=== PATIENT | female | born 1940 | race Caucasian/White ===

== ENCOUNTER 2017-11-18 11:39 | Inpatient (IN) | payer MEDICAID ==
--- NOTE | 2017-11-18 11:57 | ED Physician Chart ---
ED Chief Complaint/HPI - Patient Information Date Seen:: 11/18/17 Time Seen:: 11:40 Chief Complaint:: Fever History of Present Illness:: onset x 3 days of fever, cough, congestion; no report of H/As, S/T, neck pain, C /P, SOB, Abd. Pain, A/N/V/D/C, chills, or urinary s/s Allergies:: Allergies Allergy/AdvReac Type Severity Reaction Status Date / Time No Known Allergies Allergy Verified 11/18/17 11:49 Historian:: Patient, EMS Review:: Nurse's Note Reviewed, EMS run form Reviewed ED Past Medical History - Past Medical History Obtainable: Yes Past Medical History: HTN, DM, CVA/TIA, Dyslipidemia, Arthritis, Other ( Osteoporosis) Family History: Diabetes Melitus, HTN Social History: Non Smoker, No Alcohol, No Drug Use, Surgical History: Cholecystectomy, HIP Psychiatricy History: None Medication: Reviewed Family Medical History - Family Member Mother Ethnicity: Living Status: Hx Family Hypertension: Yes ED Physical Exam - Physical Examination General/Constitutional: Awake, Well-developed, well-nourished, Alert, No distress, GCS 15, Non-toxic appearing, Ambulatory Head: Atraumatic Eyes: Lids, conjuctiva normal, PERRL, EOMI Skin: Nl inspection, No rash, No skin lesions, No ecchymosis, Well hydrated, No lymphadenopathy ENMT: External ears, nose nl, TM canals nl, Nasal exam nl, Lips, teeth, gums nl , Oropharynx nl, Tonsils nl Neck: Nontender, Full ROM w/o pain, No JVD, No nuchal rigidity, No bruit, No mass, No stridor Respiratory: Nl effort/Exclusion Other Respiratory comments:: Lungs: + Rales and Rhonch Cardio Vascular: RRR, No murmur, gallop, rubs, NL S1 S2, Carotid/Femoral/Distal pulses equal bilaterally GI: No tenderness/rebounding/guarding, No organomegaly, No hernia, Normal BS's, Nondistended, No mass/bruits, No McBurney tenderness : No CVA tenderness Extremities: No tenderness or effusion, Full ROM, normal strength in all extremities, No edema, Normal digits & nails Neuro/Psych: Alert/oriented, DTR's symmetric, Normal sensory exam, Normal motor strength, Judgement/insight normal, Mood normal, Normal gait, No focal deficits Other Neuro/Psych comments:: + LUE and LLE decreased motor and sensory functions due to Old CVA Misc: Normal back, No paraspinal tenderness ED Labs/Radiology/EKG Results - Lab Results Comments:: BNP: 1510; Troponin: 0.11; Na+: 134; K+: 3.0 - Radiology Results Comments:: CXR: + RML Infiltrate; CHF; CM - EKG Interpretations EKG Time:: 14:07 Rate & Rhythm: 79; NSR Comments:: LVH; non-specific ST-T changes; mild ST-T Depression ED Septic Shock - . Is Septic Shock (SBP<90, OR Lactate>4 mmol\L) present?: No ED Reassessment (Disposition) - Reassessment Reassessment Condition:: Improved - Diagnosis Diagnosis:: Dx: Myocardial Ischemia; CHF; PNA; Sepsis; Hyponatremia; Leukocytosis; Hypokalemia; Hyperglycemia; Dehydration - Aftercare/Follow up Instructions Aftercare/Follow-Up Instructions:: Counseled pt regarding lab results/diagnosis & need follow up, Counseled pt & family regarding lab results/diagnosis & need follow up - Patient Disposition Discharge/Transfer:: Acute Care w/in this hosp Accepting Physician:: Dr. Cosby Time Called:: 1500 Time Responded:: 15:00 Admitted to:: Telemetry Spoke to:: Dr. Cosby Admitting Medical Physician:: Dr. Cosby Condition at Disposition:: Stable, Improved
[2017-11-18] MEDS ORDERED: Levofloxacin 500mg/100mL 500 MG/100 ML BAG IV ONE ×2 (12:10→12:33)
[2017-11-18 12:17] LABS: BASOPHILE ABSOLUTE 0.1 Th/cumm (0-0.2); HEMATOCRIT 35.4 % (41.0-60); HEMOGLOBIN 12.1 gm/dL (12-16); LYMPHOCYTE ABSOLUTE 0.7 Th/cmm (1.5-3.0); MEAN CELL VOLUME 85.4 fl (81-100); MEAN CORPUSCULAR HEMOGLOBIN 29.2 pg (27.0-31.0); MEAN CORPUSCULAR HGB CONC 34.2 pg (28.0-36.0); MEAN PLATELET VOLUME 9.1 fl; MONOCYTE ABSOLUTE 0.2 Th/cmm (0.3-1.0); NEUTROPHILE ABSOLUTE 10.9 Th/cmm (1.8-8.0); PLATELET COUNT 168 Th/cmm (150-400); RED BLOOD COUNT 4.15 Mil/cmm (3.80-5.20); RED CELL DISTRIBUTION WIDTH 13.3 % (11.5-20.0); WHITE BLOOD COUNT 11.9 Th/cmm (4.8-10.8)
[2017-11-18 12:32] LABS: INR 1.15 (0.5-1.4); PROTHROMBIN TIME (TEST) 12.1 SECONDS (9.5-11.5)
[2017-11-18 12:36] LABS: ALB/GLOB RATIO 1.2 (1.0-1.8); ALBUMIN 3.9 gm/dL (3.7-5.3); ALKALINE PHOSPHATASE 76 U/L (34-104); BILIRUBIN,TOTAL 0.6 mg/dL (0.3-1.0); BUN - UREA NITROGEN 32 mg/dL (7-25); CHLORIDE 99 mEq/L (98-107); CHOLESTEROL 236 mg/dL (<200); CREATININE - SERUM 1.9 mg/dL (0.6-1.2); CREATININE KINASE 30 U/L (30-223); GLUCOSE 199 mg/dL (70-105); HDL -HIGH DENSITY LIPOPROTEIN 50 mg/dL (23-92); SGOT 22 U/L (13-39); SGPT/ALT 12 U/L (7-52); SODIUM SERUM 134 mEq/L (136-145); TOTAL PROTEIN,SERUM 7.1 gm/dL (6.0-8.3); TRIGLYCERIDES 128 mg/dL (<150)
[2017-11-18 13:54] LABS: URINE MICROSCOPIC INDICATED? YES; URINE SOURCE MIDSTREAM
[2017-11-18 13:56] LABS: URINE BILIRUBIN NEGATIVE (NEGATIVE); URINE BLOOD TRACE (NEGATIVE); URINE GLUCOSE (UA) NEGATIVE (NEGATIVE); URINE KETONE 15 mg/dL (NEGATIVE); URINE LEUKOCYTE ESTERASE NEGATIVE (NEGATIVE); URINE NITRATE NEGATIVE (NEGATIVE); URINE PROTEIN >=300 mg/dL (NEGATIVE); URINE UROBILINOGEN 0.2 E.U./dL (0.2 - 1.0)
[2017-11-18 13:58] LABS: URINE CLARITY CLEAR (CLEAR); URINE COLOR YELLOW
[2017-11-18 14:00] LABS: URINE BACTERIA FEW /hpf (NONE SEEN); URINE EPITHELIAL CELLS FEW /lpf (FEW); URINE WBC 0-2 /hpf (0-5)
[2017-11-18] MEDS ORDERED: Potassium Chloride 20 mEq ER Tab PO ONE (14:45)
[2017-11-18] MEDS ORDERED: Potassium Chloride Elixir 20 mEq /15 mL UDC ONE (15:17)
[2017-11-18] MEDS ORDERED: Potassium Chloride Elixir 20 mEq /15 mL UDC PO ONE (15:18)
[2017-11-18 15:45] LABS: A1C % 7.4 % (4.0-6.0)
[2017-11-18] MEDS: cefTRIAXone 1 GM in Sodium Chloride 0.9% 50 ML IV SCH (17:26)
[2017-11-18] MEDS: Azithromycin 500 MG in Sodium Chloride 0.9% 250 ML IV SCH (18:31)
[2017-11-18] MEDS: D5-0.45NS w/20 mEq KCL 1,000 ML IV SCH (18:31)
[2017-11-18] MEDS ORDERED: Pneumococcal Vaccine 0.5 mL Vial IM ONE (19:26)
[2017-11-18] MEDS: Albuterol/Ipratropium Neb 3 ML AERS HHN SCH (19:40)
[2017-11-18 20:37] LABS: INF B SCREEN NEG FOR INF B
[2017-11-18 20:39] LABS: INF A SCREEN POS FOR INF A
--- NOTE | 2017-11-18 22:53 | History & Physical ---
ADMIT DATE: 11/18/2017 CHIEF COMPLAINT: Cough, shortness of breath for a few days' duration. HISTORY OF PRESENT ILLNESS: The patient is a 77-year-old female with long history of diabetes mellitus, hypertension, and chronic kidney disease; presented to the Emergency Room with cough, congestion for a few days' duration. She had workup significant for pneumonia, influenza A and B was ordered, came back positive. The patient started on Tamiflu. No nausea, no vomiting. PAST MEDICAL HISTORY: Significant for diabetes mellitus, hypertension, and chronic kidney disease. PAST SURGICAL HISTORY: No recent surgery. ALLERGIES: None. MEDICATIONS: Follow admission reconciliation. SOCIAL HISTORY: No smoking, no alcohol, no drug. FAMILY HISTORY: Noncontributory. REVIEW OF SYSTEMS: IMMUNOSYSTEM: No history of chronic renal disorder. CARDIOVASCULAR SYSTEM: No coronary artery disease. ENDOCRINE SYSTEM: She has diabetes mellitus. GASTROINTESTINAL SYSTEM: No upper or lower GI bleed. NEUROLOGICAL SYSTEM: No seizure disorder. SKELETOMUSCULAR SYSTEM: No muscular dystrophy. HEMATOLOGIC SYSTEM: No tendencies. RESPIRATORY SYSTEM: She has cough, congestion. PHYSICAL EXAMINATION: GENERAL: She is awake, alert, oriented, not in distress. VITAL SIGNS: Temperature 96.9, heart rate 67, and blood pressure 157/50. HEENT: Normocephalic. Pupils reactive and equal to light and accommodation. Sclerae clear. NECK: Supple. Negative for lymphadenopathy, JVD, or bruit. CHEST: Entry of air bilateral diminished. No wheeze, rales, or rhonchi. HEART: S1, S2 normal. ABDOMEN: Soft, bowel sounds positive. EXTREMITIES: No edema. NEUROLOGIC: She is awake, alert, oriented. LABORATORY DATA: White blood 7.9, hemoglobin 12.1, hematocrit 35.4, and platelet 168. PT 12.1, INR 1.50. Sodium 134, potassium 3.0, BUN 32, creatinine 0.9, and glucose 199. Troponin 0.11. BNP 1510. Influenza A is positive. ASSESSMENT: 1. Pneumonia. 2. Influenza A respiratory infection. 3. Diabetes mellitus. 4. Chronic kidney disease. PLAN: The patient was admitted to the hospital under Dr. Cosby's service, started on IV fluid, IV antibiotic. Tamiflu 75 mg twice a day, breathing treatment with DuoNeb every [address] Aren Day, infectious consult on the case. CBC and CMP for tomorrow. Tylenol 650 q. 4 hours for temperature more than 100. The patient is a full code. JOB# [id number]
[2017-11-19] MEDS: Albuterol/Ipratropium Neb 3 ML AERS HHN SCH ×4 (01:42→19:58)
[2017-11-19 05:01] LABS: % BASOPHILS 0.1 % (0.0-2.0); % LYMPHOCYTES 14.7 % (20.0-50.0); % MONOCYTES 4.1 % (2.0-10.0); % NEUTROPHILS 81.1 % (40.0-80.0); HEMATOCRIT 32.1 % (41.0-60); LYMPHOCYTE ABSOLUTE 1.5 Th/cmm (1.5-3.0); MEAN CELL VOLUME 86.1 fl (81-100); MEAN CORPUSCULAR HEMOGLOBIN 29.5 pg (27.0-31.0); MEAN CORPUSCULAR HGB CONC 34.3 pg (28.0-36.0); MEAN PLATELET VOLUME 9.3 fl; MONOCYTE ABSOLUTE 0.4 Th/cmm (0.3-1.0); NEUTROPHILE ABSOLUTE 8.6 Th/cmm (1.8-8.0); RED BLOOD COUNT 3.73 Mil/cmm (3.80-5.20); RED CELL DISTRIBUTION WIDTH 13.4 % (11.5-20.0); WHITE BLOOD COUNT 10.5 Th/cmm (4.8-10.8)
[2017-11-19 05:06] LABS: PLATELET COUNT 130 Th/cmm (150-400)
[2017-11-19 05:14] LABS: ALB/GLOB RATIO 1.2 (1.0-1.8); ALBUMIN 3.2 gm/dL (3.7-5.3); ALKALINE PHOSPHATASE 59 U/L (34-104); BILIRUBIN,TOTAL 0.3 mg/dL (0.3-1.0); BUN - UREA NITROGEN 39 mg/dL (7-25); CHLORIDE 104 mEq/L (98-107); CREATININE - SERUM 2.4 mg/dL (0.6-1.2); GLUCOSE 249 mg/dL (70-105); SGOT 19 U/L (13-39); SGPT/ALT 11 U/L (7-52); SODIUM SERUM 134 mEq/L (136-145); TOTAL PROTEIN,SERUM 5.9 gm/dL (6.0-8.3)
[2017-11-19] MEDS: INSULIN ASPART SLIDING SCALE 100 UNITS/ML UNIT SUBQ SCH ×4 (07:34→20:22)
[2017-11-19] MEDS: Aspirin 81mg Chewable Tab PO SCH (09:18)
--- NOTE | 2017-11-19 09:43 | Diagnostic Imaging Report ---
Portable chest x-ray HISTORY: Pain The heart appears to be somewhat enlarged. No focal pulmonary processes. Surgical clips project over the right upper chest. IMPRESSION: 1. No focal pulmonary processes 2. Somewhat generous overall heart size.
[2017-11-19] MEDS ORDERED: Probiotic Screen MC PRN (10:30)
[2017-11-19] MEDS: cefTRIAXone 1 GM in Sodium Chloride 0.9% 50 ML IV SCH (17:10)
[2017-11-19] MEDS: Azithromycin 500 MG in Sodium Chloride 0.9% 250 ML IV SCH (17:10)
--- NOTE | 2017-11-19 17:20 | Internal Medicine Prog Note ---
Internal Medicine Subjective - Subjective Service Date: 11/19/17 Patient seen and examined:: with staff (SHE FEELS BETTER) Patient is:: awake, in bed, congested Patient Complaints of:: congestion Per staff patient has:: no adverse event Internal Medicine Objective - Results Result Diagrams: 11/19/17 04:50 11/19/17 04:50 Recent Labs: Laboratory Last Values WBC 10.5 Th/cmm (4.8-10.8) 11/19/17 04:50 RBC 3.73 Mil/cmm (3.80-5.20) L 11/19/17 04:50 Hgb 11.0 gm/dL (12-16) L 11/19/17 04:50 Hct 32.1 % (41.0-60) L 11/19/17 04:50 MCV 86.1 fl (81-100) 11/19/17 04:50 MCH 29.5 pg (27.0-31.0) 11/19/17 04:50 MCHC Differential 34.3 pg (28.0-36.0) 11/19/17 04:50 RDW 13.4 % (11.5-20.0) 11/19/17 04:50 Plt Count 130 Th/cmm (150-400) L D 11/19/17 04:50 MPV 9.3 fl 11/19/17 04:50 Neutrophils % 81.1 % (40.0-80.0) H 11/19/17 04:50 Lymphocytes % 14.7 % (20.0-50.0) L 11/19/17 04:50 Monocytes % 4.1 % (2.0-10.0) 11/19/17 04:50 Eosinophils % 0.0 % (0.0-5.0) 11/19/17 04:50 Basophils % 0.1 % (0.0-2.0) 11/19/17 04:50 PT 12.1 SECONDS (9.5-11.5) H 11/18/17 12:04 INR 1.15 (0.5-1.4) 11/18/17 12:04 PTT (Actin FS) 26.7 SECONDS (26.0-38.0) 11/18/17 12:04 Sodium 134 mEq/L (136-145) L 11/19/17 04:50 Potassium 4.0 mEq/L (3.5-5.1) 11/19/17 04:50 Chloride 104 mEq/L (98-107) 11/19/17 04:50 Carbon Dioxide 22.0 mEq/L (21.0-31.0) 11/19/17 04:50 Anion Gap 12.0 (7.0-16.0) 11/19/17 04:50 BUN 39 mg/dL (7-25) H 11/19/17 04:50 Creatinine 2.4 mg/dL (0.6-1.2) H 11/19/17 04:50 Est GFR ( Amer) TNP 11/19/17 04:50 Est GFR (Non-Af Amer) TNP 11/19/17 04:50 BUN/Creatinine Ratio 16.3 11/19/17 04:50 Glucose 249 mg/dL (70-105) H 11/19/17 04:50 POC Glucose 228 MG/DL (70 - 105) H 11/19/17 11:50 Hemoglobin A1c % 7.4 % (4.0-6.0) H 11/18/17 12:04 Whole Bld Lactic Acid 1.04 mmol/L (0.60-1.99) 11/18/17 12:04 Calcium 8.0 mg/dL (8.6-10.3) L 11/19/17 04:50 Total Bilirubin 0.3 mg/dL (0.3-1.0) 11/19/17 04:50 AST 19 U/L (13-39) 11/19/17 04:50 ALT 11 U/L (7-52) 11/19/17 04:50 Alkaline Phosphatase 59 U/L (34-104) 11/19/17 04:50 Creatine Kinase 30 U/L (30-223) 11/18/17 12:04 Troponin I 0.15 ng/mL (0.01-0.05) H* D 11/18/17 23:10 B-Natriuretic Peptide 1510.0 pg/mL (5.0-100.0) H 11/18/17 12:04 Total Protein 5.9 gm/dL (6.0-8.3) L 11/19/17 04:50 Albumin 3.2 gm/dL (3.7-5.3) L 11/19/17 04:50 Globulin 2.7 gm/dL 11/19/17 04:50 Albumin/Globulin Ratio 1.2 (1.0-1.8) 11/19/17 04:50 Triglycerides 128 mg/dL (<150) 11/18/17 12:04 Cholesterol 236 mg/dL (<200) H 11/18/17 12:04 LDL Cholesterol Direct 160 mg/dL (75-193) 11/18/17 12:04 HDL Cholesterol 50 mg/dL (23-92) 11/18/17 12:04 Urine Source MIDSTREAM 11/18/17 13:40 Urine Color YELLOW 11/18/17 13:40 Urine Clarity CLEAR (CLEAR) 11/18/17 13:40 Urine pH 7.0 (4.6 - 8.0) 11/18/17 13:40 Ur Specific [place] 1.020 (1.005-1.030) 11/18/17 13:40 Urine Protein >=300 mg/dL (NEGATIVE) 11/18/17 13:40 Urine Glucose (UA) NEGATIVE mg/dL (NEGATIVE) 11/18/17 13:40 Urine Ketones 15 mg/dL (NEGATIVE) H 11/18/17 13:40 Urine Blood TRACE (NEGATIVE) 11/18/17 13:40 Urine Nitrate NEGATIVE (NEGATIVE) 11/18/17 13:40 Urine Bilirubin NEGATIVE (NEGATIVE) 11/18/17 13:40 Urine Urobilinogen 0.2 E.U./dL (0.2 - 1.0) 11/18/17 13:40 Ur Leukocyte Esterase NEGATIVE (NEGATIVE) 11/18/17 13:40 Urine RBC 2-5 /hpf (0-5) 11/18/17 13:40 Urine WBC 0-2 /hpf (0-5) 11/18/17 13:40 Ur Epithelial Cells FEW /lpf (FEW) 11/18/17 13:40 Urine Bacteria FEW /hpf (NONE SEEN) 11/18/17 13:40 Urine Mucus FEW /lpf (FEW) 11/18/17 13:40 Influenza A (Rapid) POS FOR INF A H 11/18/17 19:00 Influenza B (Rapid) NEG FOR INF B 11/18/17 19:00 - Physical Exam Vitals and I&O: Vital Signs Temp 98.4 F 11/19/17 08:00 Pulse 72 11/19/17 12:09 Resp 16 11/19/17 12:09 BP 157/46 11/19/17 09:16 Pulse Ox 96 11/19/17 12:09 Intake & Output 11/18/17 11/19/17 11/19/17 18:59 06:59 18:59 Intake Total 120 200 120 Output Total 0 0 Balance 120 200 120 Weight (lbs) 44.452 kg 44.452 kg 44.452 kg Intake: Oral 120 200 120 Tube Feeding 0 TPN/PPN 0 Blood Product 0 Lipid 0 Albumin 0 Other 0 Output: Gastric Drainage 0 Urine 0 0 Stool 0 Urine/Stool Mix 0 Emesis 0 Hemodialysis 0 Other 0 Other: # Voids 1 1 # Bowel Movements 0 Active Medications: Current Medications Acetaminophen (Tylenol) 650 mg PO Q4H PRN PRN Reason: Fever > 100 Stop: 01/17/18 16:03 Albuterol/Ipratropium (Duoneb Neb) 3 ml HHN Q6HRT [facility] Stop: 01/17/18 16:03 Last Admin: 11/19/17 12:07 Dose: 3 ml Amlodipine Besylate (Norvasc) 5 mg PO DAILY [facility] Stop: 01/18/18 08:59 Last Admin: 11/19/17 09:16 Dose: 5 mg Aspirin (Aspirin Chewable) 81 mg PO DAILY [facility] Stop: 01/18/18 08:59 Last Admin: 11/19/17 09:18 Dose: 81 mg Azithromycin 500 mg/ Sodium (Chloride) 250 mls @ 250 mls/hr IV Q24HR [facility] Stop: 01/17/18 16:03 Last Admin: 11/18/17 18:31 Dose: 250 mls/hr Ceftriaxone Sodium 1 gm/ (Sodium Chloride) 50 mls @ 100 mls/hr IV Q24HR [facility] Stop: 01/17/18 16:03 Last Admin: 11/18/17 17:26 Dose: 100 mls/hr Potassium Chloride/Dextrose/Sod Cl (D5-0.45ns W/20 Meq Kcl) 1,000 mls @ 75 mls/ hr IV .[id number] [facility] Stop: 01/17/18 16:03 Last Admin: 11/18/17 18:31 Dose: 75 mls/hr Insulin Aspart (Novolog Insulin Sliding Scale) 0 units SUBQ ACHS [facility] PRN Reason: Protocol Stop: 01/18/18 07:29 Last Admin: 11/19/17 16:51 Dose: Not Given Lactobacillus Rhamnosus (Culturelle 15b) 1 each PO DAILY [facility] Stop: 01/19/18 08:59 Metformin HCl (Glucophage) 500 mg PO DAILY [facility] Stop: 01/18/18 08:59 Last Admin: 11/19/17 09:18 Dose: 500 mg Miscellaneous (Probiotic Screen) 1 ea [facility] PRN PRN PRN Reason: PROTOCOL Stop: 01/18/18 10:29 Oseltamivir Phosphate (Tamiflu) 75 mg PO BID [facility] Stop: 01/17/18 22:14 Last Admin: 11/19/17 09:37 Dose: Not Given General: congested HEENT: NC/AT, PERRLA, EOMI, anicteric sclerae, throat clear Neck: Supple, No JVD, No thyromegaly Lungs: congested Cardiovascular: RRR, Normal S1, Normal S2, without murmur Abdomen: soft, non-tender, non-distended Extremities: clear Neurological: no change Internal Medicine Assmt/Plan - Assessment Assessment: 1.PNEUMONIA. 2.INFLUANZA A RESPIRATORY INFECTION. 3.DM. 4.CKD. - Plan Plan: CONTINUE ON CURRENT MEDICATION AND DIET.
[2017-11-19] MEDS: D5-0.45NS w/20 mEq KCL 1,000 ML IV SCH (21:08)
[2017-11-20] MEDS: Albuterol/Ipratropium Neb 3 ML AERS HHN SCH ×4 (01:24→18:55)
[2017-11-20] MEDS ORDERED: Albuterol/Ipratropium Neb 3 ML AERS HHN ONE (06:31)
[2017-11-20] MEDS: INSULIN ASPART SLIDING SCALE 100 UNITS/ML UNIT SUBQ SCH ×4 (06:32→22:04)
[2017-11-20] MEDS: Lactobacillus Rhamnosus GG 15 Billion CFU CAP.SPRINK PO SCH (09:21)
[2017-11-20] MEDS: Aspirin 81mg Chewable Tab PO SCH (09:21)
[2017-11-20] MEDS: D5-0.45NS w/20 mEq KCL 1,000 ML IV SCH ×2 (09:35→22:04)
--- NOTE | 2017-11-20 13:45 | Consultation ---
DATE OF CONSULTATION: 11/18/2017 HISTORY OF PRESENT ILLNESS: This is a 77-year-old female who was brought to the Emergency Room with complaint of cough, congestion, fever, sore throat, muscle aches. The patient's influenza swab was positive for influenza A, was put on isolation. Infectious consultation was called for further treatment. PAST MEDICAL HISTORY: Osteoporosis, CVA, type 2 diabetes, and essential hypertension. ALLERGIES: No allergies. SOCIAL HISTORY: Nonsmoker. REVIEW OF SYSTEMS: A 14-point review of system negative except above. PHYSICAL EXAMINATION: GENERAL: The patient is an elderly female. VITAL SIGNS: Temperature is 96.5, pulse 75, respirations 18, and blood pressure 157/50. HEENT: Mild pallor. No icterus or plaque. NECK: Supple. LUNGS: Breath sounds bilateral. CARDIOVASCULAR: S1. ABDOMEN: Soft. Bowel sounds present. LYMPHATICS: No thyromegaly, no cervical lymph nodes. DIAGNOSTIC DATA: Chest x-ray is reviewed and shows clear lung sanchez. Influenza A serology positive. DIAGNOSES: Bronchitis, the patient started on Rocephin, azithromycin, Tamiflu combination, isolation. Diabetes, metformin. Hypertension, stable. Coronary protection, aspirin. Rest of the care as ordered in CPOE. Thank you, Dr. Cosby, for this consultation. JOB# [id number]
[2017-11-20] MEDS: cefTRIAXone 1 GM in Sodium Chloride 0.9% 50 ML IV SCH (15:10)
[2017-11-20] MEDS: Azithromycin 500 MG in Sodium Chloride 0.9% 250 ML IV SCH (15:44)
--- NOTE | 2017-11-20 19:44 | Infectious Disease Prog Note ---
Infectious Disease Subjective - Review of Systems Service Date: 12/20/17 Subjective: cc infl a hpi- pt on droplet ros no fevr o/e vss chets vesicular abd soft ext pulse Infectious Disease Objective - Results Result Diagrams: 11/19/17 04:50 11/19/17 04:50 Recent Labs: Laboratory Last Values WBC 10.5 Th/cmm (4.8-10.8) 11/19/17 04:50 RBC 3.73 Mil/cmm (3.80-5.20) L 11/19/17 04:50 Hgb 11.0 gm/dL (12-16) L 11/19/17 04:50 Hct 32.1 % (41.0-60) L 11/19/17 04:50 MCV 86.1 fl (81-100) 11/19/17 04:50 MCH 29.5 pg (27.0-31.0) 11/19/17 04:50 MCHC Differential 34.3 pg (28.0-36.0) 11/19/17 04:50 RDW 13.4 % (11.5-20.0) 11/19/17 04:50 Plt Count 130 Th/cmm (150-400) L D 11/19/17 04:50 MPV 9.3 fl 11/19/17 04:50 Neutrophils % 81.1 % (40.0-80.0) H 11/19/17 04:50 Lymphocytes % 14.7 % (20.0-50.0) L 11/19/17 04:50 Monocytes % 4.1 % (2.0-10.0) 11/19/17 04:50 Eosinophils % 0.0 % (0.0-5.0) 11/19/17 04:50 Basophils % 0.1 % (0.0-2.0) 11/19/17 04:50 PT 12.1 SECONDS (9.5-11.5) H 11/18/17 12:04 INR 1.15 (0.5-1.4) 11/18/17 12:04 PTT (Actin FS) 26.7 SECONDS (26.0-38.0) 11/18/17 12:04 Sodium 134 mEq/L (136-145) L 11/19/17 04:50 Potassium 4.0 mEq/L (3.5-5.1) 11/19/17 04:50 Chloride 104 mEq/L (98-107) 11/19/17 04:50 Carbon Dioxide 22.0 mEq/L (21.0-31.0) 11/19/17 04:50 Anion Gap 12.0 (7.0-16.0) 11/19/17 04:50 BUN 39 mg/dL (7-25) H 11/19/17 04:50 Creatinine 2.4 mg/dL (0.6-1.2) H 11/19/17 04:50 Est GFR ( Amer) TNP 11/19/17 04:50 Est GFR (Non-Af Amer) TNP 11/19/17 04:50 BUN/Creatinine Ratio 16.3 11/19/17 04:50 Glucose 249 mg/dL (70-105) H 11/19/17 04:50 POC Glucose 162 MG/DL (70 - 105) H 11/20/17 16:49 Hemoglobin A1c % 7.4 % (4.0-6.0) H 11/18/17 12:04 Whole Bld Lactic Acid 1.04 mmol/L (0.60-1.99) 11/18/17 12:04 Calcium 8.0 mg/dL (8.6-10.3) L 11/19/17 04:50 Total Bilirubin 0.3 mg/dL (0.3-1.0) 11/19/17 04:50 AST 19 U/L (13-39) 11/19/17 04:50 ALT 11 U/L (7-52) 11/19/17 04:50 Alkaline Phosphatase 59 U/L (34-104) 11/19/17 04:50 Creatine Kinase 30 U/L (30-223) 11/18/17 12:04 Troponin I 0.15 ng/mL (0.01-0.05) H* D 11/18/17 23:10 B-Natriuretic Peptide 1510.0 pg/mL (5.0-100.0) H 11/18/17 12:04 Total Protein 5.9 gm/dL (6.0-8.3) L 11/19/17 04:50 Albumin 3.2 gm/dL (3.7-5.3) L 11/19/17 04:50 Globulin 2.7 gm/dL 11/19/17 04:50 Albumin/Globulin Ratio 1.2 (1.0-1.8) 11/19/17 04:50 Triglycerides 128 mg/dL (<150) 11/18/17 12:04 Cholesterol 236 mg/dL (<200) H 11/18/17 12:04 LDL Cholesterol Direct 160 mg/dL (75-193) 11/18/17 12:04 HDL Cholesterol 50 mg/dL (23-92) 11/18/17 12:04 Urine Source MIDSTREAM 11/18/17 13:40 Urine Color YELLOW 11/18/17 13:40 Urine Clarity CLEAR (CLEAR) 11/18/17 13:40 Urine pH 7.0 (4.6 - 8.0) 11/18/17 13:40 Ur Specific [place] 1.020 (1.005-1.030) 11/18/17 13:40 Urine Protein >=300 mg/dL (NEGATIVE) 11/18/17 13:40 Urine Glucose (UA) NEGATIVE mg/dL (NEGATIVE) 11/18/17 13:40 Urine Ketones 15 mg/dL (NEGATIVE) H 11/18/17 13:40 Urine Blood TRACE (NEGATIVE) 11/18/17 13:40 Urine Nitrate NEGATIVE (NEGATIVE) 11/18/17 13:40 Urine Bilirubin NEGATIVE (NEGATIVE) 11/18/17 13:40 Urine Urobilinogen 0.2 E.U./dL (0.2 - 1.0) 11/18/17 13:40 Ur Leukocyte Esterase NEGATIVE (NEGATIVE) 11/18/17 13:40 Urine RBC 2-5 /hpf (0-5) 11/18/17 13:40 Urine WBC 0-2 /hpf (0-5) 11/18/17 13:40 Ur Epithelial Cells FEW /lpf (FEW) 11/18/17 13:40 Urine Bacteria FEW /hpf (NONE SEEN) 11/18/17 13:40 Urine Mucus FEW /lpf (FEW) 11/18/17 13:40 Influenza A (Rapid) POS FOR INF A H 11/18/17 19:00 Influenza B (Rapid) NEG FOR INF B 11/18/17 19:00 - Physical Exam Vitals and I&O: Vital Signs Temp 97.5 F 11/20/17 16:00 Pulse 76 11/20/17 16:00 Resp 18 11/20/17 16:00 BP 113/54 11/20/17 16:00 Pulse Ox 95 11/20/17 16:00 Intake & Output 11/20/17 11/20/17 11/21/17 06:59 18:59 06:59 Intake Total 1233.75 Balance 1233.75 Weight (lbs) 52.798 kg Intake: Intake, IV Amount 1233.75 Azithromycin 500 mg In 250 Sodium Chloride 0.9% 250 ml @ 250 mls/hr IV Q24HR [facility] Rx#:[id number] D5-0.45NS w/20 mEq KCL 1, 933.75 000 ml @ 75 mls/hr IV . [id number] [facility] Rx#:[id number] cefTRIAXone 1 gm In 50 Sodium Chloride 0.9% 50 ml @ 100 mls/hr IV Q24HR [facility] Rx#:[id number] Other: # Voids 2 Active Medications: Current Medications Acetaminophen (Tylenol) 650 mg PO Q4H PRN PRN Reason: Fever > 100 Stop: 01/17/18 16:03 Albuterol Sulfate (Albuterol 2.5mg/3ml Neb Ud) 2.5 mg HHN Q6HRT [facility] Stop: 11/22/17 06:59 Albuterol/Ipratropium (Duoneb Neb) 3 ml HHN Q6HRT [facility] Stop: 01/17/18 16:03 Last Admin: 11/20/17 18:55 Dose: 3 ml Amlodipine Besylate (Norvasc) 5 mg PO DAILY [facility] Stop: 01/18/18 08:59 Last Admin: 11/20/17 09:21 Dose: 5 mg Aspirin (Aspirin Chewable) 81 mg PO DAILY [facility] Stop: 01/18/18 08:59 Last Admin: 11/20/17 09:21 Dose: 81 mg Azithromycin 500 mg/ Sodium (Chloride) 250 mls @ 250 mls/hr IV Q24HR [facility] Stop: 01/17/18 16:03 Last Infusion: 11/20/17 16:45 Dose: Infused Ceftriaxone Sodium 1 gm/ (Sodium Chloride) 50 mls @ 100 mls/hr IV Q24HR [facility] Stop: 01/17/18 16:03 Last Infusion: 11/20/17 15:42 Dose: Infused Potassium Chloride/Dextrose/Sod Cl (D5-0.45ns W/20 Meq Kcl) 1,000 mls @ 75 mls/ hr IV .[id number] [facility] Stop: 01/17/18 16:03 Last Admin: 11/20/17 09:35 Dose: 75 mls/hr Insulin Aspart (Novolog Insulin Sliding Scale) 0 units SUBQ ACHS [facility] PRN Reason: Protocol Stop: 01/18/18 07:29 Last Admin: 11/20/17 18:01 Dose: 3 units Ipratropium [place] (Atrovent Neb 0.5mg/2.5ml) 0.5 mg HHN Q6HRT [facility] Stop: 11/22/17 06:59 Lactobacillus Rhamnosus (Culturelle 15b) 1 each PO DAILY [facility] Stop: 01/19/18 08:59 Last Admin: 11/20/17 09:21 Dose: 1 each Metformin HCl (Glucophage) 500 mg PO DAILY [facility] Stop: 01/18/18 08:59 Last Admin: 11/20/17 09:21 Dose: 500 mg Miscellaneous (Probiotic Screen) 1 ea [facility] PRN PRN PRN Reason: PROTOCOL Stop: 01/18/18 10:29 Oseltamivir Phosphate (Tamiflu) 75 mg PO BID [facility] Stop: 01/17/18 22:14 Last Admin: 11/20/17 17:28 Dose: Not Given Infectious Disease Assmt/Plan - Problem List Patient Problems: All Active Problems COUGH WITH FEVER AND WEAKNESS (Acute) Nutritional Asmnt/Malnutr-PDOC - Dietary Evaluation Malnutrition Findings (Please click <Entered> for more info): Nutritional Asmnt/Malnutrition Start: 11/20/17 12: 22 Text: Status: Complete Freq: Document 11/20/17 12:22 LCHENG (Rec: 11/20/17 12:40 LCHENG [id number]) Nutritional Asmnt/Malnutrition Patient General Information Nutritional Screening High Risk Consult Diagnosis PNA Pertinent Medical Hx/Surgical Hx DM, HTN, CKD Subjective Information Consult received for high BG. Pt seen lying in bed at the time of visit, family at bedside. Armenian speaking. Spoke with RN, pt eats ok, no complain of chewing/swallowing difficulty. Per notes, PO itnake 25-75%, avg 40%, meeting about 50% of calorie needs and 60% of protein needs . Current Diet Order/ Nutrition Support CCHO 60gm Pertinent Medications novolog, culturelle, glucophage, D5-0.45ns w 20 meq kcl Pertinent Labs 11/19 Na 134, K 4.0, Cl 104, BUN 39, Cr 2.4, Glucose 249, Ca 8.0, Alb 3.2 11/19-11/20 POC 166-254 Nutritional Hx/Data Height 1.47 m Height (Calculated Centimeters) 147.3 Current Weight (lbs) 52.798 kg Weight (Calculated Kilograms) 52.8 Weight (Calculated Grams) 74014.2 Roy Body Weight 96 % Roy Body Weight 121 Body Mass Index (BMI) 24.3 Weight Status Approriate GI Symptoms GI Symptoms None Last BM none Difficult in: None Skin Integrity/Comment: intact Estimated Nutritional Goals BEE in Kcals: Using Current wt Calories/Kcals/Kg 25-30 Kcals Calculated 2903-5588 Protein: Using Current wt Protein g/k Protein Calculated 53g moniror renal labs Fluid: ml [id number] Nutritional Problem 2. Problem Problem inadequate food intake Etiology possible poor appetite and weakness Signs/Symptoms: PO intake 40% 1. Problem Problem altered nutrition related lab values Etiology hx of DM and CKD Signs/Symptoms: BUN 39, Cr 2.4, Glucose 249, POC 166-254 Malnutrition Alert Protein-Calorie Malnutrition N/A Is there a minimum of two criteria No selected? Query Text:Check all the applicable criteria. A minimum of two criteria are recommended for diagnosis of either severe or non-severe malnutrition. Intervention/Recommendation Comments 1. Continue current diet as ordered. Monitor renal labs d/ t CKD 2. Monitor PO intake, wt, labs and skin integrity. If PO intake continue low, will consider nutrition supplements 3. F/U as high risk in 2-3 days, 3-11/23 Expected Outcomes/Goals Expected Outcomes/Goals 1. PO intake to improve, to meet at least 75% of nutritional needs. 2. Wt stability, skin to remain intact, labs to improve .
--- NOTE | 2017-11-20 23:31 | Internal Medicine Prog Note ---
Internal Medicine Subjective - Subjective Service Date: 11/20/17 Patient seen and examined:: with staff (SHE FEELS BETTER,LESS SOB.) Patient is:: awake, in bed, congested Patient Complaints of:: congestion Per staff patient has:: no adverse event Internal Medicine Objective - Results Result Diagrams: 11/19/17 04:50 11/19/17 04:50 Recent Labs: Laboratory Last Values WBC 10.5 Th/cmm (4.8-10.8) 11/19/17 04:50 RBC 3.73 Mil/cmm (3.80-5.20) L 11/19/17 04:50 Hgb 11.0 gm/dL (12-16) L 11/19/17 04:50 Hct 32.1 % (41.0-60) L 11/19/17 04:50 MCV 86.1 fl (81-100) 11/19/17 04:50 MCH 29.5 pg (27.0-31.0) 11/19/17 04:50 MCHC Differential 34.3 pg (28.0-36.0) 11/19/17 04:50 RDW 13.4 % (11.5-20.0) 11/19/17 04:50 Plt Count 130 Th/cmm (150-400) L D 11/19/17 04:50 MPV 9.3 fl 11/19/17 04:50 Neutrophils % 81.1 % (40.0-80.0) H 11/19/17 04:50 Lymphocytes % 14.7 % (20.0-50.0) L 11/19/17 04:50 Monocytes % 4.1 % (2.0-10.0) 11/19/17 04:50 Eosinophils % 0.0 % (0.0-5.0) 11/19/17 04:50 Basophils % 0.1 % (0.0-2.0) 11/19/17 04:50 PT 12.1 SECONDS (9.5-11.5) H 11/18/17 12:04 INR 1.15 (0.5-1.4) 11/18/17 12:04 PTT (Actin FS) 26.7 SECONDS (26.0-38.0) 11/18/17 12:04 Sodium 134 mEq/L (136-145) L 11/19/17 04:50 Potassium 4.0 mEq/L (3.5-5.1) 11/19/17 04:50 Chloride 104 mEq/L (98-107) 11/19/17 04:50 Carbon Dioxide 22.0 mEq/L (21.0-31.0) 11/19/17 04:50 Anion Gap 12.0 (7.0-16.0) 11/19/17 04:50 BUN 39 mg/dL (7-25) H 11/19/17 04:50 Creatinine 2.4 mg/dL (0.6-1.2) H 11/19/17 04:50 Est GFR ( Amer) TNP 11/19/17 04:50 Est GFR (Non-Af Amer) TNP 11/19/17 04:50 BUN/Creatinine Ratio 16.3 11/19/17 04:50 Glucose 249 mg/dL (70-105) H 11/19/17 04:50 POC Glucose 153 MG/DL (70 - 105) H 11/20/17 20:36 Hemoglobin A1c % 7.4 % (4.0-6.0) H 11/18/17 12:04 Whole Bld Lactic Acid 1.04 mmol/L (0.60-1.99) 11/18/17 12:04 Calcium 8.0 mg/dL (8.6-10.3) L 11/19/17 04:50 Total Bilirubin 0.3 mg/dL (0.3-1.0) 11/19/17 04:50 AST 19 U/L (13-39) 11/19/17 04:50 ALT 11 U/L (7-52) 11/19/17 04:50 Alkaline Phosphatase 59 U/L (34-104) 11/19/17 04:50 Creatine Kinase 30 U/L (30-223) 11/18/17 12:04 Troponin I 0.15 ng/mL (0.01-0.05) H* D 11/18/17 23:10 B-Natriuretic Peptide 1510.0 pg/mL (5.0-100.0) H 11/18/17 12:04 Total Protein 5.9 gm/dL (6.0-8.3) L 11/19/17 04:50 Albumin 3.2 gm/dL (3.7-5.3) L 11/19/17 04:50 Globulin 2.7 gm/dL 11/19/17 04:50 Albumin/Globulin Ratio 1.2 (1.0-1.8) 11/19/17 04:50 Triglycerides 128 mg/dL (<150) 11/18/17 12:04 Cholesterol 236 mg/dL (<200) H 11/18/17 12:04 LDL Cholesterol Direct 160 mg/dL (75-193) 11/18/17 12:04 HDL Cholesterol 50 mg/dL (23-92) 11/18/17 12:04 Urine Source MIDSTREAM 11/18/17 13:40 Urine Color YELLOW 11/18/17 13:40 Urine Clarity CLEAR (CLEAR) 11/18/17 13:40 Urine pH 7.0 (4.6 - 8.0) 11/18/17 13:40 Ur Specific [place] 1.020 (1.005-1.030) 11/18/17 13:40 Urine Protein >=300 mg/dL (NEGATIVE) 11/18/17 13:40 Urine Glucose (UA) NEGATIVE mg/dL (NEGATIVE) 11/18/17 13:40 Urine Ketones 15 mg/dL (NEGATIVE) H 11/18/17 13:40 Urine Blood TRACE (NEGATIVE) 11/18/17 13:40 Urine Nitrate NEGATIVE (NEGATIVE) 11/18/17 13:40 Urine Bilirubin NEGATIVE (NEGATIVE) 11/18/17 13:40 Urine Urobilinogen 0.2 E.U./dL (0.2 - 1.0) 11/18/17 13:40 Ur Leukocyte Esterase NEGATIVE (NEGATIVE) 11/18/17 13:40 Urine RBC 2-5 /hpf (0-5) 11/18/17 13:40 Urine WBC 0-2 /hpf (0-5) 11/18/17 13:40 Ur Epithelial Cells FEW /lpf (FEW) 11/18/17 13:40 Urine Bacteria FEW /hpf (NONE SEEN) 11/18/17 13:40 Urine Mucus FEW /lpf (FEW) 11/18/17 13:40 Influenza A (Rapid) POS FOR INF A H 11/18/17 19:00 Influenza B (Rapid) NEG FOR INF B 11/18/17 19:00 - Physical Exam Vitals and I&O: Vital Signs Temp 97.5 F 11/20/17 16:00 Pulse 67 11/20/17 18:55 Resp 20 11/20/17 18:55 BP 113/54 11/20/17 16:00 Pulse Ox 98 11/20/17 18:55 Intake & Output 11/20/17 11/20/17 11/21/17 06:59 18:59 06:59 Intake Total 1233.75 936.25 Balance 1233.75 936.25 Weight (lbs) 52.798 kg Intake: Intake, IV Amount 1233.75 936.25 Azithromycin 500 mg In 250 Sodium Chloride 0.9% 250 ml @ 250 mls/hr IV Q24HR [facility] Rx#:[id number] D5-0.45NS w/20 mEq KCL 1, 933.75 936.25 000 ml @ 75 mls/hr IV . [id number] [facility] Rx#:[id number] cefTRIAXone 1 gm In 50 Sodium Chloride 0.9% 50 ml @ 100 mls/hr IV Q24HR [facility] Rx#:[id number] Other: # Voids 2 Active Medications: Current Medications Acetaminophen (Tylenol) 650 mg PO Q4H PRN PRN Reason: Fever > 100 Stop: 01/17/18 16:03 Albuterol Sulfate (Albuterol 2.5mg/3ml Neb Ud) 2.5 mg HHN Q6HRT [facility] Stop: 11/22/17 06:59 Albuterol/Ipratropium (Duoneb Neb) 3 ml HHN Q6HRT [facility] Stop: 01/17/18 16:03 Last Admin: 11/20/17 18:55 Dose: 3 ml Amlodipine Besylate (Norvasc) 5 mg PO DAILY [facility] Stop: 01/18/18 08:59 Last Admin: 11/20/17 09:21 Dose: 5 mg Aspirin (Aspirin Chewable) 81 mg PO DAILY [facility] Stop: 01/18/18 08:59 Last Admin: 11/20/17 09:21 Dose: 81 mg Azithromycin 500 mg/ Sodium (Chloride) 250 mls @ 250 mls/hr IV Q24HR [facility] Stop: 01/17/18 16:03 Last Infusion: 11/20/17 16:45 Dose: Infused Ceftriaxone Sodium 1 gm/ (Sodium Chloride) 50 mls @ 100 mls/hr IV Q24HR [facility] Stop: 01/17/18 16:03 Last Infusion: 11/20/17 15:42 Dose: Infused Potassium Chloride/Dextrose/Sod Cl (D5-0.45ns W/20 Meq Kcl) 1,000 mls @ 75 mls/ hr IV .[id number] [facility] Stop: 01/17/18 16:03 Last Admin: 11/20/17 22:04 Dose: 75 mls/hr Insulin Aspart (Novolog Insulin Sliding Scale) 0 units SUBQ ACHS [facility] PRN Reason: Protocol Stop: 01/18/18 07:29 Last Admin: 11/20/17 22:04 Dose: 3 units Ipratropium [place] (Atrovent Neb 0.5mg/2.5ml) 0.5 mg HHN Q6HRT [facility] Stop: 11/22/17 06:59 Lactobacillus Rhamnosus (Culturelle 15b) 1 each PO DAILY [facility] Stop: 01/19/18 08:59 Last Admin: 11/20/17 09:21 Dose: 1 each Metformin HCl (Glucophage) 500 mg PO DAILY [facility] Stop: 01/18/18 08:59 Last Admin: 11/20/17 09:21 Dose: 500 mg Miscellaneous (Probiotic Screen) 1 ea MC PRN PRN PRN Reason: PROTOCOL Stop: 01/18/18 10:29 Oseltamivir Phosphate (Tamiflu) 75 mg PO BID [facility] Stop: 01/17/18 22:14 Last Admin: 11/20/17 17:28 Dose: Not Given General: congested HEENT: NC/AT, PERRLA, EOMI, anicteric sclerae, throat clear Neck: Supple, No JVD, No thyromegaly Lungs: congested Cardiovascular: RRR, Normal S1, Normal S2, without murmur Abdomen: soft, non-tender, non-distended Extremities: clear Neurological: no change Internal Medicine Assmt/Plan - Assessment Assessment: 1.PNEUMONIA. 2.INFLUANZA A RESPIRATORY INFECTION. 3.DM. 4.CKD. - Plan Plan: CONTINUE ON CURRENT MEDICATION AND DIET. Nutritional Asmnt/Malnutr-PDOC - Dietary Evaluation Malnutrition Findings (Please click <Entered> for more info): Nutritional Asmnt/Malnutrition Start: 11/20/17 12: 22 Text: Status: Complete Freq: Document 11/20/17 12:22 GINETTE (Rec: 11/20/17 12:40 [facility] [id number]) Nutritional Asmnt/Malnutrition Patient General Information Nutritional Screening High Risk Consult Diagnosis PNA Pertinent Medical Hx/Surgical Hx DM, HTN, CKD Subjective Information Consult received for high BG. Pt seen lying in bed at the time of visit, family at bedside. [place] speaking. Spoke with RN, pt eats ok, no complain of chewing/swallowing difficulty. Per notes, PO itnake 25-75%, avg 40%, meeting about 50% of calorie needs and 60% of protein needs . Current Diet Order/ Nutrition Support CCHO 60gm Pertinent Medications novolog, culturelle, glucophage, D5-0.45ns w 20 meq kcl Pertinent Labs 11/19 Na 134, K 4.0, Cl 104, BUN 39, Cr 2.4, Glucose 249, Ca 8.0, Alb 3.2 11/19-11/20 POC 166-254 Nutritional Hx/Data Height 1.47 m Height (Calculated Centimeters) 147.3 Current Weight (lbs) 52.798 kg Weight (Calculated Kilograms) 52.8 Weight (Calculated Grams) 32436.2 [place] Body Weight 96 % [place] Body Weight 121 Body Mass Index (BMI) 24.3 Weight Status Approriate GI Symptoms GI Symptoms None Last BM none Difficult in: None Skin Integrity/Comment: intact Estimated Nutritional Goals BEE in Kcals: Using Current wt Calories/Kcals/Kg 25-30 Kcals Calculated 3498-0227 Protein: Using Current wt Protein g/k Protein Calculated 53g moniror renal labs Fluid: ml 9734-7542 Nutritional Problem 2. Problem Problem inadequate food intake Etiology possible poor appetite and weakness Signs/Symptoms: PO intake 40% 1. Problem Problem altered nutrition related lab values Etiology hx of DM and CKD Signs/Symptoms: BUN 39, Cr 2.4, Glucose 249, POC 166-254 Malnutrition Alert Protein-Calorie Malnutrition N/A Is there a minimum of two criteria No selected? Query Text:Check all the applicable criteria. A minimum of two criteria are recommended for diagnosis of either severe or non-severe malnutrition. Intervention/Recommendation Comments 1. Continue current diet as ordered. Monitor renal labs d/ t CKD 2. Monitor PO intake, wt, labs and skin integrity. If PO intake continue low, will consider nutrition supplements 3. F/U as high risk in 2-3 days, 1/3-/ Expected Outcomes/Goals Expected Outcomes/Goals 1. PO intake to improve, to meet at least 75% of nutritional needs. 2. Wt stability, skin to remain intact, labs to improve .
[2017-11-21] MEDS: Albuterol/Ipratropium Neb 3 ML AERS HHN SCH ×2 (01:03→18:38)
[2017-11-21] MEDS: INSULIN ASPART SLIDING SCALE 100 UNITS/ML UNIT SUBQ SCH ×4 (06:44→20:59)
[2017-11-21] MEDS: Albuterol Nebulizer 2.5mg/3mL HHN SCH ×2 (07:13→14:50)
[2017-11-21] MEDS: Ipratropium Neb 0.5 mg/2.5 mL UD HHN SCH ×2 (07:13→14:50)
[2017-11-21] MEDS: Lactobacillus Rhamnosus GG 15 Billion CFU CAP.SPRINK PO SCH (08:39)
[2017-11-21] MEDS: Aspirin 81mg Chewable Tab PO SCH (08:39)
[2017-11-21] MEDS: D5-0.45NS w/20 mEq KCL 1,000 ML IV SCH (11:46)
[2017-11-21] MEDS: cefTRIAXone 1 GM in Sodium Chloride 0.9% 50 ML IV SCH (15:14)
[2017-11-21] MEDS: Azithromycin 500 MG in Sodium Chloride 0.9% 250 ML IV SCH (16:17)
--- NOTE | 2017-11-21 19:30 | Internal Medicine Prog Note ---
Internal Medicine Subjective - Subjective Service Date: 11/21/17 Patient seen and examined:: with staff (SHE STILL COUGHING AND CONGESTED.) Patient is:: awake, in bed, congested Patient Complaints of:: congestion Per staff patient has:: no adverse event Internal Medicine Objective - Results Result Diagrams: 11/19/17 04:50 11/19/17 04:50 Recent Labs: Laboratory Last Values WBC 10.5 Th/cmm (4.8-10.8) 11/19/17 04:50 RBC 3.73 Mil/cmm (3.80-5.20) L 11/19/17 04:50 Hgb 11.0 gm/dL (12-16) L 11/19/17 04:50 Hct 32.1 % (41.0-60) L 11/19/17 04:50 MCV 86.1 fl (81-100) 11/19/17 04:50 MCH 29.5 pg (27.0-31.0) 11/19/17 04:50 MCHC Differential 34.3 pg (28.0-36.0) 11/19/17 04:50 RDW 13.4 % (11.5-20.0) 11/19/17 04:50 Plt Count 130 Th/cmm (150-400) L D 11/19/17 04:50 MPV 9.3 fl 11/19/17 04:50 Neutrophils % 81.1 % (40.0-80.0) H 11/19/17 04:50 Lymphocytes % 14.7 % (20.0-50.0) L 11/19/17 04:50 Monocytes % 4.1 % (2.0-10.0) 11/19/17 04:50 Eosinophils % 0.0 % (0.0-5.0) 11/19/17 04:50 Basophils % 0.1 % (0.0-2.0) 11/19/17 04:50 PT 12.1 SECONDS (9.5-11.5) H 11/18/17 12:04 INR 1.15 (0.5-1.4) 11/18/17 12:04 PTT (Actin FS) 26.7 SECONDS (26.0-38.0) 11/18/17 12:04 Sodium 134 mEq/L (136-145) L 11/19/17 04:50 Potassium 4.0 mEq/L (3.5-5.1) 11/19/17 04:50 Chloride 104 mEq/L (98-107) 11/19/17 04:50 Carbon Dioxide 22.0 mEq/L (21.0-31.0) 11/19/17 04:50 Anion Gap 12.0 (7.0-16.0) 11/19/17 04:50 BUN 39 mg/dL (7-25) H 11/19/17 04:50 Creatinine 2.4 mg/dL (0.6-1.2) H 11/19/17 04:50 Est GFR ( Amer) TNP 11/19/17 04:50 Est GFR (Non-Af Amer) TNP 11/19/17 04:50 BUN/Creatinine Ratio 16.3 11/19/17 04:50 Glucose 249 mg/dL (70-105) H 11/19/17 04:50 POC Glucose 140 MG/DL (70 - 105) H 11/21/17 16:15 Hemoglobin A1c % 7.4 % (4.0-6.0) H 11/18/17 12:04 Whole Bld Lactic Acid 1.04 mmol/L (0.60-1.99) 11/18/17 12:04 Calcium 8.0 mg/dL (8.6-10.3) L 11/19/17 04:50 Total Bilirubin 0.3 mg/dL (0.3-1.0) 11/19/17 04:50 AST 19 U/L (13-39) 11/19/17 04:50 ALT 11 U/L (7-52) 11/19/17 04:50 Alkaline Phosphatase 59 U/L (34-104) 11/19/17 04:50 Creatine Kinase 30 U/L (30-223) 11/18/17 12:04 Troponin I 0.15 ng/mL (0.01-0.05) H* D 11/18/17 23:10 B-Natriuretic Peptide 1510.0 pg/mL (5.0-100.0) H 11/18/17 12:04 Total Protein 5.9 gm/dL (6.0-8.3) L 11/19/17 04:50 Albumin 3.2 gm/dL (3.7-5.3) L 11/19/17 04:50 Globulin 2.7 gm/dL 11/19/17 04:50 Albumin/Globulin Ratio 1.2 (1.0-1.8) 11/19/17 04:50 Triglycerides 128 mg/dL (<150) 11/18/17 12:04 Cholesterol 236 mg/dL (<200) H 11/18/17 12:04 LDL Cholesterol Direct 160 mg/dL (75-193) 11/18/17 12:04 HDL Cholesterol 50 mg/dL (23-92) 11/18/17 12:04 Urine Source MIDSTREAM 11/18/17 13:40 Urine Color YELLOW 11/18/17 13:40 Urine Clarity CLEAR (CLEAR) 11/18/17 13:40 Urine pH 7.0 (4.6 - 8.0) 11/18/17 13:40 Ur Specific [place] 1.020 (1.005-1.030) 11/18/17 13:40 Urine Protein >=300 mg/dL (NEGATIVE) 11/18/17 13:40 Urine Glucose (UA) NEGATIVE mg/dL (NEGATIVE) 11/18/17 13:40 Urine Ketones 15 mg/dL (NEGATIVE) H 11/18/17 13:40 Urine Blood TRACE (NEGATIVE) 11/18/17 13:40 Urine Nitrate NEGATIVE (NEGATIVE) 11/18/17 13:40 Urine Bilirubin NEGATIVE (NEGATIVE) 11/18/17 13:40 Urine Urobilinogen 0.2 E.U./dL (0.2 - 1.0) 11/18/17 13:40 Ur Leukocyte Esterase NEGATIVE (NEGATIVE) 11/18/17 13:40 Urine RBC 2-5 /hpf (0-5) 11/18/17 13:40 Urine WBC 0-2 /hpf (0-5) 11/18/17 13:40 Ur Epithelial Cells FEW /lpf (FEW) 11/18/17 13:40 Urine Bacteria FEW /hpf (NONE SEEN) 11/18/17 13:40 Urine Mucus FEW /lpf (FEW) 11/18/17 13:40 Influenza A (Rapid) POS FOR INF A H 11/18/17 19:00 Influenza B (Rapid) NEG FOR INF B 11/18/17 19:00 - Physical Exam Vitals and I&O: Vital Signs Temp 98.9 F 11/21/17 16:00 Pulse 80 11/21/17 16:00 Resp 20 11/21/17 16:00 BP 127/50 11/21/17 16:00 Pulse Ox 99 11/21/17 16:00 Intake & Output 11/21/17 11/21/17 11/22/17 06:59 18:59 06:59 Intake Total 936.25 1350 Balance 936.25 1350 Weight (lbs) 52.617 kg Intake: Intake, IV Amount 936.25 1300 Azithromycin 500 mg In 250 Sodium Chloride 0.9% 250 ml @ 250 mls/hr IV Q24HR [facility] Rx#:[id number] D5-0.45NS w/20 mEq KCL 1, 936.25 1000 000 ml @ 75 mls/hr IV . [id number] [facility] Rx#:[id number] cefTRIAXone 1 gm In 50 Sodium Chloride 0.9% 50 ml @ 100 mls/hr IV Q24HR [facility] Rx#:[id number] Oral 50 Other: # Voids 3 # Bowel Movements 0 Active Medications: Current Medications Acetaminophen (Tylenol) 650 mg PO Q4H PRN PRN Reason: Fever > 100 Stop: 01/17/18 16:03 Albuterol Sulfate (Albuterol 2.5mg/3ml Neb Ud) 2.5 mg HHN Q6HRT [facility] Stop: 11/22/17 06:59 Last Admin: 11/21/17 14:50 Dose: 2.5 mg Albuterol/Ipratropium (Duoneb Neb) 3 ml HHN Q6HRT [facility] Stop: 01/17/18 16:03 Last Admin: 11/21/17 18:38 Dose: 3 ml Amlodipine Besylate (Norvasc) 5 mg PO DAILY [facility] Stop: 01/18/18 08:59 Last Admin: 11/21/17 08:39 Dose: 5 mg Aspirin (Aspirin Chewable) 81 mg PO DAILY [facility] Stop: 01/18/18 08:59 Last Admin: 11/21/17 08:39 Dose: 81 mg Azithromycin 500 mg/ Sodium (Chloride) 250 mls @ 250 mls/hr IV Q24HR [facility] Stop: 01/17/18 16:03 Last Infusion: 11/21/17 17:23 Dose: Infused Ceftriaxone Sodium 1 gm/ (Sodium Chloride) 50 mls @ 100 mls/hr IV Q24HR [facility] Stop: 01/17/18 16:03 Last Infusion: 11/21/17 15:45 Dose: Infused Potassium Chloride/Dextrose/Sod Cl (D5-0.45ns W/20 Meq Kcl) 1,000 mls @ 75 mls/ hr IV .[id number] [facility] Stop: 01/17/18 16:03 Last Admin: 11/21/17 11:46 Dose: 75 mls/hr Insulin Aspart (Novolog Insulin Sliding Scale) 0 units SUBQ ACHS [facility] PRN Reason: Protocol Stop: 01/18/18 07:29 Last Admin: 11/21/17 16:35 Dose: Not Given Ipratropium [place] (Atrovent Neb 0.5mg/2.5ml) 0.5 mg HHN Q6HRT [facility] Stop: 11/22/17 06:59 Last Admin: 11/21/17 14:50 Dose: 0.5 mg Lactobacillus Rhamnosus (Culturelle 15b) 1 each PO DAILY [facility] Stop: 01/19/18 08:59 Last Admin: 11/21/17 08:39 Dose: 1 each Metformin HCl (Glucophage) 500 mg PO DAILY [facility] Stop: 01/18/18 08:59 Last Admin: 11/21/17 08:39 Dose: 500 mg Miscellaneous (Probiotic Screen) 1 ea PRN PRN PRN Reason: PROTOCOL Stop: 01/18/18 10:29 Oseltamivir Phosphate (Tamiflu) 75 mg PO BID [facility] Stop: 01/17/18 22:14 Last Admin: 11/21/17 17:08 Dose: Not Given General: congested HEENT: NC/AT, PERRLA, EOMI, anicteric sclerae, throat clear Neck: Supple, No JVD, No thyromegaly Lungs: congested Cardiovascular: RRR, Normal S1, Normal S2, without murmur Abdomen: soft, non-tender, non-distended Extremities: clear Neurological: no change Internal Medicine Assmt/Plan - Assessment Assessment: 1.PNEUMONIA. 2.INFLUANZA A RESPIRATORY INFECTION. 3.DM. 4.CKD. - Plan Plan: CONTINUE ON CURRENT MEDICATION AND DIET. Nutritional Asmnt/Malnutr-PDOC - Dietary Evaluation Malnutrition Findings (Please click <Entered> for more info): Nutritional Asmnt/Malnutrition Start: 11/20/17 12: 22 Text: Status: Complete Freq: Document 11/20/17 12:22 GINETTE (Rec: 11/20/17 12:40 GINETTE [id number]) Nutritional Asmnt/Malnutrition Patient General Information Nutritional Screening High Risk Consult Diagnosis PNA Pertinent Medical Hx/Surgical Hx DM, HTN, CKD Subjective Information Consult received for high BG. Pt seen lying in bed at the time of visit, family at bedside. [place] speaking. Spoke with RN, pt eats ok, no complain of chewing/swallowing difficulty. Per notes, PO itnake 25-75%, avg 40%, meeting about 50% of calorie needs and 60% of protein needs . Current Diet Order/ Nutrition Support CCHO 60gm Pertinent Medications novolog, culturelle, glucophage, D5-0.45ns w 20 meq kcl Pertinent Labs 11/19 Na 134, K 4.0, Cl 104, BUN 39, Cr 2.4, Glucose 249, Ca 8.0, Alb 3.2 11/19-11/20 POC 166-254 Nutritional Hx/Data Height 1.47 m Height (Calculated Centimeters) 147.3 Current Weight (lbs) 52.798 kg Weight (Calculated Kilograms) 52.8 Weight (Calculated Grams) 54085.2 [place] Body Weight 96 % [place] Body Weight 121 Body Mass Index (BMI) 24.3 Weight Status Approriate GI Symptoms GI Symptoms None Last BM none Difficult in: None Skin Integrity/Comment: intact Estimated Nutritional Goals BEE in Kcals: Using Current wt Calories/Kcals/Kg 25-30 Kcals Calculated 5724-6678 Protein: Using Current wt Protein g/k Protein Calculated 53g moniror renal labs Fluid: ml 8268-6512 Nutritional Problem 2. Problem Problem inadequate food intake Etiology possible poor appetite and weakness Signs/Symptoms: PO intake 40% 1. Problem Problem altered nutrition related lab values Etiology hx of DM and CKD Signs/Symptoms: BUN 39, Cr 2.4, Glucose 249, POC 166-254 Malnutrition Alert Protein-Calorie Malnutrition N/A Is there a minimum of two criteria No selected? Query Text:Check all the applicable criteria. A minimum of two criteria are recommended for diagnosis of either severe or non-severe malnutrition. Intervention/Recommendation Comments 1. Continue current diet as ordered. Monitor renal labs d/ t CKD 2. Monitor PO intake, wt, labs and skin integrity. If PO intake continue low, will consider nutrition supplements 3. F/U as high risk in 2-3 days, 11/22-11/23 Expected Outcomes/Goals Expected Outcomes/Goals 1. PO intake to improve, to meet at least 75% of nutritional needs. 2. Wt stability, skin to remain intact, labs to improve .
[2017-11-22] MEDS: Albuterol/Ipratropium Neb 3 ML AERS HHN SCH ×2 (01:00→07:40)
[2017-11-22] MEDS: D5-0.45NS w/20 mEq KCL 1,000 ML IV SCH (03:57)
[2017-11-22] MEDS: INSULIN ASPART SLIDING SCALE 100 UNITS/ML UNIT SUBQ SCH (06:51)
[2017-11-22 07:05] LABS: ALB/GLOB RATIO 1.2 (1.0-1.8); ALBUMIN 2.8 gm/dL (3.7-5.3); ALKALINE PHOSPHATASE 52 U/L (34-104); ANION GAP 8.8 (7.0-16.0); BILIRUBIN,TOTAL 0.3 mg/dL (0.3-1.0); BUN - UREA NITROGEN 19 mg/dL (7-25); CARBON DIOXIDE 21.5 mEq/L (21.0-31.0); CHLORIDE 111 mEq/L (98-107); CREATININE - SERUM 1.5 mg/dL (0.6-1.2); GLUCOSE 126 mg/dL (70-105); POTASSIUM SERUM 4.3 mEq/L (3.5-5.1); SGOT 19 U/L (13-39); SGPT/ALT 14 U/L (7-52); SODIUM SERUM 137 mEq/L (136-145); TOTAL PROTEIN,SERUM 5.2 gm/dL (6.0-8.3)
[2017-11-22 07:06] LABS: % BASOPHILS 0.3 % (0.0-2.0); % EOSINOPHILS 2.5 % (0.0-5.0); % LYMPHOCYTES 32.2 % (20.0-50.0); % MONOCYTES 9.3 % (2.0-10.0); % NEUTROPHILS 55.7 % (40.0-80.0); EOSINOPHILE ABSOLUTE 0.1 Th/cmm (0.1-0.4); HEMOGLOBIN 9.3 gm/dL (12-16); LYMPHOCYTE ABSOLUTE 1.3 Th/cmm (1.5-3.0); MEAN CELL VOLUME 85.8 fl (81-100); MEAN CORPUSCULAR HEMOGLOBIN 28.8 pg (27.0-31.0); MEAN CORPUSCULAR HGB CONC 33.6 pg (28.0-36.0); MEAN PLATELET VOLUME 9.2 fl; MONOCYTE ABSOLUTE 0.4 Th/cmm (0.3-1.0); NEUTROPHILE ABSOLUTE 2.1 Th/cmm (1.8-8.0); PLATELET COUNT 144 Th/cmm (150-400); RED BLOOD COUNT 3.24 Mil/cmm (3.80-5.20); RED CELL DISTRIBUTION WIDTH 13.5 % (11.5-20.0)
[2017-11-22 07:10] LABS: HEMATOCRIT 27.8 % (41.0-60); WHITE BLOOD COUNT 3.9 Th/cmm (4.8-10.8)
[2017-11-22] MEDS ORDERED: Albuterol/Ipratropium Neb 3 ML AERS HHN ONE ×2 (07:21→11:34)
[2017-11-22] MEDS: Lactobacillus Rhamnosus GG 15 Billion CFU CAP.SPRINK PO SCH (09:48)
[2017-11-22] MEDS: Aspirin 81mg Chewable Tab PO SCH (09:48)
--- NOTE | 2017-11-22 10:57 | Infectious Disease Prog Note ---
Infectious Disease Subjective - Review of Systems Service Date: 11/22/17 Subjective: cc infl a hpi- pt on droplet d/w dr gamble tamtony prescribed ros no fevr o/e vss chets vesicular abd soft ext pulse Infectious Disease Objective - Results Result Diagrams: 11/22/17 05:45 11/22/17 05:45 Recent Labs: Laboratory Last Values WBC 3.9 Th/cmm (4.8-10.8) L D 11/22/17 05:45 RBC 3.24 Mil/cmm (3.80-5.20) L 11/22/17 05:45 Hgb 9.3 gm/dL (12-16) L 11/22/17 05:45 Hct 27.8 % (41.0-60) L D 11/22/17 05:45 MCV 85.8 fl (81-100) 11/22/17 05:45 MCH 28.8 pg (27.0-31.0) 11/22/17 05:45 MCHC Differential 33.6 pg (28.0-36.0) 11/22/17 05:45 RDW 13.5 % (11.5-20.0) 11/22/17 05:45 Plt Count 144 Th/cmm (150-400) L 11/22/17 05:45 MPV 9.2 fl 11/22/17 05:45 Neutrophils % 55.7 % (40.0-80.0) 11/22/17 05:45 Lymphocytes % 32.2 % (20.0-50.0) 11/22/17 05:45 Monocytes % 9.3 % (2.0-10.0) 11/22/17 05:45 Eosinophils % 2.5 % (0.0-5.0) 11/22/17 05:45 Basophils % 0.3 % (0.0-2.0) 11/22/17 05:45 PT 12.1 SECONDS (9.5-11.5) H 11/18/17 12:04 INR 1.15 (0.5-1.4) 11/18/17 12:04 PTT (Actin FS) 26.7 SECONDS (26.0-38.0) 11/18/17 12:04 Sodium 137 mEq/L (136-145) 11/22/17 05:45 Potassium 4.3 mEq/L (3.5-5.1) 11/22/17 05:45 Chloride 111 mEq/L (98-107) H 11/22/17 05:45 Carbon Dioxide 21.5 mEq/L (21.0-31.0) 11/22/17 05:45 Anion Gap 8.8 (7.0-16.0) 11/22/17 05:45 BUN 19 mg/dL (7-25) 11/22/17 05:45 Creatinine 1.5 mg/dL (0.6-1.2) H 11/22/17 05:45 Est GFR ( Amer) TNP 11/22/17 05:45 Est GFR (Non-Af Amer) TNP 11/22/17 05:45 BUN/Creatinine Ratio 12.7 11/22/17 05:45 Glucose 126 mg/dL (70-105) H 11/22/17 05:45 POC Glucose 115 MG/DL (70 - 105) H 11/22/17 06:49 Hemoglobin A1c % 7.4 % (4.0-6.0) H 11/18/17 12:04 Whole Bld Lactic Acid 1.04 mmol/L (0.60-1.99) 11/18/17 12:04 Calcium 8.0 mg/dL (8.6-10.3) L 11/22/17 05:45 Total Bilirubin 0.3 mg/dL (0.3-1.0) 11/22/17 05:45 AST 19 U/L (13-39) 11/22/17 05:45 ALT 14 U/L (7-52) 11/22/17 05:45 Alkaline Phosphatase 52 U/L (34-104) 11/22/17 05:45 Creatine Kinase 30 U/L (30-223) 11/18/17 12:04 Troponin I 0.15 ng/mL (0.01-0.05) H* D 11/18/17 23:10 B-Natriuretic Peptide 1510.0 pg/mL (5.0-100.0) H 11/18/17 12:04 Total Protein 5.2 gm/dL (6.0-8.3) L 11/22/17 05:45 Albumin 2.8 gm/dL (3.7-5.3) L 11/22/17 05:45 Globulin 2.4 gm/dL 11/22/17 05:45 Albumin/Globulin Ratio 1.2 (1.0-1.8) 11/22/17 05:45 Triglycerides 128 mg/dL (<150) 11/18/17 12:04 Cholesterol 236 mg/dL (<200) H 11/18/17 12:04 LDL Cholesterol Direct 160 mg/dL (75-193) 11/18/17 12:04 HDL Cholesterol 50 mg/dL (23-92) 11/18/17 12:04 Urine Source MIDSTREAM 11/18/17 13:40 Urine Color YELLOW 11/18/17 13:40 Urine Clarity CLEAR (CLEAR) 11/18/17 13:40 Urine pH 7.0 (4.6 - 8.0) 11/18/17 13:40 Ur Specific [place] 1.020 (1.005-1.030) 11/18/17 13:40 Urine Protein >=300 mg/dL (NEGATIVE) 11/18/17 13:40 Urine Glucose (UA) NEGATIVE mg/dL (NEGATIVE) 11/18/17 13:40 Urine Ketones 15 mg/dL (NEGATIVE) H 11/18/17 13:40 Urine Blood TRACE (NEGATIVE) 11/18/17 13:40 Urine Nitrate NEGATIVE (NEGATIVE) 11/18/17 13:40 Urine Bilirubin NEGATIVE (NEGATIVE) 11/18/17 13:40 Urine Urobilinogen 0.2 E.U./dL (0.2 - 1.0) 11/18/17 13:40 Ur Leukocyte Esterase NEGATIVE (NEGATIVE) 11/18/17 13:40 Urine RBC 2-5 /hpf (0-5) 11/18/17 13:40 Urine WBC 0-2 /hpf (0-5) 11/18/17 13:40 Ur Epithelial Cells FEW /lpf (FEW) 11/18/17 13:40 Urine Bacteria FEW /hpf (NONE SEEN) 11/18/17 13:40 Urine Mucus FEW /lpf (FEW) 11/18/17 13:40 Influenza A (Rapid) POS FOR INF A H 11/18/17 19:00 Influenza B (Rapid) NEG FOR INF B 11/18/17 19:00 - Physical Exam Vitals and I&O: Vital Signs Temp 97.8 F 11/22/17 08:00 Pulse 78 11/22/17 09:47 Resp 18 11/22/17 08:00 BP 153/59 11/22/17 09:47 Pulse Ox 97 11/22/17 08:00 Intake & Output 11/21/17 11/22/17 11/22/17 18:59 06:59 18:59 Intake Total 1350 1000 440 Balance 1350 1000 440 Weight (lbs) 52.617 kg 52.617 kg Intake: Intake, IV Amount 1300 1000 Azithromycin 500 mg In 250 Sodium Chloride 0.9% 250 ml @ 250 mls/hr IV Q24HR [facility] Rx#:[id number] D5-0.45NS w/20 mEq KCL 1, 1000 1000 000 ml @ 75 mls/hr IV . [id number] [facility] Rx#:[id number] cefTRIAXone 1 gm In 50 Sodium Chloride 0.9% 50 ml @ 100 mls/hr IV Q24HR [facility] Rx#:[id number] Oral 50 440 Other: # Voids 3 1 # Bowel Movements 0 0 Active Medications: Current Medications Acetaminophen (Tylenol) 650 mg PO Q4H PRN PRN Reason: Fever > 100 Stop: 01/17/18 16:03 Albuterol/Ipratropium (Duoneb Neb) 3 ml HHN Q6HRT [facility] Stop: 01/17/18 16:03 Last Admin: 11/22/17 01:00 Dose: 3 ml Amlodipine Besylate (Norvasc) 5 mg PO DAILY [facility] Stop: 01/18/18 08:59 Last Admin: 11/22/17 09:47 Dose: 5 mg Aspirin (Aspirin Chewable) 81 mg PO DAILY [facility] Stop: 01/18/18 08:59 Last Admin: 11/22/17 09:48 Dose: 81 mg Azithromycin 500 mg/ Sodium (Chloride) 250 mls @ 250 mls/hr IV Q24HR [facility] Stop: 01/17/18 16:03 Last Infusion: 11/21/17 17:23 Dose: Infused Ceftriaxone Sodium 1 gm/ (Sodium Chloride) 50 mls @ 100 mls/hr IV Q24HR [facility] Stop: 01/17/18 16:03 Last Infusion: 11/21/17 15:45 Dose: Infused Potassium Chloride/Dextrose/Sod Cl (D5-0.45ns W/20 Meq Kcl) 1,000 mls @ 75 mls/ hr IV .[id number] [facility] Stop: 01/17/18 16:03 Last Admin: 11/22/17 03:57 Dose: 75 mls/hr Insulin Aspart (Novolog Insulin Sliding Scale) 0 units SUBQ ACHS [facility] PRN Reason: Protocol Stop: 01/18/18 07:29 Last Admin: 11/22/17 06:51 Dose: Not Given Lactobacillus Rhamnosus (Culturelle 15b) 1 each PO DAILY [facility] Stop: 01/19/18 08:59 Last Admin: 11/22/17 09:48 Dose: 1 each Metformin HCl (Glucophage) 500 mg PO DAILY [facility] Stop: 01/18/18 08:59 Last Admin: 11/22/17 09:47 Dose: 500 mg Miscellaneous (Probiotic Screen) 1 ea MC PRN PRN PRN Reason: PROTOCOL Stop: 01/18/18 10:29 Oseltamivir Phosphate (Tamiflu) 75 mg PO BID [facility] Stop: 01/17/18 22:14 Last Admin: 11/22/17 09:48 Dose: Not Given Infectious Disease Assmt/Plan - Problem List Patient Problems: All Active Problems COUGH WITH FEVER AND WEAKNESS (Acute) Nutritional Asmnt/Malnutr-PDOC - Dietary Evaluation Malnutrition Findings (Please click <Entered> for more info): Nutritional Asmnt/Malnutrition Start: 11/20/17 12: 22 Text: Status: Complete Freq: Document 11/20/17 12:22 HEN (Rec: 11/20/17 12:40 [facility] Nutritional Asmnt/Malnutrition Patient General Information Nutritional Screening High Risk Consult Diagnosis PNA Pertinent Medical Hx/Surgical Hx DM, HTN, CKD Subjective Information Consult received for high BG. Pt seen lying in bed at the time of visit, family at bedside. Kiswahili speaking. Spoke with RN, pt eats ok, no complain of chewing/swallowing difficulty. Per notes, PO itnake 25-75%, avg 40%, meeting about 50% of calorie needs and 60% of protein needs . Current Diet Order/ Nutrition Support CCHO 60gm Pertinent Medications novolog, culturelle, glucophage, D5-0.45ns w 20 meq kcl Pertinent Labs 11/19 Na 134, K 4.0, Cl 104, BUN 39, Cr 2.4, Glucose 249, Ca 8.0, Alb 3.2 11/19-11/20 POC 166-254 Nutritional Hx/Data Height 1.47 m Height (Calculated Centimeters) 147.3 Current Weight (lbs) 52.798 kg Weight (Calculated Kilograms) 52.8 Weight (Calculated Grams) 99132.2 Moore Body Weight 96 % Moore Body Weight 121 Body Mass Index (BMI) 24.3 Weight Status Approriate GI Symptoms GI Symptoms None Last BM none Difficult in: None Skin Integrity/Comment: intact Estimated Nutritional Goals BEE in Kcals: Using Current wt Calories/Kcals/Kg 25-30 Kcals Calculated 0833-8393 Protein: Using Current wt Protein g/k Protein Calculated 53g moniror renal labs Fluid: ml 8160-4110 Nutritional Problem 2. Problem Problem inadequate food intake Etiology possible poor appetite and weakness Signs/Symptoms: PO intake 40% 1. Problem Problem altered nutrition related lab values Etiology hx of DM and CKD Signs/Symptoms: BUN 39, Cr 2.4, Glucose 249, POC 166-254 Malnutrition Alert Protein-Calorie Malnutrition N/A Is there a minimum of two criteria No selected? Query Text:Check all the applicable criteria. A minimum of two criteria are recommended for diagnosis of either severe or non-severe malnutrition. Intervention/Recommendation Comments 1. Continue current diet as ordered. Monitor renal labs d/ t CKD 2. Monitor PO intake, wt, labs and skin integrity. If PO intake continue low, will consider nutrition supplements 3. F/U as high risk in 2-3 days, /3-11/23 Expected Outcomes/Goals Expected Outcomes/Goals 1. PO intake to improve, to meet at least 75% of nutritional needs. 2. Wt stability, skin to remain intact, labs to improve .
--- NOTE | 2017-11-22 11:20 | Discharge Summary ---
DATE OF DISCHARGE: 11/22/2017 FINAL DIAGNOSES: 1. Pneumonia. 2. Influenza A respiratory infection. 3. Diabetes mellitus. 4. Chronic kidney disease. REVIEW OF HISTORY: The patient is a 77-year-old female with long history of diabetes mellitus, hypertension and chronic kidney disease, presented to the Emergency Room with cough, congestion. Initial workup was significant for pneumonia and influenza A respiratory infection, admitted to the hospital and started on IV antibiotic, fluids, and breathing treatment. Dr. Aren Day consulted on the case. COURSE OF HOSPITALIZATION: During this hospitalization, the patient ran out of the Tamiflu, which was prescribed on the admission and otherwise the patient improved clinically. On 11/20/2017, the patient was feeling better, less shortness of breath, still has some cough, no fever, no chills, no nausea, and no vomiting. LABORATORY DATA: White blood cell 10.5, hemoglobin 11.0. Sodium 134, potassium 4.0, BUN 39, and creatinine 2.4. PHYSICAL EXAMINATION: VITAL SIGNS: Temperature 97.5, heart rate 67, and blood pressure 113/54. CHEST: Clear to auscultation. HEART: S1 and S2 normal. No murmur or gallop rhythm. DISPOSITION: On 11/22/2017, the patient was cleared by Dr. Aren aDy to go home and follow up with primary physician next week. A dose of 5 days of Tamiflu was ordered by Dr. Aren Day as outpatient. CONDITION ON DISCHARGE: Stable. MEDICATIONS: Follow discharge reconciliation. JOB# [id number]
[2017-11-22] MEDS ORDERED: Pneumococcal Vaccine 0.5 mL Vial IM ONE (12:24)
== END 2017-11-22 13:30 | disposition home or self-care (01) | DRG 720 ==
LOC: ER 11:39 → TELE 15:20 → MSI 20:09
PROVIDERS: ADMIT Family Medicine; ATTEND Family Medicine
DX: A41.9 Sepsis, unspecified organism (principal); J10.00 Influenza due to other identified influenza virus with unspecified type of pneumonia; E11.22 Type 2 diabetes mellitus with diabetic chronic kidney disease; E11.65 Type 2 diabetes mellitus with hyperglycemia; I13.0 Hypertensive heart and chronic kidney disease with heart failure and stage 1 through stage 4 chronic kidney disease, or unspecified chronic kidney disease; I50.9 Heart failure, unspecified; E87.1 Hypo-osmolality and hyponatremia; N18.9 Chronic kidney disease, unspecified; I25.9 Chronic ischemic heart disease, unspecified; E86.0 Dehydration; E87.6 Hypokalemia; J40 Bronchitis, not specified as acute or chronic; M81.0 Age-related osteoporosis without current pathological fracture; E78.5 Hyperlipidemia, unspecified; M19.90 Unspecified osteoarthritis, unspecified site; Z83.3 Family history of diabetes mellitus; Z82.49 Family history of ischemic heart disease and other diseases of the circulatory system; Z90.49 Acquired absence of other specified parts of digestive tract; Z86.73 Personal history of transient ischemic attack (TIA), and cerebral infarction without residual deficits
CPT/HCPCS: 36415-UA; 71010-TC; 80053-TC; 80061-TC; 81001-TC; 82550-TC; 82948-90; 83036-90; 83605; 83880-TC; 84484-TC; 85007-TC; 85025-TC; 85027-TC; 85610-TC; 85730-TC; 86738-90; 87070; 87804-TC; 90732; 90779; 90784; 93005; 94640; 94760; J0456; J0696; J1815; J1956; J7613; Z7610

== ENCOUNTER 2018-08-30 16:28 | Inpatient (IN) | payer MEDICAID ==
--- NOTE | 2018-08-30 17:13 | ED Physician Chart ---
ED Chief Complaint/HPI - Patient Information Date Seen:: 08/30/18 Time Seen:: 17:00 Chief Complaint:: hematemesis History of Present Illness:: Patient vomited about 1 cup of red blood at about 11:30 this morning. No complaint of abdominal pain. Patient's been anorexic for 2 days. No diarrhea. Allergies:: Allergies Allergy/AdvReac Type Severity Reaction Status Date / Time No Known Allergies Allergy Verified 08/30/18 16:57 Historian:: Patient Review:: Nurse's Note Reviewed ED Review of Systems - Review of Systems General/Constitutional: No fever Skin: No skin lesions Head: No headache Eyes: No loss of vision ENT: No earache Neck: No neck pain Cardio Vascular: No chest pain, No palpitations Pulmonary: No SOB GI: Vomiting, Hematemesis G/U: No dysuria Musculoskeletal: No bone or joint pain Endocrine: No polyuria Psychiatric: No prior psych history Hematopoietic: No bruising Allergic/Immuno: No urticaria Neurological: No syncope, Focal symptoms ED Past Medical History - Past Medical History Past Medical History: CVA/TIA, Other (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 Her left arm is kept in a sling) Family History: Diabetes Melitus, HTN Social History: Non Smoker, No Alcohol Surgical History: Hernia, other (left hip prosthesis) Psychiatricy History: None Medication: Reviewed Family Medical History - Family Member Mother History Unknown: Yes Ethnicity: Living Status: Hx Family Hypertension: Yes ED Physical Exam - Physical Examination General/Constitutional: Awake, Well-developed, well-nourished, Alert Head: Atraumatic Eyes: Lids, conjuctiva normal, PERRL Skin: Nl inspection, No rash, No skin lesions, No ecchymosis ENMT: External ears, nose nl, TM canals nl, Nasal exam nl Other ENMT comments:: Full upper and lower dentures Neck: No nuchal rigidity Respiratory: Nl effort/Exclusion, Clear to Auscultation, No Wheeze/Rhonchi/Rales Cardio Vascular: RRR, No murmur, gallop, rubs, NL S1 S2 GI: No tenderness/rebounding/guarding, No organomegaly, No hernia, Normal BS's : No CVA tenderness Extremities: No edema Other Neuro/Psych comments:: Left-sided weakness ED Labs/Radiology/EKG Results - Lab Results Results: Laboratory Results - last 24 hr 08/30/18 08/30/18 17:10 17:10 WBC 10.9 H RBC 4.05 Hgb 11.9 L Hct 35.3 L MCV 87.3 MCH 29.3 MCHC Differential 33.6 RDW 12.1 Plt Count 220 MPV 9.5 Neutrophils % 78.2 Lymphocytes % 16.4 L Monocytes % 4.0 Eosinophils % 0.7 Basophils % 0.7 PT 9.9 INR 0.95 PTT (Actin FS) 23.0 L - Radiology Results Results: Chest x-ray showed no acute disease; CT abdomen and pelvis also showed no acute disease - EKG Interpretations Rate & Rhythm: sinus rhythm with a rate of 50 [place]: normal Comments:: First-degree AV block; ST-T wave changes in the anterior leads ED Assessment - Assessment General Assessment: About 1999 patient vomited about 100 mL of brown fluid. I spoke to both the case monitor and Dr. Walls ED Septic Shock - . Is Septic Shock (SBP<90, OR Lactate>4 mmol\L) present?: No ED Reassessment (Disposition) - Reassessment Reassessment Condition:: Unchanged - Diagnosis Diagnosis:: Renal failure; status post cerebrovascular accident with left-sided paralysis; hematemesis; upper GI bleed - Patient Disposition Admitted to:: ICU Spoke to:: Manjeet Walls Admitting Medical Physician:: Manjeet Walls Condition at Disposition:: Stable, Unchanged
[2018-08-30 17:21] LABS: % BASOPHILS 0.7 % (0.0-2.0); % EOSINOPHILS 0.7 % (0.0-5.0); % LYMPHOCYTES 16.4 % (20.0-50.0); % NEUTROPHILS 78.2 % (40.0-80.0); BASOPHILE ABSOLUTE 0.1 Th/cumm (0-0.2); EOSINOPHILE ABSOLUTE 0.1 Th/cmm (0.1-0.4); HEMATOCRIT 35.3 % (41.0-60); HEMOGLOBIN 11.9 gm/dL (12-16); LYMPHOCYTE ABSOLUTE 1.8 Th/cmm (1.5-3.0); MEAN CELL VOLUME 87.3 fl (81-100); MEAN CORPUSCULAR HEMOGLOBIN 29.3 pg (27.0-31.0); MEAN CORPUSCULAR HGB CONC 33.6 pg (28.0-36.0); MEAN PLATELET VOLUME 9.5 fl; MONOCYTE ABSOLUTE 0.4 Th/cmm (0.3-1.0); NEUTROPHILE ABSOLUTE 8.5 Th/cmm (1.8-8.0); PLATELET COUNT 220 Th/cmm (150-400); RED BLOOD COUNT 4.05 Mil/cmm (3.80-5.20); RED CELL DISTRIBUTION WIDTH 12.1 % (11.5-20.0); WHITE BLOOD COUNT 10.9 Th/cmm (4.8-10.8)
[2018-08-30 17:36] LABS: INR 0.95 (0.5-1.4); PROTHROMBIN TIME (TEST) 9.9 SECONDS (9.5-11.5)
[2018-08-30 17:37] LABS: ANION GAP 25.6 (7.0-16.0); CALCIUM SERUM 10.3 mg/dL (8.6-10.3); CARBON DIOXIDE 19.4 mEq/L (21.0-31.0); CHLORIDE 94 mEq/L (98-107); GLUCOSE 163 mg/dL (70-105); LIPASE 36 U/L (11-82); SODIUM SERUM 134 mEq/L (136-145)
[2018-08-30 18:10] LABS: BUN - UREA NITROGEN 91 mg/dL (7-25); CREATININE - SERUM 6.6 mg/dL (0.6-1.2)
[2018-08-30 18:54] LABS: URINE SOURCE CATH
[2018-08-30 18:56] LABS: URINE BILIRUBIN NEGATIVE (NEGATIVE); URINE BLOOD TRACE (NEGATIVE); URINE GLUCOSE (UA) 250 mg/dL (NEGATIVE); URINE KETONE NEGATIVE (NEGATIVE); URINE LEUKOCYTE ESTERASE NEGATIVE (NEGATIVE); URINE MICROSCOPIC INDICATED? YES; URINE NITRATE NEGATIVE (NEGATIVE); URINE PROTEIN >=300 mg/dL (NEGATIVE); URINE UROBILINOGEN 0.2 E.U./dL (0.2 - 1.0)
[2018-08-30 19:11] LABS: URINE RBC NONE SEEN /hpf (0-5)
[2018-08-30 19:12] LABS: URINE BACTERIA MODERATE /hpf (NONE SEEN); URINE EPITHELIAL CELLS FEW /lpf (FEW)
[2018-08-30 19:14] LABS: URINE CLARITY CLEAR (CLEAR); URINE COLOR YELLOW
[2018-08-30] MEDS: D5-0.9%NS 1,000 ML IV SCH (23:55)
[2018-08-31] MEDS: INSULIN ASPART SLIDING SCALE 100 UNITS/ML UNIT SUBQ SCH ×4 (00:21→18:01)
[2018-08-31] MEDS: Nitroglycerin 50mg/D5W Premix 50 MG/250 ML INFUS..BTL IV PRN (03:12)
[2018-08-31 05:41] LABS: % EOSINOPHILS 0.1 % (0.0-5.0); BASOPHILE ABSOLUTE 0.1 Th/cumm (0-0.2); HEMOGLOBIN 12.4 gm/dL (12-16); MEAN CORPUSCULAR HEMOGLOBIN 29.9 pg (27.0-31.0); MONOCYTE ABSOLUTE 0.5 Th/cmm (0.3-1.0); RED CELL DISTRIBUTION WIDTH 12.3 % (11.5-20.0)
[2018-08-31 05:44] LABS: % BASOPHILS 0.3 % (0.0-2.0); % LYMPHOCYTES 20.6 % (20.0-50.0); % MONOCYTES 2.8 % (2.0-10.0); % NEUTROPHILS 76.2 % (40.0-80.0); HEMATOCRIT 36.3 % (41.0-60); LYMPHOCYTE ABSOLUTE 3.7 Th/cmm (1.5-3.0); MEAN CELL VOLUME 87.8 fl (81-100); MEAN CORPUSCULAR HGB CONC 34.1 pg (28.0-36.0); MEAN PLATELET VOLUME 9.7 fl; NEUTROPHILE ABSOLUTE 13.9 Th/cmm (1.8-8.0); PLATELET COUNT 233 Th/cmm (150-400); RED BLOOD COUNT 4.14 Mil/cmm (3.80-5.20)
[2018-08-31 05:48] LABS: WHITE BLOOD COUNT 18.2 Th/cmm (4.8-10.8)
[2018-08-31 06:02] LABS: ANION GAP 37.7 (7.0-16.0); CALCIUM SERUM 10.3 mg/dL (8.6-10.3); CARBON DIOXIDE 10.6 mEq/L (21.0-31.0); CHLORIDE 92 mEq/L (98-107); GLUCOSE 192 mg/dL (70-105); POTASSIUM SERUM 5.3 mEq/L (3.5-5.1); SODIUM SERUM 135 mEq/L (136-145)
[2018-08-31 06:11] VITALS: BP 189/56
[2018-08-31 06:17] LABS: BUN - UREA NITROGEN 96 mg/dL (7-25)
[2018-08-31 06:18] LABS: CREATININE - SERUM 6.9 mg/dL (0.6-1.2)
--- NOTE | 2018-08-31 07:35 | Diagnostic Imaging Report ---
CT scan abdomen and pelvis without intravenous contrast HISTORY: Hematemesis Total DLP equals 358 CTDI equals 8.1 Axial sections were obtained from the xiphoid process down to the pubic symphysis. Limited sections through the lower chest demonstrate a small hiatal hernia. The liver exhibits a homogeneous parenchyma. No focal lesions. The spleen appears normal. No focal abdomen is seen within the pancreas. Slight decrease in size the left kidney. Vascular calcification is noted in the renal hilar areas. No focal lesions. No hydronephrosis The exam of the pelvis is limited due to artifact associated with the left hip arthroplasty. There is a markedly distended urinary bladder. Vascular graft extends through the subcutaneous tissues of the right abdomen and pelvis and across the lower anterior pelvis. IMPRESSION: 1. No definite acute abnormalities 2. Atherosclerotic vascular changes 3. Vascular graft 4. Left hip arthroplasty
--- NOTE | 2018-08-31 07:43 | Diagnostic Imaging Report ---
Portable chest x-ray HISTORY: Hematemesis, shortness of breath There is a poor inspiration. Allowing for this factor and portable technique, heart size is normal. No acute focal pulmonary processes. Surgical clips project over the right upper chest. IMPRESSION: 1. Allowing for a poor inspiration, no acute focal pulmonary processes
--- NOTE | 2018-08-31 07:47 | Diagnostic Imaging Report ---
Renal ultrasound HISTORY: Abnormal renal function tests Exam is limited due to difficulty in patient cooperation and mobility. There is a decrease in size of the right kidney (8.3 x 3.6 x 4.5 cm). No focal lesions. No hydronephrosis. The left kidney is also decreased in size (8.3 x 3.5 x 3.2 cm. No focal lesions. No hydronephrosis. Urinary bladder cannot be evaluated due to lack of distention. IMPRESSION: 1. Somewhat limited exam due to difficulty in patient cooperation and mobility 2. Decreased renal size is bilaterally 3. No definite focal renal lesions or hydronephrosis
[2018-08-31] MEDS ORDERED: VTE Chemical Prophylaxis Screen/Admission MC PRN (08:00)
--- NOTE | 2018-08-31 10:59 | Diagnostic Imaging Report ---
CT scan of the chest without intravenous contrast HISTORY: Aneurysm, pain Total DLP equals 222 CTDI equals 6.0 Axial sections were obtained from a level above the clavicles down to level below the diaphragm. The heart appears somewhat enlarged. Normal-sized lymph nodes are seen within the mediastinum. Atherosclerotic and coronary artery calcification is noted. There is a normal caliber of the thoracic aorta. No aneurysm identified. Evaluation of the vascular and hilar structures limited due to the absence of intravenous contrast. No obvious abnormal hilar masses are seen. There is suggestion of a small hiatal hernia. No acute focal pulmonary parenchymal processes. Mild pleural thickening noted within the right and left lower hemithoracic areas. Limited sections below the diaphragm demonstrate an approximate 5 mm calculus within the medullary region of the right kidney. No hydronephrosis. Vascular calcification is seen. There appears to be a slight decrease in size of the left kidney. IMPRESSION: 1. Cardiomegaly with evidence of atherosclerotic and coronary artery disease 2. Normal caliber of the thoracic aorta. No aneurysm identified 3. No other acute abnormalities
[2018-08-31] MEDS: D5-0.9%NS 1,000 ML IV SCH (12:49)
--- NOTE | 2018-08-31 13:40 | Consultation ---
Consult Note - Consult Note Service Date: 08/31/18 Referring Physician: Manjeet Walls Consult Note: PHYSICIAN Consultation Note: Date of Admission: 08/30/18 Purpose of Consultation: ARF Chief Complaint: GI BLEED ARF History of Present Illness: Patient CHELITA CONTRERAS was admitted to location Intensive Care Unit with RANAL FAILURE , GI BLEED. Past Medical History: HTN CVA Allergies Allergy/AdvReac Type Severity Reaction Status Date / Time No Known Allergies Allergy Verified 08/30/18 16:57 Vital Signs Temp 97 F 08/31/18 04:00 Pulse 47 08/31/18 11:43 Resp 18 08/31/18 07:00 BP 150/46 08/31/18 11:43 Pulse Ox 98 08/31/18 07:00 Intake & Output 08/30/18 08/31/18 08/31/18 18:59 06:59 18:59 Intake Total 217.514 2436.65 Output Total 800 Balance -658.003 5302.65 Weight (lbs) 48.534 kg 44.588 kg Intake: Intake, IV Amount 14.375 1012.65 D5-0.9%Ns 1,000 ml @ 75 967.5 mls/hr IV .[id number] GLORIA Rx #:[id number] Nitroglycerin 50mg/D5W 14.375 45.15 Premix 50 mg In 250 ml @ 5 MCG/MIN 1.5 mls/hr IV TITR PRN Rx#:[id number] Lipid 100 Output: Urine 800 Other: # Bowel Movements 1 Stool Characteristics Soft Formed Green Weight Source Estimated Bedscale Laboratory Results - last 24 hr 08/30/18 08/30/18 08/30/18 17:10 17:10 17:10 WBC 10.9 H RBC 4.05 Hgb 11.9 L Hct 35.3 L MCV 87.3 MCH 29.3 MCHC Differential 33.6 RDW 12.1 Plt Count 220 MPV 9.5 Neutrophils % 78.2 Lymphocytes % 16.4 L Monocytes % 4.0 Eosinophils % 0.7 Basophils % 0.7 PT 9.9 INR 0.95 PTT (Actin FS) 23.0 L Sodium 134 L Potassium 5.0 Chloride 94 L Carbon Dioxide 19.4 L Anion Gap 25.6 H BUN 91 H* Creatinine 6.6 H* Est GFR ( Amer) TNP Est GFR (Non-Af Amer) TNP BUN/Creatinine Ratio 13.8 Glucose 163 H POC Glucose Calcium 10.3 Magnesium Troponin I Lipase 36 Urine Source Urine Color Urine Clarity Urine pH Ur Specific [place] Urine Protein Urine Glucose (UA) Urine Ketones Urine Blood Urine Nitrate Urine Bilirubin Urine Urobilinogen Ur Leukocyte Esterase Urine RBC Urine WBC Ur Epithelial Cells Urine Bacteria Blood Type Antibody Screen 08/30/18 08/30/18 08/30/18 17:10 17:10 18:30 WBC RBC Hgb Hct MCV MCH MCHC Differential RDW Plt Count MPV Neutrophils % Lymphocytes % Monocytes % Eosinophils % Basophils % PT INR PTT (Actin FS) Sodium Potassium Chloride Carbon Dioxide Anion Gap BUN Creatinine Est GFR ( Amer) Est GFR (Non-Af Amer) BUN/Creatinine Ratio Glucose POC Glucose Calcium Magnesium 2.5 Troponin I Lipase Urine Source CATH Urine Color YELLOW Urine Clarity CLEAR Urine pH 7.0 Ur Specific [place] 1.020 Urine Protein >=300 Urine Glucose (UA) 250 H Urine Ketones NEGATIVE Urine Blood TRACE Urine Nitrate NEGATIVE Urine Bilirubin NEGATIVE Urine Urobilinogen 0.2 Ur Leukocyte Esterase NEGATIVE Urine RBC NONE SEEN Urine WBC 2-5 Ur Epithelial Cells FEW Urine Bacteria MODERATE H Blood Type O POSITIVE Antibody Screen NEGATIVE 08/30/18 08/31/18 08/31/18 23:53 05:20 05:20 WBC 18.2 H D RBC 4.14 Hgb 12.4 Hct 36.3 L MCV 87.8 MCH 29.9 MCHC Differential 34.1 RDW 12.3 Plt Count 233 MPV 9.7 Neutrophils % 76.2 Lymphocytes % 20.6 Monocytes % 2.8 Eosinophils % 0.1 Basophils % 0.3 PT INR PTT (Actin FS) Sodium 135 L Potassium 5.3 H Chloride 92 L Carbon Dioxide 10.6 L Anion Gap 37.7 H BUN 96 H* Creatinine 6.9 H* Est GFR ( Amer) TNP Est GFR (Non-Af Amer) TNP BUN/Creatinine Ratio 13.9 Glucose 192 H POC Glucose 143 H Calcium 10.3 Magnesium Troponin I Lipase Urine Source Urine Color Urine Clarity Urine pH Ur Specific [place] Urine Protein Urine Glucose (UA) Urine Ketones Urine Blood Urine Nitrate Urine Bilirubin Urine Urobilinogen Ur Leukocyte Esterase Urine RBC Urine WBC Ur Epithelial Cells Urine Bacteria Blood Type Antibody Screen 08/31/18 08/31/18 08/31/18 05:20 06:15 12:16 WBC RBC Hgb Hct MCV MCH MCHC Differential RDW Plt Count MPV Neutrophils % Lymphocytes % Monocytes % Eosinophils % Basophils % PT INR PTT (Actin FS) Sodium Potassium Chloride Carbon Dioxide Anion Gap BUN Creatinine Est GFR ( Amer) Est GFR (Non-Af Amer) BUN/Creatinine Ratio Glucose POC Glucose 199 H 201 H Calcium Magnesium Troponin I 0.05 Lipase Urine Source Urine Color Urine Clarity Urine pH Ur Specific [place] Urine Protein Urine Glucose (UA) Urine Ketones Urine Blood Urine Nitrate Urine Bilirubin Urine Urobilinogen Ur Leukocyte Esterase Urine RBC Urine WBC Ur Epithelial Cells Urine Bacteria Blood Type Antibody Screen Home Medication Medication Instructions Recorded Type Aspirin [Aspirin Chewable] 81 mg PO DAILY 11/18/17 History Clonidine HCl [Kapvay] 0.2 mg PO Q12H 11/18/17 History metFORMIN [Glucophage] 1,000 mg PO BID 11/18/17 History Amlodipine Besylate 10 mg PO DAILY 08/30/18 History Atenolol 50 mg PO HS 08/30/18 History Atorvastatin Calcium [Lipitor] 20 mg PO HS 08/30/18 History Diphenhydramine HCL [Benadryl] 25 mg PO HS PRN 08/30/18 History Docusate Sodium [Colace] 100 mg PO BID PRN 08/30/18 History Ferrous Sulfate 325 mg PO DAILY 08/30/18 History Hydrochlorothiazide [Hctz*] 25 mg PO DAILY 08/30/18 History Lisinopril 40 mg PO DAILY 08/30/18 History Omeprazole 20 mg PO DAILY PRN 08/30/18 History Current Medications Generic Name Dose Route Start Last Admin Trade Name [facility] PRN Reason Stop Dose Admin Acetaminophen 650 mg 08/30/18 21:44 Tylenol PO 10/29/18 21:43 Q4H PRN Mild Pain/Headache/T above 101 Amlodipine Besylate 10 mg 08/31/18 09:00 Norvasc PO 10/30/18 08:59 DAILY GLORIA Diphenhydramine HCl 25 mg 08/30/18 21:53 Benadryl PO 10/29/18 21:52 HS PRN Insomnia Docusate Sodium 100 mg 08/30/18 21:53 08/31/18 01:18 Colace PO 10/29/18 21:52 100 mg BID PRN Administration Constipation Enalaprilat 1.25 mg 08/30/18 23:27 08/30/18 23:40 Vasotec IVP 10/29/18 23:29 1.25 mg Q8HR PRN Administration hypertension Hydralazine HCl 25 mg 08/31/18 09:30 08/31/18 10:26 Apresoline PO 10/30/18 09:29 Not Given QID GLORIA Dextrose/Sodium Chloride 1,000 mls @ 75 mls/hr 08/30/18 23:00 08/31/18 12:49 D5-0.9%Ns IV 10/29/18 22:59 75 mls/hr .[id number] GLORIA Administration Nitroglycerin/Dextrose 50 mg in 250 mls @ 1.5 mls/hr 08/31/18 03:02 08/31/18 11:28 Nitroglycerin 50mg/Dextrose 5% Premix IV 10/30/18 03:01 10 mcg/min TITR PRN 3 mls/hr BP MAINTENANCE Titration Protocol 5 MCG/MIN Insulin Aspart 0 units 08/31/18 00:00 08/31/18 12:50 Novolog Insulin Sliding Scale SUBQ 10/30/18 00:00 4 units Q6HR GLORIA Administration Protocol Lisinopril 40 mg 08/31/18 09:00 Zestril PO 10/30/18 08:59 DAILY GL[facility]IA Miscellaneous 1 ea 08/31/18 08:00 Vte Chemical Prophylaxis Screen/ Admission 10/30/18 07:59 PRN PRN PROTOCOL Ondansetron HCl 4 mg 08/30/18 21:44 08/31/18 00:14 Zofran IVP 10/29/18 21:43 4 mg Q6H PRN Administration Nausea / Vomiting Pantoprazole Sodium 40 mg 08/31/18 09:00 08/31/18 09:00 Protonix IVP 10/30/18 08:59 40 mg DAILY GLORIA Administration Review of Systems: A 12 point ROS was reviewed with the pertinent positive and negatives noted in the HPI. Social History Smoking Status Never smoker Drug Use No Alcohol Use No Family Medical History Family Medical History Start: 08/30/18 22: 44 Freq: ONCE Status: Active Protocol: Document 08/30/18 22:44 [facility] (Rec: 08/31/18 04:09 [facility] [id number]) Family Medical History Mother History Unknown Yes Physical Exam: General: sleeping HEENT: GELY Neck: SUPPLE NO JVD Cardio: S1S2 RRR Respiratory: CTA B/L Abdominal: SOFT NT ND Extremities: NO EDEMA Neurological: AAOX3 Assessment: GI BLEED CVA HTN ARF Plan: IVF CONTROL BP Signed, Emanuel Turner M.D. [id number]
[2018-08-31] MEDS ORDERED: cloNIDine 0.3 mg/24 hr Tdm TD SCH (13:45)
[2018-08-31 14:23] LABS: HEMATOCRIT 36.6 % (41.0-60); HEMOGLOBIN 12.4 gm/dL (12-16); MEAN CELL VOLUME 87.6 fl (81-100); MEAN CORPUSCULAR HEMOGLOBIN 29.8 pg (27.0-31.0); MEAN PLATELET VOLUME 9.9 fl; PLATELET COUNT 262 Th/cmm (150-400); RED BLOOD COUNT 4.17 Mil/cmm (3.80-5.20)
[2018-08-31 14:31] LABS: WHITE BLOOD COUNT 19.1 Th/cmm (4.8-10.8)
[2018-08-31 14:49] LABS: BAND NEUTROPHILE 4 % (0-10); LYMPHOCYTE 8 % (20-50); MONOCYTE 4 % (2-10); NEUTROPHILS 84 % (40-80)
--- NOTE | 2018-08-31 17:45 | Consultation ---
DATE OF CONSULTATION: 08/30/2018 HISTORY OF PRESENT ILLNESS: This is a 77-year-old female patient. The patient came to the Emergency Room with some vomiting blood. Following this, the patient was found to have accelerated hypertension 200/100 and hence the patient is admitted. Cardiac consult requested. This patient is on nitroglycerin drip to control the blood pressure. PAST MEDICAL HISTORY: CKD, stage V; iron deficiency anemia; hyperlipidemia; hypertension; CVA with late effect; coronary artery disease; atherosclerotic aorta; left hip fracture with arthroplasty. FAMILY HISTORY: Unremarkable. SOCIAL HISTORY: No history of smoking, alcohol abuse. ALLERGIES: No known allergies. PHYSICAL EXAMINATION: VITAL SIGNS: Blood pressure 200/100, at the present time 130/70 on nitroglycerin drip; pulse 80; and respirations 38. HEAD: Normocephalic. No lumps or bumps. EYES: Pupils equal, reactive to light. Fundi show AV nicking, sclerae white, conjunctivae pink. NECK: Carotid 2+. Normal upstroke. JVD flat. Thyroid not palpable. Lymph nodes not palpable. CHEST: Shows increased AP diameter. No kyphosis, scoliosis. LUNGS: Bilateral bronchovesicular breath sounds. HEART: PMI fifth intercostal space with lateral to midclavicular line. S1, S2. No S3, S4, soft systolic murmur. ABDOMEN: Soft. Liver, spleen not palpable. No organomegaly. Bowel sounds active. NEUROLOGIC: Unremarkable. EXTREMITIES: Peripheral pulses 2+. No pedal edema. CLINICAL IMPRESSION: 1. Hypertensive emergency. The patient on nitroglycerin drip. 2. Upper gastrointestinal bleed, had a GI consult. 3. Chronic kidney disease, stage V, had renal consult. 4. Iron deficiency anemia. 5. Hyperlipidemia. 6. Hypertension. 7. Cerebrovascular accident with late effect. 8. Coronary artery disease, stable angina. 9. Atherosclerotic aorta. 10. Left hip fracture with ORIF and arthroplasty. PLAN: The patient to continue present care and have repeat CBC. Continue nitroglycerin drip and have swallow eval. JOB# [id number]
--- NOTE | 2018-08-31 21:30 | Consultation ---
DATE OF CONSULTATION: 08/31/2018 REASON FOR CONSULTATION: Possible GI bleed. HISTORY OF PRESENT ILLNESS: This consult was obtained through the courtesy of Dr. Walls for this 77-year-old admitted to the hospital for acute renal failure. Then, she had nausea and vomiting and it will have some coffee-ground material of blood-tinged sputum, so GI consult was called in for further evaluation. PAST MEDICAL HISTORY: Diabetes, hypertension, and CVA. PAST SURGICAL HISTORY: She had bone surgeries including hips and she had cholecystectomy. SOCIAL HISTORY: Nonsmoker, nonalcoholic, no IV drug abuser. FAMILY HISTORY: Noncontributory. ALLERGIES: No known drug allergies. MEDICATIONS: The patient was started on Tylenol, amlodipine, clonidine, Benadryl, Colace, Vasotec, apresoline, insulin, nitroglycerin, Zofran, Protonix. REVIEW OF SYSTEMS: She has lost a couple of pounds. No prior episodes of nausea and vomiting. This happened today. No prior episodes of GI bleed. PHYSICAL EXAMINATION: GENERAL: The patient is awake, oriented to self, place, and time, mild distress. VITAL SIGNS: Blood pressure is 150/46, heart rate 47, respiratory rate is 18, and temperature is 98.3. HEAD AND NECK: Pupils reactive to light. Extraocular muscles were intact. Sclerae are anicteric. Conjunctivae not pale. Oral cavity, no lesion. NECK: Supple, no jugular venous distention, no carotid lymph node. CHEST: Good respiratory movements. LUNGS: Showed few rhonchi. CARDIOVASCULAR: Regular rate and rhythm. No murmur or gallop. ABDOMEN: Soft, positive bowel sounds. EXTREMITIES: Lower extremities, no edema. CENTRAL NERVOUS SYSTEM: Grossly nonfocal. LABORATORY DATA: White count is 18.2, H and H are 12.4 and 36.3 with platelets of 233. BUN and creatinine are 96 and 6.9, glucose is 192. The patient had a CT of the abdomen and pelvis yesterday, which showed no definitive abnormalities, atherosclerotic changes, vascular graft and hip arthroplasty. IMPRESSION: A 77-year-old was acute renal failure and now with possible gastrointestinal bleed. Gastrointestinal bleed does not seem to be active and does not seem to be massive. H and H is stable. Vital signs are stable and even though this might be the initiating factors why did she come into the hospital, but the renal failure is more important right now, so it could have been from the uremia that she started to vomit and this caused a small Deepti-Sun tear or some gastritis, erosive esophagitis, so at this time, continue with PPI, continue to monitor H and H, transfuse as needed and will observe the patient over the weekend if there are active bleeding or significant drop of H and H and will do endoscopy, which could be done on Monday or emergently sooner if this needed too. On the other hand, if she is stable and continue current management. Diet as tolerated. Other medical problems such as diabetes, hypertension, renal failure as per Dr. Walls and other fashion consultant selling. Thank you Dr. Walls for allowing me to participate in the care of the patient. If you have any further questions, please let me know. JOB# [id number]
[2018-08-31 21:42] LABS: % BASOPHILS 0.2 % (0.0-2.0); % EOSINOPHILS 0.3 % (0.0-5.0); % LYMPHOCYTES 12.9 % (20.0-50.0); % MONOCYTES 6.4 % (2.0-10.0); % NEUTROPHILS 80.2 % (40.0-80.0); EOSINOPHILE ABSOLUTE 0.1 Th/cmm (0.1-0.4); HEMATOCRIT 33.8 % (41.0-60); HEMOGLOBIN 10.9 gm/dL (12-16); LYMPHOCYTE ABSOLUTE 2.2 Th/cmm (1.5-3.0); MEAN CORPUSCULAR HEMOGLOBIN 28.3 pg (27.0-31.0); MEAN CORPUSCULAR HGB CONC 32.2 pg (28.0-36.0); MEAN PLATELET VOLUME 9.4 fl; MONOCYTE ABSOLUTE 1.1 Th/cmm (0.3-1.0); NEUTROPHILE ABSOLUTE 13.5 Th/cmm (1.8-8.0); PLATELET COUNT 263 Th/cmm (150-400); RED BLOOD COUNT 3.85 Mil/cmm (3.80-5.20); RED CELL DISTRIBUTION WIDTH 12.2 % (11.5-20.0)
[2018-08-31 21:43] LABS: WHITE BLOOD COUNT 16.9 Th/cmm (4.8-10.8)
[2018-09-01] MEDS: INSULIN ASPART SLIDING SCALE 100 UNITS/ML UNIT SUBQ SCH ×4 (00:40→17:40)
[2018-09-01] MEDS: D5-0.9%NS 1,000 ML IV SCH ×2 (02:41→17:52)
[2018-09-01 04:33] LABS: HEMATOCRIT 30.1 % (41.0-60)
[2018-09-01 04:45] LABS: HEMOGLOBIN 10.1 gm/dL (12-16); MEAN CELL VOLUME 88.6 fl (81-100); MEAN CORPUSCULAR HEMOGLOBIN 29.7 pg (27.0-31.0); MEAN CORPUSCULAR HGB CONC 33.5 pg (28.0-36.0); MEAN PLATELET VOLUME 8.7 fl; PLATELET COUNT 215 Th/cmm (150-400); RED CELL DISTRIBUTION WIDTH 12.1 % (11.5-20.0)
[2018-09-01 05:09] LABS: WHITE BLOOD COUNT 16.8 Th/cmm (4.8-10.8)
[2018-09-01 05:10] LABS: % BASOPHILS 0.5 % (0.0-2.0); % EOSINOPHILS 0.1 % (0.0-5.0); % LYMPHOCYTES 9.6 % (20.0-50.0); % MONOCYTES 4.5 % (2.0-10.0); % NEUTROPHILS 85.3 % (40.0-80.0); BASOPHILE ABSOLUTE 0.1 Th/cumm (0-0.2); LYMPHOCYTE ABSOLUTE 1.6 Th/cmm (1.5-3.0); MONOCYTE ABSOLUTE 0.8 Th/cmm (0.3-1.0); NEUTROPHILE ABSOLUTE 14.4 Th/cmm (1.8-8.0)
[2018-09-01 05:40] LABS: ANION GAP 27.2 (7.0-16.0); CALCIUM SERUM 8.7 mg/dL (8.6-10.3); CARBON DIOXIDE 14.2 mEq/L (21.0-31.0); CHLORIDE 99 mEq/L (98-107); GLUCOSE 193 mg/dL (70-105); POTASSIUM SERUM 4.4 mEq/L (3.5-5.1); SODIUM SERUM 136 mEq/L (136-145)
[2018-09-01 05:45] LABS: BUN - UREA NITROGEN 101 mg/dL (7-25); CREATININE - SERUM 7.1 mg/dL (0.6-1.2)
--- NOTE | 2018-09-01 08:24 | General Progress Note ---
Subjective - Review of Systems Service Date: 09/01/18 Events since last encounter: pt kidney function is worse Subjective: pt in bed no distress family sleeping next to her Objective - Results Result Diagrams: 09/01/18 04:15 09/01/18 04:15 Recent Labs: Laboratory Last Values WBC 16.8 Th/cmm (4.8-10.8) H 09/01/18 04:15 RBC 3.40 Mil/cmm (3.80-5.20) L 09/01/18 04:15 Hgb 10.1 gm/dL (12-16) L 09/01/18 04:15 Hct 30.1 % (41.0-60) L 09/01/18 04:15 MCV 88.6 fl (81-100) 09/01/18 04:15 MCH 29.7 pg (27.0-31.0) 09/01/18 04:15 MCHC Differential 33.5 pg (28.0-36.0) 09/01/18 04:15 RDW 12.1 % (11.5-20.0) 09/01/18 04:15 Plt Count 215 Th/cmm (150-400) 09/01/18 04:15 MPV 8.7 fl 09/01/18 04:15 Add Manual Diff YES 08/31/18 13:00 Neutrophils % 85.3 % (40.0-80.0) H 09/01/18 04:15 Band Neutrophils % 4 % (0-10) 08/31/18 13:00 Lymphocytes % 9.6 % (20.0-50.0) L 09/01/18 04:15 Monocytes % 4.5 % (2.0-10.0) 09/01/18 04:15 Eosinophils % 0.1 % (0.0-5.0) 09/01/18 04:15 Basophils % 0.5 % (0.0-2.0) 09/01/18 04:15 Neutrophils (Manual) 84 % (40-80) H 08/31/18 13:00 Lymphocytes 8 % (20-50) L 08/31/18 13:00 Monocytes 4 % (2-10) 08/31/18 13:00 PT 9.9 SECONDS (9.5-11.5) 08/30/18 17:10 INR 0.95 (0.5-1.4) 08/30/18 17:10 PTT (Actin FS) 23.0 SECONDS (26.0-38.0) L 08/30/18 17:10 Sodium 136 mEq/L (136-145) 09/01/18 04:15 Potassium 4.4 mEq/L (3.5-5.1) 09/01/18 04:15 Chloride 99 mEq/L (98-107) 09/01/18 04:15 Carbon Dioxide 14.2 mEq/L (21.0-31.0) L 09/01/18 04:15 Anion Gap 27.2 (7.0-16.0) H 09/01/18 04:15 BUN 101 mg/dL (7-25) H* 09/01/18 04:15 Creatinine 7.1 mg/dL (0.6-1.2) H* 09/01/18 04:15 Est GFR ( Amer) TNP 09/01/18 04:15 Est GFR (Non-Af Amer) TNP 09/01/18 04:15 BUN/Creatinine Ratio 14.2 09/01/18 04:15 Glucose 193 mg/dL (70-105) H 09/01/18 04:15 POC Glucose 205 MG/DL (70 - 105) H 09/01/18 05:52 Calcium 8.7 mg/dL (8.6-10.3) 09/01/18 04:15 Magnesium 2.5 mg/dL (1.9-2.7) 08/30/18 17:10 Troponin I 0.05 ng/mL (0.01-0.05) 08/31/18 05:20 Lipase 36 U/L (11-82) 08/30/18 17:10 Urine Source CATH 08/30/18 18:30 Urine Color YELLOW 08/30/18 18:30 Urine Clarity CLEAR (CLEAR) 08/30/18 18:30 Urine pH 7.0 (4.6 - 8.0) 08/30/18 18:30 Ur Specific [place] 1.020 (1.005-1.030) 08/30/18 18:30 Urine Protein >=300 mg/dL (NEGATIVE) 08/30/18 18:30 Urine Glucose (UA) 250 mg/dL (NEGATIVE) H 08/30/18 18:30 Urine Ketones NEGATIVE mg/dL (NEGATIVE) 08/30/18 18:30 Urine Blood TRACE (NEGATIVE) 08/30/18 18:30 Urine Nitrate NEGATIVE (NEGATIVE) 08/30/18 18:30 Urine Bilirubin NEGATIVE (NEGATIVE) 08/30/18 18:30 Urine Urobilinogen 0.2 E.U./dL (0.2 - 1.0) 08/30/18 18:30 Ur Leukocyte Esterase NEGATIVE (NEGATIVE) 08/30/18 18:30 Urine RBC NONE SEEN /hpf (0-5) 08/30/18 18:30 Urine WBC 2-5 /hpf (0-5) 08/30/18 18:30 Ur Epithelial Cells FEW /lpf (FEW) 08/30/18 18:30 Urine Bacteria MODERATE /hpf (NONE SEEN) H 08/30/18 18:30 Blood Type O POSITIVE 08/30/18 17:10 Antibody Screen NEGATIVE 08/30/18 17:10 - Physical Exam Vitals and I&O: Vital Signs Temp 97.8 F 09/01/18 04:00 Pulse 55 09/01/18 07:00 Resp 20 09/01/18 06:00 BP 131/44 09/01/18 07:00 Pulse Ox 96 09/01/18 06:00 Intake & Output 08/31/18 09/01/18 09/01/18 18:59 06:59 18:59 Intake Total 1012.65 1120 122.35 Output Total 450 600 Balance 1012.65 670 -477.65 Weight (lbs) 44.452 kg 47.446 kg Intake: Intake, IV Amount 1012.65 1000 62.35 D5-0.9%Ns 1,000 ml @ 75 967.5 1000 mls/hr IV .[id number] GLORIA Rx #:[id number] Nitroglycerin 50mg/D5W 45.15 62.35 Premix 50 mg In 250 ml @ 5 MCG/MIN 1.5 mls/hr IV TITR PRN Rx#:[id number] Oral 120 60 Output: Urine 450 600 Other: # Bowel Movements 1 0 Stool Characteristics Hard Weight Source Bedscale Bedscale Active Medications: Current Medications Acetaminophen (Tylenol) 650 mg PO Q4H PRN PRN Reason: Mild Pain/Headache/T above 101 Stop: 10/29/18 21:43 Last Admin: 09/01/18 00:22 Dose: 650 mg Amlodipine Besylate (Norvasc) 10 mg PO DAILY COUNT INCLUDES THE [facility] Stop: 10/30/18 08:59 Last Admin: 08/31/18 09:00 Dose: Not Given Clonidine HCl (Hkjxctjn-Bdb-8) 1 patch TD Fr GLORIA Stop: 10/30/18 13:44 Last Admin: 08/31/18 14:42 Dose: 1 patch Diphenhydramine HCl (Benadryl) 25 mg PO HS PRN PRN Reason: Insomnia Stop: 10/29/18 21:52 Docusate Sodium (Colace) 100 mg PO BID PRN PRN Reason: Constipation Stop: 10/29/18 21:52 Last Admin: 08/31/18 01:18 Dose: 100 mg Enalaprilat (Vasotec) 1.25 mg IVP Q8HR PRN PRN Reason: hypertension Stop: 10/29/18 23:29 Last Admin: 08/30/18 23:40 Dose: 1.25 mg Hydralazine HCl (Apresoline) 25 mg PO QID COUNT INCLUDES THE [facility] Stop: 10/30/18 09:29 Last Admin: 08/31/18 20:06 Dose: 25 mg Dextrose/Sodium Chloride (D5-0.9%Ns) 1,000 mls @ 75 mls/hr IV .[id number] COUNT INCLUDES THE [facility] Stop: 10/29/18 22:59 Last Admin: 09/01/18 02:41 Dose: 75 mls/hr Nitroglycerin/Dextrose (Nitroglycerin 50mg/Dextrose 5% Premix) 50 mg in 250 mls @ 1.5 mls/hr IV TITR PRN; Protocol PRN Reason: BP MAINTENANCE Stop: 10/30/18 03:01 Last Titration: 09/01/18 08:15 Dose: 20 mcg/min, 6 mls/hr Insulin Aspart (Novolog Insulin Sliding Scale) 0 units SUBQ Q6HR GLORIA; Protocol Stop: 10/30/18 00:00 Last Admin: 09/01/18 06:18 Dose: 4 units Miscellaneous (Vte Chemical Prophylaxis Screen/ Admission) 1 ea MC PRN PRN PRN Reason: PROTOCOL Stop: 10/30/18 07:59 Ondansetron HCl (Zofran) 4 mg IVP Q6H PRN PRN Reason: Nausea / Vomiting Stop: 10/29/18 21:43 Last Admin: 08/31/18 14:47 Dose: 4 mg Pantoprazole Sodium (Protonix) 40 mg IVP DAILY GLORIA Stop: 10/30/18 08:59 Last Admin: 08/31/18 09:00 Dose: 40 mg General: No acute distress HEENT: Atraumatic Neck: Supple Cardiovascular: Regular rate, Normal S1, Normal S2 Lungs: Clear to auscultation Abdomen: Bowel sounds, Soft Extremities: no Edema Assessment/Plan - Assessment Assessment: ARF ON CKD ESRD? ANEMIA GI BLEED DM HTN CVA - Plan Plan: WILL ORDER HD FOR TODAY Nutritional Asmnt/Malnutr-PDOC - Dietary Evaluation Malnutrition Findings (Please click <Entered> for more info): Nutritional Asmnt/Malnutrition Start: 08/31/18 15: 24 Text: Status: Complete Freq: Protocol: Document 08/31/18 15:24 [facility] (Rec: 08/31/18 15:47 [facility] [id number]) Nutritional Asmnt/Malnutrition Patient General Information Nutritional Screening High Risk Diagnosis renal failure, GI bleed Pertinent Medical Hx/Surgical Hx CVA/TIA, left side paralysis d /t CVA, HTN, hernia, prothesis Subjective Information Pt in unit w/ daughter at bedside. Language barrier d/t emirati speaking, but daughter indicated that pt had poor intake prior to admission. Per RN, pt finished 0% breakfast and swallow eval ordered d/t pt pocketing food and hx of CVA. Swallow eval done in the afternoon, ST recommended full liquid with nectar thick Current Diet Order/ Nutrition Support soft/bland Pertinent Medications D5-0.9%Ns, colace, novolog, zofran, protonix Pertinent Labs 08/31: Na 135, K 5.3, Cl 92, BUN 96, Cr 6.9, glucose 192, POC 199-201 08/30: Na 134, CL 94, Bun 91, Cr 6.6, glucose 163, POC 143 Nutritional Hx/Data Height 1.52 m Height (Calculated Centimeters) 152.4 Current Weight (lbs) 44.588 kg Weight (Calculated Kilograms) 44.6 Weight (Calculated Grams) 39011.1 [place] Body Weight 100 lb Body Mass Index (BMI) 19.2 Weight Status Approriate GI Symptoms GI Symptoms Nausea Vomitting Last BM 08/31 Food Allergies No Skin Integrity/Comment: intact, aneudy 15 Estimated Nutritional Goals BEE in Kcals: Using Current wt Calories/Kcals/Kg 25-30 Kcals Calculated 3623-4807 Protein: Using Current wt Protein g/k-1.2 Protein Calculated 45-54 g Fluid: ml 3831-3887 (1 ml/kcal) Nutritional Problem 1. Problem Problem Altered nutrition related lab values Etiology renal failure, hyperglycimia Signs/Symptoms: BUN 96, Cr 6.9, K 5.3, glucose 192 Malnutrition Alert Is there a minimum of two criteria No selected? Query Text:Check all the applicable criteria. A minimum of two criteria are recommended for diagnosis of either severe or non-severe malnutrition. Malnutrition Related to Morbid Obesity Malnutrition related to morbid obesity No Intervention/Recommendation Comments 1. Start full liquid diet at dinner per ST recommendation. Add Nepro TID for extra kcal and protein. 2. Recommend to start renal diet when diet advanced d/t renal failure and altered BUN and Cr 3. Monitor intake, wt, labs and skin integrity 4. F/U as high risk in 2-3 days, 09/02-09/03 Expected Outcomes/Goals Expected Outcomes/Goals 1. Intake to meet at least 75% of nutritional needs 2. Wt stability, skin to remain intact, and nutrition related labs to approach normal limits Reviewed by Mariana Muller RD
--- NOTE | 2018-09-01 08:41 | GI Progress Note ---
Subjective - Review of Systems Subjective: NO GI BLEEDING PER STAFF Objective - Results Result Diagrams: 09/01/18 04:15 09/01/18 04:15 Recent Labs: Laboratory Last Values WBC 16.8 Th/cmm (4.8-10.8) H 09/01/18 04:15 RBC 3.40 Mil/cmm (3.80-5.20) L 09/01/18 04:15 Hgb 10.1 gm/dL (12-16) L 09/01/18 04:15 Hct 30.1 % (41.0-60) L 09/01/18 04:15 MCV 88.6 fl (81-100) 09/01/18 04:15 MCH 29.7 pg (27.0-31.0) 09/01/18 04:15 MCHC Differential 33.5 pg (28.0-36.0) 09/01/18 04:15 RDW 12.1 % (11.5-20.0) 09/01/18 04:15 Plt Count 215 Th/cmm (150-400) 09/01/18 04:15 MPV 8.7 fl 09/01/18 04:15 Add Manual Diff YES 08/31/18 13:00 Neutrophils % 85.3 % (40.0-80.0) H 09/01/18 04:15 Band Neutrophils % 4 % (0-10) 08/31/18 13:00 Lymphocytes % 9.6 % (20.0-50.0) L 09/01/18 04:15 Monocytes % 4.5 % (2.0-10.0) 09/01/18 04:15 Eosinophils % 0.1 % (0.0-5.0) 09/01/18 04:15 Basophils % 0.5 % (0.0-2.0) 09/01/18 04:15 Neutrophils (Manual) 84 % (40-80) H 08/31/18 13:00 Lymphocytes 8 % (20-50) L 08/31/18 13:00 Monocytes 4 % (2-10) 08/31/18 13:00 PT 9.9 SECONDS (9.5-11.5) 08/30/18 17:10 INR 0.95 (0.5-1.4) 08/30/18 17:10 PTT (Actin FS) 23.0 SECONDS (26.0-38.0) L 08/30/18 17:10 Sodium 136 mEq/L (136-145) 09/01/18 04:15 Potassium 4.4 mEq/L (3.5-5.1) 09/01/18 04:15 Chloride 99 mEq/L (98-107) 09/01/18 04:15 Carbon Dioxide 14.2 mEq/L (21.0-31.0) L 09/01/18 04:15 Anion Gap 27.2 (7.0-16.0) H 09/01/18 04:15 BUN 101 mg/dL (7-25) H* 09/01/18 04:15 Creatinine 7.1 mg/dL (0.6-1.2) H* 09/01/18 04:15 Est GFR ( Amer) TNP 09/01/18 04:15 Est GFR (Non-Af Amer) TNP 09/01/18 04:15 BUN/Creatinine Ratio 14.2 09/01/18 04:15 Glucose 193 mg/dL (70-105) H 09/01/18 04:15 POC Glucose 205 MG/DL (70 - 105) H 09/01/18 05:52 Calcium 8.7 mg/dL (8.6-10.3) 09/01/18 04:15 Magnesium 2.5 mg/dL (1.9-2.7) 08/30/18 17:10 Troponin I 0.05 ng/mL (0.01-0.05) 08/31/18 05:20 Lipase 36 U/L (11-82) 08/30/18 17:10 Urine Source CATH 08/30/18 18:30 Urine Color YELLOW 08/30/18 18:30 Urine Clarity CLEAR (CLEAR) 08/30/18 18:30 Urine pH 7.0 (4.6 - 8.0) 08/30/18 18:30 Ur Specific [place] 1.020 (1.005-1.030) 08/30/18 18:30 Urine Protein >=300 mg/dL (NEGATIVE) 08/30/18 18:30 Urine Glucose (UA) 250 mg/dL (NEGATIVE) H 08/30/18 18:30 Urine Ketones NEGATIVE mg/dL (NEGATIVE) 08/30/18 18:30 Urine Blood TRACE (NEGATIVE) 08/30/18 18:30 Urine Nitrate NEGATIVE (NEGATIVE) 08/30/18 18:30 Urine Bilirubin NEGATIVE (NEGATIVE) 08/30/18 18:30 Urine Urobilinogen 0.2 E.U./dL (0.2 - 1.0) 08/30/18 18:30 Ur Leukocyte Esterase NEGATIVE (NEGATIVE) 08/30/18 18:30 Urine RBC NONE SEEN /hpf (0-5) 08/30/18 18:30 Urine WBC 2-5 /hpf (0-5) 08/30/18 18:30 Ur Epithelial Cells FEW /lpf (FEW) 08/30/18 18:30 Urine Bacteria MODERATE /hpf (NONE SEEN) H 08/30/18 18:30 Blood Type O POSITIVE 08/30/18 17:10 Antibody Screen NEGATIVE 08/30/18 17:10 - Physical Exam Vitals and I&O: Vital Signs Temp 97.8 F 09/01/18 04:00 Pulse 55 09/01/18 07:00 Resp 20 09/01/18 06:00 BP 131/44 09/01/18 07:00 Pulse Ox 96 09/01/18 06:00 Intake & Output 08/31/18 09/01/18 09/01/18 18:59 06:59 18:59 Intake Total 1012.65 1120 122.35 Output Total 450 600 Balance 1012.65 670 -477.65 Weight (lbs) 44.452 kg 47.446 kg Intake: Intake, IV Amount 1012.65 1000 62.35 D5-0.9%Ns 1,000 ml @ 75 967.5 1000 mls/hr IV .[id number] [facility] Rx #:[id number] Nitroglycerin 50mg/D5W 45.15 62.35 Premix 50 mg In 250 ml @ 5 MCG/MIN 1.5 mls/hr IV TITR PRN Rx#:[id number] Oral 120 60 Output: Urine 450 600 Other: # Bowel Movements 1 0 Stool Characteristics Hard Weight Source Bedscale Bedscale Active Medications: Current Medications Acetaminophen (Tylenol) 650 mg PO Q4H PRN PRN Reason: Mild Pain/Headache/T above 101 Stop: 10/29/18 21:43 Last Admin: 09/01/18 00:22 Dose: 650 mg Amlodipine Besylate (Norvasc) 10 mg PO DAILY [facility] Stop: 10/30/18 08:59 Last Admin: 08/31/18 09:00 Dose: Not Given Clonidine HCl ([id number]-6) 1 patch TD Fr [facility] Stop: 10/30/18 13:44 Last Admin: 08/31/18 14:42 Dose: 1 patch Diphenhydramine HCl (Benadryl) 25 mg PO HS PRN PRN Reason: Insomnia Stop: 10/29/18 21:52 Docusate Sodium (Colace) 100 mg PO BID PRN PRN Reason: Constipation Stop: 10/29/18 21:52 Last Admin: 08/31/18 01:18 Dose: 100 mg Enalaprilat (Vasotec) 1.25 mg IVP Q8HR PRN PRN Reason: hypertension Stop: 10/29/18 23:29 Last Admin: 08/30/18 23:40 Dose: 1.25 mg Hydralazine HCl (Apresoline) 25 mg PO QID [facility] Stop: 10/30/18 09:29 Last Admin: 08/31/18 20:06 Dose: 25 mg Dextrose/Sodium Chloride (D5-0.9%Ns) 1,000 mls @ 75 mls/hr IV .[id number] [facility] Stop: 10/29/18 22:59 Last Admin: 09/01/18 02:41 Dose: 75 mls/hr Nitroglycerin/Dextrose (Nitroglycerin 50mg/Dextrose 5% Premix) 50 mg in 250 mls @ 1.5 mls/hr IV TITR PRN; Protocol PRN Reason: BP MAINTENANCE Stop: 10/30/18 03:01 Last Titration: 09/01/18 08:15 Dose: 20 mcg/min, 6 mls/hr Insulin Aspart (Novolog Insulin Sliding Scale) 0 units SUBQ Q6HR [facility]; Protocol Stop: 10/30/18 00:00 Last Admin: 09/01/18 06:18 Dose: 4 units Miscellaneous (Vte Chemical Prophylaxis Screen/ Admission) 1 ea [facility] PRN PRN PRN Reason: PROTOCOL Stop: 10/30/18 07:59 Ondansetron HCl (Zofran) 4 mg IVP Q6H PRN PRN Reason: Nausea / Vomiting Stop: 10/29/18 21:43 Last Admin: 08/31/18 14:47 Dose: 4 mg Pantoprazole Sodium (Protonix) 40 mg IVP DAILY [facility] Stop: 10/30/18 08:59 Last Admin: 08/31/18 09:00 Dose: 40 mg General: No acute distress HEENT: Atraumatic Neck: Supple Cardiovascular: Regular rate, Normal S1, Normal S2 Lungs: Clear to auscultation Abdomen: Bowel sounds, Soft Extremities: no Edema Assessment/Plan - Assessment Assessment: 77 YO FEMALE WITH UGI BLEED SEEMS RESOLVED HGB STABLE 1.CONT SUPP CARE 2.CONT PROTONIX 3.FOLLOW H/H
[2018-09-01] MEDS ORDERED: Heparin Sodium 1,000 Units/mL Vial IVP ONE (09:32)
--- NOTE | 2018-09-01 11:24 | General Progress Note ---
Subjective - Review of Systems Service Date: 09/01/18 Events since last encounter: consult dictated LSV Alejandro inserted Objective - Results Result Diagrams: 09/01/18 04:15 09/01/18 04:15 Recent Labs: Laboratory Last Values WBC 16.8 Th/cmm (4.8-10.8) H 09/01/18 04:15 RBC 3.40 Mil/cmm (3.80-5.20) L 09/01/18 04:15 Hgb 10.1 gm/dL (12-16) L 09/01/18 04:15 Hct 30.1 % (41.0-60) L 09/01/18 04:15 MCV 88.6 fl (81-100) 09/01/18 04:15 MCH 29.7 pg (27.0-31.0) 09/01/18 04:15 MCHC Differential 33.5 pg (28.0-36.0) 09/01/18 04:15 RDW 12.1 % (11.5-20.0) 09/01/18 04:15 Plt Count 215 Th/cmm (150-400) 09/01/18 04:15 MPV 8.7 fl 09/01/18 04:15 Add Manual Diff YES 08/31/18 13:00 Neutrophils % 85.3 % (40.0-80.0) H 09/01/18 04:15 Band Neutrophils % 4 % (0-10) 08/31/18 13:00 Lymphocytes % 9.6 % (20.0-50.0) L 09/01/18 04:15 Monocytes % 4.5 % (2.0-10.0) 09/01/18 04:15 Eosinophils % 0.1 % (0.0-5.0) 09/01/18 04:15 Basophils % 0.5 % (0.0-2.0) 09/01/18 04:15 Neutrophils (Manual) 84 % (40-80) H 08/31/18 13:00 Lymphocytes 8 % (20-50) L 08/31/18 13:00 Monocytes 4 % (2-10) 08/31/18 13:00 PT 9.9 SECONDS (9.5-11.5) 08/30/18 17:10 INR 0.95 (0.5-1.4) 08/30/18 17:10 PTT (Actin FS) 23.0 SECONDS (26.0-38.0) L 08/30/18 17:10 Sodium 136 mEq/L (136-145) 09/01/18 04:15 Potassium 4.4 mEq/L (3.5-5.1) 09/01/18 04:15 Chloride 99 mEq/L (98-107) 09/01/18 04:15 Carbon Dioxide 14.2 mEq/L (21.0-31.0) L 09/01/18 04:15 Anion Gap 27.2 (7.0-16.0) H 09/01/18 04:15 BUN 101 mg/dL (7-25) H* 09/01/18 04:15 Creatinine 7.1 mg/dL (0.6-1.2) H* 09/01/18 04:15 Est GFR ( Amer) TNP 09/01/18 04:15 Est GFR (Non-Af Amer) TNP 09/01/18 04:15 BUN/Creatinine Ratio 14.2 09/01/18 04:15 Glucose 193 mg/dL (70-105) H 09/01/18 04:15 POC Glucose 205 MG/DL (70 - 105) H 09/01/18 05:52 Calcium 8.7 mg/dL (8.6-10.3) 09/01/18 04:15 Magnesium 2.5 mg/dL (1.9-2.7) 08/30/18 17:10 Troponin I 0.05 ng/mL (0.01-0.05) 08/31/18 05:20 Lipase 36 U/L (11-82) 08/30/18 17:10 Urine Source CATH 08/30/18 18:30 Urine Color YELLOW 08/30/18 18:30 Urine Clarity CLEAR (CLEAR) 08/30/18 18:30 Urine pH 7.0 (4.6 - 8.0) 08/30/18 18:30 Ur Specific [place] 1.020 (1.005-1.030) 08/30/18 18:30 Urine Protein >=300 mg/dL (NEGATIVE) 08/30/18 18:30 Urine Glucose (UA) 250 mg/dL (NEGATIVE) H 08/30/18 18:30 Urine Ketones NEGATIVE mg/dL (NEGATIVE) 08/30/18 18:30 Urine Blood TRACE (NEGATIVE) 08/30/18 18:30 Urine Nitrate NEGATIVE (NEGATIVE) 08/30/18 18:30 Urine Bilirubin NEGATIVE (NEGATIVE) 08/30/18 18:30 Urine Urobilinogen 0.2 E.U./dL (0.2 - 1.0) 08/30/18 18:30 Ur Leukocyte Esterase NEGATIVE (NEGATIVE) 08/30/18 18:30 Urine RBC NONE SEEN /hpf (0-5) 08/30/18 18:30 Urine WBC 2-5 /hpf (0-5) 08/30/18 18:30 Ur Epithelial Cells FEW /lpf (FEW) 08/30/18 18:30 Urine Bacteria MODERATE /hpf (NONE SEEN) H 08/30/18 18:30 Blood Type O POSITIVE 08/30/18 17:10 Antibody Screen NEGATIVE 08/30/18 17:10 - Physical Exam Vitals and I&O: Vital Signs Temp 98.2 F 09/01/18 08:00 Pulse 57 09/01/18 10:00 Resp 13 09/01/18 10:00 BP 113/36 09/01/18 10:00 Pulse Ox 98 09/01/18 10:00 Intake & Output 08/31/18 09/01/18 09/01/18 18:59 06:59 18:59 Intake Total 1012.65 1120 130.75 Output Total 450 600 Balance 1012.65 670 -469.25 Weight (lbs) 44.452 kg 47.446 kg Intake: Intake, IV Amount 1012.65 1000 70.75 D5-0.9%Ns 1,000 ml @ 75 967.5 1000 mls/hr IV .[id number] [facility] Rx #:[id number] Nitroglycerin 50mg/D5W 45.15 70.75 Premix 50 mg In 250 ml @ 5 MCG/MIN 1.5 mls/hr IV TITR PRN Rx#:[id number] Oral 120 60 Output: Urine 450 600 Other: # Bowel Movements 1 0 Stool Characteristics Hard Weight Source Bedscale Bedscale Active Medications: Current Medications Acetaminophen (Tylenol) 650 mg PO Q4H PRN PRN Reason: Mild Pain/Headache/T above 101 Stop: 10/29/18 21:43 Last Admin: 09/01/18 00:22 Dose: 650 mg Amlodipine Besylate (Norvasc) 10 mg PO DAILY [facility] Stop: 10/30/18 08:59 Last Admin: 09/01/18 08:45 Dose: 10 mg Clonidine HCl (Udmxuxdg-Dsx-8) 1 patch TD Fr [facility] Stop: 10/30/18 13:44 Last Admin: 08/31/18 14:42 Dose: 1 patch Diphenhydramine HCl (Benadryl) 25 mg PO HS PRN PRN Reason: Insomnia Stop: 10/29/18 21:52 Docusate Sodium (Colace) 100 mg PO BID PRN PRN Reason: Constipation Stop: 10/29/18 21:52 Last Admin: 08/31/18 01:18 Dose: 100 mg Enalaprilat (Vasotec) 1.25 mg IVP Q8HR PRN PRN Reason: hypertension Stop: 10/29/18 23:29 Last Admin: 08/30/18 23:40 Dose: 1.25 mg Hydralazine HCl (Apresoline) 25 mg PO QID [facility] Stop: 10/30/18 09:29 Last Admin: 09/01/18 08:45 Dose: 25 mg Dextrose/Sodium Chloride (D5-0.9%Ns) 1,000 mls @ 75 mls/hr IV .[id number] [facility] Stop: 10/29/18 22:59 Last Admin: 09/01/18 02:41 Dose: 75 mls/hr Nitroglycerin/Dextrose (Nitroglycerin 50mg/Dextrose 5% Premix) 50 mg in 250 mls @ 1.5 mls/hr IV TITR PRN; Protocol PRN Reason: BP MAINTENANCE Stop: 10/30/18 03:01 Last Titration: 09/01/18 10:00 Dose: 10 mcg/min, 3 mls/hr Insulin Aspart (Novolog Insulin Sliding Scale) 0 units SUBQ Q6HR [facility]; Protocol Stop: 10/30/18 00:00 Last Admin: 09/01/18 06:18 Dose: 4 units Miscellaneous (Vte Chemical Prophylaxis Screen/ Admission) 1 ea [facility] PRN PRN PRN Reason: PROTOCOL Stop: 10/30/18 07:59 Ondansetron HCl (Zofran) 4 mg IVP Q6H PRN PRN Reason: Nausea / Vomiting Stop: 10/29/18 21:43 Last Admin: 08/31/18 14:47 Dose: 4 mg Pantoprazole Sodium (Protonix) 40 mg IVP DAILY [facility] Stop: 10/30/18 08:59 Last Admin: 09/01/18 08:45 Dose: 40 mg General: No acute distress HEENT: Atraumatic Neck: Supple Cardiovascular: Regular rate, Normal S1, Normal S2 Lungs: Clear to auscultation Abdomen: Bowel sounds, Soft Extremities: no Edema Nutritional Asmnt/Malnutr-PDOC - Dietary Evaluation Malnutrition Findings (Please click <Entered> for more info): Nutritional Asmnt/Malnutrition Start: 08/31/18 15: 24 Text: Status: Complete Freq: Protocol: Document 08/31/18 15:24 LAURA (Rec: 08/31/18 15:47 LAURA [id number]) Nutritional Asmnt/Malnutrition Patient General Information Nutritional Screening High Risk Diagnosis renal failure, GI bleed Pertinent Medical Hx/Surgical Hx CVA/TIA, left side paralysis d /t CVA, HTN, hernia, prothesis Subjective Information Pt in unit w/ daughter at bedside. Language barrier d/t [place] speaking, but daughter indicated that pt had poor intake prior to admission. Per RN, pt finished 0% breakfast and swallow eval ordered d/t pt pocketing food and hx of CVA. Swallow eval done in the afternoon, ST recommended full liquid with nectar thick Current Diet Order/ Nutrition Support soft/bland Pertinent Medications D5-0.9%Ns, colace, novolog, zofran, protonix Pertinent Labs 08/31: Na 135, K 5.3, Cl 92, BUN 96, Cr 6.9, glucose 192, POC 199-201 08/30: Na 134, CL 94, Bun 91, Cr 6.6, glucose 163, POC 143 Nutritional Hx/Data Height 1.52 m Height (Calculated Centimeters) 152.4 Current Weight (lbs) 44.588 kg Weight (Calculated Kilograms) 44.6 Weight (Calculated Grams) 04922.1 [place] Body Weight 100 lb Body Mass Index (BMI) 19.2 Weight Status Approriate GI Symptoms GI Symptoms Nausea Vomitting Last BM 08/31 Food Allergies No Skin Integrity/Comment: aneudy eubanks 15 Estimated Nutritional Goals BEE in Kcals: Using Current wt Calories/Kcals/Kg 25-30 Kcals Calculated 6992-2615 Protein: Using Current wt Protein g/k-1.2 Protein Calculated 45-54 g Fluid: ml 9274-5466 (1 ml/kcal) Nutritional Problem 1. Problem Problem Altered nutrition related lab values Etiology renal failure, hyperglycimia Signs/Symptoms: BUN 96, Cr 6.9, K 5.3, glucose 192 Malnutrition Alert Is there a minimum of two criteria No selected? Query Text:Check all the applicable criteria. A minimum of two criteria are recommended for diagnosis of either severe or non-severe malnutrition. Malnutrition Related to Morbid Obesity Malnutrition related to morbid obesity No Intervention/Recommendation Comments 1. Start full liquid diet at dinner per ST recommendation. Add Nepro TID for extra kcal and protein. 2. Recommend to start renal diet when diet advanced d/t renal failure and altered BUN and Cr 3. Monitor intake, wt, labs and skin integrity 4. F/U as high risk in 2-3 days, 09/02-09/03 Expected Outcomes/Goals Expected Outcomes/Goals 1. Intake to meet at least 75% of nutritional needs 2. Wt stability, skin to remain intact, and nutrition related labs to approach normal limits Reviewed by Mariana Muller RD
--- NOTE | 2018-09-01 11:38 | Operative Report ---
DATE OF SURGERY: 09/01/2018 PREOPERATIVE DIAGNOSES: 1. Acute renal failure. 2. Hypertension. 3. Diabetes mellitus. 4. Status post cerebrovascular accident. POSTOPERATIVE DIAGNOSES: 1. Acute renal failure. 2. Hypertension. 3. Diabetes mellitus. 4. Status post cerebrovascular accident. OPERATION DONE: Insertion of Alejandro catheter, left subclavian vein under ultrasound guidance. DESCRIPTION OF PROCEDURE: The left chest was prepped with ChloraPrep and draped in appropriate manner. 1% lidocaine was used to infiltrate the area identified on ultrasound. An incision was made and size #18 needle was used for the vein. Guide was inserted, the dilator and then the triple lumen catheter. This anchored to chest wall with 3-0 silk. Portable chest x-ray will be ordered. JOB# [id number]
--- NOTE | 2018-09-01 12:51 | Consultation ---
DATE OF CONSULTATION: 09/01/2018 REFERRING PHYSICIAN: Dr. Walsl/Dr. Turner. REASON FOR CONSULTATION: Acute renal failure. Thank you for referring this patient to me. HISTORY OF PRESENT ILLNESS: This is a 77-year-old female admitted for GI bleeding, was found to have markedly elevated BUN and creatinine for which Dr. Turner was consulted. The patient has previous history of hypertension and CVA. Recommendation for dialysis was recommended. LABORATORY STUDIES: Now show the WBC 16,800, hemoglobin of 10.1, neutrophils of 85.3%. Potassium is 4.4, BUN is 101, creatinine of 7.1. Blood sugar is 205. PHYSICAL EXAMINATION: The patient unable to move the left upper and lower extremities. She is poorly responsive. She keeps moving about. Daughter has been apprised of the risks and complications of the procedure that might include bleeding and left pneumothorax and Dr. Turner has explained to family also the need for this procedure. PLAN: We will place a Alejandro catheter in the subclavian location under ultrasound guidance. JOB# [id number]
--- NOTE | 2018-09-01 18:11 | Cardiology ---
08/31/[address] Walls. M-MODE ECHOCARDIOGRAM: Mitral valve, anterior leaflet of mitral valve shows normal excursion, EF velocity. Posterior leaflet of the mitral valve shows normal excursion. Left ventricular posterior wall shows increased thickness, normal excursion. Interventricular septum shows increased thickness, normal excursion, hypertrophy of the left ventricle, ejection fraction 70%. Left atrium normal. Aortic root shows normal dimension, normal excursion of aortic leaflets. CONCLUSION: Hypertrophy of the left ventricle, ejection fraction 70%. 2D ECHO ON THE SAME PATIENT: Long axis view showed normal sized left ventricle with hypertrophy of the left ventricle. Left atrium normal. Aortic root shows normal dimension, normal excursion of aortic leaflets. Short axis view of mitral valve normal. Short axis view of aortic valve normal. Apical four chamber view showed normal sized left ventricle with hypertrophy of the left ventricle. Left atrium normal. Right ventricular cavity, right atrium normal. No pericardial effusion. CONCLUSION: Hypertrophy of the left ventricle, ejection fraction 70%. Doppler study shows mild mitral regurgitation, severe tricuspid regurgitation, and right ventricular systolic pressure 61 mmHg with severe pulmonary hypertension. [facility]# [id number]
--- NOTE | 2018-09-01 19:42 | History & Physical ---
ADMIT DATE: 08/31/2018 TIME: 9:00 a.m. HISTORY SOURCE: Talking to the Emergency Room MD as well as talking to the patient's daughter at bedside. peoplesoft functional analyst used. CHIEF COMPLAINT: "I am okay." HISTORY OF PRESENT ILLNESS: A 77-year-old [place] female with history of diabetes mellitus, hypertension, chronic kidney disease, DJD, hyperlipidemia, presented to Emergency Room after the patient was having 2 days of chest pain, back pain, body ache, and the patient with poor appetite. However, before her presentation to the Emergency Room, she had persistent nausea and she vomited approximately 2 spoonful of red blood. The patient was worked up in the Emergency Room and noted to have a creatinine of 6.6. The patient was also noted to have hemoglobin of 11.9. The patient was advised to be admitted after we got approval from her insurance. The patient does not provide any meaningful history. PAST MEDICAL HISTORY: Remarkable for: 1. Diabetes. 2. Hypertension. 3. Hyperlipidemia. 4. DJD. 5. Gastritis. 6. Osteoporosis. MEDICATIONS AT HOME: Aspirin, atenolol, atorvastatin, ferrous sulfate, hydrochlorothiazide, metformin, omeprazole, amlodipine, clonidine, diphenhydramine, Colace, lisinopril. ALLERGIES: The patient is not allergic to medications. SOCIAL HISTORY: The patient resides with the family. The patient has no history of smoking cigarette, alcohol, or drug use. FAMILY MEDICAL HISTORY: Remarkable for diabetes and hypertension. REVIEW OF SYSTEMS: The patient does not provide a meaningful history. Upon further questioning, I did notice patient was having some chest discomfort on and off with some shortness of breath. The patient did also have pain on her chest, which radiated to her back. The patient also noted to have poor p.o. intake for last few days. No noted fever or chills or no cough. The patient did not have any seizure or syncopal episode, though the patient admitted to have a generalized weakness as well. PHYSICAL EXAMINATION: GENERAL: The patient is alert, awake, lying in the bed, follows command. VITAL SIGNS: Temperature 98, pulse 64, respiratory rate 18, blood pressure 208/105. HEENT: Normocephalic, atraumatic. Extraocular muscles are intact. Tongue was pink and coated. NECK: Supple, no JVD. No hepatojugular reflex. No lymphadenopathy, thyromegaly with or carotid bruit. HEART: Both heart sounds are regular. CHEST AND LUNGS: Equal in expansion, no expiratory wheezing. ABDOMEN: Soft. No guarding, no rigidity. Bowel sounds are present. No palpable mass. EXTREMITIES: No edema, no cyanosis. Peripheral pulses are +1. No calf tenderness noted. NEUROLOGIC: Alert, awake, and follows commands. AVAILABLE DIAGNOSTIC DATA: White count of 10.9, hemoglobin of 11.9, platelet count of 220. Sodium reported 134, potassium is reported 5.0, bicarb is reported 19.4. Anion gap was reported 25.6, BUN reported 91, creatinine reported 6.6. Troponin was negative. EKG has no ST-T changes representing acute ischemia. The patient did have chest x-ray, which did reveal cardiomegaly with atherosclerotic changes. CT scan of the abdomen and pelvis was also done by Emergency Room MD, which did reveal atherosclerotic vascular changes, vascular graft, left hip arthroplasty. CLINICAL IMPRESSION: 1. Acute on chronic kidney injury. Etiology needs to determine suspect probably secondary to ATN, cannot rule out chronic kidney disease. The patient was taking metformin. 2. Metabolic acidosis secondary to uremia and possible lactic acidosis. 3. Hyperkalemia, mild. 4. Uncontrolled hypertension. 5. Chest pain with radiation to the back with uncontrolled blood pressure, needs further evaluation. 6. Coffee-ground emesis x 1. Etiology needs to determine, possibly uremic gastritis, peptic ulcer disease with differential diagnosis 7. Diabetes mellitus. 8. Degenerative joint disease. 9. Hyperlipidemia. 10. Osteoporosis. PLAN: 1. The patient is admitted to ICU. The patient will be provided oxygen. 2. Nitro drip. 3. Cardiac enzymes. 4. Nephrology, GI, and Cardiology consultation. 5. CT scan of the chest. 6. Acute kidney injury workup. 7. Renal ultrasound. 8. Proton pump inhibitor. 9. Diabetes management. 10. Appropriate home medicine reconciliation. 11. Follow lab. 12. Ruled out for acute myocardial infarction. 13. Follow foreign legal consultant recommendation. 14. Care plan is reviewed and discussed with staff and the patient's daughter at bedside. JOB# [id number]
--- NOTE | 2018-09-01 22:29 | Progress Notes ---
DATE: 09/01/2018 SUBJECTIVE: The patient was seen and examined. The patient is seen by all consultants. The patient is scheduled to have a dialysis, Alejandro catheter has been inserted. The patient did have a CT scan of the chest, which did reveal patient has cardiomegaly with evidence of atherosclerotic coronary artery disease, normal caliber of thoracic aorta, no aneurysm. Renal ultrasound was also ordered, which did reveal patient has no clinical evidence of hydronephrosis, decreased renal size bilaterally noted. PHYSICAL EXAMINATION: GENERAL: The patient is alert, awake, follows simple command. VITAL SIGNS: Temperature 98, pulse is 57, respiratory rate 18, blood pressure 130/60. HEENT: Normocephalic, atraumatic. Extraocular muscles intact. Tongue was pink and coated. NECK: Supple, no JVD, no lymphadenopathy or thyromegaly. HEART: Both heart sounds are regular. CHEST AND LUNGS: Equal in expansion, no expiratory wheezing. ABDOMEN: Soft, no guarding or rigidity. Bowel sounds are present. No palpable mass. EXTREMITIES: No edema. AVAILABLE DIAGNOSTIC DATA: White count of 16.8, hemoglobin 10.1, platelet count 215, BUN and creatinine is 101 and 17, anion gap of 27.2. Glucoscan is reviewed. CLINICAL IMPRESSION: 1. Anuria with worsening renal function and metabolic acidosis with mild hyperkalemia. 2. Hypertension. 3. Encephalopathy. 4. Diabetes. 5. Degenerative joint disease. 6. Guarded prognosis. 7. Possible gastritis. No further episodes after patient has been admitted. PLAN: 1. Hemodialysis as planned by nutrition tech. 2. ICU stay. 3. Cardiac monitoring. 4. IV proton pump inhibitor. 5. Follow up lab. 6. General nursing care. 7. Diabetes management. 8. Follow consult recommendation. 9. Care plan reviewed and discussed with the patient and patient's family. JOB# [id number]
[2018-09-02] MEDS: INSULIN ASPART SLIDING SCALE 100 UNITS/ML UNIT SUBQ SCH ×5 (00:29→23:29)
[2018-09-02] MEDS: D5-0.9%NS 1,000 ML IV SCH ×2 (04:27→17:58)
[2018-09-02 05:10] LABS: % BASOPHILS 0.5 % (0.0-2.0); % EOSINOPHILS 0.1 % (0.0-5.0); % LYMPHOCYTES 9.4 % (20.0-50.0); % MONOCYTES 5.1 % (2.0-10.0); % NEUTROPHILS 84.9 % (40.0-80.0); BASOPHILE ABSOLUTE 0.1 Th/cumm (0-0.2); HEMATOCRIT 29.1 % (41.0-60); HEMOGLOBIN 9.8 gm/dL (12-16); MEAN CELL VOLUME 87.6 fl (81-100); MEAN CORPUSCULAR HEMOGLOBIN 29.5 pg (27.0-31.0); MEAN CORPUSCULAR HGB CONC 33.7 pg (28.0-36.0); MEAN PLATELET VOLUME 8.7 fl; MONOCYTE ABSOLUTE 0.5 Th/cmm (0.3-1.0); NEUTROPHILE ABSOLUTE 9.1 Th/cmm (1.8-8.0); PLATELET COUNT 147 Th/cmm (150-400); RED BLOOD COUNT 3.32 Mil/cmm (3.80-5.20); RED CELL DISTRIBUTION WIDTH 12.6 % (11.5-20.0); WHITE BLOOD COUNT 10.7 Th/cmm (4.8-10.8)
[2018-09-02 05:28] LABS: ALBUMIN 2.8 gm/dL (3.7-5.3); ALKALINE PHOSPHATASE 73 U/L (34-104); ANION GAP 13.5 (7.0-16.0); BILIRUBIN,TOTAL 0.3 mg/dL (0.3-1.0); BUN - UREA NITROGEN 42 mg/dL (7-25); CALCIUM SERUM 7.7 mg/dL (8.6-10.3); CARBON DIOXIDE 20.6 mEq/L (21.0-31.0); CHLORIDE 109 mEq/L (98-107); GLUCOSE 194 mg/dL (70-105); MAGNESIUM 1.7 mg/dL (1.9-2.7); POTASSIUM SERUM 3.1 mEq/L (3.5-5.1); SGOT 20 U/L (13-39); SGPT/ALT 11 U/L (7-52); SODIUM SERUM 140 mEq/L (136-145); TOTAL PROTEIN,SERUM 5.7 gm/dL (6.0-8.3)
--- NOTE | 2018-09-02 07:48 | General Progress Note ---
Subjective - Review of Systems Service Date: 09/02/18 Events since last encounter: s/p HD Subjective: pt in bed no distress family sleeping next to her Objective - Results Result Diagrams: 09/02/18 04:45 09/02/18 04:45 Recent Labs: Laboratory Last Values WBC 10.7 Th/cmm (4.8-10.8) 09/02/18 04:45 RBC 3.32 Mil/cmm (3.80-5.20) L 09/02/18 04:45 Hgb 9.8 gm/dL (12-16) L 09/02/18 04:45 Hct 29.1 % (41.0-60) L 09/02/18 04:45 MCV 87.6 fl (81-100) 09/02/18 04:45 MCH 29.5 pg (27.0-31.0) 09/02/18 04:45 MCHC Differential 33.7 pg (28.0-36.0) 09/02/18 04:45 RDW 12.6 % (11.5-20.0) 09/02/18 04:45 Plt Count 147 Th/cmm (150-400) L 09/02/18 04:45 MPV 8.7 fl 09/02/18 04:45 Add Manual Diff YES 08/31/18 13:00 Neutrophils % 84.9 % (40.0-80.0) H 09/02/18 04:45 Band Neutrophils % 4 % (0-10) 08/31/18 13:00 Lymphocytes % 9.4 % (20.0-50.0) L 09/02/18 04:45 Monocytes % 5.1 % (2.0-10.0) 09/02/18 04:45 Eosinophils % 0.1 % (0.0-5.0) 09/02/18 04:45 Basophils % 0.5 % (0.0-2.0) 09/02/18 04:45 Neutrophils (Manual) 84 % (40-80) H 08/31/18 13:00 Lymphocytes 8 % (20-50) L 08/31/18 13:00 Monocytes 4 % (2-10) 08/31/18 13:00 PT 9.9 SECONDS (9.5-11.5) 08/30/18 17:10 INR 0.95 (0.5-1.4) 08/30/18 17:10 PTT (Actin FS) 23.0 SECONDS (26.0-38.0) L 08/30/18 17:10 Sodium 140 mEq/L (136-145) 09/02/18 04:45 Potassium 3.1 mEq/L (3.5-5.1) L 09/02/18 04:45 Chloride 109 mEq/L (98-107) H 09/02/18 04:45 Carbon Dioxide 20.6 mEq/L (21.0-31.0) L 09/02/18 04:45 Anion Gap 13.5 (7.0-16.0) 09/02/18 04:45 BUN 42 mg/dL (7-25) H 09/02/18 04:45 Creatinine 4.0 mg/dL (0.6-1.2) H 09/02/18 04:45 Est GFR ( Amer) TNP 09/02/18 04:45 Est GFR (Non-Af Amer) TNP 09/02/18 04:45 BUN/Creatinine Ratio 10.5 09/02/18 04:45 Glucose 194 mg/dL (70-105) H 09/02/18 04:45 POC Glucose 175 MG/DL (70 - 105) H 09/02/18 06:02 Calcium 7.7 mg/dL (8.6-10.3) L 09/02/18 04:45 Magnesium 1.7 mg/dL (1.9-2.7) L 09/02/18 04:45 Total Bilirubin 0.3 mg/dL (0.3-1.0) 09/02/18 04:45 AST 20 U/L (13-39) 09/02/18 04:45 ALT 11 U/L (7-52) 09/02/18 04:45 Alkaline Phosphatase 73 U/L (34-104) 09/02/18 04:45 Troponin I 0.05 ng/mL (0.01-0.05) 08/31/18 05:20 Total Protein 5.7 gm/dL (6.0-8.3) L 09/02/18 04:45 Albumin 2.8 gm/dL (3.7-5.3) L 09/02/18 04:45 Globulin 2.9 gm/dL 09/02/18 04:45 Albumin/Globulin Ratio 1.0 (1.0-1.8) 09/02/18 04:45 Lipase 36 U/L (11-82) 08/30/18 17:10 Urine Source CATH 08/30/18 18:30 Urine Color YELLOW 08/30/18 18:30 Urine Clarity CLEAR (CLEAR) 08/30/18 18:30 Urine pH 7.0 (4.6 - 8.0) 08/30/18 18:30 Ur Specific [place] 1.020 (1.005-1.030) 08/30/18 18:30 Urine Protein >=300 mg/dL (NEGATIVE) 08/30/18 18:30 Urine Glucose (UA) 250 mg/dL (NEGATIVE) H 08/30/18 18:30 Urine Ketones NEGATIVE mg/dL (NEGATIVE) 08/30/18 18:30 Urine Blood TRACE (NEGATIVE) 08/30/18 18:30 Urine Nitrate NEGATIVE (NEGATIVE) 08/30/18 18:30 Urine Bilirubin NEGATIVE (NEGATIVE) 08/30/18 18:30 Urine Urobilinogen 0.2 E.U./dL (0.2 - 1.0) 08/30/18 18:30 Ur Leukocyte Esterase NEGATIVE (NEGATIVE) 08/30/18 18:30 Urine RBC NONE SEEN /hpf (0-5) 08/30/18 18:30 Urine WBC 2-5 /hpf (0-5) 08/30/18 18:30 Ur Epithelial Cells FEW /lpf (FEW) 08/30/18 18:30 Urine Bacteria MODERATE /hpf (NONE SEEN) H 08/30/18 18:30 Blood Type O POSITIVE 08/30/18 17:10 Antibody Screen NEGATIVE 08/30/18 17:10 - Physical Exam Vitals and I&O: Vital Signs Temp 98.2 F 09/02/18 04:00 Pulse 64 09/02/18 07:00 Resp 18 09/02/18 06:00 BP 153/42 09/02/18 07:00 Pulse Ox 99 09/02/18 06:00 Intake & Output 09/01/18 09/02/18 09/02/18 18:59 06:59 18:59 Intake Total 1108.70 839.458 Output Total 2350 Balance -1241.30 839.458 Weight (lbs) 47.174 kg Intake: Intake, IV Amount 998.70 839.458 D5-0.9%Ns 1,000 ml @ 75 923.75 793.75 mls/hr IV .[id number] [facility] Rx #:[id number] Nitroglycerin 50mg/D5W 74.95 45.708 Premix 50 mg In 250 ml @ 5 MCG/MIN 1.5 mls/hr IV TITR PRN Rx#:[id number] Oral 110 Output: Urine 850 Hemodialysis 1500 Other: # Bowel Movements 0 Weight Source Bedscale Active Medications: Current Medications Acetaminophen (Tylenol) 650 mg PO Q4H PRN PRN Reason: Mild Pain/Headache/T above 101 Stop: 10/29/18 21:43 Last Admin: 09/01/18 00:22 Dose: 650 mg Amlodipine Besylate (Norvasc) 10 mg PO DAILY COUNT INCLUDES THE [facility] Stop: 10/30/18 08:59 Last Admin: 09/01/18 08:45 Dose: 10 mg Clonidine HCl (Mvxxebly-Rqc-5) 1 patch TD Fr COUNT INCLUDES THE [facility] Stop: 10/30/18 13:44 Last Admin: 08/31/18 14:42 Dose: 1 patch Diphenhydramine HCl (Benadryl) 25 mg PO HS PRN PRN Reason: Insomnia Stop: 10/29/18 21:52 Docusate Sodium (Colace) 100 mg PO BID PRN PRN Reason: Constipation Stop: 10/29/18 21:52 Last Admin: 08/31/18 01:18 Dose: 100 mg Enalaprilat (Vasotec) 1.25 mg IVP Q8HR PRN PRN Reason: hypertension Stop: 10/29/18 23:29 Last Admin: 09/01/18 17:26 Dose: 1.25 mg Hydralazine HCl (Apresoline) 25 mg PO QID COUNT INCLUDES THE [facility] Stop: 10/30/18 09:29 Last Admin: 09/01/18 20:53 Dose: 25 mg Dextrose/Sodium Chloride (D5-0.9%Ns) 1,000 mls @ 75 mls/hr IV .[id number] COUNT INCLUDES THE [facility] Stop: 10/29/18 22:59 Last Admin: 09/02/18 04:27 Dose: 75 mls/hr Nitroglycerin/Dextrose (Nitroglycerin 50mg/Dextrose 5% Premix) 50 mg in 250 mls @ 1.5 mls/hr IV TITR PRN; Protocol PRN Reason: BP MAINTENANCE Stop: 10/30/18 03:01 Last Titration: 09/02/18 06:10 Dose: 30 mcg/min, 9 mls/hr Potassium Chloride (Potassium Chloride) 20 meq in 100 mls @ 50 mls/hr IV Q2H [facility] Stop: 09/02/18 11:43 Insulin Aspart (Novolog Insulin Sliding Scale) 0 units SUBQ Q6HR [facility]; Protocol Stop: 10/30/18 00:00 Last Admin: 09/02/18 06:06 Dose: 2 units Miscellaneous (Vte Chemical Prophylaxis Screen/ Admission) 1 ea MC PRN PRN PRN Reason: PROTOCOL Stop: 10/30/18 07:59 Ondansetron HCl (Zofran) 4 mg IVP Q6H PRN PRN Reason: Nausea / Vomiting Stop: 10/29/18 21:43 Last Admin: 08/31/18 14:47 Dose: 4 mg Pantoprazole Sodium (Protonix) 40 mg IVP DAILY COUNT INCLUDES THE [facility] Stop: 10/30/18 08:59 Last Admin: 09/01/18 08:45 Dose: 40 mg General: No acute distress HEENT: Atraumatic Neck: Supple Cardiovascular: Regular rate, Normal S1, Normal S2 Lungs: Clear to auscultation Abdomen: Bowel sounds, Soft Extremities: no Edema Assessment/Plan - Assessment Assessment: ARF ON CKD ESRD? ANEMIA GI BLEED DM HTN CVA - Plan Plan: HD PRN Nutritional Asmnt/Malnutr-PDOC - Dietary Evaluation Malnutrition Findings (Please click <Entered> for more info): Nutritional Asmnt/Malnutrition Start: 08/31/18 15: 24 Text: Status: Complete Freq: Protocol: Document 08/31/18 15:24 LAURA (Rec: 08/31/18 15:47 LAURA [id number]) Nutritional Asmnt/Malnutrition Patient General Information Nutritional Screening High Risk Diagnosis renal failure, GI bleed Pertinent Medical Hx/Surgical Hx CVA/TIA, left side paralysis d /t CVA, HTN, hernia, prothesis Subjective Information Pt in unit w/ daughter at bedside. Language barrier d/t grenadian speaking, but daughter indicated that pt had poor intake prior to admission. Per RN, pt finished 0% breakfast and swallow eval ordered d/t pt pocketing food and hx of CVA. Swallow eval done in the afternoon, ST recommended full liquid with nectar thick Current Diet Order/ Nutrition Support soft/bland Pertinent Medications D5-0.9%Ns, colace, novolog, zofran, protonix Pertinent Labs 08/31: Na 135, K 5.3, Cl 92, BUN 96, Cr 6.9, glucose 192, POC 199-201 08/30: Na 134, CL 94, Bun 91, Cr 6.6, glucose 163, POC 143 Nutritional Hx/Data Height 1.52 m Height (Calculated Centimeters) 152.4 Current Weight (lbs) 44.588 kg Weight (Calculated Kilograms) 44.6 Weight (Calculated Grams) 81035.1 [place] Body Weight 100 lb Body Mass Index (BMI) 19.2 Weight Status Approriate GI Symptoms GI Symptoms Nausea Vomitting Last BM 08/31 Food Allergies No Skin Integrity/Comment: intact, aneudy 15 Estimated Nutritional Goals BEE in Kcals: Using Current wt Calories/Kcals/Kg 25-30 Kcals Calculated 9539-5340 Protein: Using Current wt Protein g/k-1.2 Protein Calculated 45-54 g Fluid: ml 4839-5262 (1 ml/kcal) Nutritional Problem 1. Problem Problem Altered nutrition related lab values Etiology renal failure, hyperglycimia Signs/Symptoms: BUN 96, Cr 6.9, K 5.3, glucose 192 Malnutrition Alert Is there a minimum of two criteria No selected? Query Text:Check all the applicable criteria. A minimum of two criteria are recommended for diagnosis of either severe or non-severe malnutrition. Malnutrition Related to Morbid Obesity Malnutrition related to morbid obesity No Intervention/Recommendation Comments 1. Start full liquid diet at dinner per ST recommendation. Add Nepro TID for extra kcal and protein. 2. Recommend to start renal diet when diet advanced d/t renal failure and altered BUN and Cr 3. Monitor intake, wt, labs and skin integrity 4. F/U as high risk in 2-3 days, 09/02-09/03 Expected Outcomes/Goals Expected Outcomes/Goals 1. Intake to meet at least 75% of nutritional needs 2. Wt stability, skin to remain intact, and nutrition related labs to approach normal limits Reviewed by Mariana Muller RD
[2018-09-02] MEDS: Nitroglycerin 50mg/D5W Premix 50 MG/250 ML INFUS..BTL IV PRN (08:07)
--- NOTE | 2018-09-02 08:18 | GI Progress Note ---
Subjective - Review of Systems Subjective: NO GI BLEEDING PER STAFF Objective - Results Result Diagrams: 09/02/18 04:45 09/02/18 04:45 Recent Labs: Laboratory Last Values WBC 10.7 Th/cmm (4.8-10.8) 09/02/18 04:45 RBC 3.32 Mil/cmm (3.80-5.20) L 09/02/18 04:45 Hgb 9.8 gm/dL (12-16) L 09/02/18 04:45 Hct 29.1 % (41.0-60) L 09/02/18 04:45 MCV 87.6 fl (81-100) 09/02/18 04:45 MCH 29.5 pg (27.0-31.0) 09/02/18 04:45 MCHC Differential 33.7 pg (28.0-36.0) 09/02/18 04:45 RDW 12.6 % (11.5-20.0) 09/02/18 04:45 Plt Count 147 Th/cmm (150-400) L 09/02/18 04:45 MPV 8.7 fl 09/02/18 04:45 Add Manual Diff YES 08/31/18 13:00 Neutrophils % 84.9 % (40.0-80.0) H 09/02/18 04:45 Band Neutrophils % 4 % (0-10) 08/31/18 13:00 Lymphocytes % 9.4 % (20.0-50.0) L 09/02/18 04:45 Monocytes % 5.1 % (2.0-10.0) 09/02/18 04:45 Eosinophils % 0.1 % (0.0-5.0) 09/02/18 04:45 Basophils % 0.5 % (0.0-2.0) 09/02/18 04:45 Neutrophils (Manual) 84 % (40-80) H 08/31/18 13:00 Lymphocytes 8 % (20-50) L 08/31/18 13:00 Monocytes 4 % (2-10) 08/31/18 13:00 PT 9.9 SECONDS (9.5-11.5) 08/30/18 17:10 INR 0.95 (0.5-1.4) 08/30/18 17:10 PTT (Actin FS) 23.0 SECONDS (26.0-38.0) L 08/30/18 17:10 Sodium 140 mEq/L (136-145) 09/02/18 04:45 Potassium 3.1 mEq/L (3.5-5.1) L 09/02/18 04:45 Chloride 109 mEq/L (98-107) H 09/02/18 04:45 Carbon Dioxide 20.6 mEq/L (21.0-31.0) L 09/02/18 04:45 Anion Gap 13.5 (7.0-16.0) 09/02/18 04:45 BUN 42 mg/dL (7-25) H 09/02/18 04:45 Creatinine 4.0 mg/dL (0.6-1.2) H 09/02/18 04:45 Est GFR ( Amer) TNP 09/02/18 04:45 Est GFR (Non-Af Amer) TNP 09/02/18 04:45 BUN/Creatinine Ratio 10.5 09/02/18 04:45 Glucose 194 mg/dL (70-105) H 09/02/18 04:45 POC Glucose 175 MG/DL (70 - 105) H 09/02/18 06:02 Calcium 7.7 mg/dL (8.6-10.3) L 09/02/18 04:45 Magnesium 1.7 mg/dL (1.9-2.7) L 09/02/18 04:45 Total Bilirubin 0.3 mg/dL (0.3-1.0) 09/02/18 04:45 AST 20 U/L (13-39) 09/02/18 04:45 ALT 11 U/L (7-52) 09/02/18 04:45 Alkaline Phosphatase 73 U/L (34-104) 09/02/18 04:45 Troponin I 0.05 ng/mL (0.01-0.05) 08/31/18 05:20 Total Protein 5.7 gm/dL (6.0-8.3) L 09/02/18 04:45 Albumin 2.8 gm/dL (3.7-5.3) L 09/02/18 04:45 Globulin 2.9 gm/dL 09/02/18 04:45 Albumin/Globulin Ratio 1.0 (1.0-1.8) 09/02/18 04:45 Lipase 36 U/L (11-82) 08/30/18 17:10 Urine Source CATH 08/30/18 18:30 Urine Color YELLOW 08/30/18 18:30 Urine Clarity CLEAR (CLEAR) 08/30/18 18:30 Urine pH 7.0 (4.6 - 8.0) 08/30/18 18:30 Ur Specific [place] 1.020 (1.005-1.030) 08/30/18 18:30 Urine Protein >=300 mg/dL (NEGATIVE) 08/30/18 18:30 Urine Glucose (UA) 250 mg/dL (NEGATIVE) H 08/30/18 18:30 Urine Ketones NEGATIVE mg/dL (NEGATIVE) 08/30/18 18:30 Urine Blood TRACE (NEGATIVE) 08/30/18 18:30 Urine Nitrate NEGATIVE (NEGATIVE) 08/30/18 18:30 Urine Bilirubin NEGATIVE (NEGATIVE) 08/30/18 18:30 Urine Urobilinogen 0.2 E.U./dL (0.2 - 1.0) 08/30/18 18:30 Ur Leukocyte Esterase NEGATIVE (NEGATIVE) 08/30/18 18:30 Urine RBC NONE SEEN /hpf (0-5) 08/30/18 18:30 Urine WBC 2-5 /hpf (0-5) 08/30/18 18:30 Ur Epithelial Cells FEW /lpf (FEW) 08/30/18 18:30 Urine Bacteria MODERATE /hpf (NONE SEEN) H 08/30/18 18:30 Blood Type O POSITIVE 08/30/18 17:10 Antibody Screen NEGATIVE 08/30/18 17:10 - Physical Exam Vitals and I&O: Vital Signs Temp 98.2 F 09/02/18 04:00 Pulse 64 09/02/18 08:06 Resp 18 09/02/18 06:00 BP 185/51 09/02/18 08:06 Pulse Ox 99 09/02/18 06:00 Intake & Output 09/01/18 09/02/18 09/02/18 18:59 06:59 18:59 Intake Total 1108.70 839.458 17.55 Output Total 2350 Balance -1241.30 839.458 17.55 Weight (lbs) 47.174 kg Intake: Intake, IV Amount 998.70 839.458 17.55 D5-0.9%Ns 1,000 ml @ 75 923.75 793.75 mls/hr IV .[id number] [facility] Rx #:[id number] Nitroglycerin 50mg/D5W 74.95 45.708 17.55 Premix 50 mg In 250 ml @ 5 MCG/MIN 1.5 mls/hr IV TITR PRN Rx#:[id number] Oral 110 Output: Urine 850 Hemodialysis 1500 Other: # Bowel Movements 0 Weight Source Bedscale Active Medications: Current Medications Acetaminophen (Tylenol) 650 mg PO Q4H PRN PRN Reason: Mild Pain/Headache/T above 101 Stop: 10/29/18 21:43 Last Admin: 09/01/18 00:22 Dose: 650 mg Amlodipine Besylate (Norvasc) 10 mg PO DAILY [facility] Stop: 10/30/18 08:59 Last Admin: 09/01/18 08:45 Dose: 10 mg Clonidine HCl (Fgrylkuj-Xqq-7) 1 patch TD Fr [facility] Stop: 10/30/18 13:44 Last Admin: 08/31/18 14:42 Dose: 1 patch Diphenhydramine HCl (Benadryl) 25 mg PO HS PRN PRN Reason: Insomnia Stop: 10/29/18 21:52 Docusate Sodium (Colace) 100 mg PO BID PRN PRN Reason: Constipation Stop: 10/29/18 21:52 Last Admin: 08/31/18 01:18 Dose: 100 mg Enalaprilat (Vasotec) 1.25 mg IVP Q8HR PRN PRN Reason: hypertension Stop: 10/29/18 23:29 Last Admin: 09/02/18 08:06 Dose: 1.25 mg Hydralazine HCl (Apresoline) 25 mg PO QID [facility] Stop: 10/30/18 09:29 Last Admin: 09/01/18 20:53 Dose: 25 mg Dextrose/Sodium Chloride (D5-0.9%Ns) 1,000 mls @ 75 mls/hr IV .[id number] [facility] Stop: 10/29/18 22:59 Last Admin: 09/02/18 04:27 Dose: 75 mls/hr Nitroglycerin/Dextrose (Nitroglycerin 50mg/Dextrose 5% Premix) 50 mg in 250 mls @ 1.5 mls/hr IV TITR PRN; Protocol PRN Reason: BP MAINTENANCE Stop: 10/30/18 03:01 Last Admin: 09/02/18 08:07 Dose: 30 mcg/min, 9 mls/hr Potassium Chloride (Potassium Chloride) 20 meq in 100 mls @ 50 mls/hr IV Q2H [facility] Stop: 09/02/18 11:43 Insulin Aspart (Novolog Insulin Sliding Scale) 0 units SUBQ Q6HR [facility]; Protocol Stop: 10/30/18 00:00 Last Admin: 09/02/18 06:06 Dose: 2 units Miscellaneous (Vte Chemical Prophylaxis Screen/ Admission) 1 ea PRN PRN PRN Reason: PROTOCOL Stop: 10/30/18 07:59 Ondansetron HCl (Zofran) 4 mg IVP Q6H PRN PRN Reason: Nausea / Vomiting Stop: 10/29/18 21:43 Last Admin: 08/31/18 14:47 Dose: 4 mg Pantoprazole Sodium (Protonix) 40 mg IVP DAILY [facility] Stop: 10/30/18 08:59 Last Admin: 09/01/18 08:45 Dose: 40 mg General: No acute distress HEENT: Atraumatic Neck: Supple Cardiovascular: Regular rate, Normal S1, Normal S2 Lungs: Clear to auscultation Abdomen: Bowel sounds, Soft Extremities: no Edema Assessment/Plan - Assessment Assessment: 77 YO FEMALE WITH UGI BLEED SEEMS RESOLVED HGB STABLE 1.CONT SUPP CARE 2.CONT PROTONIX 3.FOLLOW H/H
[2018-09-02] MEDS ORDERED: Mag Sulfate 2gm/50mL Premix 2 GM/50 ML BAG IV ONE ×2 (08:32)
[2018-09-02] MEDS: KCL 20mEq/100mL Premix 20 MEQ/100 ML PIGGYBACK IV SCH ×2 (08:43→09:53)
[2018-09-02] MEDS: NIFEdipine 30 mg ER Tab PO SCH ×2 (08:50→17:17)
--- NOTE | 2018-09-02 09:14 | Diagnostic Imaging Report ---
Portable chest x-ray HISTORY: Vascular catheter placement, shortness of breath Compared with the prior exam of August 30, 2018, a left-sided vascular catheter has been inserted. The tip is in the region of the superior vena cava. No acute pulmonary processes. No pneumothorax. IMPRESSION: 1. New vascular catheter placement as noted above 2. No acute focal pulmonary processes
[2018-09-02] MEDS: Hydrocodone/APAP 5mg/325mg Tab PO PRN (20:03)
[2018-09-03 04:26] LABS: % BASOPHILS 0.4 % (0.0-2.0); % EOSINOPHILS 0.3 % (0.0-5.0); % LYMPHOCYTES 12.4 % (20.0-50.0); % MONOCYTES 4.1 % (2.0-10.0); % NEUTROPHILS 82.8 % (40.0-80.0); HEMATOCRIT 25.8 % (41.0-60); HEMOGLOBIN 8.8 gm/dL (12-16); LYMPHOCYTE ABSOLUTE 1.2 Th/cmm (1.5-3.0); MEAN CELL VOLUME 86.7 fl (81-100); MEAN CORPUSCULAR HEMOGLOBIN 29.5 pg (27.0-31.0); MEAN PLATELET VOLUME 8.5 fl; MONOCYTE ABSOLUTE 0.4 Th/cmm (0.3-1.0); NEUTROPHILE ABSOLUTE 7.7 Th/cmm (1.8-8.0); PLATELET COUNT 134 Th/cmm (150-400); RED BLOOD COUNT 2.98 Mil/cmm (3.80-5.20); RED CELL DISTRIBUTION WIDTH 13.3 % (11.5-20.0); WHITE BLOOD COUNT 9.3 Th/cmm (4.8-10.8)
[2018-09-03] MEDS: INSULIN ASPART SLIDING SCALE 100 UNITS/ML UNIT SUBQ SCH ×3 (05:08→18:11)
[2018-09-03 05:12] LABS: ANION GAP 12.9 (7.0-16.0); BUN - UREA NITROGEN 51 mg/dL (7-25); CALCIUM SERUM 7.6 mg/dL (8.6-10.3); CARBON DIOXIDE 18.5 mEq/L (21.0-31.0); CHLORIDE 113 mEq/L (98-107); GLUCOSE 189 mg/dL (70-105); MAGNESIUM 2.4 mg/dL (1.9-2.7); POTASSIUM SERUM 3.4 mEq/L (3.5-5.1); SODIUM SERUM 141 mEq/L (136-145)
[2018-09-03 05:14] LABS: CREATININE - SERUM 4.5 mg/dL (0.6-1.2)
[2018-09-03] MEDS: D5-0.9%NS 1,000 ML IV SCH (07:18)
[2018-09-03 08:09] LABS: HEP A AB IGM Negative (Negative); HEP B CORE IGM Negative (Negative); HEP B SURFACE AG QL Negative (Negative); HEP C ANTIBODY <0.1 s/co ratio (0.0-0.9)
[2018-09-03] MEDS: NIFEdipine 30 mg ER Tab PO SCH ×2 (08:50→09:32)
[2018-09-03] MEDS: Hydrocodone/APAP 5mg/325mg Tab PO PRN ×3 (08:50→22:29)
[2018-09-03] MEDS ORDERED: Sodium Chloride 0.9% 500 ML IV ONE (09:20)
[2018-09-03] MEDS ORDERED: Potassium Chloride 20 mEq ER Tab PO ONE (09:23)
--- NOTE | 2018-09-03 09:23 | Diagnostic Imaging Report ---
KUB single view HISTORY: NG tube placement COMPARISON: None FINDINGS: NG tube is within the stomach. Gas-filled loops of bowel are noted. Degenerative changes of the spine are noted. Partially visualized central line is noted. IMPRESSION: NG tube in the stomach Generalized gas-filled loops of bowel. A mild ileus may be considered.
--- NOTE | 2018-09-03 12:13 | General Progress Note ---
Subjective - Review of Systems Service Date: 09/03/18 Events since last encounter: tried HD today but catheter was not working dr. álvarez called he requested tPA Subjective: pt in bed no distress family sleeping next to her Objective - Results Result Diagrams: 09/03/18 04:20 09/03/18 04:20 Recent Labs: Laboratory Last Values WBC 9.3 Th/cmm (4.8-10.8) 09/03/18 04:20 RBC 2.98 Mil/cmm (3.80-5.20) L 09/03/18 04:20 Hgb 8.8 gm/dL (12-16) L 09/03/18 04:20 Hct 25.8 % (41.0-60) L 09/03/18 04:20 MCV 86.7 fl (81-100) 09/03/18 04:20 MCH 29.5 pg (27.0-31.0) 09/03/18 04:20 MCHC Differential 34.0 pg (28.0-36.0) 09/03/18 04:20 RDW 13.3 % (11.5-20.0) 09/03/18 04:20 Plt Count 134 Th/cmm (150-400) L 09/03/18 04:20 MPV 8.5 fl 09/03/18 04:20 Add Manual Diff YES 08/31/18 13:00 Neutrophils % 82.8 % (40.0-80.0) H 09/03/18 04:20 Band Neutrophils % 4 % (0-10) 08/31/18 13:00 Lymphocytes % 12.4 % (20.0-50.0) L 09/03/18 04:20 Monocytes % 4.1 % (2.0-10.0) 09/03/18 04:20 Eosinophils % 0.3 % (0.0-5.0) 09/03/18 04:20 Basophils % 0.4 % (0.0-2.0) 09/03/18 04:20 Neutrophils (Manual) 84 % (40-80) H 08/31/18 13:00 Lymphocytes 8 % (20-50) L 08/31/18 13:00 Monocytes 4 % (2-10) 08/31/18 13:00 PT 9.9 SECONDS (9.5-11.5) 08/30/18 17:10 INR 0.95 (0.5-1.4) 08/30/18 17:10 PTT (Actin FS) 23.0 SECONDS (26.0-38.0) L 08/30/18 17:10 Sodium 141 mEq/L (136-145) 09/03/18 04:20 Potassium 3.4 mEq/L (3.5-5.1) L 09/03/18 04:20 Chloride 113 mEq/L (98-107) H 09/03/18 04:20 Carbon Dioxide 18.5 mEq/L (21.0-31.0) L 09/03/18 04:20 Anion Gap 12.9 (7.0-16.0) 09/03/18 04:20 BUN 51 mg/dL (7-25) H 09/03/18 04:20 Creatinine 4.5 mg/dL (0.6-1.2) H* 09/03/18 04:20 Est GFR ( Amer) TNP 09/03/18 04:20 Est GFR (Non-Af Amer) TNP 09/03/18 04:20 BUN/Creatinine Ratio 11.3 09/03/18 04:20 Glucose 189 mg/dL (70-105) H 09/03/18 04:20 POC Glucose 243 MG/DL (70 - 105) H 09/03/18 11:55 Calcium 7.6 mg/dL (8.6-10.3) L 09/03/18 04:20 Magnesium 2.4 mg/dL (1.9-2.7) 09/03/18 04:20 Total Bilirubin 0.3 mg/dL (0.3-1.0) 09/02/18 04:45 AST 20 U/L (13-39) 09/02/18 04:45 ALT 11 U/L (7-52) 09/02/18 04:45 Alkaline Phosphatase 73 U/L (34-104) 09/02/18 04:45 Ammonia 38 umol/L (16-53) 09/03/18 04:20 Troponin I 0.05 ng/mL (0.01-0.05) 08/31/18 05:20 Total Protein 5.7 gm/dL (6.0-8.3) L 09/02/18 04:45 Albumin 2.8 gm/dL (3.7-5.3) L 09/02/18 04:45 Globulin 2.9 gm/dL 09/02/18 04:45 Albumin/Globulin Ratio 1.0 (1.0-1.8) 09/02/18 04:45 Lipase 36 U/L (11-82) 08/30/18 17:10 Urine Source CATH 08/30/18 18:30 Urine Color YELLOW 08/30/18 18:30 Urine Clarity CLEAR (CLEAR) 08/30/18 18:30 Urine pH 7.0 (4.6 - 8.0) 08/30/18 18:30 Ur Specific [place] 1.020 (1.005-1.030) 08/30/18 18:30 Urine Protein >=300 mg/dL (NEGATIVE) 08/30/18 18:30 Urine Glucose (UA) 250 mg/dL (NEGATIVE) H 08/30/18 18:30 Urine Ketones NEGATIVE mg/dL (NEGATIVE) 08/30/18 18:30 Urine Blood TRACE (NEGATIVE) 08/30/18 18:30 Urine Nitrate NEGATIVE (NEGATIVE) 08/30/18 18:30 Urine Bilirubin NEGATIVE (NEGATIVE) 08/30/18 18:30 Urine Urobilinogen 0.2 E.U./dL (0.2 - 1.0) 08/30/18 18:30 Ur Leukocyte Esterase NEGATIVE (NEGATIVE) 08/30/18 18:30 Urine RBC NONE SEEN /hpf (0-5) 08/30/18 18:30 Urine WBC 2-5 /hpf (0-5) 08/30/18 18:30 Ur Epithelial Cells FEW /lpf (FEW) 08/30/18 18:30 Urine Bacteria MODERATE /hpf (NONE SEEN) H 08/30/18 18:30 Hepatitis A IgM Ab Negative (Negative) 09/01/18 09:25 Hep Bs Antigen Negative (Negative) 09/01/18 09:25 Hep B Core IgM Ab Negative (Negative) 09/01/18 09:25 Hepatitis C Antibody <0.1 s/co ratio (0.0-0.9) 09/01/18 09:25 Blood Type O POSITIVE 08/30/18 17:10 Antibody Screen NEGATIVE 08/30/18 17:10 - Physical Exam Vitals and I&O: Vital Signs Temp 97.4 F 09/03/18 12:00 Pulse 69 09/03/18 12:00 Resp 14 09/03/18 12:00 BP 127/46 09/03/18 12:00 Pulse Ox 93 09/03/18 12:00 Intake & Output 09/02/18 09/03/18 09/03/18 18:59 06:59 18:59 Intake Total 1117.454 34 6050.812 Output Total 150 280 Balance 967.983 -250 1019.812 Weight (lbs) 47.174 kg 47.174 kg Intake: Intake, IV Amount 7604.892 9612.812 D5-0.9%Ns 1,000 ml @ 75 1000 1000 mls/hr IV .[id number] [facility] Rx #:[id number] KCL 20mEq/100mL Premix 20 58.333 meq In 100 ml @ 50 mls/ hr IV Q2H [facility] Rx#: [id number] Nitroglycerin 50mg/D5W 29.65 Premix 50 mg In 250 ml @ 5 MCG/MIN 1.5 mls/hr IV TITR PRN Rx#:[id number] Norepinephrine 4 mg In 19.812 Dextrose 5% 250 ml @ 4 MCG/MIN 15.24 mls/hr IV TITR PRN Rx#:[id number] Oral 30 30 Output: Urine 150 280 Other: Weight Source Bedscale Bedscale Active Medications: Current Medications Acetaminophen (Tylenol) 650 mg PO Q4H PRN PRN Reason: Mild Pain/Headache/T above 101 Stop: 10/29/18 21:43 Last Admin: 09/02/18 16:01 Dose: 650 mg Acetaminophen/Hydrocodone Bitart ([place] 5mg/325mg) 1 tab PO Q4H PRN PRN Reason: Pain (Mild) Stop: 11/01/18 18:58 Last Admin: 09/03/18 08:50 Dose: 1 tab Diphenhydramine HCl (Benadryl) 25 mg PO HS PRN PRN Reason: Insomnia Stop: 10/29/18 21:52 Docusate Sodium (Colace) 100 mg PO BID PRN PRN Reason: Constipation Stop: 10/29/18 21:52 Last Admin: 08/31/18 01:18 Dose: 100 mg Enalaprilat (Vasotec) 1.25 mg IVP Q8HR PRN PRN Reason: hypertension Stop: 10/29/18 23:29 Last Admin: 09/02/18 08:06 Dose: 1.25 mg Hydralazine HCl (Apresoline 20 Mg/Ml) 20 mg IV Q6HR PRN PRN Reason: SBP ABOVE 160 Stop: 11/01/18 08:24 Dextrose/Sodium Chloride (D5-0.9%Ns) 1,000 mls @ 75 mls/hr IV .[id number] [facility] Stop: 10/29/18 22:59 Last Admin: 09/03/18 07:18 Dose: 75 mls/hr Nitroglycerin/Dextrose (Nitroglycerin 50mg/Dextrose 5% Premix) 50 mg in 250 mls @ 1.5 mls/hr IV TITR PRN; Protocol PRN Reason: BP MAINTENANCE Stop: 10/30/18 03:01 Last Titration: 09/02/18 10:12 Dose: 0 mcg/min, 0 mls/hr Norepinephrine Bitartrate 4 mg (/ Dextrose) 254 mls @ 15.24 mls/hr IV TITR PRN ; Protocol PRN Reason: BP MAINTENANCE (PER PROTOCOL) Stop: 11/02/18 09:25 Last Titration: 09/03/18 11:50 Dose: 0 mcg/min, 0 mls/hr Insulin Aspart (Novolog Insulin Sliding Scale) 0 units SUBQ Q6HR GLORIA; Protocol Stop: 10/30/18 00:00 Last Admin: 09/03/18 11:57 Dose: 4 units Miscellaneous (Vte Chemical Prophylaxis Screen/ Admission) 1 ea [facility] PRN PRN PRN Reason: PROTOCOL Stop: 10/30/18 07:59 Ondansetron HCl (Zofran) 4 mg IVP Q6H PRN PRN Reason: Nausea / Vomiting Stop: 10/29/18 21:43 Last Admin: 08/31/18 14:47 Dose: 4 mg Pantoprazole Sodium (Protonix) 40 mg IVP DAILY [facility] Stop: 10/30/18 08:59 Last Admin: 09/03/18 08:50 Dose: 40 mg General: No acute distress HEENT: Atraumatic Neck: Supple Cardiovascular: Regular rate, Normal S1, Normal S2 Lungs: Clear to auscultation Abdomen: Bowel sounds, Soft Extremities: no Edema Assessment/Plan - Assessment Assessment: ARF ON CKD ESRD? ANEMIA GI BLEED DM HTN CVA - Plan Plan: HD Repeat in am Nutritional Asmnt/Malnutr-PDOC - Dietary Evaluation Malnutrition Findings (Please click <Entered> for more info): Nutritional Asmnt/Malnutrition Start: 08/31/18 15: 24 Text: Status: Complete Freq: Protocol: Document 08/31/18 15:24 LAURA (Rec: 08/31/18 15:47 CAMILLEARELI [id number]) Nutritional Asmnt/Malnutrition Patient General Information Nutritional Screening High Risk Diagnosis renal failure, GI bleed Pertinent Medical Hx/Surgical Hx CVA/TIA, left side paralysis d /t CVA, HTN, hernia, prothesis Subjective Information Pt in unit w/ daughter at bedside. Language barrier d/t trinidadian speaking, but daughter indicated that pt had poor intake prior to admission. Per RN, pt finished 0% breakfast and swallow eval ordered d/t pt pocketing food and hx of CVA. Swallow eval done in the afternoon, ST recommended full liquid with nectar thick Current Diet Order/ Nutrition Support soft/bland Pertinent Medications D5-0.9%Ns, colace, novolog, zofran, protonix Pertinent Labs 08/31: Na 135, K 5.3, Cl 92, BUN 96, Cr 6.9, glucose 192, POC 199-201 08/30: Na 134, CL 94, Bun 91, Cr 6.6, glucose 163, POC 143 Nutritional Hx/Data Height 1.52 m Height (Calculated Centimeters) 152.4 Current Weight (lbs) 44.588 kg Weight (Calculated Kilograms) 44.6 Weight (Calculated Grams) 57954.1 [place] Body Weight 100 lb Body Mass Index (BMI) 19.2 Weight Status Approriate GI Symptoms GI Symptoms Nausea Vomitting Last BM 08/31 Food Allergies No Skin Integrity/Comment: aneudy eubanks 15 Estimated Nutritional Goals BEE in Kcals: Using Current wt Calories/Kcals/Kg 25-30 Kcals Calculated [id number] Protein: Using Current wt Protein g/k-1.2 Protein Calculated 45-54 g Fluid: ml [id number] (1 ml/kcal) Nutritional Problem 1. Problem Problem Altered nutrition related lab values Etiology renal failure, hyperglycimia Signs/Symptoms: BUN 96, Cr 6.9, K 5.3, glucose 192 Malnutrition Alert Is there a minimum of two criteria No selected? Query Text:Check all the applicable criteria. A minimum of two criteria are recommended for diagnosis of either severe or non-severe malnutrition. Malnutrition Related to Morbid Obesity Malnutrition related to morbid obesity No Intervention/Recommendation Comments 1. Start full liquid diet at dinner per ST recommendation. Add Nepro TID for extra kcal and protein. 2. Recommend to start renal diet when diet advanced d/t renal failure and altered BUN and Cr 3. Monitor intake, wt, labs and skin integrity 4. F/U as high risk in 2-3 days, 09/02-09/03 Expected Outcomes/Goals Expected Outcomes/Goals 1. Intake to meet at least 75% of nutritional needs 2. Wt stability, skin to remain intact, and nutrition related labs to approach normal limits Reviewed by Mariana Muller RD
--- NOTE | 2018-09-03 15:59 | GI Progress Note ---
Subjective - Review of Systems Service Date: 09/03/18 Events since last encounter: no events Subjective: No N/V or abd pain C/O headache Objective - Results Result Diagrams: 09/03/18 04:20 09/03/18 04:20 Recent Labs: Laboratory Last Values WBC 9.3 Th/cmm (4.8-10.8) 09/03/18 04:20 RBC 2.98 Mil/cmm (3.80-5.20) L 09/03/18 04:20 Hgb 8.8 gm/dL (12-16) L 09/03/18 04:20 Hct 25.8 % (41.0-60) L 09/03/18 04:20 MCV 86.7 fl (81-100) 09/03/18 04:20 MCH 29.5 pg (27.0-31.0) 09/03/18 04:20 MCHC Differential 34.0 pg (28.0-36.0) 09/03/18 04:20 RDW 13.3 % (11.5-20.0) 09/03/18 04:20 Plt Count 134 Th/cmm (150-400) L 09/03/18 04:20 MPV 8.5 fl 09/03/18 04:20 Add Manual Diff YES 08/31/18 13:00 Neutrophils % 82.8 % (40.0-80.0) H 09/03/18 04:20 Band Neutrophils % 4 % (0-10) 08/31/18 13:00 Lymphocytes % 12.4 % (20.0-50.0) L 09/03/18 04:20 Monocytes % 4.1 % (2.0-10.0) 09/03/18 04:20 Eosinophils % 0.3 % (0.0-5.0) 09/03/18 04:20 Basophils % 0.4 % (0.0-2.0) 09/03/18 04:20 Neutrophils (Manual) 84 % (40-80) H 08/31/18 13:00 Lymphocytes 8 % (20-50) L 08/31/18 13:00 Monocytes 4 % (2-10) 08/31/18 13:00 PT 9.9 SECONDS (9.5-11.5) 08/30/18 17:10 INR 0.95 (0.5-1.4) 08/30/18 17:10 PTT (Actin FS) 23.0 SECONDS (26.0-38.0) L 08/30/18 17:10 Sodium 141 mEq/L (136-145) 09/03/18 04:20 Potassium 3.4 mEq/L (3.5-5.1) L 09/03/18 04:20 Chloride 113 mEq/L (98-107) H 09/03/18 04:20 Carbon Dioxide 18.5 mEq/L (21.0-31.0) L 09/03/18 04:20 Anion Gap 12.9 (7.0-16.0) 09/03/18 04:20 BUN 51 mg/dL (7-25) H 09/03/18 04:20 Creatinine 4.5 mg/dL (0.6-1.2) H* 09/03/18 04:20 Est GFR ( Amer) TNP 09/03/18 04:20 Est GFR (Non-Af Amer) TNP 09/03/18 04:20 BUN/Creatinine Ratio 11.3 09/03/18 04:20 Glucose 189 mg/dL (70-105) H 09/03/18 04:20 POC Glucose 243 MG/DL (70 - 105) H 09/03/18 11:55 Calcium 7.6 mg/dL (8.6-10.3) L 09/03/18 04:20 Magnesium 2.4 mg/dL (1.9-2.7) 09/03/18 04:20 Total Bilirubin 0.3 mg/dL (0.3-1.0) 09/02/18 04:45 AST 20 U/L (13-39) 09/02/18 04:45 ALT 11 U/L (7-52) 09/02/18 04:45 Alkaline Phosphatase 73 U/L (34-104) 09/02/18 04:45 Ammonia 38 umol/L (16-53) 09/03/18 04:20 Troponin I 0.05 ng/mL (0.01-0.05) 08/31/18 05:20 Total Protein 5.7 gm/dL (6.0-8.3) L 09/02/18 04:45 Albumin 2.8 gm/dL (3.7-5.3) L 09/02/18 04:45 Globulin 2.9 gm/dL 09/02/18 04:45 Albumin/Globulin Ratio 1.0 (1.0-1.8) 09/02/18 04:45 Lipase 36 U/L (11-82) 08/30/18 17:10 Urine Source CATH 08/30/18 18:30 Urine Color YELLOW 08/30/18 18:30 Urine Clarity CLEAR (CLEAR) 08/30/18 18:30 Urine pH 7.0 (4.6 - 8.0) 08/30/18 18:30 Ur Specific [place] 1.020 (1.005-1.030) 08/30/18 18:30 Urine Protein >=300 mg/dL (NEGATIVE) 08/30/18 18:30 Urine Glucose (UA) 250 mg/dL (NEGATIVE) H 08/30/18 18:30 Urine Ketones NEGATIVE mg/dL (NEGATIVE) 08/30/18 18:30 Urine Blood TRACE (NEGATIVE) 08/30/18 18:30 Urine Nitrate NEGATIVE (NEGATIVE) 08/30/18 18:30 Urine Bilirubin NEGATIVE (NEGATIVE) 08/30/18 18:30 Urine Urobilinogen 0.2 E.U./dL (0.2 - 1.0) 08/30/18 18:30 Ur Leukocyte Esterase NEGATIVE (NEGATIVE) 08/30/18 18:30 Urine RBC NONE SEEN /hpf (0-5) 08/30/18 18:30 Urine WBC 2-5 /hpf (0-5) 08/30/18 18:30 Ur Epithelial Cells FEW /lpf (FEW) 08/30/18 18:30 Urine Bacteria MODERATE /hpf (NONE SEEN) H 08/30/18 18:30 Hepatitis A IgM Ab Negative (Negative) 09/01/18 09:25 Hep Bs Antigen Negative (Negative) 09/01/18 09:25 Hep B Core IgM Ab Negative (Negative) 09/01/18 09:25 Hepatitis C Antibody <0.1 s/co ratio (0.0-0.9) 09/01/18 09:25 Blood Type O POSITIVE 08/30/18 17:10 Antibody Screen NEGATIVE 08/30/18 17:10 - Physical Exam Vitals and I&O: Vital Signs Temp 97.3 F 09/03/18 14:00 Pulse 59 09/03/18 14:00 Resp 15 09/03/18 14:00 BP 115/35 09/03/18 14:00 Pulse Ox 94 09/03/18 14:00 Intake & Output 09/02/18 09/03/18 09/03/18 18:59 06:59 18:59 Intake Total 1117.380 79 5759.812 Output Total 150 280 Balance 967.983 -250 1019.812 Weight (lbs) 47.174 kg 47.174 kg Intake: Intake, IV Amount 4928.647 4438.812 D5-0.9%Ns 1,000 ml @ 75 1000 1000 mls/hr IV .[id number] [facility] Rx #:[id number] KCL 20mEq/100mL Premix 20 58.333 meq In 100 ml @ 50 mls/ hr IV Q2H [facility] Rx#: [id number] Nitroglycerin 50mg/D5W 29.65 Premix 50 mg In 250 ml @ 5 MCG/MIN 1.5 mls/hr IV TITR PRN Rx#:[id number] Norepinephrine 4 mg In 19.812 Dextrose 5% 250 ml @ 4 MCG/MIN 15.24 mls/hr IV TITR PRN Rx#:[id number] Oral 30 30 Output: Urine 150 280 Other: Weight Source Bedscale Bedscale Active Medications: Current Medications Acetaminophen (Tylenol) 650 mg PO Q4H PRN PRN Reason: Mild Pain/Headache/T above 101 Stop: 10/29/18 21:43 Last Admin: 09/02/18 16:01 Dose: 650 mg Acetaminophen/Hydrocodone Bitart ([place] 5mg/325mg) 1 tab PO Q4H PRN PRN Reason: Pain (Mild) Stop: 11/01/18 18:58 Last Admin: 09/03/18 08:50 Dose: 1 tab Diphenhydramine HCl (Benadryl) 25 mg PO HS PRN PRN Reason: Insomnia Stop: 10/29/18 21:52 Docusate Sodium (Colace) 100 mg PO BID PRN PRN Reason: Constipation Stop: 10/29/18 21:52 Last Admin: 08/31/18 01:18 Dose: 100 mg Enalaprilat (Vasotec) 1.25 mg IVP Q8HR PRN PRN Reason: hypertension Stop: 10/29/18 23:29 Last Admin: 09/02/18 08:06 Dose: 1.25 mg Hydralazine HCl (Apresoline 20 Mg/Ml) 20 mg IV Q6HR PRN PRN Reason: SBP ABOVE 160 Stop: 11/01/18 08:24 Dextrose/Sodium Chloride (D5-0.9%Ns) 1,000 mls @ 75 mls/hr IV .[id number] [facility] Stop: 10/29/18 22:59 Last Admin: 09/03/18 07:18 Dose: 75 mls/hr Nitroglycerin/Dextrose (Nitroglycerin 50mg/Dextrose 5% Premix) 50 mg in 250 mls @ 1.5 mls/hr IV TITR PRN; Protocol PRN Reason: BP MAINTENANCE Stop: 10/30/18 03:01 Last Titration: 09/02/18 10:12 Dose: 0 mcg/min, 0 mls/hr Norepinephrine Bitartrate 4 mg (/ Dextrose) 254 mls @ 15.24 mls/hr IV TITR PRN ; Protocol PRN Reason: BP MAINTENANCE (PER PROTOCOL) Stop: 11/02/18 09:25 Last Titration: 09/03/18 11:50 Dose: 0 mcg/min, 0 mls/hr Insulin Aspart (Novolog Insulin Sliding Scale) 0 units SUBQ Q6HR [facility]ORIA; Protocol Stop: 10/30/18 00:00 Last Admin: 09/03/18 11:57 Dose: 4 units Miscellaneous (Vte Chemical Prophylaxis Screen/ Admission) 1 ea [facility] PRN PRN PRN Reason: PROTOCOL Stop: 10/30/18 07:59 Ondansetron HCl (Zofran) 4 mg IVP Q6H PRN PRN Reason: Nausea / Vomiting Stop: 10/29/18 21:43 Last Admin: 08/31/18 14:47 Dose: 4 mg Pantoprazole Sodium (Protonix) 40 mg IVP DAILY [facility] Stop: 10/30/18 08:59 Last Admin: 09/03/18 08:50 Dose: 40 mg General: No acute distress HEENT: Atraumatic Neck: Supple Cardiovascular: Regular rate, Normal S1, Normal S2 Lungs: Clear to auscultation Abdomen: Bowel sounds, Soft Extremities: no Edema Assessment/Plan - Assessment Assessment: GI Bleeding - Plan Plan: 1.GI Bleeding Resolved Cont to monitor GI w/U if active bleeding 2. Dysphagia NG feeding today Check swallowing evaluation in AM
--- NOTE | 2018-09-03 19:15 | Progress Notes ---
DATE: 09/03/2018 IDENTIFICATION: A 77-year-old female. SUBJECTIVE: The patient seen and examined. The patient's daughter at bedside. The patient has NG tube now. Blood pressure is running low. The patient currently opens her eyes trying to follow commands. No evidence of any active GI bleed. PHYSICAL EXAMINATION: VITAL SIGNS: Temperature 98, pulse is 68, respiratory rate 18, blood pressure 118/46. HEENT: No facial asymmetry. Nasogastric tube noted. NECK: Supple, no JVD. HEART: Both heart sounds are regular. CHEST AND LUNGS: Equal in expansion. No expiratory wheezing. ABDOMEN: Soft. No guarding, no rigidity. Bowel sounds are present. No palpable mass. EXTREMITIES: No edema. Peripheral +1. AVAILABLE DIAGNOSTIC DATA: White count of 9.3, hemoglobin 8.8, platelet count of 134, BUN and creatinine is 51 and 4.5, potassium 3.4, chloride 113, CO2 of 18.5, anion gap is 12.9, sodium 141. Glucose plan is reviewed. Blood cultures, urine cultures no growth. MRSA screening is normal as reported. A 2D echocardiogram report, hypertrophy of left ventricle with ejection fraction 70%, severe pulmonary hypertension noted with severe tricuspid regurgitation with right ventricular systolic pressure of 61 mmHg. CLINICAL IMPRESSION: 1. Hypotension secondary to antihypertensive medications most likely, cannot rule out secondary to volume depletion in the presence of patient is on dialysis with poor p.o. intake. 2. Normocytic normochromic anemia secondary anemia of inflammation and chronic kidney disease. 3. Hypokalemia. 4. Diabetes mellitus. 5. Hypotension by history. 6. Degenerative joint disease. 7. Dysphagia, currently patient has a nasogastric tube. PLAN: Correct potassium for now, IV fluid bolus. Hold all her antihypertensive medications for now. Continue to provide hemodialysis as planned by travel manager. Cardiac monitoring and diabetes management. Follow up lab will be done as well and we will follow document management consultant's recommendations. Care plan has been reviewed and discussed with RN. JOB# [id number]
[2018-09-04] MEDS: INSULIN ASPART SLIDING SCALE 100 UNITS/ML UNIT SUBQ SCH ×5 (00:37→23:10)
[2018-09-04 04:41] LABS: MEAN CELL VOLUME 86.5 fl (81-100)
[2018-09-04 04:59] LABS: HEMATOCRIT 22.6 % (41.0-60); MEAN CORPUSCULAR HEMOGLOBIN 29.5 pg (27.0-31.0); MEAN PLATELET VOLUME 9.6 fl; PLATELET COUNT 136 Th/cmm (150-400); RED BLOOD COUNT 2.61 Mil/cmm (3.80-5.20); WHITE BLOOD COUNT 11.2 Th/cmm (4.8-10.8)
[2018-09-04 05:04] LABS: HEMOGLOBIN 7.7 gm/dL (12-16)
[2018-09-04 05:28] LABS: ALB/GLOB RATIO 0.9 (1.0-1.8); ALBUMIN 2.4 gm/dL (3.7-5.3); ALKALINE PHOSPHATASE 93 U/L (34-104); ANION GAP 13.6 (7.0-16.0); BILIRUBIN,TOTAL 0.3 mg/dL (0.3-1.0); BUN - UREA NITROGEN 49 mg/dL (7-25); CALCIUM SERUM 6.7 mg/dL (8.6-10.3); CARBON DIOXIDE 14.8 mEq/L (21.0-31.0); CHLORIDE 116 mEq/L (98-107); GLUCOSE 257 mg/dL (70-105); POTASSIUM SERUM 3.4 mEq/L (3.5-5.1); SGOT 24 U/L (13-39); SGPT/ALT 17 U/L (7-52); SODIUM SERUM 141 mEq/L (136-145)
[2018-09-04 05:36] LABS: CREATININE - SERUM 4.3 mg/dL (0.6-1.2)
[2018-09-04 06:39] LABS: BAND NEUTROPHILE 1 % (0-10); LYMPHOCYTE 5 % (20-50); MONOCYTE 1 % (2-10); NEUTROPHILS 93 % (40-80); PLATELET ESTIMATE ADEQUATE (NORMAL)
[2018-09-04] MEDS: D5-0.9%NS 1,000 ML IV SCH ×2 (06:48→12:13)
[2018-09-04] MEDS: Hydrocodone/APAP 5mg/325mg Tab PO PRN ×2 (07:29→15:27)
--- NOTE | 2018-09-04 08:52 | General Progress Note ---
Subjective - Review of Systems Service Date: 09/04/18 Subjective: pt in bed no distress Objective - Results Result Diagrams: 09/04/18 04:15 09/04/18 04:15 Recent Labs: Laboratory Last Values WBC 11.2 Th/cmm (4.8-10.8) H D 09/04/18 04:15 RBC 2.61 Mil/cmm (3.80-5.20) L 09/04/18 04:15 Hgb 7.7 gm/dL (12-16) L* 09/04/18 04:15 Hct 22.6 % (41.0-60) L 09/04/18 04:15 MCV 86.5 fl (81-100) 09/04/18 04:15 MCH 29.5 pg (27.0-31.0) 09/04/18 04:15 MCHC Differential 34.0 pg (28.0-36.0) 09/04/18 04:15 RDW 14.0 % (11.5-20.0) 09/04/18 04:15 Plt Count 136 Th/cmm (150-400) L 09/04/18 04:15 MPV 9.6 fl 09/04/18 04:15 Add Manual Diff YES 09/04/18 04:15 Neutrophils % 82.8 % (40.0-80.0) H 09/03/18 04:20 Band Neutrophils % 1 % (0-10) 09/04/18 04:15 Lymphocytes % 12.4 % (20.0-50.0) L 09/03/18 04:20 Monocytes % 4.1 % (2.0-10.0) 09/03/18 04:20 Eosinophils % 0.3 % (0.0-5.0) 09/03/18 04:20 Basophils % 0.4 % (0.0-2.0) 09/03/18 04:20 Neutrophils (Manual) 93 % (40-80) H 09/04/18 04:15 Lymphocytes 5 % (20-50) L 09/04/18 04:15 Monocytes 1 % (2-10) L 09/04/18 04:15 Platelet Estimate ADEQUATE (NORMAL) 09/04/18 04:15 PT 9.9 SECONDS (9.5-11.5) 08/30/18 17:10 INR 0.95 (0.5-1.4) 08/30/18 17:10 PTT (Actin FS) 23.0 SECONDS (26.0-38.0) L 08/30/18 17:10 Sodium 141 mEq/L (136-145) 09/04/18 04:15 Potassium 3.4 mEq/L (3.5-5.1) L 09/04/18 04:15 Chloride 116 mEq/L (98-107) H 09/04/18 04:15 Carbon Dioxide 14.8 mEq/L (21.0-31.0) L 09/04/18 04:15 Anion Gap 13.6 (7.0-16.0) 09/04/18 04:15 BUN 49 mg/dL (7-25) H 09/04/18 04:15 Creatinine 4.3 mg/dL (0.6-1.2) H* 09/04/18 04:15 Est GFR ( Amer) TNP 09/04/18 04:15 Est GFR (Non-Af Amer) TNP 09/04/18 04:15 BUN/Creatinine Ratio 11.4 09/04/18 04:15 Glucose 257 mg/dL (70-105) H 09/04/18 04:15 POC Glucose 218 MG/DL (70 - 105) H 09/03/18 18:03 Calcium 6.7 mg/dL (8.6-10.3) L 09/04/18 04:15 Magnesium 2.4 mg/dL (1.9-2.7) 09/03/18 04:20 Total Bilirubin 0.3 mg/dL (0.3-1.0) 09/04/18 04:15 AST 24 U/L (13-39) 09/04/18 04:15 ALT 17 U/L (7-52) 09/04/18 04:15 Alkaline Phosphatase 93 U/L (34-104) 09/04/18 04:15 Ammonia 38 umol/L (16-53) 09/03/18 04:20 Troponin I 0.05 ng/mL (0.01-0.05) 08/31/18 05:20 Total Protein 5.0 gm/dL (6.0-8.3) L 09/04/18 04:15 Albumin 2.4 gm/dL (3.7-5.3) L 09/04/18 04:15 Globulin 2.6 gm/dL 09/04/18 04:15 Albumin/Globulin Ratio 0.9 (1.0-1.8) L 09/04/18 04:15 Lipase 36 U/L (11-82) 08/30/18 17:10 Urine Source CATH 08/30/18 18:30 Urine Color YELLOW 08/30/18 18:30 Urine Clarity CLEAR (CLEAR) 08/30/18 18:30 Urine pH 7.0 (4.6 - 8.0) 08/30/18 18:30 Ur Specific [place] 1.020 (1.005-1.030) 08/30/18 18:30 Urine Protein >=300 mg/dL (NEGATIVE) 08/30/18 18:30 Urine Glucose (UA) 250 mg/dL (NEGATIVE) H 08/30/18 18:30 Urine Ketones NEGATIVE mg/dL (NEGATIVE) 08/30/18 18:30 Urine Blood TRACE (NEGATIVE) 08/30/18 18:30 Urine Nitrate NEGATIVE (NEGATIVE) 08/30/18 18:30 Urine Bilirubin NEGATIVE (NEGATIVE) 08/30/18 18:30 Urine Urobilinogen 0.2 E.U./dL (0.2 - 1.0) 08/30/18 18:30 Ur Leukocyte Esterase NEGATIVE (NEGATIVE) 08/30/18 18:30 Urine RBC NONE SEEN /hpf (0-5) 08/30/18 18:30 Urine WBC 2-5 /hpf (0-5) 08/30/18 18:30 Ur Epithelial Cells FEW /lpf (FEW) 08/30/18 18:30 Urine Bacteria MODERATE /hpf (NONE SEEN) H 08/30/18 18:30 Hepatitis A IgM Ab Negative (Negative) 09/01/18 09:25 Hep Bs Antigen Negative (Negative) 09/01/18 09:25 Hep B Core IgM Ab Negative (Negative) 09/01/18 09:25 Hepatitis C Antibody <0.1 s/co ratio (0.0-0.9) 09/01/18 09:25 Blood Type O POSITIVE 08/30/18 17:10 Antibody Screen NEGATIVE 08/30/18 17:10 - Physical Exam Vitals and I&O: Vital Signs Temp 97.4 F 09/04/18 07:00 Pulse 77 09/04/18 08:11 Resp 20 09/04/18 07:00 BP 157/55 09/04/18 08:11 Pulse Ox 95 09/04/18 07:00 Intake & Output 09/03/18 09/04/18 09/04/18 18:59 06:59 18:59 Intake Total 2532.312 527.5 Output Total 150 350 Balance 2382.312 177.5 Weight (lbs) 47.174 kg 47.174 kg Intake: Intake, IV Amount 2352.312 167.5 D5-0.9%Ns 1,000 ml @ 75 1832.5 167.5 mls/hr IV .[id number] GLORIA Rx #:[id number] Norepinephrine 4 mg In 19.812 Dextrose 5% 250 ml @ 4 MCG/MIN 15.24 mls/hr IV TITR PRN Rx#:[id number] Oral 0 Tube Feeding 360 Other 180 Output: Urine 150 350 Other: # Bowel Movements 0 0 Weight Source Bedscale Bedscale Active Medications: Current Medications Acetaminophen (Tylenol) 650 mg PO Q4H PRN PRN Reason: Mild Pain/Headache/T above 101 Stop: 10/29/18 21:43 Last Admin: 09/03/18 15:56 Dose: 650 mg Acetaminophen/Hydrocodone Bitart ([place] 5mg/325mg) 1 tab PO Q4H PRN PRN Reason: Pain (Mild) Stop: 11/01/18 18:58 Last Admin: 09/04/18 07:29 Dose: 1 tab Diphenhydramine HCl (Benadryl) 25 mg PO HS PRN PRN Reason: Insomnia Stop: 10/29/18 21:52 Docusate Sodium (Colace) 100 mg PO BID PRN PRN Reason: Constipation Stop: 10/29/18 21:52 Last Admin: 09/04/18 00:52 Dose: 100 mg Enalaprilat (Vasotec) 1.25 mg IVP Q8HR PRN PRN Reason: hypertension Stop: 10/29/18 23:29 Last Admin: 09/04/18 08:11 Dose: 1.25 mg Hydralazine HCl (Apresoline 20 Mg/Ml) 20 mg IV Q6HR PRN PRN Reason: SBP ABOVE 160 Stop: 11/01/18 08:24 Last Admin: 09/04/18 04:52 Dose: 20 mg Dextrose/Sodium Chloride (D5-0.9%Ns) 1,000 mls @ 75 mls/hr IV .[id number] GLORIA Stop: 10/29/18 22:59 Last Admin: 09/04/18 06:48 Dose: 75 mls/hr Nitroglycerin/Dextrose (Nitroglycerin 50mg/Dextrose 5% Premix) 50 mg in 250 mls @ 1.5 mls/hr IV TITR PRN; Protocol PRN Reason: BP MAINTENANCE Stop: 10/30/18 03:01 Last Titration: 09/02/18 10:12 Dose: 0 mcg/min, 0 mls/hr Norepinephrine Bitartrate 4 mg (/ Dextrose) 254 mls @ 15.24 mls/hr IV TITR PRN ; Protocol PRN Reason: BP MAINTENANCE (PER PROTOCOL) Stop: 11/02/18 09:25 Last Titration: 09/03/18 11:50 Dose: 0 mcg/min, 0 mls/hr Insulin Aspart (Novolog Insulin Sliding Scale) 0 units SUBQ Q6HR GLORIA; Protocol Stop: 10/30/18 00:00 Last Admin: 09/04/18 05:32 Dose: 4 units Miscellaneous (Vte Chemical Prophylaxis Screen/ Admission) 1 [facility] PRN PRN PRN Reason: PROTOCOL Stop: 10/30/18 07:59 Miscellaneous (Clinical Monitoring) 1 [facility] DAILY PRN PRN Reason: RENAL Stop: 11/03/18 08:50 Ondansetron HCl (Zofran) 4 mg IVP Q6H PRN PRN Reason: Nausea / Vomiting Stop: 10/29/18 21:43 Last Admin: 08/31/18 14:47 Dose: 4 mg Pantoprazole Sodium (Protonix) 40 mg IVP DAILY [facility] Stop: 10/30/18 08:59 Last Admin: 09/04/18 08:09 Dose: 40 mg General: No acute distress HEENT: Atraumatic Neck: Supple Cardiovascular: Regular rate, Normal S1, Normal S2 Lungs: Clear to auscultation Abdomen: Bowel sounds, Soft Extremities: no Edema Assessment/Plan - Assessment Assessment: ARF ON CKD ESRD? ANEMIA GI BLEED DM HTN CVA - Plan Plan: HD Repeat after tPA transfuse blood Nutritional Asmnt/Malnutr-PDOC - Dietary Evaluation Malnutrition Findings (Please click <Entered> for more info): Nutritional Asmnt/Malnutrition Start: 08/31/18 15: 24 Text: Status: Complete Freq: Protocol: Document 08/31/18 15:24 LAURA (Rec: 08/31/18 15:47 LAURA [email or web address]) Nutritional Asmnt/Malnutrition Patient General Information Nutritional Screening High Risk Diagnosis renal failure, GI bleed Pertinent Medical Hx/Surgical Hx CVA/TIA, left side paralysis d /t CVA, HTN, hernia, prothesis Subjective Information Pt in unit w/ daughter at bedside. Language barrier d/t sinhal[place] speaking, but daughter indicated that pt had poor intake prior to admission. Per RN, pt finished 0% breakfast and swallow eval ordered d/t pt pocketing food and hx of CVA. Swallow eval done in the afternoon, ST recommended full liquid with nectar thick Current Diet Order/ Nutrition Support soft/bland Pertinent Medications D5-0.9%Ns, colace, novolog, zofran, protonix Pertinent Labs 08/31: Na 135, K 5.3, Cl 92, BUN 96, Cr 6.9, glucose 192, POC 199-201 08/30: Na 134, CL 94, Bun 91, Cr 6.6, glucose 163, POC 143 Nutritional Hx/Data Height 1.52 m Height (Calculated Centimeters) 152.4 Current Weight (lbs) 44.588 kg Weight (Calculated Kilograms) 44.6 Weight (Calculated Grams) 46286.1 [place] Body Weight 100 lb Body Mass Index (BMI) 19.2 Weight Status Approriate GI Symptoms GI Symptoms Nausea Vomitting Last BM 08/31 Food Allergies No Skin Integrity/Comment: aneudy eubanks 15 Estimated Nutritional Goals BEE in Kcals: Using Current wt Calories/Kcals/Kg 25-30 Kcals Calculated 2772-0690 Protein: Using Current wt Protein g/k-1.2 Protein Calculated 45-54 g Fluid: ml 1159-1463 (1 ml/kcal) Nutritional Problem 1. Problem Problem Altered nutrition related lab values Etiology renal failure, hyperglycimia Signs/Symptoms: BUN 96, Cr 6.9, K 5.3, glucose 192 Malnutrition Alert Is there a minimum of two criteria No selected? Query Text:Check all the applicable criteria. A minimum of two criteria are recommended for diagnosis of either severe or non-severe malnutrition. Malnutrition Related to Morbid Obesity Malnutrition related to morbid obesity No Intervention/Recommendation Comments 1. Start full liquid diet at dinner per ST recommendation. Add Nepro TID for extra kcal and protein. 2. Recommend to start renal diet when diet advanced d/t renal failure and altered BUN and Cr 3. Monitor intake, wt, labs and skin integrity 4. F/U as high risk in 2-3 days, 09/02-09/03 Expected Outcomes/Goals Expected Outcomes/Goals 1. Intake to meet at least 75% of nutritional needs 2. Wt stability, skin to remain intact, and nutrition related labs to approach normal limits Reviewed by Mariana Muller RD
--- NOTE | 2018-09-04 10:11 | GI Progress Note ---
Subjective - Review of Systems Service Date: 09/04/18 Subjective: EVENTS NOTED. MELISSA NGT FEEDS. ALSO MELISSA SOME ORAL INTAKE. Objective - Results Result Diagrams: 09/04/18 04:15 09/04/18 04:15 Recent Labs: Laboratory Last Values WBC 11.2 Th/cmm (4.8-10.8) H D 09/04/18 04:15 RBC 2.61 Mil/cmm (3.80-5.20) L 09/04/18 04:15 Hgb 7.7 gm/dL (12-16) L* 09/04/18 04:15 Hct 22.6 % (41.0-60) L 09/04/18 04:15 MCV 86.5 fl (81-100) 09/04/18 04:15 MCH 29.5 pg (27.0-31.0) 09/04/18 04:15 MCHC Differential 34.0 pg (28.0-36.0) 09/04/18 04:15 RDW 14.0 % (11.5-20.0) 09/04/18 04:15 Plt Count 136 Th/cmm (150-400) L 09/04/18 04:15 MPV 9.6 fl 09/04/18 04:15 Add Manual Diff YES 09/04/18 04:15 Neutrophils % 82.8 % (40.0-80.0) H 09/03/18 04:20 Band Neutrophils % 1 % (0-10) 09/04/18 04:15 Lymphocytes % 12.4 % (20.0-50.0) L 09/03/18 04:20 Monocytes % 4.1 % (2.0-10.0) 09/03/18 04:20 Eosinophils % 0.3 % (0.0-5.0) 09/03/18 04:20 Basophils % 0.4 % (0.0-2.0) 09/03/18 04:20 Neutrophils (Manual) 93 % (40-80) H 09/04/18 04:15 Lymphocytes 5 % (20-50) L 09/04/18 04:15 Monocytes 1 % (2-10) L 09/04/18 04:15 Platelet Estimate ADEQUATE (NORMAL) 09/04/18 04:15 PT 9.9 SECONDS (9.5-11.5) 08/30/18 17:10 INR 0.95 (0.5-1.4) 08/30/18 17:10 PTT (Actin FS) 23.0 SECONDS (26.0-38.0) L 08/30/18 17:10 Sodium 141 mEq/L (136-145) 09/04/18 04:15 Potassium 3.4 mEq/L (3.5-5.1) L 09/04/18 04:15 Chloride 116 mEq/L (98-107) H 09/04/18 04:15 Carbon Dioxide 14.8 mEq/L (21.0-31.0) L 09/04/18 04:15 Anion Gap 13.6 (7.0-16.0) 09/04/18 04:15 BUN 49 mg/dL (7-25) H 09/04/18 04:15 Creatinine 4.3 mg/dL (0.6-1.2) H* 09/04/18 04:15 Est GFR ( Amer) TNP 09/04/18 04:15 Est GFR (Non-Af Amer) TNP 09/04/18 04:15 BUN/Creatinine Ratio 11.4 09/04/18 04:15 Glucose 257 mg/dL (70-105) H 09/04/18 04:15 POC Glucose 218 MG/DL (70 - 105) H 09/03/18 18:03 Calcium 6.7 mg/dL (8.6-10.3) L 09/04/18 04:15 Magnesium 2.4 mg/dL (1.9-2.7) 09/03/18 04:20 Total Bilirubin 0.3 mg/dL (0.3-1.0) 09/04/18 04:15 AST 24 U/L (13-39) 09/04/18 04:15 ALT 17 U/L (7-52) 09/04/18 04:15 Alkaline Phosphatase 93 U/L (34-104) 09/04/18 04:15 Ammonia 38 umol/L (16-53) 09/03/18 04:20 Troponin I 0.05 ng/mL (0.01-0.05) 08/31/18 05:20 Total Protein 5.0 gm/dL (6.0-8.3) L 09/04/18 04:15 Albumin 2.4 gm/dL (3.7-5.3) L 09/04/18 04:15 Globulin 2.6 gm/dL 09/04/18 04:15 Albumin/Globulin Ratio 0.9 (1.0-1.8) L 09/04/18 04:15 Lipase 36 U/L (11-82) 08/30/18 17:10 Urine Source CATH 08/30/18 18:30 Urine Color YELLOW 08/30/18 18:30 Urine Clarity CLEAR (CLEAR) 08/30/18 18:30 Urine pH 7.0 (4.6 - 8.0) 08/30/18 18:30 Ur Specific [place] 1.020 (1.005-1.030) 08/30/18 18:30 Urine Protein >=300 mg/dL (NEGATIVE) 08/30/18 18:30 Urine Glucose (UA) 250 mg/dL (NEGATIVE) H 08/30/18 18:30 Urine Ketones NEGATIVE mg/dL (NEGATIVE) 08/30/18 18:30 Urine Blood TRACE (NEGATIVE) 08/30/18 18:30 Urine Nitrate NEGATIVE (NEGATIVE) 08/30/18 18:30 Urine Bilirubin NEGATIVE (NEGATIVE) 08/30/18 18:30 Urine Urobilinogen 0.2 E.U./dL (0.2 - 1.0) 08/30/18 18:30 Ur Leukocyte Esterase NEGATIVE (NEGATIVE) 08/30/18 18:30 Urine RBC NONE SEEN /hpf (0-5) 08/30/18 18:30 Urine WBC 2-5 /hpf (0-5) 08/30/18 18:30 Ur Epithelial Cells FEW /lpf (FEW) 08/30/18 18:30 Urine Bacteria MODERATE /hpf (NONE SEEN) H 08/30/18 18:30 Hepatitis A IgM Ab Negative (Negative) 09/01/18 09:25 Hep Bs Antigen Negative (Negative) 09/01/18 09:25 Hep B Core IgM Ab Negative (Negative) 09/01/18 09:25 Hepatitis C Antibody <0.1 s/co ratio (0.0-0.9) 09/01/18 09:25 Blood Type O POSITIVE 08/30/18 17:10 Antibody Screen NEGATIVE 08/30/18 17:10 - Physical Exam Vitals and I&O: Vital Signs Temp 97.2 F 09/04/18 08:00 Pulse 73 09/04/18 09:11 Resp 15 09/04/18 09:00 BP 156/51 09/04/18 09:11 Pulse Ox 94 09/04/18 09:00 Intake & Output 09/03/18 09/04/18 09/04/18 18:59 06:59 18:59 Intake Total 2532.312 527.5 Output Total 150 350 Balance 2382.312 177.5 Weight (lbs) 47.174 kg 47.174 kg Intake: Intake, IV Amount 2352.312 167.5 D5-0.9%Ns 1,000 ml @ 75 1832.5 167.5 mls/hr IV .[id number] GLOR[facility] Rx #:[id number] Norepinephrine 4 mg In 19.812 Dextrose 5% 250 ml @ 4 MCG/MIN 15.24 mls/hr IV TITR PRN Rx#:[id number] Oral 0 Tube Feeding 360 Other 180 Output: Urine 150 350 Other: # Bowel Movements 0 0 Weight Source Bedscale Bedscale Active Medications: Current Medications Acetaminophen (Tylenol) 650 mg PO Q4H PRN PRN Reason: Mild Pain/Headache/T above 101 Stop: 10/29/18 21:43 Last Admin: 09/03/18 15:56 Dose: 650 mg Acetaminophen/Hydrocodone Bitart ([place] 5mg/325mg) 1 tab PO Q4H PRN PRN Reason: Pain (Mild) Stop: 11/01/18 18:58 Last Admin: 09/04/18 07:29 Dose: 1 tab Diphenhydramine HCl (Benadryl) 25 mg PO HS PRN PRN Reason: Insomnia Stop: 10/29/18 21:52 Docusate Sodium (Colace) 100 mg PO BID PRN PRN Reason: Constipation Stop: 10/29/18 21:52 Last Admin: 09/04/18 00:52 Dose: 100 mg Enalaprilat (Vasotec) 1.25 mg IVP Q8HR PRN PRN Reason: hypertension Stop: 10/29/18 23:29 Last Admin: 09/04/18 08:11 Dose: 1.25 mg Hydralazine HCl (Apresoline 20 Mg/Ml) 20 mg IV Q6HR PRN PRN Reason: SBP ABOVE 160 Stop: 11/01/18 08:24 Last Admin: 09/04/18 04:52 Dose: 20 mg Dextrose/Sodium Chloride (D5-0.9%Ns) 1,000 mls @ 75 mls/hr IV .[id number] GLORIA Stop: 10/29/18 22:59 Last Admin: 09/04/18 06:48 Dose: 75 mls/hr Nitroglycerin/Dextrose (Nitroglycerin 50mg/Dextrose 5% Premix) 50 mg in 250 mls @ 1.5 mls/hr IV TITR PRN; Protocol PRN Reason: BP MAINTENANCE Stop: 10/30/18 03:01 Last Titration: 09/02/18 10:12 Dose: 0 mcg/min, 0 mls/hr Norepinephrine Bitartrate 4 mg (/ Dextrose) 254 mls @ 15.24 mls/hr IV TITR PRN ; Protocol PRN Reason: BP MAINTENANCE (PER PROTOCOL) Stop: 11/02/18 09:25 Last Titration: 09/03/18 11:50 Dose: 0 mcg/min, 0 mls/hr Insulin Aspart (Novolog Insulin Sliding Scale) 0 units SUBQ Q6HR GLORIA; Protocol Stop: 10/30/18 00:00 Last Admin: 09/04/18 05:32 Dose: 4 units Miscellaneous (Vte Chemical Prophylaxis Screen/ Admission) 1 [facility] PRN PRN PRN Reason: PROTOCOL Stop: 10/30/18 07:59 Miscellaneous (Clinical Monitoring) 1 [facility] DAILY PRN PRN Reason: RENAL Stop: 11/03/18 08:50 Ondansetron HCl (Zofran) 4 mg IVP Q6H PRN PRN Reason: Nausea / Vomiting Stop: 10/29/18 21:43 Last Admin: 08/31/18 14:47 Dose: 4 mg Pantoprazole Sodium (Protonix) 40 mg IVP DAILY [facility] Stop: 10/30/18 08:59 Last Admin: 09/04/18 08:09 Dose: 40 mg General: No acute distress HEENT: Atraumatic Neck: Supple Cardiovascular: Regular rate Lungs: Clear to auscultation Abdomen: Bowel sounds, Soft, no Tender Extremities: no Edema Assessment/Plan - Assessment Assessment: IMPRESSION: 1. ANEMIA, MULTIFACTORIAL. POSSIBLE GI BLEED. 2. RENAL FAILURE. 3. DYSPHAGIA. RECS: - ORAL DIET PER SPEECH. - SPEECH THERAPY. - HD PER RENAL. - MONITOR HGB. - MAY NEED PEG INSERTION IF ORAL INTAKE REMAINS POOR DESPITE HD.
[2018-09-04] MEDS ORDERED: Albuterol/Ipratropium Neb 3 ML AERS HHN PRN (13:45)
[2018-09-04] MEDS ORDERED: Heparin Sodium 1,000 Units/mL Vial IVP ONE (14:17)
--- NOTE | 2018-09-04 15:02 | Diagnostic Imaging Report ---
Portable chest x-ray HISTORY: Shortness of breath Compared with prior exam of 09/01/2018, the heart is enlarged. There has developed diffuse hazy bilateral infiltrates. Evidence for left pleural effusion. Question small right pleural effusion. The findings may be associated with congestive heart failure and pulmonary edema. Underlying pneumonia particularly in the left lower lobe cannot be excluded. Nasogastric tube extends in the region of the stomach. IMPRESSION: 1. Worsening cardiopulmonary status with cardiomegaly and interval development of hazy bilateral infiltrates and a left pleural effusion. Changes may be related to congestive heart failure and edema. Underlying pneumonia cannot be excluded. Clinical correlation needed.
[2018-09-04] MEDS: Albuterol/Ipratropium Neb 3 ML AERS HHN SCH (19:04)
--- NOTE | 2018-09-04 22:53 | Progress Notes ---
DATE: 09/04/2018 PATIENT IDENTIFICATION: A 77-year-old female. SUBJECTIVE: The patient seen and examined. The patient's daughter at bedside. The patient had an earlier episode of respiratory distress. The patient required oxygen, nebulizer treatment and dialysis. The patient's breathing has somewhat improved. Chest x-ray is ordered. The patient has a tube feeding and IV fluid, which is discontinued. The patient's daughter is at bedside, discussed with her in Mong[place]ian via a overlock sleeve setter in length about the patient's condition, diagnosis and her concern. Blood pressure has been now climbing up. PHYSICAL EXAMINATION: VITAL SIGNS: Temperature 98, pulse is 80, respiratory rate is 18, blood pressure 173/63. HEENT: No facial asymmetry. Nasogastric tube noted. NECK: Supple, no JVD. HEART: Regular. LUNGS: Has expiratory wheezing. ABDOMEN: Soft. EXTREMITIES: No edema. AVAILABLE DIAGNOSTIC DATA: White count of 11.2, hemoglobin 7.7, platelet count 136, potassium 3.4, BUN and creatinine is 49/4.3. Glucoscan is reviewed. CLINICAL IMPRESSION: 1. Pulmonary edema. 2. Most likely diastolic heart failure. 3. Elevated blood pressure. 4. Anemia, normocytic, normochromic. No active bleeding. Suspect secondary to anemia of inflammation and chronic kidney disease. 5. Diabetes mellitus. 6. Dysphagia. 7. Degenerative joint disease. 8. Guarded prognosis. PLAN: 1. Oxygen. 2. Nebulizer treatment. 3. Pulmonary toilet. 4. Hemodialysis. 5. Tube-feeding. 6. Discontinue IV fluid. 7. General nursing care. 8. Critical care nursing. 9. Restart her antihypertensive medication. 10. Follow up lab. 11. Follow consult recommendation. 12. Care plan reviewed and discussed with patient and her family. JOB# [id number]
[2018-09-05] MEDS: Albuterol/Ipratropium Neb 3 ML AERS HHN SCH ×4 (00:52→18:48)
[2018-09-05] MEDS: Hydrocodone/APAP 5mg/325mg Tab PO PRN ×2 (03:24→13:55)
[2018-09-05 05:12] LABS: HEMATOCRIT 36.4 % (41.0-60); HEMOGLOBIN 12.1 gm/dL (12-16); MEAN CELL VOLUME 89.4 fl (81-100); MEAN CORPUSCULAR HEMOGLOBIN 29.8 pg (27.0-31.0); MEAN CORPUSCULAR HGB CONC 33.3 pg (28.0-36.0); MEAN PLATELET VOLUME 9.7 fl; PLATELET COUNT 105 Th/cmm (150-400); RED BLOOD COUNT 4.07 Mil/cmm (3.80-5.20); WHITE BLOOD COUNT 11.7 Th/cmm (4.8-10.8)
[2018-09-05 05:36] LABS: ALB/GLOB RATIO 0.8 (1.0-1.8); ALBUMIN 2.6 gm/dL (3.7-5.3); ALKALINE PHOSPHATASE 160 U/L (34-104); ANION GAP 13.9 (7.0-16.0); BILIRUBIN,TOTAL 0.7 mg/dL (0.3-1.0); BUN - UREA NITROGEN 40 mg/dL (7-25); CALCIUM SERUM 7.8 mg/dL (8.6-10.3); CARBON DIOXIDE 21.2 mEq/L (21.0-31.0); CHLORIDE 108 mEq/L (98-107); CREATININE - SERUM 3.1 mg/dL (0.6-1.2); GLUCOSE 272 mg/dL (70-105); MAGNESIUM 1.7 mg/dL (1.9-2.7); POTASSIUM SERUM 3.1 mEq/L (3.5-5.1); SGOT 29 U/L (13-39); SGPT/ALT 22 U/L (7-52); SODIUM SERUM 140 mEq/L (136-145); TOTAL PROTEIN,SERUM 5.7 gm/dL (6.0-8.3)
[2018-09-05] MEDS: INSULIN ASPART SLIDING SCALE 100 UNITS/ML UNIT SUBQ SCH ×3 (06:00→17:41)
[2018-09-05 06:03] LABS: BAND NEUTROPHILE 3 % (0-10); EOSINOPHIL 2 % (0-5); LYMPHOCYTE 7 % (20-50); MONOCYTE 6 % (2-10); NEUTROPHILS 82 % (40-80); OVALOCYTES 1+; PLATELET ESTIMATE SLIGHT DECREASED (NORMAL)
[2018-09-05 06:04] LABS: BURR CELLS 1+
[2018-09-05] MEDS ORDERED: Potassium Chloride Elixir 20 mEq /15 mL UDC GT ONE (06:45)
--- NOTE | 2018-09-05 09:33 | General Progress Note ---
Subjective - Review of Systems Service Date: 09/05/18 Subjective: pt in bed no distress NG tub ein place daughter at bed side Objective - Results Result Diagrams: 09/05/18 04:40 09/05/18 04:40 Recent Labs: Laboratory Last Values WBC 11.7 Th/cmm (4.8-10.8) H 09/05/18 04:40 RBC 4.07 Mil/cmm (3.80-5.20) 09/05/18 04:40 Hgb 12.1 gm/dL (12-16) 09/05/18 04:40 Hct 36.4 % (41.0-60) L 09/05/18 04:40 MCV 89.4 fl (81-100) 09/05/18 04:40 MCH 29.8 pg (27.0-31.0) 09/05/18 04:40 MCHC Differential 33.3 pg (28.0-36.0) 09/05/18 04:40 RDW 14.0 % (11.5-20.0) 09/05/18 04:40 Plt Count 105 Th/cmm (150-400) L 09/05/18 04:40 MPV 9.7 fl 09/05/18 04:40 Add Manual Diff YES 09/05/18 04:40 Neutrophils % 82.8 % (40.0-80.0) H 09/03/18 04:20 Band Neutrophils % 3 % (0-10) 09/05/18 04:40 Lymphocytes % 12.4 % (20.0-50.0) L 09/03/18 04:20 Monocytes % 4.1 % (2.0-10.0) 09/03/18 04:20 Eosinophils % 0.3 % (0.0-5.0) 09/03/18 04:20 Basophils % 0.4 % (0.0-2.0) 09/03/18 04:20 Neutrophils (Manual) 82 % (40-80) H 09/05/18 04:40 Lymphocytes 7 % (20-50) L 09/05/18 04:40 Monocytes 6 % (2-10) 09/05/18 04:40 Eosinophils 2 % (0-5) 09/05/18 04:40 Nucleated RBCs 2.0 % (0-0) H 09/05/18 04:40 Platelet Estimate SLIGHT DECREASED (NORMAL) 09/05/18 04:40 Ovalocytes 1+ 09/05/18 04:40 [place] Cells 1+ 09/05/18 04:40 PT 9.9 SECONDS (9.5-11.5) 08/30/18 17:10 INR 0.95 (0.5-1.4) 08/30/18 17:10 PTT (Actin FS) 23.0 SECONDS (26.0-38.0) L 08/30/18 17:10 Sodium 140 mEq/L (136-145) 09/05/18 04:40 Potassium 3.1 mEq/L (3.5-5.1) L 09/05/18 04:40 Chloride 108 mEq/L (98-107) H 09/05/18 04:40 Carbon Dioxide 21.2 mEq/L (21.0-31.0) 09/05/18 04:40 Anion Gap 13.9 (7.0-16.0) 09/05/18 04:40 BUN 40 mg/dL (7-25) H 09/05/18 04:40 Creatinine 3.1 mg/dL (0.6-1.2) H 09/05/18 04:40 Est GFR ( Amer) TNP 09/05/18 04:40 Est GFR (Non-Af Amer) TNP 09/05/18 04:40 BUN/Creatinine Ratio 12.9 09/05/18 04:40 Glucose 272 mg/dL (70-105) H 09/05/18 04:40 POC Glucose 200 MG/DL (70 - 105) H 09/04/18 17:33 Calcium 7.8 mg/dL (8.6-10.3) L 09/05/18 04:40 Magnesium 1.7 mg/dL (1.9-2.7) L 09/05/18 04:40 Total Bilirubin 0.7 mg/dL (0.3-1.0) 09/05/18 04:40 AST 29 U/L (13-39) 09/05/18 04:40 ALT 22 U/L (7-52) 09/05/18 04:40 Alkaline Phosphatase 160 U/L (34-104) H 09/05/18 04:40 Ammonia 38 umol/L (16-53) 09/03/18 04:20 Troponin I 0.05 ng/mL (0.01-0.05) 08/31/18 05:20 Total Protein 5.7 gm/dL (6.0-8.3) L 09/05/18 04:40 Albumin 2.6 gm/dL (3.7-5.3) L 09/05/18 04:40 Globulin 3.1 gm/dL 09/05/18 04:40 Albumin/Globulin Ratio 0.8 (1.0-1.8) L 09/05/18 04:40 Lipase 36 U/L (11-82) 08/30/18 17:10 Urine Source CATH 08/30/18 18:30 Urine Color YELLOW 08/30/18 18:30 Urine Clarity CLEAR (CLEAR) 08/30/18 18:30 Urine pH 7.0 (4.6 - 8.0) 08/30/18 18:30 Ur Specific [place] 1.020 (1.005-1.030) 08/30/18 18:30 Urine Protein >=300 mg/dL (NEGATIVE) 08/30/18 18:30 Urine Glucose (UA) 250 mg/dL (NEGATIVE) H 08/30/18 18:30 Urine Ketones NEGATIVE mg/dL (NEGATIVE) 08/30/18 18:30 Urine Blood TRACE (NEGATIVE) 08/30/18 18:30 Urine Nitrate NEGATIVE (NEGATIVE) 08/30/18 18:30 Urine Bilirubin NEGATIVE (NEGATIVE) 08/30/18 18:30 Urine Urobilinogen 0.2 E.U./dL (0.2 - 1.0) 08/30/18 18:30 Ur Leukocyte Esterase NEGATIVE (NEGATIVE) 08/30/18 18:30 Urine RBC NONE SEEN /hpf (0-5) 08/30/18 18:30 Urine WBC 2-5 /hpf (0-5) 08/30/18 18:30 Ur Epithelial Cells FEW /lpf (FEW) 08/30/18 18:30 Urine Bacteria MODERATE /hpf (NONE SEEN) H 08/30/18 18:30 Hepatitis A IgM Ab Negative (Negative) 09/01/18 09:25 Hep Bs Antigen Negative (Negative) 09/01/18 09:25 Hep B Core IgM Ab Negative (Negative) 09/01/18 09:25 Hepatitis C Antibody <0.1 s/co ratio (0.0-0.9) 09/01/18 09:25 Blood Type O POSITIVE 09/04/18 09:40 Antibody Screen NEGATIVE 09/04/18 09:40 Crossmatch See Detail 09/04/18 09:40 - Physical Exam Vitals and I&O: Vital Signs Temp 98.2 F 09/05/18 05:00 Pulse 88 09/05/18 09:02 Resp 18 09/05/18 06:57 BP 167/62 09/05/18 09:02 Pulse Ox 96 09/05/18 06:57 Intake & Output 09/04/18 09/05/18 09/05/18 18:59 06:59 18:59 Intake Total 966.25 360 Output Total 3260 200 Balance -2293.75 160 Weight (lbs) 47.174 kg 42.638 kg Intake: Intake, IV Amount 406.25 D5-0.9%Ns 1,000 ml @ 75 406.25 mls/hr IV .[id number] [facility] Rx #:[id number] Tube Feeding 360 360 Other 200 Output: Urine 260 200 Hemodialysis 3000 Other: Weight Source Bedscale Bedscale Active Medications: Current Medications Acetaminophen (Tylenol) 650 mg PO Q4H PRN PRN Reason: Mild Pain/Headache/T above 101 Stop: 10/29/18 21:43 Last Admin: 09/03/18 15:56 Dose: 650 mg Acetaminophen/Hydrocodone Bitart ([place] 5mg/325mg) 1 tab PO Q4H PRN PRN Reason: Pain (Mild) Stop: 11/01/18 18:58 Last Admin: 09/05/18 03:24 Dose: 1 tab Albuterol/Ipratropium (Duoneb Neb) 3 ml HHN Q6HRT [facility] Stop: 11/03/18 18:59 Last Admin: 09/05/18 06:57 Dose: 3 ml Albuterol/Ipratropium (Duoneb Neb) 3 ml HHN Q2H PRN PRN Reason: Wheezing Stop: 11/03/18 13:44 Amlodipine Besylate (Norvasc) 10 mg PO DAILY [facility] Stop: 11/03/18 13:59 Last Admin: 09/05/18 09:02 Dose: 10 mg Carvedilol (Coreg) 6.25 mg PO BID [facility] Stop: 11/03/18 16:59 Last Admin: 09/05/18 09:00 Dose: 6.25 mg Diphenhydramine HCl (Benadryl) 25 mg PO HS PRN PRN Reason: Insomnia Stop: 10/29/18 21:52 Docusate Sodium (Colace) 100 mg PO BID PRN PRN Reason: Constipation Stop: 10/29/18 21:52 Last Admin: 09/04/18 00:52 Dose: 100 mg Enalaprilat (Vasotec) 1.25 mg IVP Q8HR PRN PRN Reason: hypertension Stop: 10/29/18 23:29 Last Admin: 09/04/18 23:06 Dose: 1.25 mg Hydralazine HCl (Apresoline 20 Mg/Ml) 20 mg IV Q6HR PRN PRN Reason: SBP ABOVE 160 Stop: 11/01/18 08:24 Last Admin: 09/05/18 08:40 Dose: 20 mg Hydralazine HCl (Apresoline) 25 mg PO QID [facility] Stop: 11/03/18 13:59 Last Admin: 09/05/18 09:00 Dose: 25 mg Nitroglycerin/Dextrose (Nitroglycerin 50mg/Dextrose 5% Premix) 50 mg in 250 mls @ 1.5 mls/hr IV TITR PRN; Protocol PRN Reason: BP MAINTENANCE Stop: 10/30/18 03:01 Last Titration: 09/02/18 10:12 Dose: 0 mcg/min, 0 mls/hr Norepinephrine Bitartrate 4 mg (/ Dextrose) 254 mls @ 15.24 mls/hr IV TITR PRN ; Protocol PRN Reason: BP MAINTENANCE (PER PROTOCOL) Stop: 11/02/18 09:25 Last Titration: 09/03/18 11:50 Dose: 0 mcg/min, 0 mls/hr Insulin Aspart (Novolog Insulin Sliding Scale) 0 units SUBQ Q6HR [facility]; Protocol Stop: 10/30/18 00:00 Last Admin: 09/05/18 06:00 Dose: 6 units Miscellaneous (Vte Chemical Prophylaxis Screen/ Admission) 1 [facility] PRN PRN PRN Reason: PROTOCOL Stop: 10/30/18 07:59 Miscellaneous (Clinical Monitoring) 1 [facility] DAILY PRN PRN Reason: RENAL Stop: 11/03/18 08:50 Ondansetron HCl (Zofran) 4 mg IVP Q6H PRN PRN Reason: Nausea / Vomiting Stop: 10/29/18 21:43 Last Admin: 08/31/18 14:47 Dose: 4 mg Pantoprazole Sodium (Protonix) 40 mg IVP DAILY [facility] Stop: 10/30/18 08:59 Last Admin: 09/05/18 08:54 Dose: 40 mg General: No acute distress HEENT: Atraumatic Neck: Supple Cardiovascular: Regular rate Lungs: Clear to auscultation Abdomen: Bowel sounds, Soft, no Tender Extremities: no Edema Assessment/Plan - Assessment Assessment: ARF ON CKD ESRD? ANEMIA GI BLEED DM HTN CVA - Plan Plan: HD will arrange for HD in am Nutritional Asmnt/Malnutr-PDOC - Dietary Evaluation Malnutrition Findings (Please click <Entered> for more info): Nutritional Asmnt/Malnutrition Start: 08/31/18 15: 24 Text: Status: Complete Freq: Protocol: Document 08/31/18 15:24 LAURA (Rec: 08/31/18 15:47 LAURA [id number]) Nutritional Asmnt/Malnutrition Patient General Information Nutritional Screening High Risk Diagnosis renal failure, GI bleed Pertinent Medical Hx/Surgical Hx CVA/TIA, left side paralysis d /t CVA, HTN, hernia, prothesis Subjective Information Pt in unit w/ daughter at bedside. Language barrier d/t [place] speaking, but daughter indicated that pt had poor intake prior to admission. Per RN, pt finished 0% breakfast and swallow eval ordered d/t pt pocketing food and hx of CVA. Swallow eval done in the afternoon, ST recommended full liquid with nectar thick Current Diet Order/ Nutrition Support soft/bland Pertinent Medications D5-0.9%Ns, colace, novolog, zofran, protonix Pertinent Labs 08/31: Na 135, K 5.3, Cl 92, BUN 96, Cr 6.9, glucose 192, POC 199-201 08/30: Na 134, CL 94, Bun 91, Cr 6.6, glucose 163, POC 143 Nutritional Hx/Data Height 1.52 m Height (Calculated Centimeters) 152.4 Current Weight (lbs) 44.588 kg Weight (Calculated Kilograms) 44.6 Weight (Calculated Grams) 77374.1 [place] Body Weight 100 lb Body Mass Index (BMI) 19.2 Weight Status Approriate GI Symptoms GI Symptoms Nausea Vomitting Last BM 08/31 Food Allergies No Skin Integrity/Comment: intact, aneudy 15 Estimated Nutritional Goals BEE in Kcals: Using Current wt Calories/Kcals/Kg 25-30 Kcals Calculated 3117-5164 Protein: Using Current wt Protein g/k-1.2 Protein Calculated 45-54 g Fluid: ml 2308-7522 (1 ml/kcal) Nutritional Problem 1. Problem Problem Altered nutrition related lab values Etiology renal failure, hyperglycimia Signs/Symptoms: BUN 96, Cr 6.9, K 5.3, glucose 192 Malnutrition Alert Is there a minimum of two criteria No selected? Query Text:Check all the applicable criteria. A minimum of two criteria are recommended for diagnosis of either severe or non-severe malnutrition. Malnutrition Related to Morbid Obesity Malnutrition related to morbid obesity No Intervention/Recommendation Comments 1. Start full liquid diet at dinner per ST recommendation. Add Nepro TID for extra kcal and protein. 2. Recommend to start renal diet when diet advanced d/t renal failure and altered BUN and Cr 3. Monitor intake, wt, labs and skin integrity 4. F/U as high risk in 2-3 days, 09/02-09/03 Expected Outcomes/Goals Expected Outcomes/Goals 1. Intake to meet at least 75% of nutritional needs 2. Wt stability, skin to remain intact, and nutrition related labs to approach normal limits Reviewed by Mariana Muller RD
[2018-09-05 13:25] LABS: pH 7.45 (7.35-7.45)
--- NOTE | 2018-09-05 13:45 | Diagnostic Imaging Report ---
CHEST X-RAY: AP view INDICATION: Aspiration COMPARISON: 09/04/2018 FINDINGS: Support devices are stable. Congestive changes are noted left lung infiltrates and small left effusion. Cardiomegaly is noted. IMPRESSION: Persistent congestive changes of left lung infiltrates and small left effusion. Cardiomegaly.
[2018-09-05] MEDS ORDERED: Piperacillin Sodium/Tazobact 2.25 gm Vial IV ONE (19:53)
--- NOTE | 2018-09-05 22:20 | GI Progress Note ---
Subjective - Review of Systems Service Date: 09/05/18 Subjective: EVENTS NOTED. MELISSA NGT FEEDS. ALSO MELISSA SOME ORAL INTAKE. Objective - Results Result Diagrams: 09/05/18 04:40 09/05/18 04:40 Recent Labs: Laboratory Last Values WBC 11.7 Th/cmm (4.8-10.8) H 09/05/18 04:40 RBC 4.07 Mil/cmm (3.80-5.20) 09/05/18 04:40 Hgb 12.1 gm/dL (12-16) 09/05/18 04:40 Hct 36.4 % (41.0-60) L 09/05/18 04:40 MCV 89.4 fl (81-100) 09/05/18 04:40 MCH 29.8 pg (27.0-31.0) 09/05/18 04:40 MCHC Differential 33.3 pg (28.0-36.0) 09/05/18 04:40 RDW 14.0 % (11.5-20.0) 09/05/18 04:40 Plt Count 105 Th/cmm (150-400) L 09/05/18 04:40 MPV 9.7 fl 09/05/18 04:40 Add Manual Diff YES 09/05/18 04:40 Neutrophils % 82.8 % (40.0-80.0) H 09/03/18 04:20 Band Neutrophils % 3 % (0-10) 09/05/18 04:40 Lymphocytes % 12.4 % (20.0-50.0) L 09/03/18 04:20 Monocytes % 4.1 % (2.0-10.0) 09/03/18 04:20 Eosinophils % 0.3 % (0.0-5.0) 09/03/18 04:20 Basophils % 0.4 % (0.0-2.0) 09/03/18 04:20 Neutrophils (Manual) 82 % (40-80) H 09/05/18 04:40 Lymphocytes 7 % (20-50) L 09/05/18 04:40 Monocytes 6 % (2-10) 09/05/18 04:40 Eosinophils 2 % (0-5) 09/05/18 04:40 Nucleated RBCs 2.0 % (0-0) H 09/05/18 04:40 Platelet Estimate SLIGHT DECREASED (NORMAL) 09/05/18 04:40 Ovalocytes 1+ 09/05/18 04:40 [place] Cells 1+ 09/05/18 04:40 PT 9.9 SECONDS (9.5-11.5) 08/30/18 17:10 INR 0.95 (0.5-1.4) 08/30/18 17:10 PTT (Actin FS) 23.0 SECONDS (26.0-38.0) L 08/30/18 17:10 Specimen Source Arterial 09/05/18 13:15 Sample Site RB 09/05/18 13:15 pH 7.45 (7.35-7.45) 09/05/18 13:15 pCO2 33.0 mmHg (35.0-45.0) L 09/05/18 13:15 pO2 41.0 mmHg (80.0-100.0) L* 09/05/18 13:15 HCO3 24.1 mEq/L (20.0-26.0) 09/05/18 13:15 Base Excess -0.5 mEq/L (-3.0-3.0) 09/05/18 13:15 O2 Saturation 79.0 % (92.0-100.0) L 09/05/18 13:15 Jean Claude Test NA 09/05/18 13:15 Vent Rate NA 09/05/18 13:15 Inspired O2 50 09/05/18 13:15 Tidal Volume NA 09/05/18 13:15 PEEP NA 09/05/18 13:15 Pressure (ins/psv/peep) NA 09/05/18 13:15 Critical Value E.POWELL 09/05/18 13:15 Sodium 140 mEq/L (136-145) 09/05/18 04:40 Potassium 3.1 mEq/L (3.5-5.1) L 09/05/18 04:40 Chloride 108 mEq/L (98-107) H 09/05/18 04:40 Carbon Dioxide 21.2 mEq/L (21.0-31.0) 09/05/18 04:40 Anion Gap 13.9 (7.0-16.0) 09/05/18 04:40 BUN 40 mg/dL (7-25) H 09/05/18 04:40 Creatinine 3.1 mg/dL (0.6-1.2) H 09/05/18 04:40 Est GFR ( Amer) TNP 09/05/18 04:40 Est GFR (Non-Af Amer) TNP 09/05/18 04:40 BUN/Creatinine Ratio 12.9 09/05/18 04:40 Glucose 272 mg/dL (70-105) H 09/05/18 04:40 POC Glucose 208 MG/DL (70 - 105) H 09/05/18 16:20 Calcium 7.8 mg/dL (8.6-10.3) L 09/05/18 04:40 Magnesium 1.7 mg/dL (1.9-2.7) L 09/05/18 04:40 Total Bilirubin 0.7 mg/dL (0.3-1.0) 09/05/18 04:40 AST 29 U/L (13-39) 09/05/18 04:40 ALT 22 U/L (7-52) 09/05/18 04:40 Alkaline Phosphatase 160 U/L (34-104) H 09/05/18 04:40 Ammonia 38 umol/L (16-53) 09/03/18 04:20 Troponin I 0.05 ng/mL (0.01-0.05) 08/31/18 05:20 Total Protein 5.7 gm/dL (6.0-8.3) L 09/05/18 04:40 Albumin 2.6 gm/dL (3.7-5.3) L 09/05/18 04:40 Globulin 3.1 gm/dL 09/05/18 04:40 Albumin/Globulin Ratio 0.8 (1.0-1.8) L 09/05/18 04:40 Lipase 36 U/L (11-82) 08/30/18 17:10 Urine Source CATH 08/30/18 18:30 Urine Color YELLOW 08/30/18 18:30 Urine Clarity CLEAR (CLEAR) 08/30/18 18:30 Urine pH 7.0 (4.6 - 8.0) 08/30/18 18:30 Ur Specific [place] 1.020 (1.005-1.030) 08/30/18 18:30 Urine Protein >=300 mg/dL (NEGATIVE) 08/30/18 18:30 Urine Glucose (UA) 250 mg/dL (NEGATIVE) H 08/30/18 18:30 Urine Ketones NEGATIVE mg/dL (NEGATIVE) 08/30/18 18:30 Urine Blood TRACE (NEGATIVE) 08/30/18 18:30 Urine Nitrate NEGATIVE (NEGATIVE) 08/30/18 18:30 Urine Bilirubin NEGATIVE (NEGATIVE) 08/30/18 18:30 Urine Urobilinogen 0.2 E.U./dL (0.2 - 1.0) 08/30/18 18:30 Ur Leukocyte Esterase NEGATIVE (NEGATIVE) 08/30/18 18:30 Urine RBC NONE SEEN /hpf (0-5) 08/30/18 18:30 Urine WBC 2-5 /hpf (0-5) 08/30/18 18:30 Ur Epithelial Cells FEW /lpf (FEW) 08/30/18 18:30 Urine Bacteria MODERATE /hpf (NONE SEEN) H 08/30/18 18:30 Hepatitis A IgM Ab Negative (Negative) 09/01/18 09:25 Hep Bs Antigen Negative (Negative) 09/01/18 09:25 Hep B Core IgM Ab Negative (Negative) 09/01/18 09:25 Hepatitis C Antibody <0.1 s/co ratio (0.0-0.9) 09/01/18 09:25 Blood Type O POSITIVE 09/04/18 09:40 Antibody Screen NEGATIVE 09/04/18 09:40 Crossmatch See Detail 09/04/18 09:40 - Physical Exam Vitals and I&O: Vital Signs Temp 97.1 F 09/05/18 17:00 Pulse 87 09/05/18 20:48 Resp 24 09/05/18 20:48 BP 153/55 09/05/18 20:48 Pulse Ox 95 09/05/18 20:48 Intake & Output 09/05/18 09/05/18 09/06/18 06:59 18:59 06:59 Intake Total 360 712 50 Output Total 200 200 Balance 160 512 50 Weight (lbs) 42.638 kg 42.808 kg Intake: Intake, IV Amount 52 50 Piperacillin Sodium/ 50 Tazobact 2.25 gm In Sodium Chloride 0.9% 50 ml @ 100 mls/hr IV Q8HR [facility] Rx#:[id number] Tube Feeding 360 360 Other 300 Output: Urine 200 200 Other: # Bowel Movements 0 Weight Source Bedscale Bedscale Active Medications: Current Medications Acetaminophen (Tylenol) 650 mg PO Q4H PRN PRN Reason: Mild Pain/Headache/T above 101 Stop: 10/29/18 21:43 Last Admin: 09/03/18 15:56 Dose: 650 mg Acetaminophen/Hydrocodone Bitart ([place] 5mg/325mg) 1 tab PO Q4H PRN PRN Reason: Pain (Mild) Stop: 11/01/18 18:58 Last Admin: 09/05/18 13:55 Dose: 1 tab Albuterol/Ipratropium (Duoneb Neb) 3 ml HHN Q6HRT [facility] Stop: 11/03/18 18:59 Last Admin: 09/05/18 18:48 Dose: 3 ml Albuterol/Ipratropium (Duoneb Neb) 3 ml HHN Q2H PRN PRN Reason: Wheezing Stop: 11/03/18 13:44 Amlodipine Besylate (Norvasc) 10 mg PO DAILY [facility] Stop: 11/03/18 13:59 Last Admin: 09/05/18 09:02 Dose: 10 mg Carvedilol (Coreg) 6.25 mg PO BID [facility] Stop: 11/03/18 16:59 Last Admin: 09/05/18 16:15 Dose: 6.25 mg Diphenhydramine HCl (Benadryl) 25 mg PO HS PRN PRN Reason: Insomnia Stop: 10/29/18 21:52 Docusate Sodium (Colace) 100 mg PO BID PRN PRN Reason: Constipation Stop: 10/29/18 21:52 Last Admin: 09/04/18 00:52 Dose: 100 mg Enalaprilat (Vasotec) 1.25 mg IVP Q8HR PRN PRN Reason: hypertension Stop: 10/29/18 23:29 Last Admin: 09/04/18 23:06 Dose: 1.25 mg Hydralazine HCl (Apresoline 20 Mg/Ml) 20 mg IV Q6HR PRN PRN Reason: SBP ABOVE 160 Stop: 11/01/18 08:24 Last Admin: 09/05/18 08:40 Dose: 20 mg Hydralazine HCl (Apresoline) 25 mg PO QID [facility] Stop: 11/03/18 13:59 Last Admin: 09/05/18 20:48 Dose: 25 mg Nitroglycerin/Dextrose (Nitroglycerin 50mg/Dextrose 5% Premix) 50 mg in 250 mls @ 1.5 mls/hr IV TITR PRN; Protocol PRN Reason: BP MAINTENANCE Stop: 10/30/18 03:01 Last Titration: 09/02/18 10:12 Dose: 0 mcg/min, 0 mls/hr Norepinephrine Bitartrate 4 mg (/ Dextrose) 254 mls @ 15.24 mls/hr IV TITR PRN ; Protocol PRN Reason: BP MAINTENANCE (PER PROTOCOL) Stop: 11/02/18 09:25 Last Titration: 09/03/18 11:50 Dose: 0 mcg/min, 0 mls/hr Piperacillin Sod/Tazobactam (Sod 2.25 gm/ Sodium Chloride) 50 mls @ 100 mls/hr IV Q8HR [facility] Stop: 11/04/18 20:59 Last Infusion: 09/05/18 21:19 Dose: Infused Insulin Aspart (Novolog Insulin Sliding Scale) 0 units SUBQ Q6HR [facility]; Protocol Stop: 10/30/18 00:00 Last Admin: 09/05/18 17:41 Dose: 4 units Miscellaneous (Vte Chemical Prophylaxis Screen/ Admission) 1 [facility] PRN PRN PRN Reason: PROTOCOL Stop: 10/30/18 07:59 Miscellaneous (Clinical Monitoring) 1 [facility] DAILY PRN PRN Reason: RENAL Stop: 11/03/18 08:50 Ondansetron HCl (Zofran) 4 mg IVP Q6H PRN PRN Reason: Nausea / Vomiting Stop: 10/29/18 21:43 Last Admin: 08/31/18 14:47 Dose: 4 mg Pantoprazole Sodium (Protonix) 40 mg IVP DAILY [facility] Stop: 10/30/18 08:59 Last Admin: 09/05/18 08:54 Dose: 40 mg General: No acute distress HEENT: Atraumatic Neck: Supple Cardiovascular: Regular rate Lungs: Clear to auscultation Abdomen: Bowel sounds, Soft, no Tender Extremities: no Edema - Procedures Procedures: Procedures Procedure Code Date INSERTION OF INFUSION DEV INTO L SUBCLAV VEIN, PERC APPROACH [id number] 08/30/18 ULTRASONOGRAPHY OF LEFT SUBCLAVIAN VEIN, GUIDANCE [id number] 08/30/18 Assessment/Plan - Assessment Assessment: IMPRESSION: 1. ANEMIA, MULTIFACTORIAL. POSSIBLE GI BLEED. 2. RENAL FAILURE. 3. DYSPHAGIA. RECS: - ORAL DIET PER SPEECH. - SPEECH THERAPY. - HD PER RENAL. - MONITOR HGB. - MAY NEED PEG INSERTION IF ORAL INTAKE REMAINS POOR DESPITE HD.
[2018-09-06] MEDS: INSULIN ASPART SLIDING SCALE 100 UNITS/ML UNIT SUBQ SCH ×4 (00:10→17:01)
[2018-09-06] MEDS: Albuterol/Ipratropium Neb 3 ML AERS HHN SCH ×4 (00:51→18:42)
[2018-09-06 04:56] LABS: % BASOPHILS 0.2 % (0.0-2.0); % EOSINOPHILS 0.5 % (0.0-5.0); % LYMPHOCYTES 8.7 % (20.0-50.0); % MONOCYTES 5.5 % (2.0-10.0); % NEUTROPHILS 85.1 % (40.0-80.0); EOSINOPHILE ABSOLUTE 0.1 Th/cmm (0.1-0.4); HEMATOCRIT 36.7 % (41.0-60); LYMPHOCYTE ABSOLUTE 1.1 Th/cmm (1.5-3.0); MEAN CELL VOLUME 89.4 fl (81-100); MEAN CORPUSCULAR HEMOGLOBIN 29.4 pg (27.0-31.0); MEAN CORPUSCULAR HGB CONC 32.8 pg (28.0-36.0); MONOCYTE ABSOLUTE 0.7 Th/cmm (0.3-1.0); NEUTROPHILE ABSOLUTE 10.2 Th/cmm (1.8-8.0); PLATELET COUNT 105 Th/cmm (150-400); RED CELL DISTRIBUTION WIDTH 14.2 % (11.5-20.0)
[2018-09-06] MEDS ORDERED: Piperacillin Sodium/Tazobact 2.25 gm Vial IV ONE (05:05)
[2018-09-06 05:18] LABS: ALB/GLOB RATIO 0.8 (1.0-1.8); ALBUMIN 2.5 gm/dL (3.7-5.3); ALKALINE PHOSPHATASE 174 U/L (34-104); ANION GAP 16.1 (7.0-16.0); BILIRUBIN,TOTAL 0.6 mg/dL (0.3-1.0); BUN - UREA NITROGEN 60 mg/dL (7-25); CALCIUM SERUM 7.8 mg/dL (8.6-10.3); CARBON DIOXIDE 20.4 mEq/L (21.0-31.0); CHLORIDE 108 mEq/L (98-107); CREATININE - SERUM 3.8 mg/dL (0.6-1.2); GLUCOSE 227 mg/dL (70-105); POTASSIUM SERUM 3.5 mEq/L (3.5-5.1); SGOT 27 U/L (13-39); SGPT/ALT 24 U/L (7-52); SODIUM SERUM 141 mEq/L (136-145); TOTAL PROTEIN,SERUM 5.6 gm/dL (6.0-8.3)
[2018-09-06 06:00] LABS: WHITE BLOOD COUNT 12.1 Th/cmm (4.8-10.8)
--- NOTE | 2018-09-06 08:40 | General Progress Note ---
Subjective - Review of Systems Service Date: 09/06/18 Events since last encounter: Alejandro working well BUN and creatinine remains high Objective - Results Result Diagrams: 09/06/18 04:45 09/06/18 04:45 Recent Labs: Laboratory Last Values WBC 12.1 Th/cmm (4.8-10.8) H 09/06/18 04:45 RBC 4.10 Mil/cmm (3.80-5.20) 09/06/18 04:45 Hgb 12.0 gm/dL (12-16) 09/06/18 04:45 Hct 36.7 % (41.0-60) L 09/06/18 04:45 MCV 89.4 fl (81-100) 09/06/18 04:45 MCH 29.4 pg (27.0-31.0) 09/06/18 04:45 MCHC Differential 32.8 pg (28.0-36.0) 09/06/18 04:45 RDW 14.2 % (11.5-20.0) 09/06/18 04:45 Plt Count 105 Th/cmm (150-400) L 09/06/18 04:45 MPV 9.0 fl 09/06/18 04:45 Add Manual Diff YES 09/05/18 04:40 Neutrophils % 85.1 % (40.0-80.0) H 09/06/18 04:45 Band Neutrophils % 3 % (0-10) 09/05/18 04:40 Lymphocytes % 8.7 % (20.0-50.0) L 09/06/18 04:45 Monocytes % 5.5 % (2.0-10.0) 09/06/18 04:45 Eosinophils % 0.5 % (0.0-5.0) 09/06/18 04:45 Basophils % 0.2 % (0.0-2.0) 09/06/18 04:45 Neutrophils (Manual) 82 % (40-80) H 09/05/18 04:40 Lymphocytes 7 % (20-50) L 09/05/18 04:40 Monocytes 6 % (2-10) 09/05/18 04:40 Eosinophils 2 % (0-5) 09/05/18 04:40 Nucleated RBCs 2.0 % (0-0) H 09/05/18 04:40 Platelet Estimate SLIGHT DECREASED (NORMAL) 09/05/18 04:40 Ovalocytes 1+ 09/05/18 04:40 Anjum Cells 1+ 09/05/18 04:40 PT 9.9 SECONDS (9.5-11.5) 08/30/18 17:10 INR 0.95 (0.5-1.4) 08/30/18 17:10 PTT (Actin FS) 23.0 SECONDS (26.0-38.0) L 08/30/18 17:10 Specimen Source Arterial 09/05/18 13:15 Sample Site RB 09/05/18 13:15 pH 7.45 (7.35-7.45) 09/05/18 13:15 pCO2 33.0 mmHg (35.0-45.0) L 09/05/18 13:15 pO2 41.0 mmHg (80.0-100.0) L* 09/05/18 13:15 HCO3 24.1 mEq/L (20.0-26.0) 09/05/18 13:15 Base Excess -0.5 mEq/L (-3.0-3.0) 09/05/18 13:15 O2 Saturation 79.0 % (92.0-100.0) L 09/05/18 13:15 Jean Claude Test NA 09/05/18 13:15 Vent Rate NA 09/05/18 13:15 Inspired O2 50 09/05/18 13:15 Tidal Volume NA 09/05/18 13:15 PEEP NA 09/05/18 13:15 Pressure (ins/psv/peep) NA 09/05/18 13:15 Critical Value E.POWELL 09/05/18 13:15 Sodium 141 mEq/L (136-145) 09/06/18 04:45 Potassium 3.5 mEq/L (3.5-5.1) 09/06/18 04:45 Chloride 108 mEq/L (98-107) H 09/06/18 04:45 Carbon Dioxide 20.4 mEq/L (21.0-31.0) L 09/06/18 04:45 Anion Gap 16.1 (7.0-16.0) H 09/06/18 04:45 BUN 60 mg/dL (7-25) H 09/06/18 04:45 Creatinine 3.8 mg/dL (0.6-1.2) H 09/06/18 04:45 Est GFR ( Amer) TNP 09/06/18 04:45 Est GFR (Non-Af Amer) TNP 09/06/18 04:45 BUN/Creatinine Ratio 15.8 09/06/18 04:45 Glucose 227 mg/dL (70-105) H 09/06/18 04:45 POC Glucose 186 MG/DL (70 - 105) H 09/06/18 04:47 Calcium 7.8 mg/dL (8.6-10.3) L 09/06/18 04:45 Magnesium 1.7 mg/dL (1.9-2.7) L 09/05/18 04:40 Total Bilirubin 0.6 mg/dL (0.3-1.0) 09/06/18 04:45 AST 27 U/L (13-39) 09/06/18 04:45 ALT 24 U/L (7-52) 09/06/18 04:45 Alkaline Phosphatase 174 U/L (34-104) H 09/06/18 04:45 Ammonia 38 umol/L (16-53) 09/03/18 04:20 Troponin I 0.05 ng/mL (0.01-0.05) 08/31/18 05:20 Total Protein 5.6 gm/dL (6.0-8.3) L 09/06/18 04:45 Albumin 2.5 gm/dL (3.7-5.3) L 09/06/18 04:45 Globulin 3.1 gm/dL 09/06/18 04:45 Albumin/Globulin Ratio 0.8 (1.0-1.8) L 09/06/18 04:45 Lipase 36 U/L (11-82) 08/30/18 17:10 Urine Source CATH 08/30/18 18:30 Urine Color YELLOW 08/30/18 18:30 Urine Clarity CLEAR (CLEAR) 08/30/18 18:30 Urine pH 7.0 (4.6 - 8.0) 08/30/18 18:30 Ur Specific [place] 1.020 (1.005-1.030) 08/30/18 18:30 Urine Protein >=300 mg/dL (NEGATIVE) 08/30/18 18:30 Urine Glucose (UA) 250 mg/dL (NEGATIVE) H 08/30/18 18:30 Urine Ketones NEGATIVE mg/dL (NEGATIVE) 08/30/18 18:30 Urine Blood TRACE (NEGATIVE) 08/30/18 18:30 Urine Nitrate NEGATIVE (NEGATIVE) 08/30/18 18:30 Urine Bilirubin NEGATIVE (NEGATIVE) 08/30/18 18:30 Urine Urobilinogen 0.2 E.U./dL (0.2 - 1.0) 08/30/18 18:30 Ur Leukocyte Esterase NEGATIVE (NEGATIVE) 08/30/18 18:30 Urine RBC NONE SEEN /hpf (0-5) 08/30/18 18:30 Urine WBC 2-5 /hpf (0-5) 08/30/18 18:30 Ur Epithelial Cells FEW /lpf (FEW) 08/30/18 18:30 Urine Bacteria MODERATE /hpf (NONE SEEN) H 08/30/18 18:30 Hepatitis A IgM Ab Negative (Negative) 09/01/18 09:25 Hep Bs Antigen Negative (Negative) 09/01/18 09:25 Hep B Core IgM Ab Negative (Negative) 09/01/18 09:25 Hepatitis C Antibody <0.1 s/co ratio (0.0-0.9) 09/01/18 09:25 Blood Type O POSITIVE 09/04/18 09:40 Antibody Screen NEGATIVE 09/04/18 09:40 Crossmatch See Detail 09/04/18 09:40 - Physical Exam Vitals and I&O: Vital Signs Temp 99 F 09/06/18 04:00 Pulse 84 09/06/18 06:50 Resp 17 09/06/18 07:00 BP 127/61 09/06/18 06:50 Pulse Ox 97 09/06/18 07:00 Intake & Output 09/05/18 09/06/18 09/06/18 18:59 06:59 18:59 Intake Total 712 100 Output Total 200 230 Balance 512 -130 Weight (lbs) 42.808 kg 44.633 kg Intake: Intake, IV Amount 52 100 Piperacillin Sodium/ 100 Tazobact 2.25 gm In Sodium Chloride 0.9% 50 ml @ 100 mls/hr IV Q8HR GL[facility] Rx#:[id number] Tube Feeding 360 Other 300 Output: Urine 200 230 Other: # Bowel Movements 0 Weight Source Bedscale Bedscale Active Medications: Current Medications Acetaminophen (Tylenol) 650 mg PO Q4H PRN PRN Reason: Mild Pain/Headache/T above 101 Stop: 10/29/18 21:43 Last Admin: 09/03/18 15:56 Dose: 650 mg Acetaminophen/Hydrocodone Bitart ([place] 5mg/325mg) 1 tab PO Q4H PRN PRN Reason: Pain (Mild) Stop: 11/01/18 18:58 Last Admin: 09/05/18 13:55 Dose: 1 tab Albuterol/Ipratropium (Duoneb Neb) 3 ml HHN Q6HRT [facility] Stop: 11/03/18 18:59 Last Admin: 09/06/18 07:00 Dose: 3 ml Albuterol/Ipratropium (Duoneb Neb) 3 ml HHN Q2H PRN PRN Reason: Wheezing Stop: 11/03/18 13:44 Amlodipine Besylate (Norvasc) 10 mg PO DAILY [facility] Stop: 11/03/18 13:59 Last Admin: 09/05/18 09:02 Dose: 10 mg Carvedilol (Coreg) 6.25 mg PO BID [facility] Stop: 11/03/18 16:59 Last Admin: 09/05/18 16:15 Dose: 6.25 mg Diphenhydramine HCl (Benadryl) 25 mg PO HS PRN PRN Reason: Insomnia Stop: 10/29/18 21:52 Docusate Sodium (Colace) 100 mg PO BID PRN PRN Reason: Constipation Stop: 10/29/18 21:52 Last Admin: 09/04/18 00:52 Dose: 100 mg Enalaprilat (Vasotec) 1.25 mg IVP Q8HR PRN PRN Reason: hypertension Stop: 10/29/18 23:29 Last Admin: 09/04/18 23:06 Dose: 1.25 mg Hydralazine HCl (Apresoline 20 Mg/Ml) 20 mg IV Q6HR PRN PRN Reason: SBP ABOVE 160 Stop: 11/01/18 08:24 Last Admin: 09/06/18 03:18 Dose: 20 mg Hydralazine HCl (Apresoline) 25 mg PO QID [facility] Stop: 11/03/18 13:59 Last Admin: 09/05/18 20:48 Dose: 25 mg Nitroglycerin/Dextrose (Nitroglycerin 50mg/Dextrose 5% Premix) 50 mg in 250 mls @ 1.5 mls/hr IV TITR PRN; Protocol PRN Reason: BP MAINTENANCE Stop: 10/30/18 03:01 Last Titration: 09/02/18 10:12 Dose: 0 mcg/min, 0 mls/hr Norepinephrine Bitartrate 4 mg (/ Dextrose) 254 mls @ 15.24 mls/hr IV TITR PRN ; Protocol PRN Reason: BP MAINTENANCE (PER PROTOCOL) Stop: 11/02/18 09:25 Last Titration: 09/03/18 11:50 Dose: 0 mcg/min, 0 mls/hr Piperacillin Sod/Tazobactam (Sod 2.25 gm/ Sodium Chloride) 50 mls @ 100 mls/hr IV Q8HR [facility] Stop: 11/04/18 20:59 Last Infusion: 09/06/18 05:50 Dose: Infused Insulin Aspart (Novolog Insulin Sliding Scale) 0 units SUBQ Q6HR [facility]ORIA; Protocol Stop: 10/30/18 00:00 Last Admin: 09/06/18 05:46 Dose: 2 units Miscellaneous (Vte Chemical Prophylaxis Screen/ Admission) 1 [facility] PRN PRN PRN Reason: PROTOCOL Stop: 10/30/18 07:59 Miscellaneous (Clinical Monitoring) 1 [facility] DAILY PRN PRN Reason: RENAL Stop: 11/03/18 08:50 Ondansetron HCl (Zofran) 4 mg IVP Q6H PRN PRN Reason: Nausea / Vomiting Stop: 10/29/18 21:43 Last Admin: 08/31/18 14:47 Dose: 4 mg Pantoprazole Sodium (Protonix) 40 mg IVP DAILY [facility] Stop: 10/30/18 08:59 Last Admin: 09/06/18 08:10 Dose: 40 mg General: No acute distress HEENT: Atraumatic Neck: Supple Cardiovascular: Regular rate Lungs: Clear to auscultation Abdomen: Bowel sounds, Soft, no Tender Extremities: no Edema - Procedures Procedures: Procedures Procedure Code Date INSERTION OF INFUSION DEV INTO L SUBCLAV VEIN, PERC APPROACH 34A895D 08/30/18 ULTRASONOGRAPHY OF LEFT SUBCLAVIAN VEIN, GUIDANCE [id number] 08/30/18 Nutritional Asmnt/Malnutr-PDOC - Dietary Evaluation Malnutrition Findings (Please click <Entered> for more info): Nutritional Asmnt/Malnutrition Start: 08/31/18 15: 24 Text: Status: Complete Freq: Protocol: Document 08/31/18 15:24 LAURA (Rec: 08/31/18 15:47 LAURA [id number]) Nutritional Asmnt/Malnutrition Patient General Information Nutritional Screening High Risk Diagnosis renal failure, GI bleed Pertinent Medical Hx/Surgical Hx CVA/TIA, left side paralysis d /t CVA, HTN, hernia, prothesis Subjective Information Pt in unit w/ daughter at bedside. Language barrier d/t croatian speaking, but daughter indicated that pt had poor intake prior to admission. Per RN, pt finished 0% breakfast and swallow eval ordered d/t pt pocketing food and hx of CVA. Swallow eval done in the afternoon, ST recommended full liquid with nectar thick Current Diet Order/ Nutrition Support soft/bland Pertinent Medications D5-0.9%Ns, colace, novolog, zofran, protonix Pertinent Labs 08/31: Na 135, K 5.3, Cl 92, BUN 96, Cr 6.9, glucose 192, POC 199-201 08/30: Na 134, CL 94, Bun 91, Cr 6.6, glucose 163, POC 143 Nutritional Hx/Data Height 1.52 m Height (Calculated Centimeters) 152.4 Current Weight (lbs) 44.588 kg Weight (Calculated Kilograms) 44.6 Weight (Calculated Grams) 20450.1 [place] Body Weight 100 lb Body Mass Index (BMI) 19.2 Weight Status Approriate GI Symptoms GI Symptoms Nausea Vomitting Last BM 08/31 Food Allergies No Skin Integrity/Comment: aneudy eubanks 15 Estimated Nutritional Goals BEE in Kcals: Using Current wt Calories/Kcals/Kg 25-30 Kcals Calculated 6940-2582 Protein: Using Current wt Protein g/k-1.2 Protein Calculated 45-54 g Fluid: ml 5279-9438 (1 ml/kcal) Nutritional Problem 1. Problem Problem Altered nutrition related lab values Etiology renal failure, hyperglycimia Signs/Symptoms: BUN 96, Cr 6.9, K 5.3, glucose 192 Malnutrition Alert Is there a minimum of two criteria No selected? Query Text:Check all the applicable criteria. A minimum of two criteria are recommended for diagnosis of either severe or non-severe malnutrition. Malnutrition Related to Morbid Obesity Malnutrition related to morbid obesity No Intervention/Recommendation Comments 1. Start full liquid diet at dinner per ST recommendation. Add Nepro TID for extra kcal and protein. 2. Recommend to start renal diet when diet advanced d/t renal failure and altered BUN and Cr 3. Monitor intake, wt, labs and skin integrity 4. F/U as high risk in 2-3 days, 09/02-09/03 Expected Outcomes/Goals Expected Outcomes/Goals 1. Intake to meet at least 75% of nutritional needs 2. Wt stability, skin to remain intact, and nutrition related labs to approach normal limits Reviewed by Mariana Muller RD
[2018-09-06 11:28] LABS: pH 7.52 (7.35-7.45)
--- NOTE | 2018-09-06 12:06 | Diagnostic Imaging Report ---
CHEST X-RAY: AP view INDICATION: CVA COMPARISON: 09/05/2018 FINDINGS: Support devices are stable. Improving congestive changes are noted. Left effusion is again noted with left lung infiltrates. Mild cardiomegaly is noted. IMPRESSION: Improving congestive changes. Left effusion and left lung infiltrates are again noted.
--- NOTE | 2018-09-06 12:48 | GI Progress Note ---
Subjective - Review of Systems Service Date: 09/06/18 Subjective: EVENTS NOTED. MELISSA NGT FEEDS. ON/OFF BIPAP. ORAL DIET ON HOLD DUE TO ALOC. Objective - Results Result Diagrams: 09/06/18 04:45 09/06/18 04:45 Recent Labs: Laboratory Last Values WBC 12.1 Th/cmm (4.8-10.8) H 09/06/18 04:45 RBC 4.10 Mil/cmm (3.80-5.20) 09/06/18 04:45 Hgb 12.0 gm/dL (12-16) 09/06/18 04:45 Hct 36.7 % (41.0-60) L 09/06/18 04:45 MCV 89.4 fl (81-100) 09/06/18 04:45 MCH 29.4 pg (27.0-31.0) 09/06/18 04:45 MCHC Differential 32.8 pg (28.0-36.0) 09/06/18 04:45 RDW 14.2 % (11.5-20.0) 09/06/18 04:45 Plt Count 105 Th/cmm (150-400) L 09/06/18 04:45 MPV 9.0 fl 09/06/18 04:45 Add Manual Diff YES 09/05/18 04:40 Neutrophils % 85.1 % (40.0-80.0) H 09/06/18 04:45 Band Neutrophils % 3 % (0-10) 09/05/18 04:40 Lymphocytes % 8.7 % (20.0-50.0) L 09/06/18 04:45 Monocytes % 5.5 % (2.0-10.0) 09/06/18 04:45 Eosinophils % 0.5 % (0.0-5.0) 09/06/18 04:45 Basophils % 0.2 % (0.0-2.0) 09/06/18 04:45 Neutrophils (Manual) 82 % (40-80) H 09/05/18 04:40 Lymphocytes 7 % (20-50) L 09/05/18 04:40 Monocytes 6 % (2-10) 09/05/18 04:40 Eosinophils 2 % (0-5) 09/05/18 04:40 Nucleated RBCs 2.0 % (0-0) H 09/05/18 04:40 Platelet Estimate SLIGHT DECREASED (NORMAL) 09/05/18 04:40 Ovalocytes 1+ 09/05/18 04:40 Anjum Cells 1+ 09/05/18 04:40 PT 9.9 SECONDS (9.5-11.5) 08/30/18 17:10 INR 0.95 (0.5-1.4) 08/30/18 17:10 PTT (Actin FS) 23.0 SECONDS (26.0-38.0) L 08/30/18 17:10 Specimen Source Arterial 09/06/18 11:20 Sample Site RB 09/06/18 11:20 pH 7.52 (7.35-7.45) H 09/06/18 11:20 pCO2 31.0 mmHg (35.0-45.0) L 09/06/18 11:20 pO2 118.0 mmHg (80.0-100.0) H 09/06/18 11:20 HCO3 27.2 mEq/L (20.0-26.0) H 09/06/18 11:20 Base Excess 2.9 mEq/L (-3.0-3.0) 09/06/18 11:20 O2 Saturation 99.0 % (92.0-100.0) 09/06/18 11:20 Jean Claude Test NA 09/06/18 11:20 Vent Rate 12 09/06/18 11:20 Inspired O2 40 09/06/18 11:20 Tidal Volume 400 09/06/18 11:20 PEEP NA 09/06/18 11:20 Pressure (ins/psv/peep) NA 09/06/18 11:20 Critical Value E.POWELL 09/06/18 11:20 Sodium 141 mEq/L (136-145) 09/06/18 04:45 Potassium 3.5 mEq/L (3.5-5.1) 09/06/18 04:45 Chloride 108 mEq/L (98-107) H 09/06/18 04:45 Carbon Dioxide 20.4 mEq/L (21.0-31.0) L 09/06/18 04:45 Anion Gap 16.1 (7.0-16.0) H 09/06/18 04:45 BUN 60 mg/dL (7-25) H 09/06/18 04:45 Creatinine 3.8 mg/dL (0.6-1.2) H 09/06/18 04:45 Est GFR ( Amer) TNP 09/06/18 04:45 Est GFR (Non-Af Amer) TNP 09/06/18 04:45 BUN/Creatinine Ratio 15.8 09/06/18 04:45 Glucose 227 mg/dL (70-105) H 09/06/18 04:45 POC Glucose 223 MG/DL (70 - 105) H 09/06/18 12:03 Calcium 7.8 mg/dL (8.6-10.3) L 09/06/18 04:45 Magnesium 1.7 mg/dL (1.9-2.7) L 09/05/18 04:40 Total Bilirubin 0.6 mg/dL (0.3-1.0) 09/06/18 04:45 AST 27 U/L (13-39) 09/06/18 04:45 ALT 24 U/L (7-52) 09/06/18 04:45 Alkaline Phosphatase 174 U/L (34-104) H 09/06/18 04:45 Ammonia 26 umol/L (16-53) 09/06/18 09:10 Troponin I 0.05 ng/mL (0.01-0.05) 08/31/18 05:20 Total Protein 5.6 gm/dL (6.0-8.3) L 09/06/18 04:45 Albumin 2.5 gm/dL (3.7-5.3) L 09/06/18 04:45 Globulin 3.1 gm/dL 09/06/18 04:45 Albumin/Globulin Ratio 0.8 (1.0-1.8) L 09/06/18 04:45 Lipase 36 U/L (11-82) 08/30/18 17:10 Urine Source CATH 08/30/18 18:30 Urine Color YELLOW 08/30/18 18:30 Urine Clarity CLEAR (CLEAR) 08/30/18 18:30 Urine pH 7.0 (4.6 - 8.0) 08/30/18 18:30 Ur Specific [place] 1.020 (1.005-1.030) 08/30/18 18:30 Urine Protein >=300 mg/dL (NEGATIVE) 08/30/18 18:30 Urine Glucose (UA) 250 mg/dL (NEGATIVE) H 08/30/18 18:30 Urine Ketones NEGATIVE mg/dL (NEGATIVE) 08/30/18 18:30 Urine Blood TRACE (NEGATIVE) 08/30/18 18:30 Urine Nitrate NEGATIVE (NEGATIVE) 08/30/18 18:30 Urine Bilirubin NEGATIVE (NEGATIVE) 08/30/18 18:30 Urine Urobilinogen 0.2 E.U./dL (0.2 - 1.0) 08/30/18 18:30 Ur Leukocyte Esterase NEGATIVE (NEGATIVE) 08/30/18 18:30 Urine RBC NONE SEEN /hpf (0-5) 08/30/18 18:30 Urine WBC 2-5 /hpf (0-5) 08/30/18 18:30 Ur Epithelial Cells FEW /lpf (FEW) 08/30/18 18:30 Urine Bacteria MODERATE /hpf (NONE SEEN) H 08/30/18 18:30 Hepatitis A IgM Ab Negative (Negative) 09/01/18 09:25 Hep Bs Antigen Negative (Negative) 09/01/18 09:25 Hep B Core IgM Ab Negative (Negative) 09/01/18 09:25 Hepatitis C Antibody <0.1 s/co ratio (0.0-0.9) 09/01/18 09:25 Blood Type O POSITIVE 09/04/18 09:40 Antibody Screen NEGATIVE 09/04/18 09:40 Crossmatch See Detail 09/04/18 09:40 - Physical Exam Vitals and I&O: Vital Signs Temp 98 F 09/06/18 08:00 Pulse 83 09/06/18 12:15 Resp 17 09/06/18 11:21 BP 184/64 09/06/18 12:15 Pulse Ox 98 09/06/18 11:21 Intake & Output 09/05/18 09/06/18 09/06/18 18:59 06:59 18:59 Intake Total 712 100 Output Total 200 230 Balance 512 -130 Weight (lbs) 42.808 kg 44.633 kg Intake: Intake, IV Amount 52 100 Piperacillin Sodium/ 100 Tazobact 2.25 gm In Sodium Chloride 0.9% 50 ml @ 100 mls/hr IV Q8HR [facility] Rx#:[id number] Tube Feeding 360 Other 300 Output: Urine 200 230 Other: # Bowel Movements 0 Weight Source Bedscale Bedscale Active Medications: Current Medications Acetaminophen (Tylenol) 650 mg PO Q4H PRN PRN Reason: Mild Pain/Headache/T above 101 Stop: 10/29/18 21:43 Last Admin: 09/03/18 15:56 Dose: 650 mg Acetaminophen/Hydrocodone Bitart ([place] 5mg/325mg) 1 tab PO Q4H PRN PRN Reason: Pain (Mild) Stop: 11/01/18 18:58 Last Admin: 09/05/18 13:55 Dose: 1 tab Albuterol/Ipratropium (Duoneb Neb) 3 ml HHN Q6HRT [facility] Stop: 11/03/18 18:59 Last Admin: 09/06/18 07:00 Dose: 3 ml Albuterol/Ipratropium (Duoneb Neb) 3 ml HHN Q2H PRN PRN Reason: Wheezing Stop: 11/03/18 13:44 Amlodipine Besylate (Norvasc) 10 mg PO DAILY [facility] Stop: 11/03/18 13:59 Last Admin: 09/06/18 08:59 Dose: Not Given Carvedilol (Coreg) 6.25 mg PO BID [facility] Stop: 11/03/18 16:59 Last Admin: 09/06/18 09:02 Dose: Not Given Diphenhydramine HCl (Benadryl) 25 mg PO HS PRN PRN Reason: Insomnia Stop: 10/29/18 21:52 Docusate Sodium (Colace) 100 mg PO BID PRN PRN Reason: Constipation Stop: 10/29/18 21:52 Last Admin: 09/04/18 00:52 Dose: 100 mg Enalaprilat (Vasotec) 1.25 mg IVP Q8HR PRN PRN Reason: hypertension Stop: 10/29/18 23:29 Last Admin: 09/04/18 23:06 Dose: 1.25 mg Hydralazine HCl (Apresoline 20 Mg/Ml) 20 mg IV Q6HR PRN PRN Reason: SBP ABOVE 160 Stop: 11/01/18 08:24 Last Admin: 09/06/18 03:18 Dose: 20 mg Hydralazine HCl (Apresoline) 25 mg PO QID [facility] Stop: 11/03/18 13:59 Last Admin: 10/18/18 12:15 Dose: 25 mg Nitroglycerin/Dextrose (Nitroglycerin 50mg/Dextrose 5% Premix) 50 mg in 250 mls @ 1.5 mls/hr IV TITR PRN; Protocol PRN Reason: BP MAINTENANCE Stop: 10/30/18 03:01 Last Titration: 09/02/18 10:12 Dose: 0 mcg/min, 0 mls/hr Norepinephrine Bitartrate 4 mg (/ Dextrose) 254 mls @ 15.24 mls/hr IV TITR PRN ; Protocol PRN Reason: BP MAINTENANCE (PER PROTOCOL) Stop: 11/02/18 09:25 Last Titration: 09/03/18 11:50 Dose: 0 mcg/min, 0 mls/hr Piperacillin Sod/Tazobactam (Sod 2.25 gm/ Sodium Chloride) 50 mls @ 100 mls/hr IV Q8HR [facility] Stop: 11/04/18 20:59 Last Admin: 09/06/18 12:17 Dose: 100 mls/hr Insulin Aspart (Novolog Insulin Sliding Scale) 0 units SUBQ Q6HR [facility]; Protocol Stop: 10/30/18 00:00 Last Admin: 09/06/18 12:13 Dose: 4 units Miscellaneous (Vte Chemical Prophylaxis Screen/ Admission) 1 [facility] PRN PRN PRN Reason: PROTOCOL Stop: 10/30/18 07:59 Miscellaneous (Clinical Monitoring) 1 [facility] DAILY PRN PRN Reason: RENAL Stop: 11/03/18 08:50 Ondansetron HCl (Zofran) 4 mg IVP Q6H PRN PRN Reason: Nausea / Vomiting Stop: 10/29/18 21:43 Last Admin: 08/31/18 14:47 Dose: 4 mg Pantoprazole Sodium (Protonix) 40 mg IVP DAILY [facility] Stop: 10/30/18 08:59 Last Admin: 09/06/18 08:10 Dose: 40 mg General: No acute distress, Other (LETHARGIC) HEENT: Atraumatic, Other (NGT) Neck: Supple Cardiovascular: Regular rate Lungs: Normal air movement Abdomen: Bowel sounds, Soft, no Tender Extremities: no Edema - Procedures Procedures: Procedures Procedure Code Date INSERTION OF INFUSION DEV INTO L SUBCLAV VEIN, PERC APPROACH [id number] 08/30/18 ULTRASONOGRAPHY OF LEFT SUBCLAVIAN VEIN, GUIDANCE [id number] 08/30/18 Assessment/Plan - Assessment Assessment: IMPRESSION: 1. ANEMIA, MULTIFACTORIAL. POSSIBLE UGIB, NOW RESOLVED. 2. RENAL FAILURE. 3. DYSPHAGIA. 4. RESP FAILURE - ON/OFF BIPAP. RECS: - ORAL DIET PER SPEECH - CURRENTLY ON HOLD DUE TO ALOC. - NGT FEEDS FOR NOW. - SPEECH THERAPY. - HD PER RENAL. - MONITOR HGB. - MAY NEED PEG INSERTION IF ORAL INTAKE REMAINS POOR DESPITE HD.
--- NOTE | 2018-09-06 16:15 | General Progress Note ---
Subjective - Review of Systems Service Date: 09/06/18 Subjective: pt in bed no distress NG tube in place daughter at bed side Objective - Results Result Diagrams: 09/06/18 04:45 09/06/18 04:45 Recent Labs: Laboratory Last Values WBC 12.1 Th/cmm (4.8-10.8) H 09/06/18 04:45 RBC 4.10 Mil/cmm (3.80-5.20) 09/06/18 04:45 Hgb 12.0 gm/dL (12-16) 09/06/18 04:45 Hct 36.7 % (41.0-60) L 09/06/18 04:45 MCV 89.4 fl (81-100) 09/06/18 04:45 MCH 29.4 pg (27.0-31.0) 09/06/18 04:45 MCHC Differential 32.8 pg (28.0-36.0) 09/06/18 04:45 RDW 14.2 % (11.5-20.0) 09/06/18 04:45 Plt Count 105 Th/cmm (150-400) L 09/06/18 04:45 MPV 9.0 fl 09/06/18 04:45 Add Manual Diff YES 09/05/18 04:40 Neutrophils % 85.1 % (40.0-80.0) H 09/06/18 04:45 Band Neutrophils % 3 % (0-10) 09/05/18 04:40 Lymphocytes % 8.7 % (20.0-50.0) L 09/06/18 04:45 Monocytes % 5.5 % (2.0-10.0) 09/06/18 04:45 Eosinophils % 0.5 % (0.0-5.0) 09/06/18 04:45 Basophils % 0.2 % (0.0-2.0) 09/06/18 04:45 Neutrophils (Manual) 82 % (40-80) H 09/05/18 04:40 Lymphocytes 7 % (20-50) L 09/05/18 04:40 Monocytes 6 % (2-10) 09/05/18 04:40 Eosinophils 2 % (0-5) 09/05/18 04:40 Nucleated RBCs 2.0 % (0-0) H 09/05/18 04:40 Platelet Estimate SLIGHT DECREASED (NORMAL) 09/05/18 04:40 Ovalocytes 1+ 09/05/18 04:40 Hubertus Cells 1+ 09/05/18 04:40 PT 9.9 SECONDS (9.5-11.5) 08/30/18 17:10 INR 0.95 (0.5-1.4) 08/30/18 17:10 PTT (Actin FS) 23.0 SECONDS (26.0-38.0) L 08/30/18 17:10 Specimen Source Arterial 09/06/18 11:20 Sample Site RB 09/06/18 11:20 pH 7.52 (7.35-7.45) H 09/06/18 11:20 pCO2 31.0 mmHg (35.0-45.0) L 09/06/18 11:20 pO2 118.0 mmHg (80.0-100.0) H 09/06/18 11:20 HCO3 27.2 mEq/L (20.0-26.0) H 09/06/18 11:20 Base Excess 2.9 mEq/L (-3.0-3.0) 09/06/18 11:20 O2 Saturation 99.0 % (92.0-100.0) 09/06/18 11:20 Jean Claude Test NA 09/06/18 11:20 Vent Rate 12 09/06/18 11:20 Inspired O2 40 09/06/18 11:20 Tidal Volume 400 09/06/18 11:20 PEEP NA 09/06/18 11:20 Pressure (ins/psv/peep) NA 09/06/18 11:20 Critical Value E.POWELL 09/06/18 11:20 Sodium 141 mEq/L (136-145) 09/06/18 04:45 Potassium 3.5 mEq/L (3.5-5.1) 09/06/18 04:45 Chloride 108 mEq/L (98-107) H 09/06/18 04:45 Carbon Dioxide 20.4 mEq/L (21.0-31.0) L 09/06/18 04:45 Anion Gap 16.1 (7.0-16.0) H 09/06/18 04:45 BUN 60 mg/dL (7-25) H 09/06/18 04:45 Creatinine 3.8 mg/dL (0.6-1.2) H 09/06/18 04:45 Est GFR ( Amer) TNP 09/06/18 04:45 Est GFR (Non-Af Amer) TNP 09/06/18 04:45 BUN/Creatinine Ratio 15.8 09/06/18 04:45 Glucose 227 mg/dL (70-105) H 09/06/18 04:45 POC Glucose 223 MG/DL (70 - 105) H 09/06/18 12:03 Calcium 7.8 mg/dL (8.6-10.3) L 09/06/18 04:45 Magnesium 1.7 mg/dL (1.9-2.7) L 09/05/18 04:40 Total Bilirubin 0.6 mg/dL (0.3-1.0) 09/06/18 04:45 AST 27 U/L (13-39) 09/06/18 04:45 ALT 24 U/L (7-52) 09/06/18 04:45 Alkaline Phosphatase 174 U/L (34-104) H 09/06/18 04:45 Ammonia 26 umol/L (16-53) 09/06/18 09:10 Troponin I 0.05 ng/mL (0.01-0.05) 08/31/18 05:20 Total Protein 5.6 gm/dL (6.0-8.3) L 09/06/18 04:45 Albumin 2.5 gm/dL (3.7-5.3) L 09/06/18 04:45 Globulin 3.1 gm/dL 09/06/18 04:45 Albumin/Globulin Ratio 0.8 (1.0-1.8) L 09/06/18 04:45 Lipase 36 U/L (11-82) 08/30/18 17:10 Urine Source CATH 08/30/18 18:30 Urine Color YELLOW 08/30/18 18:30 Urine Clarity CLEAR (CLEAR) 08/30/18 18:30 Urine pH 7.0 (4.6 - 8.0) 08/30/18 18:30 Ur Specific [place] 1.020 (1.005-1.030) 08/30/18 18:30 Urine Protein >=300 mg/dL (NEGATIVE) 08/30/18 18:30 Urine Glucose (UA) 250 mg/dL (NEGATIVE) H 08/30/18 18:30 Urine Ketones NEGATIVE mg/dL (NEGATIVE) 08/30/18 18:30 Urine Blood TRACE (NEGATIVE) 08/30/18 18:30 Urine Nitrate NEGATIVE (NEGATIVE) 08/30/18 18:30 Urine Bilirubin NEGATIVE (NEGATIVE) 08/30/18 18:30 Urine Urobilinogen 0.2 E.U./dL (0.2 - 1.0) 08/30/18 18:30 Ur Leukocyte Esterase NEGATIVE (NEGATIVE) 08/30/18 18:30 Urine RBC NONE SEEN /hpf (0-5) 08/30/18 18:30 Urine WBC 2-5 /hpf (0-5) 08/30/18 18:30 Ur Epithelial Cells FEW /lpf (FEW) 08/30/18 18:30 Urine Bacteria MODERATE /hpf (NONE SEEN) H 08/30/18 18:30 Hepatitis A IgM Ab Negative (Negative) 09/01/18 09:25 Hep Bs Antigen Negative (Negative) 09/01/18 09:25 Hep B Core IgM Ab Negative (Negative) 09/01/18 09:25 Hepatitis C Antibody <0.1 s/co ratio (0.0-0.9) 09/01/18 09:25 Blood Type O POSITIVE 09/04/18 09:40 Antibody Screen NEGATIVE 09/04/18 09:40 Crossmatch See Detail 09/04/18 09:40 - Physical Exam Vitals and I&O: Vital Signs Temp 97.8 F 09/06/18 16:00 Pulse 93 09/06/18 16:00 Resp 17 09/06/18 16:00 BP 149/53 09/06/18 16:00 Pulse Ox 95 09/06/18 16:00 Intake & Output 09/05/18 09/06/18 09/06/18 18:59 06:59 18:59 Intake Total 712 100 50 Output Total 200 230 Balance 512 -130 50 Weight (lbs) 42.808 kg 44.633 kg Intake: Intake, IV Amount 52 100 50 Piperacillin Sodium/ 100 50 Tazobact 2.25 gm In Sodium Chloride 0.9% 50 ml @ 100 mls/hr IV Q8HR [facility] [place] Rx#:[id number] Tube Feeding 360 Other 300 Output: Urine 200 230 Other: # Bowel Movements 0 Weight Source Bedscale Bedscale Active Medications: Current Medications Acetaminophen (Tylenol) 650 mg PO Q4H PRN PRN Reason: Mild Pain/Headache/T above 101 Stop: 10/29/18 21:43 Last Admin: 09/03/18 15:56 Dose: 650 mg Acetaminophen/Hydrocodone Bitart ([place] 5mg/325mg) 1 tab PO Q4H PRN PRN Reason: Pain (Mild) Stop: 11/01/18 18:58 Last Admin: 09/05/18 13:55 Dose: 1 tab Albuterol/Ipratropium (Duoneb Neb) 3 ml HHN Q6HRT [facility] Stop: 11/03/18 18:59 Last Admin: 09/06/18 13:56 Dose: 3 ml Albuterol/Ipratropium (Duoneb Neb) 3 ml HHN Q2H PRN PRN Reason: Wheezing Stop: 11/03/18 13:44 Amlodipine Besylate (Norvasc) 10 mg PO DAILY [facility] Stop: 11/03/18 13:59 Last Admin: 09/06/18 08:59 Dose: Not Given Carvedilol (Coreg) 6.25 mg PO BID [facility] [place] Stop: 11/03/18 16:59 Last Admin: 09/06/18 09:02 Dose: Not Given Diphenhydramine HCl (Benadryl) 25 mg PO HS PRN PRN Reason: Insomnia Stop: 10/29/18 21:52 Docusate Sodium (Colace) 100 mg PO BID PRN PRN Reason: Constipation Stop: 10/29/18 21:52 Last Admin: 09/04/18 00:52 Dose: 100 mg Enalaprilat (Vasotec) 1.25 mg IVP Q8HR PRN PRN Reason: hypertension Stop: 10/29/18 23:29 Last Admin: 09/04/18 23:06 Dose: 1.25 mg Hydralazine HCl (Apresoline 20 Mg/Ml) 20 mg IV Q6HR PRN PRN Reason: SBP ABOVE 160 Stop: 11/01/18 08:24 Last Admin: 09/06/18 03:18 Dose: 20 mg Hydralazine HCl (Apresoline) 25 mg PO QID [facility] [place] Stop: 11/03/18 13:59 Last Admin: 09/06/18 12:15 Dose: 25 mg Nitroglycerin/Dextrose (Nitroglycerin 50mg/Dextrose 5% Premix) 50 mg in 250 mls @ 1.5 mls/hr IV TITR PRN; Protocol PRN Reason: BP MAINTENANCE Stop: 10/30/18 03:01 Last Titration: 09/02/18 10:12 Dose: 0 mcg/min, 0 mls/hr Norepinephrine Bitartrate 4 mg (/ Dextrose) 254 mls @ 15.24 mls/hr IV TITR PRN ; Protocol PRN Reason: BP MAINTENANCE (PER PROTOCOL) Stop: 11/02/18 09:25 Last Titration: 09/03/18 11:50 Dose: 0 mcg/min, 0 mls/hr Piperacillin Sod/Tazobactam (Sod 2.25 gm/ Sodium Chloride) 50 mls @ 100 mls/hr IV Q8HR [facility] Stop: 11/04/18 20:59 Last Infusion: 09/06/18 12:50 Dose: Infused Insulin Aspart (Novolog Insulin Sliding Scale) 0 units SUBQ Q6HR [facility]; Protocol Stop: 10/30/18 00:00 Last Admin: 09/06/18 12:13 Dose: 4 units Miscellaneous (Vte Chemical Prophylaxis Screen/ Admission) 1 [facility] PRN PRN PRN Reason: PROTOCOL Stop: 10/30/18 07:59 Miscellaneous (Clinical Monitoring) 1 [facility] DAILY PRN PRN Reason: RENAL Stop: 11/03/18 08:50 Ondansetron HCl (Zofran) 4 mg IVP Q6H PRN PRN Reason: Nausea / Vomiting Stop: 10/29/18 21:43 Last Admin: 08/31/18 14:47 Dose: 4 mg Pantoprazole Sodium (Protonix) 40 mg IVP DAILY [facility] Stop: 10/30/18 08:59 Last Admin: 09/06/18 08:10 Dose: 40 mg General: No acute distress, Other (LETHARGIC) HEENT: Atraumatic, Other (NGT) Neck: Supple Cardiovascular: Regular rate Lungs: Normal air movement Abdomen: Bowel sounds, Soft, no Tender Extremities: no Edema - Procedures Procedures: Procedures Procedure Code Date INSERTION OF INFUSION DEV INTO L SUBCLAV VEIN, PERC APPROACH [id number] 08/30/18 ULTRASONOGRAPHY OF LEFT SUBCLAVIAN VEIN, GUIDANCE [id number] 08/30/18 Assessment/Plan - Assessment Assessment: ARF ON CKD ESRD? ANEMIA GI BLEED DM HTN CVA - Plan Plan: Tolerated HD well Nutritional Asmnt/Malnutr-PDOC - Dietary Evaluation Malnutrition Findings (Please click <Entered> for more info): Nutritional Asmnt/Malnutrition Start: 08/31/18 15: 24 Text: Status: Complete Freq: Protocol: Document 08/31/18 15:24 LAURA (Rec: 08/31/18 15:47 CAMILLEARELI [email or web address]) Nutritional Asmnt/Malnutrition Patient General Information Nutritional Screening High Risk Diagnosis renal failure, GI bleed Pertinent Medical Hx/Surgical Hx CVA/TIA, left side paralysis d /t CVA, HTN, hernia, prothesis Subjective Information Pt in unit w/ daughter at bedside. Language barrier d/t polish speaking, but daughter indicated that pt had poor intake prior to admission. Per RN, pt finished 0% breakfast and swallow eval ordered d/t pt pocketing food and hx of CVA. Swallow eval done in the afternoon, ST recommended full liquid with nectar thick Current Diet Order/ Nutrition Support soft/bland Pertinent Medications D5-0.9%Ns, colace, novolog, zofran, protonix Pertinent Labs 08/31: Na 135, K 5.3, Cl 92, BUN 96, Cr 6.9, glucose 192, POC 199-201 08/30: Na 134, CL 94, Bun 91, Cr 6.6, glucose 163, POC 143 Nutritional Hx/Data Height 1.52 m Height (Calculated Centimeters) 152.4 Current Weight (lbs) 44.588 kg Weight (Calculated Kilograms) 44.6 Weight (Calculated Grams) 05624.1 [place] Body Weight 100 lb Body Mass Index (BMI) 19.2 Weight Status Approriate GI Symptoms GI Symptoms Nausea Vomitting Last BM 08/31 Food Allergies No Skin Integrity/Comment: aneudy eubanks 15 Estimated Nutritional Goals BEE in Kcals: Using Current wt Calories/Kcals/Kg 25-30 Kcals Calculated 1815-4019 Protein: Using Current wt Protein g/k-1.2 Protein Calculated 45-54 g Fluid: ml 3631-5096 (1 ml/kcal) Nutritional Problem 1. Problem Problem Altered nutrition related lab values Etiology renal failure, hyperglycimia Signs/Symptoms: BUN 96, Cr 6.9, K 5.3, glucose 192 Malnutrition Alert Is there a minimum of two criteria No selected? Query Text:Check all the applicable criteria. A minimum of two criteria are recommended for diagnosis of either severe or non-severe malnutrition. Malnutrition Related to Morbid Obesity Malnutrition related to morbid obesity No Intervention/Recommendation Comments 1. Start full liquid diet at dinner per ST recommendation. Add Nepro TID for extra kcal and protein. 2. Recommend to start renal diet when diet advanced d/t renal failure and altered BUN and Cr 3. Monitor intake, wt, labs and skin integrity 4. F/U as high risk in 2-3 days, 09/02-09/03 Expected Outcomes/Goals Expected Outcomes/Goals 1. Intake to meet at least 75% of nutritional needs 2. Wt stability, skin to remain intact, and nutrition related labs to approach normal limits Reviewed by Mariana Muller RD
--- NOTE | 2018-09-06 17:40 | Progress Notes ---
DATE: IDENTIFICATION: A 77-year-old female. SUBJECTIVE: The patient seen and examined. The patient had respiratory distress. The patient is now on BiPAP. The patient's family at bedside. Discussed with them about the patient's condition and treatment plan. OBJECTIVE: VITAL SIGNS: Temperature 97.1, pulse is 91, respiratory rate 18, and blood pressure 130/60. HEENT: Oral ____ mass noted. NECK: Supple. HEART: Regular. LUNGS: Expiratory wheezing. ABDOMEN: Soft. Bowel sounds present. EXTREMITIES: No edema. AVAILABLE DIAGNOSTIC DATA: The pH of 7.45, pCO2 of 33, pO2 of 41. Potassium of 3.1, BUN and creatinine is 40 and 3.1. Glucoscan is reviewed. Albumin of 2.6. Chest x-ray is also performed, which did reveal as congestive changes of the left lung infiltrate and small effusion. CLINICAL IMPRESSION: 1. Acute respiratory failure, on BiPAP. 2. Pulmonary edema. 3. Diastolic heart failure. 4. Left lung pneumonia. 5. Diabetes. 6. Wlokv-li-gvfcxyi kidney injury, on hemodialysis. 7. Hypertension. 8. ICU care. PLAN: 1. Cardiac monitoring. 2. IV antibiotic. 3. Nebulizer treatment. 4. Pulmonary toilet. 5. Pulmonary consult. 6. Hemodialysis. 7. General nursing care. 8. Follow lab. 9. Follow consult recommendation. 10. Care plan reviewed and discussed with staff. JOB# [id number]
--- NOTE | 2018-09-06 20:30 | Progress Notes ---
DATE: 09/05/2018 SUBJECTIVE: The patient is having dyspnea. Feedings on hold. VITAL SIGNS: Noted. GENERAL: The patient is a well-developed, chronically ill-appearing female who is in mild respiratory distress. HEENT: Oxygen mask is in place. CARDIOVASCULAR: Tachycardia. LUNGS: With occasional rhonchi at the bases. ABDOMEN: Soft, slightly distended, intact nasogastric tube. RELEVANT LABORATORY DATA: WBC 11.7, hemoglobin 12.1. IMPRESSION: 1. Upper gastrointestinal bleed versus hemoptysis, now resolved. 2. Anemia, likely multifactorial. 3. Renal failure, now on dialysis. 4. Shortness of breath and dyspnea with hypoxemia. RECOMMENDATIONS: 1. Await pulmonary evaluation. 2. We will order ABG and chest x-ray. 3. Nasogastric tube feedings to be resumed once pulmonary status is more stable. 4. May need eventual G-tube insertion as well. [facility] [place]# [id number]
[2018-09-07] MEDS: INSULIN ASPART SLIDING SCALE 100 UNITS/ML UNIT SUBQ SCH ×4 (00:13→18:14)
--- NOTE | 2018-09-07 00:22 | Progress Notes ---
DATE: IDENTIFICATION: A 77-year-old female. SUBJECTIVE: The patient seen and examined. The patient currently on BiPAP, getting her dialysis. The patient's daughter at bedside. Discussed with nursing staff about the treatment plan. The patient currently on BiPAP, saturating 97%. The patient is trying to open her eyes. PHYSICAL EXAMINATION: VITAL SIGNS: Temperature 98, pulse is 88, respiratory rate 18, and blood pressure 149/72. HEENT: Oral bypass mass noted. Opens her eyes. NECK: Supple, no JVD, no lymphadenopathy, thyromegaly. HEART: Both heart sounds are irregularly irregular. CHEST: Lung equal in expansion with expiratory wheezing. ABDOMEN: Soft. No guarding, no rigidity. Bowel sounds are present. No palpable mass. EXTREMITIES: No edema. ASSESSMENT AND PLAN: 1. Acute respiratory failure, on BiPAP. 2. Pneumonitis. 3. Diastolic heart failure. 4. Diabetes mellitus. 5. Hypertension. 6. Severe pulmonary hypertension by 2D echocardiogram. 7. Degenerative joint disease. 8. Left ventricular hypertrophy by 2D echocardiogram. 9. Anemia of chronic kidney disease. 10. Status post status post blood transfusion for anemia of chronic kidney disease. 11. Dysphagia required nasogastric tube placement. PLAN: 1. In the view of her complexity of medical problem, the patient is too sick to go to lower level of care. The patient needs to be at this time at higher level of care. Based on that, the patient will be seen by Pulmonary. We will continue to provide oxygen, nebulizer treatment, BiPAP, and Pulmonary toilet. We will continue to adjust the blood pressure medication to control the blood pressure. 2. Hemodialysis as planned. 3. Diabetes management. 4. DVT prophylaxis. 5. General nursing care. 6. Critical care nursing 7. IV antibiotic. 8. Proceed with noncontrast CT chest, if stable. 9. Follow lab. 10. Follow consult recommendation. 11. Care plan reviewed and discussed with staff. JOB# [id number]
[2018-09-07] MEDS: Albuterol/Ipratropium Neb 3 ML AERS HHN SCH ×4 (00:45→18:56)
[2018-09-07 05:08] LABS: HEMOGLOBIN 14.1 gm/dL (12-16); MEAN CELL VOLUME 89.2 fl (81-100); MEAN CORPUSCULAR HEMOGLOBIN 29.5 pg (27.0-31.0); MEAN CORPUSCULAR HGB CONC 33.1 pg (28.0-36.0); MEAN PLATELET VOLUME 9.4 fl; PLATELET COUNT 109 Th/cmm (150-400); RED BLOOD COUNT 4.78 Mil/cmm (3.80-5.20); RED CELL DISTRIBUTION WIDTH 14.1 % (11.5-20.0); WHITE BLOOD COUNT 13.5 Th/cmm (4.8-10.8)
[2018-09-07 05:13] LABS: HEMATOCRIT 42.7 % (41.0-60)
[2018-09-07 05:20] LABS: ALB/GLOB RATIO 0.8 (1.0-1.8); ALBUMIN 2.7 gm/dL (3.7-5.3); ALKALINE PHOSPHATASE 180 U/L (34-104); ANION GAP 17.1 (7.0-16.0); BILIRUBIN,TOTAL 0.6 mg/dL (0.3-1.0); BUN - UREA NITROGEN 56 mg/dL (7-25); CARBON DIOXIDE 22.6 mEq/L (21.0-31.0); CHLORIDE 103 mEq/L (98-107); CREATININE - SERUM 3.2 mg/dL (0.6-1.2); POTASSIUM SERUM 3.7 mEq/L (3.5-5.1); SGOT 31 U/L (13-39); SGPT/ALT 23 U/L (7-52); SODIUM SERUM 139 mEq/L (136-145); TOTAL PROTEIN,SERUM 6.3 gm/dL (6.0-8.3)
[2018-09-07 05:23] LABS: GLUCOSE 386 mg/dL (70-105)
[2018-09-07 06:06] LABS: BAND NEUTROPHILE 4 % (0-10); LYMPHOCYTE 9 % (20-50); MONOCYTE 6 % (2-10); NEUTROPHILS 81 % (40-80); PLATELET ESTIMATE DECREASED PLATELETS (NORMAL)
--- NOTE | 2018-09-07 07:55 | Diagnostic Imaging Report ---
CHEST X-RAY: AP view INDICATION: Infiltrate COMPARISON: Chest x-ray 09/07/2018 FINDINGS: Support devices are stable. Left effusion and left lung infiltrates are again noted. Borderline prominent heart is noted. IMPRESSION: No significant change in pulmonary status.
[2018-09-07 09:35] LABS: ALLEN TEST Positive; pH 7.49 (7.35-7.45)
[2018-09-07] MEDS ORDERED: Tuberculin 5 TU/0.1 mL UD ID ONE (10:27)
--- NOTE | 2018-09-07 10:27 | General Progress Note ---
Subjective - Review of Systems Service Date: 09/07/18 Subjective: pt in bed no distress NG tube in place daughter at bed side Objective - Results Result Diagrams: 09/07/18 04:18 09/07/18 04:18 Recent Labs: Laboratory Last Values WBC 13.5 Th/cmm (4.8-10.8) H 09/07/18 04:18 RBC 4.78 Mil/cmm (3.80-5.20) 09/07/18 04:18 Hgb 14.1 gm/dL (12-16) 09/07/18 04:18 Hct 42.7 % (41.0-60) D 09/07/18 04:18 MCV 89.2 fl (81-100) 09/07/18 04:18 MCH 29.5 pg (27.0-31.0) 09/07/18 04:18 MCHC Differential 33.1 pg (28.0-36.0) 09/07/18 04:18 RDW 14.1 % (11.5-20.0) 09/07/18 04:18 Plt Count 109 Th/cmm (150-400) L 09/07/18 04:18 MPV 9.4 fl 09/07/18 04:18 Add Manual Diff YES 09/07/18 04:18 Neutrophils % 85.1 % (40.0-80.0) H 09/06/18 04:45 Band Neutrophils % 4 % (0-10) 09/07/18 04:18 Lymphocytes % 8.7 % (20.0-50.0) L 09/06/18 04:45 Monocytes % 5.5 % (2.0-10.0) 09/06/18 04:45 Eosinophils % 0.5 % (0.0-5.0) 09/06/18 04:45 Basophils % 0.2 % (0.0-2.0) 09/06/18 04:45 Neutrophils (Manual) 81 % (40-80) H 09/07/18 04:18 Lymphocytes 9 % (20-50) L 09/07/18 04:18 Monocytes 6 % (2-10) 09/07/18 04:18 Eosinophils 2 % (0-5) 09/05/18 04:40 Nucleated RBCs 2.0 % (0-0) H 09/05/18 04:40 Platelet Estimate DECREASED PLATELETS (NORMAL) 09/07/18 04:18 Ovalocytes 1+ 09/05/18 04:40 Anjum Cells 1+ 09/05/18 04:40 PT 9.9 SECONDS (9.5-11.5) 08/30/18 17:10 INR 0.95 (0.5-1.4) 08/30/18 17:10 PTT (Actin FS) 23.0 SECONDS (26.0-38.0) L 08/30/18 17:10 Specimen Source Arterial 09/07/18 09:24 Sample Site Right Radial 09/07/18 09:24 pH 7.49 (7.35-7.45) H 09/07/18 09:24 pCO2 35.0 mmHg (35.0-45.0) 09/07/18 09:24 pO2 93.0 mmHg (80.0-100.0) 09/07/18 09:24 HCO3 27.7 mEq/L (20.0-26.0) H 09/07/18 09:24 Base Excess 3.5 mEq/L (-3.0-3.0) H 09/07/18 09:24 O2 Saturation 98.0 % (92.0-100.0) 09/07/18 09:24 Jean Claude Test Positive 09/07/18 09:24 Vent Rate N/A 09/07/18 09:24 Inspired O2 28 09/07/18 09:24 Tidal Volume N/A 09/07/18 09:24 PEEP N/A 09/07/18 09:24 Pressure (ins/psv/peep) N/A 09/07/18 09:24 Critical Value DM 09/07/18 09:24 Sodium 139 mEq/L (136-145) 09/07/18 04:18 Potassium 3.7 mEq/L (3.5-5.1) 09/07/18 04:18 Chloride 103 mEq/L (98-107) 09/07/18 04:18 Carbon Dioxide 22.6 mEq/L (21.0-31.0) 09/07/18 04:18 Anion Gap 17.1 (7.0-16.0) H 09/07/18 04:18 BUN 56 mg/dL (7-25) H 09/07/18 04:18 Creatinine 3.2 mg/dL (0.6-1.2) H 09/07/18 04:18 Est GFR ( Amer) TNP 09/07/18 04:18 Est GFR (Non-Af Amer) TNP 09/07/18 04:18 BUN/Creatinine Ratio 17.5 09/07/18 04:18 Glucose 386 mg/dL (70-105) H D 09/07/18 04:18 POC Glucose 382 MG/DL (70 - 105) H 09/07/18 05:34 Calcium 8.0 mg/dL (8.6-10.3) L 09/07/18 04:18 Magnesium 1.7 mg/dL (1.9-2.7) L 09/05/18 04:40 Total Bilirubin 0.6 mg/dL (0.3-1.0) 09/07/18 04:18 AST 31 U/L (13-39) 09/07/18 04:18 ALT 23 U/L (7-52) 09/07/18 04:18 Alkaline Phosphatase 180 U/L (34-104) H 09/07/18 04:18 Ammonia 26 umol/L (16-53) 09/06/18 09:10 Troponin I 0.05 ng/mL (0.01-0.05) 08/31/18 05:20 Total Protein 6.3 gm/dL (6.0-8.3) 09/07/18 04:18 Albumin 2.7 gm/dL (3.7-5.3) L 09/07/18 04:18 Globulin 3.6 gm/dL 09/07/18 04:18 Albumin/Globulin Ratio 0.8 (1.0-1.8) L 09/07/18 04:18 Lipase 36 U/L (11-82) 08/30/18 17:10 Urine Source CATH 08/30/18 18:30 Urine Color YELLOW 08/30/18 18:30 Urine Clarity CLEAR (CLEAR) 08/30/18 18:30 Urine pH 7.0 (4.6 - 8.0) 08/30/18 18:30 Ur Specific [place] 1.020 (1.005-1.030) 08/30/18 18:30 Urine Protein >=300 mg/dL (NEGATIVE) 08/30/18 18:30 Urine Glucose (UA) 250 mg/dL (NEGATIVE) H 08/30/18 18:30 Urine Ketones NEGATIVE mg/dL (NEGATIVE) 08/30/18 18:30 Urine Blood TRACE (NEGATIVE) 08/30/18 18:30 Urine Nitrate NEGATIVE (NEGATIVE) 08/30/18 18:30 Urine Bilirubin NEGATIVE (NEGATIVE) 08/30/18 18:30 Urine Urobilinogen 0.2 E.U./dL (0.2 - 1.0) 08/30/18 18:30 Ur Leukocyte Esterase NEGATIVE (NEGATIVE) 08/30/18 18:30 Urine RBC NONE SEEN /hpf (0-5) 08/30/18 18:30 Urine WBC 2-5 /hpf (0-5) 08/30/18 18:30 Ur Epithelial Cells FEW /lpf (FEW) 08/30/18 18:30 Urine Bacteria MODERATE /hpf (NONE SEEN) H 08/30/18 18:30 Hepatitis A IgM Ab Negative (Negative) 09/01/18 09:25 Hep Bs Antigen Negative (Negative) 09/01/18 09:25 Hep B Core IgM Ab Negative (Negative) 09/01/18 09:25 Hepatitis C Antibody <0.1 s/co ratio (0.0-0.9) 09/01/18 09:25 Blood Type O POSITIVE 09/04/18 09:40 Antibody Screen NEGATIVE 09/04/18 09:40 Crossmatch See Detail 09/04/18 09:40 - Physical Exam Vitals and I&O: Vital Signs Temp 99.2 F 09/07/18 04:00 Pulse 87 09/07/18 09:30 Resp 20 09/07/18 07:09 BP 164/71 09/07/18 09:30 Pulse Ox 97 09/07/18 07:09 Intake & Output 09/06/18 09/07/18 09/07/18 18:59 06:59 18:59 Intake Total 200 681 Output Total 2780 100 Balance -2580 581 Weight (lbs) 44.452 kg 45.45 kg Intake: Intake, IV Amount 50 100 Piperacillin Sodium/ 50 100 Tazobact 2.25 gm In Sodium Chloride 0.9% 50 ml @ 100 mls/hr IV Q8HR [facility] Rx#:[id number] Tube Feeding 581 Other 150 Output: Urine 180 100 Hemodialysis 2600 Other: Weight Source Bedscale Bedscale Active Medications: Current Medications Acetaminophen (Tylenol) 650 mg PO Q4H PRN PRN Reason: Mild Pain/Headache/T above 101 Stop: 10/29/18 21:43 Last Admin: 09/03/18 15:56 Dose: 650 mg Acetaminophen/Hydrocodone Bitart ([place] 5mg/325mg) 1 tab PO Q4H PRN PRN Reason: Pain (Mild) Stop: 11/01/18 18:58 Last Admin: 09/05/18 13:55 Dose: 1 tab Albuterol/Ipratropium (Duoneb Neb) 3 ml HHN Q6HRT [facility] Stop: 11/03/18 18:59 Last Admin: 09/07/18 07:09 Dose: 3 ml Albuterol/Ipratropium (Duoneb Neb) 3 ml HHN Q2H PRN PRN Reason: Wheezing Stop: 11/03/18 13:44 Amlodipine Besylate (Norvasc) 10 mg PO DAILY [facility] Stop: 11/03/18 13:59 Last Admin: 09/07/18 09:29 Dose: 10 mg Carvedilol (Coreg) 6.25 mg PO BID [facility] Stop: 11/03/18 16:59 Last Admin: 09/07/18 09:30 Dose: 6.25 mg Diphenhydramine HCl (Benadryl) 25 mg PO HS PRN PRN Reason: Insomnia Stop: 10/29/18 21:52 Docusate Sodium (Colace) 100 mg PO BID PRN PRN Reason: Constipation Stop: 10/29/18 21:52 Last Admin: 09/04/18 00:52 Dose: 100 mg Enalaprilat (Vasotec) 1.25 mg IVP Q8HR PRN PRN Reason: hypertension Stop: 10/29/18 23:29 Last Admin: 09/04/18 23:06 Dose: 1.25 mg Hydralazine HCl (Apresoline 20 Mg/Ml) 20 mg IV Q6HR PRN PRN Reason: SBP ABOVE 160 Stop: 11/01/18 08:24 Last Admin: 09/07/18 03:03 Dose: 20 mg Hydralazine HCl (Apresoline) 25 mg PO QID [facility] Stop: 11/03/18 13:59 Last Admin: 09/06/18 20:23 Dose: 25 mg Nitroglycerin/Dextrose (Nitroglycerin 50mg/Dextrose 5% Premix) 50 mg in 250 mls @ 1.5 mls/hr IV TITR PRN; Protocol PRN Reason: BP MAINTENANCE Stop: 10/30/18 03:01 Last Titration: 09/02/18 10:12 Dose: 0 mcg/min, 0 mls/hr Norepinephrine Bitartrate 4 mg (/ Dextrose) 254 mls @ 15.24 mls/hr IV TITR PRN ; Protocol PRN Reason: BP MAINTENANCE (PER PROTOCOL) Stop: 11/02/18 09:25 Last Titration: 09/03/18 11:50 Dose: 0 mcg/min, 0 mls/hr Piperacillin Sod/Tazobactam (Sod 2.25 gm/ Sodium Chloride) 50 mls @ 100 mls/hr IV Q8HR [facility] Stop: 11/04/18 20:59 Last Infusion: 09/07/18 06:22 Dose: Infused Insulin Aspart (Novolog Insulin Sliding Scale) 0 units SUBQ Q6HR [facility]; Protocol Stop: 10/30/18 00:00 Last Admin: 09/07/18 05:50 Dose: 10 units Miscellaneous (Vte Chemical Prophylaxis Screen/ Admission) 1 [facility] PRN PRN PRN Reason: PROTOCOL Stop: 10/30/18 07:59 Miscellaneous (Clinical Monitoring) 1 [facility] DAILY PRN PRN Reason: RENAL Stop: 11/03/18 08:50 Ondansetron HCl (Zofran) 4 mg IVP Q6H PRN PRN Reason: Nausea / Vomiting Stop: 10/29/18 21:43 Last Admin: 08/31/18 14:47 Dose: 4 mg Pantoprazole Sodium (Protonix) 40 mg IVP DAILY [facility] Stop: 10/30/18 08:59 Last Admin: 09/07/18 09:29 Dose: 40 mg General: No acute distress, Other (LETHARGIC) HEENT: Atraumatic, Other (NGT) Neck: Supple Cardiovascular: Regular rate Lungs: Normal air movement Abdomen: Bowel sounds, Soft, no Tender Extremities: no Edema - Procedures Procedures: Procedures Procedure Code Date INSERTION OF INFUSION DEV INTO L SUBCLAV VEIN, PERC APPROACH 81A590H 08/30/18 ULTRASONOGRAPHY OF LEFT SUBCLAVIAN VEIN, GUIDANCE [id number] 08/30/18 Assessment/Plan - Assessment Assessment: ARF ON CKD ESRD? ANEMIA GI BLEED DM HTN CVA - Plan Plan: Tolerated HD well Nutritional Asmnt/Malnutr-PDOC - Dietary Evaluation Malnutrition Findings (Please click <Entered> for more info): Nutritional Asmnt/Malnutrition Start: 08/31/18 15: 24 Text: Status: Complete Freq: Protocol: Document 08/31/18 15:24 LAURA (Rec: 08/31/18 15:47 LAURA [id number]) Nutritional Asmnt/Malnutrition Patient General Information Nutritional Screening High Risk Diagnosis renal failure, GI bleed Pertinent Medical Hx/Surgical Hx CVA/TIA, left side paralysis d /t CVA, HTN, hernia, prothesis Subjective Information Pt in unit w/ daughter at bedside. Language barrier d/t guyanese speaking, but daughter indicated that pt had poor intake prior to admission. Per RN, pt finished 0% breakfast and swallow eval ordered d/t pt pocketing food and hx of CVA. Swallow eval done in the afternoon, ST recommended full liquid with nectar thick Current Diet Order/ Nutrition Support soft/bland Pertinent Medications D5-0.9%Ns, colace, novolog, zofran, protonix Pertinent Labs 08/31: Na 135, K 5.3, Cl 92, BUN 96, Cr 6.9, glucose 192, POC 199-201 08/30: Na 134, CL 94, Bun 91, Cr 6.6, glucose 163, POC 143 Nutritional Hx/Data Height 1.52 m Height (Calculated Centimeters) 152.4 Current Weight (lbs) 44.588 kg Weight (Calculated Kilograms) 44.6 Weight (Calculated Grams) 68046.1 [place] Body Weight 100 lb Body Mass Index (BMI) 19.2 Weight Status Approriate GI Symptoms GI Symptoms Nausea Vomitting Last BM 08/31 Food Allergies No Skin Integrity/Comment: aneudy eubanks 15 Estimated Nutritional Goals BEE in Kcals: Using Current wt Calories/Kcals/Kg 25-30 Kcals Calculated 3991-7200 Protein: Using Current wt Protein g/k-1.2 Protein Calculated 45-54 g Fluid: ml 7143-3110 (1 ml/kcal) Nutritional Problem 1. Problem Problem Altered nutrition related lab values Etiology renal failure, hyperglycimia Signs/Symptoms: BUN 96, Cr 6.9, K 5.3, glucose 192 Malnutrition Alert Is there a minimum of two criteria No selected? Query Text:Check all the applicable criteria. A minimum of two criteria are recommended for diagnosis of either severe or non-severe malnutrition. Malnutrition Related to Morbid Obesity Malnutrition related to morbid obesity No Intervention/Recommendation Comments 1. Start full liquid diet at dinner per ST recommendation. Add Nepro TID for extra kcal and protein. 2. Recommend to start renal diet when diet advanced d/t renal failure and altered BUN and Cr 3. Monitor intake, wt, labs and skin integrity 4. F/U as high risk in 2-3 days, 09/02-09/03 Expected Outcomes/Goals Expected Outcomes/Goals 1. Intake to meet at least 75% of nutritional needs 2. Wt stability, skin to remain intact, and nutrition related labs to approach normal limits Reviewed by Mariana Muller RD
--- NOTE | 2018-09-07 11:45 | Consultation ---
DATE OF CONSULTATION: 08/31/2018 PULMONARY AND CRITICAL CARE CONSULTATION REASON FOR CONSULTATION: Shortness of breath. CONSULT NOTE: This is a 77-year-old female who has had previous history of multiple problems including hypertension, diabetes mellitus, CKD stage is not clear, dyslipoproteinemia previous history of stroke, presented to the Emergency Room with poor appetite as persistent nausea and vomiting. Subsequently, there was some question of hematemesis. The patient was subsequently admitted and eventually found to have renal failure and prior to that, the patient was significant shortness of breath, hence I was asked to see this patient for further care and necessary treatment. Most of the information is obtained by reviewing the charts and talking to the granddaughter at the bedside. Other meaningful history from the patient herself is not available. PAST MEDICAL HISTORY: As mentioned above, also history of CVA and history of significant disability from the stroke. There is no history of any smoking, any other related history available at this particular time. PHYSICAL EXAMINATION: GENERAL: This is an elderly looking female, awake, but not in acute distress. VITAL SIGNS: The patient's recorded current vital signs; temperature is 97.8, heart rate is 80s, blood pressure 150/49. The patient is currently early in the BiPAP, saturating 95%. HEENT: Examination of the head is essentially unremarkable. Pupils appear to be equal and reacting to light. Conjunctivae are slightly pallor. Oral cavity shows edentulous. NECK: Veins not visualized. JVP not visualized. CHEST: Shows diminished air entry with occasional rhonchi. HEART: Distant. ABDOMEN: Soft, nontender. LABORATORY DATA: White count is 12,000, hemoglobin 12 grams. Electrolytes, creatinine is 3.8 prior to dialysis and ABG shows mild mixed alkalosis with on 40% of oxygen on BiPAP. A chest x-ray initially showed heart failure or fluid overload pattern. Today's x-ray shows some effusion on the right side. IMPRESSION: 1. The patient's shortness of breath is most likely secondary to fluid overload. 2. Because of cerebrovascular accident, questionable dysphagia. Total aspiration should not be totally ruled out with previous history of anorexia. PLANS AND SUGGESTIONS: We will continue breathing treatment. Continue nocturnal BiPAP. We will follow through other chest x-ray, etc. and go from there. JOB# [id number]
--- NOTE | 2018-09-07 11:49 | GI Progress Note ---
Subjective - Review of Systems Service Date: 09/07/18 Subjective: EVENTS NOTED. MELISSA NGT FEEDS. A BIT MORE AWAKE. REPEAT SWALLOW EVAL PENDING. Objective - Results Result Diagrams: 09/07/18 04:18 09/07/18 04:18 Recent Labs: Laboratory Last Values WBC 13.5 Th/cmm (4.8-10.8) H 09/07/18 04:18 RBC 4.78 Mil/cmm (3.80-5.20) 09/07/18 04:18 Hgb 14.1 gm/dL (12-16) 09/07/18 04:18 Hct 42.7 % (41.0-60) D 09/07/18 04:18 MCV 89.2 fl (81-100) 09/07/18 04:18 MCH 29.5 pg (27.0-31.0) 09/07/18 04:18 MCHC Differential 33.1 pg (28.0-36.0) 09/07/18 04:18 RDW 14.1 % (11.5-20.0) 09/07/18 04:18 Plt Count 109 Th/cmm (150-400) L 09/07/18 04:18 MPV 9.4 fl 09/07/18 04:18 Add Manual Diff YES 09/07/18 04:18 Neutrophils % 85.1 % (40.0-80.0) H 09/06/18 04:45 Band Neutrophils % 4 % (0-10) 09/07/18 04:18 Lymphocytes % 8.7 % (20.0-50.0) L 09/06/18 04:45 Monocytes % 5.5 % (2.0-10.0) 09/06/18 04:45 Eosinophils % 0.5 % (0.0-5.0) 09/06/18 04:45 Basophils % 0.2 % (0.0-2.0) 09/06/18 04:45 Neutrophils (Manual) 81 % (40-80) H 09/07/18 04:18 Lymphocytes 9 % (20-50) L 09/07/18 04:18 Monocytes 6 % (2-10) 09/07/18 04:18 Eosinophils 2 % (0-5) 09/05/18 04:40 Nucleated RBCs 2.0 % (0-0) H 09/05/18 04:40 Platelet Estimate DECREASED PLATELETS (NORMAL) 09/07/18 04:18 Ovalocytes 1+ 09/05/18 04:40 Anjum Cells 1+ 09/05/18 04:40 PT 9.9 SECONDS (9.5-11.5) 08/30/18 17:10 INR 0.95 (0.5-1.4) 08/30/18 17:10 PTT (Actin FS) 23.0 SECONDS (26.0-38.0) L 08/30/18 17:10 Specimen Source Arterial 09/07/18 09:24 Sample Site Right Radial 09/07/18 09:24 pH 7.49 (7.35-7.45) H 09/07/18 09:24 pCO2 35.0 mmHg (35.0-45.0) 09/07/18 09:24 pO2 93.0 mmHg (80.0-100.0) 09/07/18 09:24 HCO3 27.7 mEq/L (20.0-26.0) H 09/07/18 09:24 Base Excess 3.5 mEq/L (-3.0-3.0) H 09/07/18 09:24 O2 Saturation 98.0 % (92.0-100.0) 09/07/18 09:24 Jean Claude Test Positive 09/07/18 09:24 Vent Rate N/A 09/07/18 09:24 Inspired O2 28 09/07/18 09:24 Tidal Volume N/A 09/07/18 09:24 PEEP N/A 09/07/18 09:24 Pressure (ins/psv/peep) N/A 09/07/18 09:24 Critical Value DM 09/07/18 09:24 Sodium 139 mEq/L (136-145) 09/07/18 04:18 Potassium 3.7 mEq/L (3.5-5.1) 09/07/18 04:18 Chloride 103 mEq/L (98-107) 09/07/18 04:18 Carbon Dioxide 22.6 mEq/L (21.0-31.0) 09/07/18 04:18 Anion Gap 17.1 (7.0-16.0) H 09/07/18 04:18 BUN 56 mg/dL (7-25) H 09/07/18 04:18 Creatinine 3.2 mg/dL (0.6-1.2) H 09/07/18 04:18 Est GFR ( Amer) TNP 09/07/18 04:18 Est GFR (Non-Af Amer) TNP 09/07/18 04:18 BUN/Creatinine Ratio 17.5 09/07/18 04:18 Glucose 386 mg/dL (70-105) H D 09/07/18 04:18 POC Glucose 382 MG/DL (70 - 105) H 09/07/18 05:34 Calcium 8.0 mg/dL (8.6-10.3) L 09/07/18 04:18 Magnesium 1.7 mg/dL (1.9-2.7) L 09/05/18 04:40 Total Bilirubin 0.6 mg/dL (0.3-1.0) 09/07/18 04:18 AST 31 U/L (13-39) 09/07/18 04:18 ALT 23 U/L (7-52) 09/07/18 04:18 Alkaline Phosphatase 180 U/L (34-104) H 09/07/18 04:18 Ammonia 26 umol/L (16-53) 09/06/18 09:10 Troponin I 0.05 ng/mL (0.01-0.05) 08/31/18 05:20 Total Protein 6.3 gm/dL (6.0-8.3) 09/07/18 04:18 Albumin 2.7 gm/dL (3.7-5.3) L 09/07/18 04:18 Globulin 3.6 gm/dL 09/07/18 04:18 Albumin/Globulin Ratio 0.8 (1.0-1.8) L 09/07/18 04:18 Lipase 36 U/L (11-82) 08/30/18 17:10 Urine Source CATH 08/30/18 18:30 Urine Color YELLOW 08/30/18 18:30 Urine Clarity CLEAR (CLEAR) 08/30/18 18:30 Urine pH 7.0 (4.6 - 8.0) 08/30/18 18:30 Ur Specific [place] 1.020 (1.005-1.030) 08/30/18 18:30 Urine Protein >=300 mg/dL (NEGATIVE) 08/30/18 18:30 Urine Glucose (UA) 250 mg/dL (NEGATIVE) H 08/30/18 18:30 Urine Ketones NEGATIVE mg/dL (NEGATIVE) 08/30/18 18:30 Urine Blood TRACE (NEGATIVE) 08/30/18 18:30 Urine Nitrate NEGATIVE (NEGATIVE) 08/30/18 18:30 Urine Bilirubin NEGATIVE (NEGATIVE) 08/30/18 18:30 Urine Urobilinogen 0.2 E.U./dL (0.2 - 1.0) 08/30/18 18:30 Ur Leukocyte Esterase NEGATIVE (NEGATIVE) 08/30/18 18:30 Urine RBC NONE SEEN /hpf (0-5) 08/30/18 18:30 Urine WBC 2-5 /hpf (0-5) 08/30/18 18:30 Ur Epithelial Cells FEW /lpf (FEW) 08/30/18 18:30 Urine Bacteria MODERATE /hpf (NONE SEEN) H 08/30/18 18:30 Hepatitis A IgM Ab Negative (Negative) 09/01/18 09:25 Hep Bs Antigen Negative (Negative) 09/01/18 09:25 Hep B Core IgM Ab Negative (Negative) 09/01/18 09:25 Hepatitis C Antibody <0.1 s/co ratio (0.0-0.9) 09/01/18 09:25 Blood Type O POSITIVE 09/04/18 09:40 Antibody Screen NEGATIVE 09/04/18 09:40 Crossmatch See Detail 09/04/18 09:40 - Physical Exam Vitals and I&O: Vital Signs Temp 97.8 F 09/07/18 08:00 Pulse 81 09/07/18 10:58 Resp 19 09/07/18 10:58 BP 160/65 09/07/18 10:58 Pulse Ox 97 09/07/18 10:58 Intake & Output 09/06/18 09/07/18 09/07/18 18:59 06:59 18:59 Intake Total 200 681 Output Total 2780 100 Balance -2580 581 Weight (lbs) 44.452 kg 45.45 kg Intake: Intake, IV Amount 50 100 Piperacillin Sodium/ 50 100 Tazobact 2.25 gm In Sodium Chloride 0.9% 50 ml @ 100 mls/hr IV Q8HR [facility] Rx#:[id number] Tube Feeding 581 Other 150 Output: Urine 180 100 Hemodialysis 2600 Other: Weight Source Bedscale Bedscale Active Medications: Current Medications Acetaminophen (Tylenol) 650 mg PO Q4H PRN PRN Reason: Mild Pain/Headache/T above 101 Stop: 10/29/18 21:43 Last Admin: 09/03/18 15:56 Dose: 650 mg Acetaminophen/Hydrocodone Bitart ([place] 5mg/325mg) 1 tab PO Q4H PRN PRN Reason: Pain (Mild) Stop: 11/01/18 18:58 Last Admin: 09/05/18 13:55 Dose: 1 tab Albuterol/Ipratropium (Duoneb Neb) 3 ml HHN Q6HRT [facility] Stop: 11/03/18 18:59 Last Admin: 09/07/18 07:09 Dose: 3 ml Albuterol/Ipratropium (Duoneb Neb) 3 ml HHN Q2H PRN PRN Reason: Wheezing Stop: 11/03/18 13:44 Amlodipine Besylate (Norvasc) 10 mg PO DAILY [facility] Stop: 11/03/18 13:59 Last Admin: 09/07/18 09:29 Dose: 10 mg Carvedilol (Coreg) 6.25 mg PO BID [facility] Stop: 11/03/18 16:59 Last Admin: 09/07/18 09:30 Dose: 6.25 mg Diphenhydramine HCl (Benadryl) 25 mg PO HS PRN PRN Reason: Insomnia Stop: 10/29/18 21:52 Docusate Sodium (Colace) 100 mg PO BID PRN PRN Reason: Constipation Stop: 10/29/18 21:52 Last Admin: 09/04/18 00:52 Dose: 100 mg Enalaprilat (Vasotec) 1.25 mg IVP Q8HR PRN PRN Reason: hypertension Stop: 10/29/18 23:29 Last Admin: 09/04/18 23:06 Dose: 1.25 mg Hydralazine HCl (Apresoline 20 Mg/Ml) 20 mg IV Q6HR PRN PRN Reason: SBP ABOVE 160 Stop: 11/01/18 08:24 Last Admin: 09/07/18 03:03 Dose: 20 mg Hydralazine HCl (Apresoline) 25 mg PO QID [facility] Stop: 11/03/18 13:59 Last Admin: 09/06/18 20:23 Dose: 25 mg Nitroglycerin/Dextrose (Nitroglycerin 50mg/Dextrose 5% Premix) 50 mg in 250 mls @ 1.5 mls/hr IV TITR PRN; Protocol PRN Reason: BP MAINTENANCE Stop: 10/30/18 03:01 Last Titration: 09/02/18 10:12 Dose: 0 mcg/min, 0 mls/hr Norepinephrine Bitartrate 4 mg (/ Dextrose) 254 mls @ 15.24 mls/hr IV TITR PRN ; Protocol PRN Reason: BP MAINTENANCE (PER PROTOCOL) Stop: 11/02/18 09:25 Last Titration: 09/03/18 11:50 Dose: 0 mcg/min, 0 mls/hr Piperacillin Sod/Tazobactam (Sod 2.25 gm/ Sodium Chloride) 50 mls @ 100 mls/hr IV Q8HR [facility] Stop: 11/04/18 20:59 Last Infusion: 09/07/18 06:22 Dose: Infused Insulin Aspart (Novolog Insulin Sliding Scale) 0 units SUBQ Q6HR [facility]; Protocol Stop: 10/30/18 00:00 Last Admin: 09/07/18 05:50 Dose: 10 units Miscellaneous (Vte Chemical Prophylaxis Screen/ Admission) 1 [facility] PRN PRN PRN Reason: PROTOCOL Stop: 10/30/18 07:59 Miscellaneous (Clinical Monitoring) 1 [facility] DAILY PRN PRN Reason: RENAL Stop: 11/03/18 08:50 Ondansetron HCl (Zofran) 4 mg IVP Q6H PRN PRN Reason: Nausea / Vomiting Stop: 10/29/18 21:43 Last Admin: 08/31/18 14:47 Dose: 4 mg Pantoprazole Sodium (Protonix) 40 mg IVP DAILY GLORIA Stop: 10/30/18 08:59 Last Admin: 09/07/18 09:29 Dose: 40 mg General: No acute distress, Other (LETHARGIC) HEENT: Atraumatic, Other (NGT) Neck: Supple Cardiovascular: Regular rate Lungs: Normal air movement Abdomen: Bowel sounds, Soft, no Tender Extremities: no Edema - Procedures Procedures: Procedures Procedure Code Date INSERTION OF INFUSION DEV INTO L SUBCLAV VEIN, PERC APPROACH [id number] 08/30/18 ULTRASONOGRAPHY OF LEFT SUBCLAVIAN VEIN, GUIDANCE [id number] 08/30/18 Assessment/Plan - Assessment Assessment: IMPRESSION: 1. ANEMIA, MULTIFACTORIAL. POSSIBLE UGIB, NOW RESOLVED. 2. RENAL FAILURE. 3. DYSPHAGIA. 4. RESP FAILURE - ON/OFF BIPAP. RECS: - ORAL DIET PER SPEECH - REPEAT SWALLOW EVAL PENDING. - NGT FEEDS FOR NOW. - SPEECH THERAPY. - HD PER RENAL. - MONITOR HGB. - MAY NEED PEG INSERTION IF ORAL INTAKE REMAINS POOR DESPITE HD.
[2018-09-07] MEDS ORDERED: Propofol **SURGERY USE ONLY** 20 ML IV ONE (13:10)
--- NOTE | 2018-09-07 13:27 | Diagnostic Imaging Report ---
Vascular catheter placement (intraoperative fluoroscopic images and services) HISTORY: Vascular catheter placement Intraoperative fluoroscopic images and services were provided for facilitation of a vascular catheter placement. 11 seconds fluoroscopy time was utilized.
--- NOTE | 2018-09-07 13:47 | Operative Report ---
DATE OF SURGERY: 09/07/2018 PREOPERATIVE DIAGNOSES: 1. Acute renal failure. 2. Hypertension. 3. Diabetes mellitus. POSTOPERATIVE DIAGNOSES: 1. Acute renal failure. 2. Hypertension. 3. Diabetes mellitus. OPERATION DONE: Placement of Perm-A-Cath left subclavian vein under fluoroscopy. SURGEON: Dr. Douglas ANESTHESIA: MAC. ANESTHESIOLOGIST: Dr. Lockwood DESCRIPTION OF PROCEDURE: The patient was given IV sedation. The left chest and the Alejandro catheter was prepped with Betadine and draped. A 1% lidocaine was used to infiltrate the exit site of the catheter. A guidewire was inserted through the venous port under fluoroscopy. The old catheter was removed. The introducer was then placed over the guidewire which was retained. A 24 cm length Perm-A-Cath was then inserted under fluoroscopy. This was sutured to the skin with 2-0 nylon. Portable chest x-ray will be ordered. The patient tolerated the procedure well. [facility]# [id number]
--- NOTE | 2018-09-07 22:13 | Progress Notes ---
DATE: 09/07/2018 IDENTIFICATION: The patient is seen and examined. The patient is more alert and awake. The patient is following commands, tolerating tube feeding fairly well. Currently, she is on 2 liters of oxygen, saturating 98-97%. The patient currently remained afebrile. OBJECTIVE: VITAL SIGNS: Temperature 98, pulse is 95, respiratory rate 18, blood pressure 154/65. HEENT: No facial asymmetry. Oral nasogastric tube noted. Absent upper and lower dentition noted. NECK: Supple, no JVD. HEART: Regular. CHEST AND LUNGS: Occasional expiratory wheezing. ABDOMEN: Soft. No guarding, no rigidity. Bowel sounds are present. No palpable masses. EXTREMITIES: No edema. CLINICAL IMPRESSION: 1. Encephalopathy, improving. 2. Acute respiratory failure, improving. 3. Dysphagia. 4. Diabetes. 5. Hypertension. 6. Chronic kidney disease, on hemodialysis. 7. Degenerative joint disease. 8. Osteoporosis. 9. Leukocytosis. 10. Protein calorie malnutrition. PLAN: 1. Swallow evaluation. 2. Start feeding the patient. 3. PT, OT. 4. Discussed with patient's daughter about discharge planning to a [facility]. She does not want the patient to go to [facility]. We will have discharge planning to be initiated for home. We will arrange for home health as well as appropriate arrangement. We will transfer the patient to the telemetry unit as well. The patient will continue to receive same medication as patient is receiving. We will follow market intelligence consultant's recommendation as well. Care plan has been reviewed and discussed with the patient's daughter as well as RN. JOB# [id number]
[2018-09-08] MEDS: INSULIN ASPART SLIDING SCALE 100 UNITS/ML UNIT SUBQ SCH ×5 (00:14→23:50)
[2018-09-08] MEDS: Albuterol/Ipratropium Neb 3 ML AERS HHN SCH ×4 (00:58→19:26)
--- NOTE | 2018-09-08 02:14 | Progress Notes ---
DATE: 09/07/2018 PULMONARY/CRITICAL CARE PROGRESS NOTE: PROBLEM LIST: 1. Acute respiratory failure secondary to fluid overload. 2. Question aspiration. 3. Hemiplegia. 4. History of hypertension. 5. Diabetes mellitus, etc. SYMPTOMS: The patient is awake, verbalizing minimal. No respiratory distress, etc. Perm-A-Cath done this morning. PHYSICAL EXAMINATION: VITAL SIGNS: The patient is afebrile, pulse is about 80s, blood pressure 157/88, saturation is in high 90s on 3 liters per minute. NECK: Veins not visualized. CHEST: Shows diminished air entry with occasional rhonchi. HEART: Regular. ABDOMEN: Soft, nontender. LABORATORY DATA: The patient's electrolytes, white count is 13.5, hemoglobin 14.1. ABG is almost normal on 2 liters per minute and electrolytes shows creatinine 2.2, BUN is 56. ASSESSMENT: The patient clinically seemingly improving. PLANS AND SUGGESTION: Continue current treatment. We will follow through other studies as needed. Discussed with the daughter at the bedside. Awaiting repeats swallow study. JOB# [id number]
[2018-09-08 05:52] LABS: HEMATOCRIT 37.5 % (41.0-60); HEMOGLOBIN 12.5 gm/dL (12-16); MEAN CELL VOLUME 89.4 fl (81-100); MEAN CORPUSCULAR HEMOGLOBIN 29.7 pg (27.0-31.0); MEAN CORPUSCULAR HGB CONC 33.2 pg (28.0-36.0); MEAN PLATELET VOLUME 10.4 fl; PLATELET COUNT 125 Th/cmm (150-400); RED CELL DISTRIBUTION WIDTH 14.3 % (11.5-20.0); WHITE BLOOD COUNT 12.9 Th/cmm (4.8-10.8)
[2018-09-08 06:02] LABS: ALB/GLOB RATIO 0.8 (1.0-1.8); ALBUMIN 2.5 gm/dL (3.7-5.3); ALKALINE PHOSPHATASE 132 U/L (34-104); ANION GAP 17.9 (7.0-16.0); BILIRUBIN,TOTAL 0.4 mg/dL (0.3-1.0); BUN - UREA NITROGEN 76 mg/dL (7-25); CALCIUM SERUM 7.7 mg/dL (8.6-10.3); CHLORIDE 104 mEq/L (98-107); CREATININE - SERUM 3.6 mg/dL (0.6-1.2); GLUCOSE 384 mg/dL (70-105); SGOT 21 U/L (13-39); SGPT/ALT 20 U/L (7-52); TOTAL PROTEIN,SERUM 5.7 gm/dL (6.0-8.3)
[2018-09-08 06:27] LABS: POTASSIUM SERUM 2.9 mEq/L (3.5-5.1); SODIUM SERUM 141 mEq/L (136-145)
[2018-09-08 06:56] LABS: BAND NEUTROPHILE 3 % (0-10); BASOPHIL 0 % (0-3); EOSINOPHIL 0 % (0-5); LYMPHOCYTE 8 % (20-50); MONOCYTE 4 % (2-10); NEUTROPHILS 85 % (40-80)
[2018-09-08 08:01] LABS: pH 7.47 (7.35-7.45)
--- NOTE | 2018-09-08 10:02 | Diagnostic Imaging Report ---
CHEST X-RAY: AP view INDICATION: Permacath placement COMPARISON: Chest x-ray earlier the same day FINDINGS: Left-sided permacath is seen with tip in the cavoatrial junction. Congestive changes are seen with left effusion. No pneumothorax. NG tube is in the stomach. Heart size is borderline prominent. IMPRESSION: Left-sided subclavian permacath with tip at the cavoatrial junction. No evidence of pneumothorax. Congestive changes with left effusion and left lung infiltrates.
--- NOTE | 2018-09-08 14:17 | GI Progress Note ---
Subjective - Review of Systems Service Date: 09/08/18 Subjective: EVENTS NOTED. PASSED SWALLOW EVAL BUT LETHARGIC AND ONLY EATING ABOUT 10% MEALS. Objective - Results Result Diagrams: 09/08/18 05:00 09/08/18 05:00 Recent Labs: Laboratory Last Values WBC 12.9 Th/cmm (4.8-10.8) H 09/08/18 05:00 Corrected WBC (auto) Th/cmm (4.8-10.8) 09/08/18 05:00 RBC 4.20 Mil/cmm (3.80-5.20) 09/08/18 05:00 Hgb 12.5 gm/dL (12-16) 09/08/18 05:00 Hct 37.5 % (41.0-60) L 09/08/18 05:00 MCV 89.4 fl (81-100) 09/08/18 05:00 MCH 29.7 pg (27.0-31.0) 09/08/18 05:00 MCHC Differential 33.2 pg (28.0-36.0) 09/08/18 05:00 RDW 14.3 % (11.5-20.0) 09/08/18 05:00 Plt Count 125 Th/cmm (150-400) L 09/08/18 05:00 MPV 10.4 fl 09/08/18 05:00 Add Manual Diff YES 09/08/18 05:00 Neutrophils % 85.1 % (40.0-80.0) H 09/06/18 04:45 Band Neutrophils % 3 % (0-10) 09/08/18 05:00 Lymphocytes % 8.7 % (20.0-50.0) L 09/06/18 04:45 Monocytes % 5.5 % (2.0-10.0) 09/06/18 04:45 Eosinophils % 0.5 % (0.0-5.0) 09/06/18 04:45 Basophils % 0.2 % (0.0-2.0) 09/06/18 04:45 Neutrophils (Manual) 85 % (40-80) H 09/08/18 05:00 Lymphocytes 8 % (20-50) L 09/08/18 05:00 Monocytes 4 % (2-10) 09/08/18 05:00 Eosinophils 0 % (0-5) 09/08/18 05:00 Basophils 0 % (0-3) 09/08/18 05:00 Nucleated RBCs 2.0 % (0-0) H 09/05/18 04:40 Platelet Estimate DECREASED PLATELETS (NORMAL) 09/07/18 04:18 Ovalocytes 1+ 09/05/18 04:40 [place] Cells 1+ 09/05/18 04:40 PT 9.9 SECONDS (9.5-11.5) 08/30/18 17:10 INR 0.95 (0.5-1.4) 08/30/18 17:10 PTT (Actin FS) 23.0 SECONDS (26.0-38.0) L 08/30/18 17:10 Specimen Source Arterial 09/08/18 07:50 Sample Site LEFT BRACHIAL 09/08/18 07:50 pH 7.47 (7.35-7.45) H 09/08/18 07:50 pCO2 34.0 mmHg (35.0-45.0) L 09/08/18 07:50 pO2 87.0 mmHg (80.0-100.0) 09/08/18 07:50 HCO3 26.0 mEq/L (20.0-26.0) 09/08/18 07:50 Base Excess 1.4 mEq/L (-3.0-3.0) 09/08/18 07:50 O2 Saturation 97.0 % (92.0-100.0) 09/08/18 07:50 Jean Claude Test NA 09/08/18 07:50 Vent Rate NA 09/08/18 07:50 Inspired O2 28% 09/08/18 07:50 Tidal Volume NA 09/08/18 07:50 PEEP NA 09/08/18 07:50 Pressure (ins/psv/peep) NA 09/08/18 07:50 Critical Value JUAN CARLOS RT 09/08/18 07:50 Sodium 141 mEq/L (136-145) 09/08/18 05:00 Potassium 2.9 mEq/L (3.5-5.1) L* 09/08/18 05:00 Chloride 104 mEq/L (98-107) 09/08/18 05:00 Carbon Dioxide 22.0 mEq/L (21.0-31.0) 09/08/18 05:00 Anion Gap 17.9 (7.0-16.0) H 09/08/18 05:00 BUN 76 mg/dL (7-25) H 09/08/18 05:00 Creatinine 3.6 mg/dL (0.6-1.2) H 09/08/18 05:00 Est GFR ( Amer) TNP 09/08/18 05:00 Est GFR (Non-Af Amer) TNP 09/08/18 05:00 BUN/Creatinine Ratio 21.1 09/08/18 05:00 Glucose 384 mg/dL (70-105) H 09/08/18 05:00 POC Glucose 248 MG/DL (70 - 105) H 09/08/18 11:49 Calcium 7.7 mg/dL (8.6-10.3) L 09/08/18 05:00 Magnesium 1.7 mg/dL (1.9-2.7) L 09/05/18 04:40 Total Bilirubin 0.4 mg/dL (0.3-1.0) 09/08/18 05:00 AST 21 U/L (13-39) 09/08/18 05:00 ALT 20 U/L (7-52) 09/08/18 05:00 Alkaline Phosphatase 132 U/L (34-104) H 09/08/18 05:00 Ammonia 26 umol/L (16-53) 09/06/18 09:10 Troponin I 0.05 ng/mL (0.01-0.05) 08/31/18 05:20 Total Protein 5.7 gm/dL (6.0-8.3) L 09/08/18 05:00 Albumin 2.5 gm/dL (3.7-5.3) L 09/08/18 05:00 Globulin 3.2 gm/dL 09/08/18 05:00 Albumin/Globulin Ratio 0.8 (1.0-1.8) L 09/08/18 05:00 Lipase 36 U/L (11-82) 08/30/18 17:10 Urine Source CATH 08/30/18 18:30 Urine Color YELLOW 08/30/18 18:30 Urine Clarity CLEAR (CLEAR) 08/30/18 18:30 Urine pH 7.0 (4.6 - 8.0) 08/30/18 18:30 Ur Specific [place] 1.020 (1.005-1.030) 08/30/18 18:30 Urine Protein >=300 mg/dL (NEGATIVE) 08/30/18 18:30 Urine Glucose (UA) 250 mg/dL (NEGATIVE) H 08/30/18 18:30 Urine Ketones NEGATIVE mg/dL (NEGATIVE) 08/30/18 18:30 Urine Blood TRACE (NEGATIVE) 08/30/18 18:30 Urine Nitrate NEGATIVE (NEGATIVE) 08/30/18 18:30 Urine Bilirubin NEGATIVE (NEGATIVE) 08/30/18 18:30 Urine Urobilinogen 0.2 E.U./dL (0.2 - 1.0) 08/30/18 18:30 Ur Leukocyte Esterase NEGATIVE (NEGATIVE) 08/30/18 18:30 Urine RBC NONE SEEN /hpf (0-5) 08/30/18 18:30 Urine WBC 2-5 /hpf (0-5) 08/30/18 18:30 Ur Epithelial Cells FEW /lpf (FEW) 08/30/18 18:30 Urine Bacteria MODERATE /hpf (NONE SEEN) H 08/30/18 18:30 Hepatitis A IgM Ab Negative (Negative) 09/01/18 09:25 Hep Bs Antigen Negative (Negative) 09/01/18 09:25 Hep B Core IgM Ab Negative (Negative) 09/01/18 09:25 Hepatitis C Antibody <0.1 s/co ratio (0.0-0.9) 09/01/18 09:25 Blood Type O POSITIVE 09/04/18 09:40 Antibody Screen NEGATIVE 09/04/18 09:40 Crossmatch See Detail 09/04/18 09:40 - Physical Exam Vitals and I&O: Vital Signs Temp 99.8 F 09/08/18 12:28 Pulse 95 09/08/18 13:03 Resp 18 09/08/18 13:03 BP 130/59 09/08/18 12:58 Pulse Ox 99 09/08/18 13:03 Intake & Output 09/07/18 09/08/18 09/08/18 18:59 06:59 18:59 Intake Total 50 1020 Output Total 115 Balance 50 905 Weight (lbs) 49.305 kg Intake: Intake, IV Amount 50 100 Piperacillin Sodium/ 50 100 Tazobact 2.25 gm In Sodium Chloride 0.9% 50 ml @ 100 mls/hr IV Q8HR [facility] Rx#:[id number] Tube Feeding 750 Other 170 Output: Urine 115 Other: Weight Source Bedscale Active Medications: Current Medications Acetaminophen (Tylenol) 650 mg PO Q4H PRN PRN Reason: Mild Pain/Headache/T above 101 Stop: 10/29/18 21:43 Last Admin: 09/03/18 15:56 Dose: 650 mg Acetaminophen/Hydrocodone Bitart ([place] 5mg/325mg) 1 tab PO Q4H PRN PRN Reason: Pain (Mild) Stop: 11/01/18 18:58 Last Admin: 09/05/18 13:55 Dose: 1 tab Albuterol/Ipratropium (Duoneb Neb) 3 ml HHN Q6HRT [facility] Stop: 11/03/18 18:59 Last Admin: 09/08/18 13:03 Dose: 3 ml Albuterol/Ipratropium (Duoneb Neb) 3 ml HHN Q2H PRN PRN Reason: Wheezing Stop: 11/03/18 13:44 Amlodipine Besylate (Norvasc) 10 mg PO DAILY [facility] Stop: 11/03/18 13:59 Last Admin: 09/08/18 10:21 Dose: Not Given Carvedilol (Coreg) 6.25 mg PO BID [facility] Stop: 11/03/18 16:59 Last Admin: 09/08/18 10:22 Dose: Not Given Diphenhydramine HCl (Benadryl) 25 mg PO HS PRN PRN Reason: Insomnia Stop: 10/29/18 21:52 Docusate Sodium (Colace) 100 mg PO BID PRN PRN Reason: Constipation Stop: 10/29/18 21:52 Last Admin: 09/04/18 00:52 Dose: 100 mg Enalaprilat (Vasotec) 1.25 mg IVP Q8HR PRN PRN Reason: hypertension Stop: 10/29/18 23:29 Last Admin: 09/04/18 23:06 Dose: 1.25 mg Hydralazine HCl (Apresoline 20 Mg/Ml) 20 mg IV Q6HR PRN PRN Reason: SBP ABOVE 160 Stop: 11/01/18 08:24 Last Admin: 09/08/18 00:16 Dose: 20 mg Hydralazine HCl (Apresoline) 25 mg PO QID [facility] Stop: 11/03/18 13:59 Last Admin: 09/08/18 12:58 Dose: Not Given Nitroglycerin/Dextrose (Nitroglycerin 50mg/Dextrose 5% Premix) 50 mg in 250 mls @ 1.5 mls/hr IV TITR PRN; Protocol PRN Reason: BP MAINTENANCE Stop: 10/30/18 03:01 Last Titration: 09/02/18 10:12 Dose: 0 mcg/min, 0 mls/hr Norepinephrine Bitartrate 4 mg (/ Dextrose) 254 mls @ 15.24 mls/hr IV TITR PRN ; Protocol PRN Reason: BP MAINTENANCE (PER PROTOCOL) Stop: 11/02/18 09:25 Last Titration: 09/03/18 11:50 Dose: 0 mcg/min, 0 mls/hr Piperacillin Sod/Tazobactam (Sod 2.25 gm/ Sodium Chloride) 50 mls @ 100 mls/hr IV Q8HR [facility] Stop: 11/04/18 20:59 Last Admin: 09/08/18 12:47 Dose: 100 mls/hr Insulin Aspart (Novolog Insulin Sliding Scale) 0 units SUBQ Q6HR [facility]; Protocol Stop: 10/30/18 00:00 Last Admin: 09/08/18 12:46 Dose: 4 units Miscellaneous (Vte Chemical Prophylaxis Screen/ Admission) 1 [facility] PRN PRN PRN Reason: PROTOCOL Stop: 10/30/18 07:59 Miscellaneous (Clinical Monitoring) 1 [facility] DAILY PRN PRN Reason: RENAL Stop: 11/03/18 08:50 Ondansetron HCl (Zofran) 4 mg IVP Q6H PRN PRN Reason: Nausea / Vomiting Stop: 10/29/18 21:43 Last Admin: 08/31/18 14:47 Dose: 4 mg Pantoprazole Sodium (Protonix) 40 mg IVP DAILY [facility] Stop: 10/30/18 08:59 Last Admin: 09/08/18 10:13 Dose: 40 mg General: No acute distress, Other (LETHARGIC) HEENT: Atraumatic, Other (NGT) Neck: Supple Cardiovascular: Regular rate Lungs: Normal air movement Abdomen: Bowel sounds, Soft, no Tender Extremities: no Edema - Procedures Procedures: Procedures Procedure Code Date INSERTION OF INFUSION DEV INTO L SUBCLAV VEIN, PERC APPROACH 54T026L 08/30/18 ULTRASONOGRAPHY OF LEFT SUBCLAVIAN VEIN, GUIDANCE [id number] 08/30/18 Assessment/Plan - Assessment Assessment: IMPRESSION: 1. ANEMIA, MULTIFACTORIAL. POSSIBLE UGIB, NOW RESOLVED. 2. RENAL FAILURE. 3. DYSPHAGIA AND ANOREXIA. POOR ORAL INTAKE. 4. RESP FAILURE - ON/OFF BIPAP. RECS: - ORAL DIET PER SPEECH. - MONITOR ORAL CALORIC INTAKE. - WILL REMOVE NGT IN HOPES OF STIMULATING APPETITE. - IF ORAL INTAKE INSUFFICIENT, THEN WILL PLAN FOR PEG INSERTION 09/10. - HD PER RENAL. - MONITOR HGB.
--- NOTE | 2018-09-08 15:39 | General Progress Note ---
Subjective - Review of Systems Service Date: 09/08/18 Events since last encounter: No new event. Subjective: Pt is seen and examined. Confused. Family is at bedside. Objective - Results Result Diagrams: 09/08/18 05:00 09/08/18 05:00 Recent Labs: Laboratory Last Values WBC 12.9 Th/cmm (4.8-10.8) H 09/08/18 05:00 Corrected WBC (auto) Th/cmm (4.8-10.8) 09/08/18 05:00 RBC 4.20 Mil/cmm (3.80-5.20) 09/08/18 05:00 Hgb 12.5 gm/dL (12-16) 09/08/18 05:00 Hct 37.5 % (41.0-60) L 09/08/18 05:00 MCV 89.4 fl (81-100) 09/08/18 05:00 MCH 29.7 pg (27.0-31.0) 09/08/18 05:00 MCHC Differential 33.2 pg (28.0-36.0) 09/08/18 05:00 RDW 14.3 % (11.5-20.0) 09/08/18 05:00 Plt Count 125 Th/cmm (150-400) L 09/08/18 05:00 MPV 10.4 fl 09/08/18 05:00 Add Manual Diff YES 09/08/18 05:00 Neutrophils % 85.1 % (40.0-80.0) H 09/06/18 04:45 Band Neutrophils % 3 % (0-10) 09/08/18 05:00 Lymphocytes % 8.7 % (20.0-50.0) L 09/06/18 04:45 Monocytes % 5.5 % (2.0-10.0) 09/06/18 04:45 Eosinophils % 0.5 % (0.0-5.0) 09/06/18 04:45 Basophils % 0.2 % (0.0-2.0) 09/06/18 04:45 Neutrophils (Manual) 85 % (40-80) H 09/08/18 05:00 Lymphocytes 8 % (20-50) L 09/08/18 05:00 Monocytes 4 % (2-10) 09/08/18 05:00 Eosinophils 0 % (0-5) 09/08/18 05:00 Basophils 0 % (0-3) 09/08/18 05:00 Nucleated RBCs 2.0 % (0-0) H 09/05/18 04:40 Platelet Estimate DECREASED PLATELETS (NORMAL) 09/07/18 04:18 Ovalocytes 1+ 09/05/18 04:40 [place] Cells 1+ 09/05/18 04:40 PT 9.9 SECONDS (9.5-11.5) 08/30/18 17:10 INR 0.95 (0.5-1.4) 08/30/18 17:10 PTT (Actin FS) 23.0 SECONDS (26.0-38.0) L 08/30/18 17:10 Specimen Source Arterial 09/08/18 07:50 Sample Site LEFT BRACHIAL 09/08/18 07:50 pH 7.47 (7.35-7.45) H 09/08/18 07:50 pCO2 34.0 mmHg (35.0-45.0) L 09/08/18 07:50 pO2 87.0 mmHg (80.0-100.0) 09/08/18 07:50 HCO3 26.0 mEq/L (20.0-26.0) 09/08/18 07:50 Base Excess 1.4 mEq/L (-3.0-3.0) 09/08/18 07:50 O2 Saturation 97.0 % (92.0-100.0) 09/08/18 07:50 Jean [place] Test NA 09/08/18 07:50 Vent Rate NA 09/08/18 07:50 Inspired O2 28% 09/08/18 07:50 Tidal Volume NA 09/08/18 07:50 PEEP NA 09/08/18 07:50 Pressure (ins/psv/peep) NA 09/08/18 07:50 Critical Value JUAN CARLOS RT 09/08/18 07:50 Sodium 141 mEq/L (136-145) 09/08/18 05:00 Potassium 2.9 mEq/L (3.5-5.1) L* 09/08/18 05:00 Chloride 104 mEq/L (98-107) 09/08/18 05:00 Carbon Dioxide 22.0 mEq/L (21.0-31.0) 09/08/18 05:00 Anion Gap 17.9 (7.0-16.0) H 09/08/18 05:00 BUN 76 mg/dL (7-25) H 09/08/18 05:00 Creatinine 3.6 mg/dL (0.6-1.2) H 09/08/18 05:00 Est GFR ( Amer) TNP 09/08/18 05:00 Est GFR (Non-Af Amer) TNP 09/08/18 05:00 BUN/Creatinine Ratio 21.1 09/08/18 05:00 Glucose 384 mg/dL (70-105) H 09/08/18 05:00 POC Glucose 248 MG/DL (70 - 105) H 09/08/18 11:49 Calcium 7.7 mg/dL (8.6-10.3) L 09/08/18 05:00 Magnesium 1.7 mg/dL (1.9-2.7) L 09/05/18 04:40 Total Bilirubin 0.4 mg/dL (0.3-1.0) 09/08/18 05:00 AST 21 U/L (13-39) 09/08/18 05:00 ALT 20 U/L (7-52) 09/08/18 05:00 Alkaline Phosphatase 132 U/L (34-104) H 09/08/18 05:00 Ammonia 26 umol/L (16-53) 09/06/18 09:10 Troponin I 0.05 ng/mL (0.01-0.05) 08/31/18 05:20 Total Protein 5.7 gm/dL (6.0-8.3) L 09/08/18 05:00 Albumin 2.5 gm/dL (3.7-5.3) L 09/08/18 05:00 Globulin 3.2 gm/dL 09/08/18 05:00 Albumin/Globulin Ratio 0.8 (1.0-1.8) L 09/08/18 05:00 Lipase 36 U/L (11-82) 08/30/18 17:10 Urine Source CATH 08/30/18 18:30 Urine Color YELLOW 08/30/18 18:30 Urine Clarity CLEAR (CLEAR) 08/30/18 18:30 Urine pH 7.0 (4.6 - 8.0) 08/30/18 18:30 Ur Specific [place] 1.020 (1.005-1.030) 08/30/18 18:30 Urine Protein >=300 mg/dL (NEGATIVE) 08/30/18 18:30 Urine Glucose (UA) 250 mg/dL (NEGATIVE) H 08/30/18 18:30 Urine Ketones NEGATIVE mg/dL (NEGATIVE) 08/30/18 18:30 Urine Blood TRACE (NEGATIVE) 08/30/18 18:30 Urine Nitrate NEGATIVE (NEGATIVE) 08/30/18 18:30 Urine Bilirubin NEGATIVE (NEGATIVE) 08/30/18 18:30 Urine Urobilinogen 0.2 E.U./dL (0.2 - 1.0) 08/30/18 18:30 Ur Leukocyte Esterase NEGATIVE (NEGATIVE) 08/30/18 18:30 Urine RBC NONE SEEN /hpf (0-5) 08/30/18 18:30 Urine WBC 2-5 /hpf (0-5) 08/30/18 18:30 Ur Epithelial Cells FEW /lpf (FEW) 08/30/18 18:30 Urine Bacteria MODERATE /hpf (NONE SEEN) H 08/30/18 18:30 Hepatitis A IgM Ab Negative (Negative) 09/01/18 09:25 Hep Bs Antigen Negative (Negative) 09/01/18 09:25 Hep B Core IgM Ab Negative (Negative) 09/01/18 09:25 Hepatitis C Antibody <0.1 s/co ratio (0.0-0.9) 09/01/18 09:25 Blood Type O POSITIVE 09/04/18 09:40 Antibody Screen NEGATIVE 09/04/18 09:40 Crossmatch See Detail 09/04/18 09:40 - Physical Exam Vitals and I&O: Vital Signs Temp 99.8 F 09/08/18 12:28 Pulse 95 09/08/18 13:03 Resp 18 09/08/18 13:03 BP 130/59 09/08/18 12:58 Pulse Ox 99 09/08/18 13:03 Intake & Output 09/07/18 09/08/18 09/08/18 18:59 06:59 18:59 Intake Total 50 1020 Output Total 115 Balance 50 905 Weight (lbs) 49.305 kg Intake: Intake, IV Amount 50 100 Piperacillin Sodium/ 50 100 Tazobact 2.25 gm In Sodium Chloride 0.9% 50 ml @ 100 mls/hr IV Q8HR [facility] Rx#:[id number] Tube Feeding 750 Other 170 Output: Urine 115 Other: Weight Source Bedscale Active Medications: Current Medications Acetaminophen (Tylenol) 650 mg PO Q4H PRN PRN Reason: Mild Pain/Headache/T above 101 Stop: 10/29/18 21:43 Last Admin: 09/03/18 15:56 Dose: 650 mg Acetaminophen/Hydrocodone Bitart ([place] 5mg/325mg) 1 tab PO Q4H PRN PRN Reason: Pain (Mild) Stop: 11/01/18 18:58 Last Admin: 09/05/18 13:55 Dose: 1 tab Albuterol/Ipratropium (Duoneb Neb) 3 ml HHN Q6HRT [facility] Stop: 11/03/18 18:59 Last Admin: 09/08/18 13:03 Dose: 3 ml Albuterol/Ipratropium (Duoneb Neb) 3 ml HHN Q2H PRN PRN Reason: Wheezing Stop: 11/03/18 13:44 Amlodipine Besylate (Norvasc) 10 mg PO DAILY [facility] Stop: 11/03/18 13:59 Last Admin: 09/08/18 10:21 Dose: Not Given Carvedilol (Coreg) 6.25 mg PO BID [facility] Stop: 11/03/18 16:59 Last Admin: 09/08/18 10:22 Dose: Not Given Diphenhydramine HCl (Benadryl) 25 mg PO HS PRN PRN Reason: Insomnia Stop: 10/29/18 21:52 Docusate Sodium (Colace) 100 mg PO BID PRN PRN Reason: Constipation Stop: 10/29/18 21:52 Last Admin: 09/04/18 00:52 Dose: 100 mg Enalaprilat (Vasotec) 1.25 mg IVP Q8HR PRN PRN Reason: hypertension Stop: 10/29/18 23:29 Last Admin: 09/04/18 23:06 Dose: 1.25 mg Hydralazine HCl (Apresoline 20 Mg/Ml) 20 mg IV Q6HR PRN PRN Reason: SBP ABOVE 160 Stop: 11/01/18 08:24 Last Admin: 09/08/18 00:16 Dose: 20 mg Hydralazine HCl (Apresoline) 25 mg PO QID [facility] Stop: 11/03/18 13:59 Last Admin: 09/08/18 12:58 Dose: Not Given Nitroglycerin/Dextrose (Nitroglycerin 50mg/Dextrose 5% Premix) 50 mg in 250 mls @ 1.5 mls/hr IV TITR PRN; Protocol PRN Reason: BP MAINTENANCE Stop: 10/30/18 03:01 Last Titration: 09/02/18 10:12 Dose: 0 mcg/min, 0 mls/hr Norepinephrine Bitartrate 4 mg (/ Dextrose) 254 mls @ 15.24 mls/hr IV TITR PRN ; Protocol PRN Reason: BP MAINTENANCE (PER PROTOCOL) Stop: 11/02/18 09:25 Last Titration: 09/03/18 11:50 Dose: 0 mcg/min, 0 mls/hr Piperacillin Sod/Tazobactam (Sod 2.25 gm/ Sodium Chloride) 50 mls @ 100 mls/hr IV Q8HR [facility] Stop: 11/04/18 20:59 Last Admin: 09/08/18 12:47 Dose: 100 mls/hr Insulin Aspart (Novolog Insulin Sliding Scale) 0 units SUBQ Q6HR [facility]; Protocol Stop: 10/30/18 00:00 Last Admin: 09/08/18 12:46 Dose: 4 units Miscellaneous (Vte Chemical Prophylaxis Screen/ Admission) 1 [facility] PRN PRN PRN Reason: PROTOCOL Stop: 10/30/18 07:59 Miscellaneous (Clinical Monitoring) 1 [facility] DAILY PRN PRN Reason: RENAL Stop: 11/03/18 08:50 Ondansetron HCl (Zofran) 4 mg IVP Q6H PRN PRN Reason: Nausea / Vomiting Stop: 10/29/18 21:43 Last Admin: 08/31/18 14:47 Dose: 4 mg Pantoprazole Sodium (Protonix) 40 mg IVP DAILY [facility] Stop: 10/30/18 08:59 Last Admin: 09/08/18 10:13 Dose: 40 mg General: No acute distress, Other (LETHARGIC) HEENT: Atraumatic Neck: Supple Cardiovascular: Regular rate Lungs: Normal air movement Abdomen: Bowel sounds, Soft, no Tender Extremities: no Edema - Procedures Procedures: Procedures Procedure Code Date INSERTION OF INFUSION DEV INTO L SUBCLAV VEIN, PERC APPROACH [id number] 08/30/18 ULTRASONOGRAPHY OF LEFT SUBCLAVIAN VEIN, GUIDANCE [id number] 08/30/18 Assessment/Plan - Assessment Assessment: ARF ON CKD ESRD? ANEMIA GI BLEED DM HTN CVA - Plan Plan: + Pt tolerated HD. Dialyzed pt on 4K bath today since potassium is low today. Will recheck in am. Nutritional Asmnt/Malnutr-PDOC - Dietary Evaluation Malnutrition Findings (Please click <Entered> for more info): Nutritional Asmnt/Malnutrition Start: 08/31/18 15: 24 Text: Status: Complete Freq: Protocol: Document 08/31/18 15:24 CAMILLEARELI (Rec: 08/31/18 15:47 DYARELI [email or web address]) Nutritional Asmnt/Malnutrition Patient General Information Nutritional Screening High Risk Diagnosis renal failure, GI bleed Pertinent Medical Hx/Surgical Hx CVA/TIA, left side paralysis d /t CVA, HTN, hernia, prothesis Subjective Information Pt in unit w/ daughter at bedside. Language barrier d/t [place] speaking, but daughter indicated that pt had poor intake prior to admission. Per RN, pt finished 0% breakfast and swallow eval ordered d/t pt pocketing food and hx of CVA. Swallow eval done in the afternoon, ST recommended full liquid with nectar thick Current Diet Order/ Nutrition Support soft/bland Pertinent Medications D5-0.9%Ns, colace, novolog, zofran, protonix Pertinent Labs 08/31: Na 135, K 5.3, Cl 92, BUN 96, Cr 6.9, glucose 192, POC 199-201 08/30: Na 134, CL 94, Bun 91, Cr 6.6, glucose 163, POC 143 Nutritional Hx/Data Height 1.52 m Height (Calculated Centimeters) 152.4 Current Weight (lbs) 44.588 kg Weight (Calculated Kilograms) 44.6 Weight (Calculated Grams) 58390.1 [place] Body Weight 100 lb Body Mass Index (BMI) 19.2 Weight Status Approriate GI Symptoms GI Symptoms Nausea Vomitting Last BM 08/31 Food Allergies No Skin Integrity/Comment: aneudy eubanks 15 Estimated Nutritional Goals BEE in Kcals: Using Current wt Calories/Kcals/Kg 25-30 Kcals Calculated 1704-7944 Protein: Using Current wt Protein g/k-1.2 Protein Calculated 45-54 g Fluid: ml 6111-3968 (1 ml/kcal) Nutritional Problem 1. Problem Problem Altered nutrition related lab values Etiology renal failure, hyperglycimia Signs/Symptoms: BUN 96, Cr 6.9, K 5.3, glucose 192 Malnutrition Alert Is there a minimum of two criteria No selected? Query Text:Check all the applicable criteria. A minimum of two criteria are recommended for diagnosis of either severe or non-severe malnutrition. Malnutrition Related to Morbid Obesity Malnutrition related to morbid obesity No Intervention/Recommendation Comments 1. Start full liquid diet at dinner per ST recommendation. Add Nepro TID for extra kcal and protein. 2. Recommend to start renal diet when diet advanced d/t renal failure and altered BUN and Cr 3. Monitor intake, wt, labs and skin integrity 4. F/U as high risk in 2-3 days, 09/02-09/03 Expected Outcomes/Goals Expected Outcomes/Goals 1. Intake to meet at least 75% of nutritional needs 2. Wt stability, skin to remain intact, and nutrition related labs to approach normal limits Reviewed by Mariana Muller RD
--- NOTE | 2018-09-08 23:46 | Progress Notes ---
DATE: 09/08/2018 PATIENT'S IDENTIFICATION: A 77-year-old female. The patient seen and examined. The patient is more alert, awake . Family is at bedside. The patient did pass the swallow evaluation. PHYSICAL EXAMINATION: GENERAL: The patient denies any chest pain or shortness of breath. VITAL SIGNS: Temperature 99.4, pulse 97, respiratory rate 18, blood pressure 100/60. HEENT: Absent upper and lower dentition. NECK: Supple, no JVD. HEART: Regular. CHEST: Lung equal in expansion. Mild expiratory wheezing. ABDOMEN: Soft. No guarding or rigidity. Bowel sounds present. No palpable mass. EXTREMITIES: No edema. AVAILABLE DIAGNOSTIC DATA: White count 12.9, hemoglobin 12.5, platelet count of 125. Potassium of 2.9. CLINICAL IMPRESSION: 1. Hypokalemia. 2. Respiratory failure, improving. 3. Pneumonitis and congestive heart failure, improving. 4. End-stage renal disease, on hemodialysis. 5. Diabetes mellitus. 6. Degenerative joint disease. 7. Dysphagia. PLAN: 1. Nutritional support. 2. Replace potassium. 3. Hemodialysis. 4. PT, OT. 5. General nursing care. 6. Continue current medicine as prescribed. 7. Follow lab. 8. Care plan reviewed and discussed. JOB# [id number]
[2018-09-09] MEDS: Albuterol/Ipratropium Neb 3 ML AERS HHN SCH ×4 (00:48→18:48)
[2018-09-09 06:05] LABS: ANION GAP 15.3 (7.0-16.0); BUN - UREA NITROGEN 51 mg/dL (7-25); CALCIUM SERUM 7.8 mg/dL (8.6-10.3); CHLORIDE 103 mEq/L (98-107); POTASSIUM SERUM 3.3 mEq/L (3.5-5.1); SODIUM SERUM 142 mEq/L (136-145)
[2018-09-09 06:16] LABS: GLUCOSE 187 mg/dL (70-105)
[2018-09-09] MEDS: INSULIN ASPART SLIDING SCALE 100 UNITS/ML UNIT SUBQ SCH ×6 (06:21→20:50)
--- NOTE | 2018-09-09 09:04 | GI Progress Note ---
Subjective - Review of Systems Service Date: 09/09/18 Subjective: EVENTS NOTED. EATING BETTER PER SON AT BEDSIDE. Objective - Results Result Diagrams: 09/08/18 05:00 09/09/18 04:55 Recent Labs: Laboratory Last Values WBC 12.9 Th/cmm (4.8-10.8) H 09/08/18 05:00 Corrected WBC (auto) Th/cmm (4.8-10.8) 09/08/18 05:00 RBC 4.20 Mil/cmm (3.80-5.20) 09/08/18 05:00 Hgb 12.5 gm/dL (12-16) 09/08/18 05:00 Hct 37.5 % (41.0-60) L 09/08/18 05:00 MCV 89.4 fl (81-100) 09/08/18 05:00 MCH 29.7 pg (27.0-31.0) 09/08/18 05:00 MCHC Differential 33.2 pg (28.0-36.0) 09/08/18 05:00 RDW 14.3 % (11.5-20.0) 09/08/18 05:00 Plt Count 125 Th/cmm (150-400) L 09/08/18 05:00 MPV 10.4 fl 09/08/18 05:00 Add Manual Diff YES 09/08/18 05:00 Neutrophils % 85.1 % (40.0-80.0) H 09/06/18 04:45 Band Neutrophils % 3 % (0-10) 09/08/18 05:00 Lymphocytes % 8.7 % (20.0-50.0) L 09/06/18 04:45 Monocytes % 5.5 % (2.0-10.0) 09/06/18 04:45 Eosinophils % 0.5 % (0.0-5.0) 09/06/18 04:45 Basophils % 0.2 % (0.0-2.0) 09/06/18 04:45 Neutrophils (Manual) 85 % (40-80) H 09/08/18 05:00 Lymphocytes 8 % (20-50) L 09/08/18 05:00 Monocytes 4 % (2-10) 09/08/18 05:00 Eosinophils 0 % (0-5) 09/08/18 05:00 Basophils 0 % (0-3) 09/08/18 05:00 Nucleated RBCs 2.0 % (0-0) H 09/05/18 04:40 Platelet Estimate DECREASED PLATELETS (NORMAL) 09/07/18 04:18 Ovalocytes 1+ 09/05/18 04:40 [place] Cells 1+ 09/05/18 04:40 PT 9.9 SECONDS (9.5-11.5) 08/30/18 17:10 INR 0.95 (0.5-1.4) 08/30/18 17:10 PTT (Actin FS) 23.0 SECONDS (26.0-38.0) L 08/30/18 17:10 Specimen Source Arterial 09/08/18 07:50 Sample Site LEFT BRACHIAL 09/08/18 07:50 pH 7.47 (7.35-7.45) H 09/08/18 07:50 pCO2 34.0 mmHg (35.0-45.0) L 09/08/18 07:50 pO2 87.0 mmHg (80.0-100.0) 09/08/18 07:50 HCO3 26.0 mEq/L (20.0-26.0) 09/08/18 07:50 Base Excess 1.4 mEq/L (-3.0-3.0) 09/08/18 07:50 O2 Saturation 97.0 % (92.0-100.0) 09/08/18 07:50 Jean Claude Test NA 09/08/18 07:50 Vent Rate NA 09/08/18 07:50 Inspired O2 28% 09/08/18 07:50 Tidal Volume NA 09/08/18 07:50 PEEP NA 09/08/18 07:50 Pressure (ins/psv/peep) NA 09/08/18 07:50 Critical Value JUAN CARLOS RT 09/08/18 07:50 Sodium 142 mEq/L (136-145) 09/09/18 04:55 Potassium 3.3 mEq/L (3.5-5.1) L 09/09/18 04:55 Chloride 103 mEq/L (98-107) 09/09/18 04:55 Carbon Dioxide 27.0 mEq/L (21.0-31.0) 09/09/18 04:55 Anion Gap 15.3 (7.0-16.0) 09/09/18 04:55 BUN 51 mg/dL (7-25) H 09/09/18 04:55 Creatinine 3.0 mg/dL (0.6-1.2) H 09/09/18 04:55 Est GFR ( Amer) TNP 09/09/18 04:55 Est GFR (Non-Af Amer) TNP 09/09/18 04:55 BUN/Creatinine Ratio 17.0 09/09/18 04:55 Glucose 187 mg/dL (70-105) H D 09/09/18 04:55 POC Glucose 205 MG/DL (70 - 105) H 09/09/18 05:21 Calcium 7.8 mg/dL (8.6-10.3) L 09/09/18 04:55 Magnesium 1.7 mg/dL (1.9-2.7) L 09/05/18 04:40 Total Bilirubin 0.4 mg/dL (0.3-1.0) 09/08/18 05:00 AST 21 U/L (13-39) 09/08/18 05:00 ALT 20 U/L (7-52) 09/08/18 05:00 Alkaline Phosphatase 132 U/L (34-104) H 09/08/18 05:00 Ammonia 26 umol/L (16-53) 09/06/18 09:10 Troponin I 0.05 ng/mL (0.01-0.05) 08/31/18 05:20 Total Protein 5.7 gm/dL (6.0-8.3) L 09/08/18 05:00 Albumin 2.5 gm/dL (3.7-5.3) L 09/08/18 05:00 Globulin 3.2 gm/dL 09/08/18 05:00 Albumin/Globulin Ratio 0.8 (1.0-1.8) L 09/08/18 05:00 Lipase 36 U/L (11-82) 08/30/18 17:10 Urine Source CATH 08/30/18 18:30 Urine Color YELLOW 08/30/18 18:30 Urine Clarity CLEAR (CLEAR) 08/30/18 18:30 Urine pH 7.0 (4.6 - 8.0) 08/30/18 18:30 Ur Specific [place] 1.020 (1.005-1.030) 08/30/18 18:30 Urine Protein >=300 mg/dL (NEGATIVE) 08/30/18 18:30 Urine Glucose (UA) 250 mg/dL (NEGATIVE) H 08/30/18 18:30 Urine Ketones NEGATIVE mg/dL (NEGATIVE) 08/30/18 18:30 Urine Blood TRACE (NEGATIVE) 08/30/18 18:30 Urine Nitrate NEGATIVE (NEGATIVE) 08/30/18 18: Urine Bilirubin NEGATIVE (NEGATIVE) 08/30/18 18: Urine Urobilinogen 0.2 E.U./dL (0.2 - 1.0) 08/30/18 18:30 Ur Leukocyte Esterase NEGATIVE (NEGATIVE) 08/30/18 18:30 Urine RBC NONE SEEN /hpf (0-5) 08/30/18 18:30 Urine WBC 2-5 /hpf (0-5) 08/30/18 18:30 Ur Epithelial Cells FEW /lpf (FEW) 08/30/18 18:30 Urine Bacteria MODERATE /hpf (NONE SEEN) H 08/30/18 18:30 Hepatitis A IgM Ab Negative (Negative) 09/01/18 09:25 Hep Bs Antigen Negative (Negative) 09/01/18 09:25 Hep B Core IgM Ab Negative (Negative) 09/01/18 09:25 Hepatitis C Antibody <0.1 s/co ratio (0.0-0.9) 09/01/18 09:25 Blood Type O POSITIVE 09/04/18 09:40 Antibody Screen NEGATIVE 09/04/18 09:40 Crossmatch See Detail 09/04/18 09:40 - Physical Exam Vitals and I&O: Vital Signs Temp 97.8 F 09/09/18 04:00 Pulse 90 09/09/18 08:02 Resp 16 09/09/18 07:20 BP 181/81 09/09/18 08:02 Pulse Ox 98 09/09/18 07:20 Intake & Output 09/08/18 09/09/18 09/09/18 18:59 06:59 18:59 Intake Total 550 150 Output Total 1950 50 Balance -1400 100 Weight (lbs) 49.305 kg 46.72 kg Intake: Intake, IV Amount 50 50 Piperacillin Sodium/ 50 50 Tazobact 2.25 gm In Sodium Chloride 0.9% 50 ml @ 100 mls/hr IV Q8HR [facility] Rx#:[id number] Oral 500 100 Output: Urine 150 50 Hemodialysis 1800 Other: # Bowel Movements 0 0 Weight Source Bedscale Bedscale Active Medications: Current Medications Acetaminophen (Tylenol) 650 mg PO Q4H PRN PRN Reason: Mild Pain/Headache/T above 101 Stop: 10/29/18 21:43 Last Admin: 09/03/18 15:56 Dose: 650 mg Acetaminophen/Hydrocodone Bitart ([place] 5mg/325mg) 1 tab PO Q4H PRN PRN Reason: Pain (Mild) Stop: 11/01/18 18:58 Last Admin: 09/05/18 13:55 Dose: 1 tab Albuterol/Ipratropium (Duoneb Neb) 3 ml HHN Q6HRT [facility] Stop: 11/03/18 18:59 Last Admin: 09/09/18 07:17 Dose: 3 ml Albuterol/Ipratropium (Duoneb Neb) 3 ml HHN Q2H PRN PRN Reason: Wheezing Stop: 11/03/18 13:44 Amlodipine Besylate (Norvasc) 10 mg PO DAILY [facility] Stop: 11/03/18 13:59 Last Admin: 09/09/18 08:01 Dose: 10 mg Carvedilol (Coreg) 6.25 mg PO BID [facility] Stop: 11/03/18 16:59 Last Admin: 09/09/18 08:02 Dose: 6.25 mg Diphenhydramine HCl (Benadryl) 25 mg PO HS PRN PRN Reason: Insomnia Stop: 10/29/18 21:52 Docusate Sodium (Colace) 100 mg PO BID PRN PRN Reason: Constipation Stop: 10/29/18 21:52 Last Admin: 09/09/18 08:02 Dose: 100 mg Enalaprilat (Vasotec) 1.25 mg IVP Q8HR PRN PRN Reason: hypertension Stop: 10/29/18 23:29 Last Admin: 09/04/18 23:06 Dose: 1.25 mg Hydralazine HCl (Apresoline 20 Mg/Ml) 20 mg IV Q6HR PRN PRN Reason: SBP ABOVE 160 Stop: 11/01/18 08:24 Last Admin: 09/08/18 00:16 Dose: 20 mg Hydralazine HCl (Apresoline) 25 mg PO QID [facility] Stop: 11/03/18 13:59 Last Admin: 09/09/18 08:01 Dose: 25 mg Nitroglycerin/Dextrose (Nitroglycerin 50mg/Dextrose 5% Premix) 50 mg in 250 mls @ 1.5 mls/hr IV TITR PRN; Protocol PRN Reason: BP MAINTENANCE Stop: 10/30/18 03:01 Last Titration: 09/02/18 10:12 Dose: 0 mcg/min, 0 mls/hr Norepinephrine Bitartrate 4 mg (/ Dextrose) 254 mls @ 15.24 mls/hr IV TITR PRN ; Protocol PRN Reason: BP MAINTENANCE (PER PROTOCOL) Stop: 11/02/18 09:25 Last Titration: 09/03/18 11:50 Dose: 0 mcg/min, 0 mls/hr Piperacillin Sod/Tazobactam (Sod 2.25 gm/ Sodium Chloride) 50 mls @ 100 mls/hr IV Q8HR [facility] Stop: 11/04/18 20:59 Last Admin: 09/09/18 05:23 Dose: 100 mls/hr Insulin Aspart (Novolog Insulin Sliding Scale) 0 units SUBQ ACHS [facility]; Protocol Stop: 11/08/18 07:29 Miscellaneous (Vte Chemical Prophylaxis Screen/ Admission) 1 [facility] PRN PRN PRN Reason: PROTOCOL Stop: 10/30/18 07:59 Miscellaneous (Clinical Monitoring) 1 [facility] DAILY PRN PRN Reason: RENAL Stop: 11/03/18 08:50 Ondansetron HCl (Zofran) 4 mg IVP Q6H PRN PRN Reason: Nausea / Vomiting Stop: 10/29/18 21:43 Last Admin: 08/31/18 14:47 Dose: 4 mg Pantoprazole Sodium (Protonix) 40 mg IVP DAILY [facility] Stop: 10/30/18 08:59 Last Admin: 09/09/18 08:01 Dose: 40 mg General: No acute distress, Other (LETHARGIC) HEENT: Atraumatic Neck: Supple Cardiovascular: Regular rate Lungs: Normal air movement Abdomen: Bowel sounds, Soft, no Tender Extremities: no Edema - Procedures Procedures: Procedures Procedure Code Date INSERTION OF INFUSION DEV INTO L SUBCLAV VEIN, PERC APPROACH 79P043H 08/30/18 ULTRASONOGRAPHY OF LEFT SUBCLAVIAN VEIN, GUIDANCE [id number] 08/30/18 Assessment/Plan - Assessment Assessment: IMPRESSION: 1. ANEMIA, MULTIFACTORIAL. POSSIBLE UGIB, NOW RESOLVED. 2. RENAL FAILURE. 3. DYSPHAGIA AND ANOREXIA. ORAL INTAKE PERHAPS SLOWLY IMPROVING. RECS: - ORAL DIET PER SPEECH. - MONITOR ORAL CALORIC INTAKE. - IF ORAL INTAKE INSUFFICIENT, THEN CAN CONSIDER PEG INSERTION IN THE FUTURE. - HD PER RENAL. - MONITOR HGB. - FAMILY WANTS TO TAKE PATIENT HOME POST DISCHARGE.
--- NOTE | 2018-09-09 09:08 | Diagnostic Imaging Report ---
CHEST X-RAY: 2 views INDICATION: Shortness of breath COMPARISON: 09/07/2018 FINDINGS: Support devices are stable. Small left effusion is seen with left basal infiltrates. Heart size is mildly prominent. IMPRESSION: Small left effusion and left basal infiltrates.
--- NOTE | 2018-09-09 13:35 | General Progress Note ---
Subjective - Review of Systems Service Date: 09/09/18 Events since last encounter: Pt is seen and examined. Family at bedside. Subjective: Family said pt is doing much better today and eating better. The only problem is having difficulty swallowing water. He said she coughs when she drinks water. She ate well. She also has no problem with jello. He does not want to give her water because she keeps coughing when she drinks. Objective - Results Result Diagrams: 09/08/18 05:00 09/09/18 04:55 Recent Labs: Laboratory Last Values WBC 12.9 Th/cmm (4.8-10.8) H 09/08/18 05:00 Corrected WBC (auto) Th/cmm (4.8-10.8) 09/08/18 05:00 RBC 4.20 Mil/cmm (3.80-5.20) 09/08/18 05:00 Hgb 12.5 gm/dL (12-16) 09/08/18 05:00 Hct 37.5 % (41.0-60) L 09/08/18 05:00 MCV 89.4 fl (81-100) 09/08/18 05:00 MCH 29.7 pg (27.0-31.0) 09/08/18 05:00 MCHC Differential 33.2 pg (28.0-36.0) 09/08/18 05:00 RDW 14.3 % (11.5-20.0) 09/08/18 05:00 Plt Count 125 Th/cmm (150-400) L 09/08/18 05:00 MPV 10.4 fl 09/08/18 05:00 Add Manual Diff YES 09/08/18 05:00 Neutrophils % 85.1 % (40.0-80.0) H 09/06/18 04:45 Band Neutrophils % 3 % (0-10) 09/08/18 05:00 Lymphocytes % 8.7 % (20.0-50.0) L 09/06/18 04:45 Monocytes % 5.5 % (2.0-10.0) 09/06/18 04:45 Eosinophils % 0.5 % (0.0-5.0) 09/06/18 04:45 Basophils % 0.2 % (0.0-2.0) 09/06/18 04:45 Neutrophils (Manual) 85 % (40-80) H 09/08/18 05:00 Lymphocytes 8 % (20-50) L 09/08/18 05:00 Monocytes 4 % (2-10) 09/08/18 05:00 Eosinophils 0 % (0-5) 09/08/18 05:00 Basophils 0 % (0-3) 09/08/18 05:00 Nucleated RBCs 2.0 % (0-0) H 09/05/18 04:40 Platelet Estimate DECREASED PLATELETS (NORMAL) 09/07/18 04:18 Ovalocytes 1+ 09/05/18 04:40 [place] Cells 1+ 09/05/18 04:40 PT 9.9 SECONDS (9.5-11.5) 08/30/18 17:10 INR 0.95 (0.5-1.4) 08/30/18 17:10 PTT (Actin FS) 23.0 SECONDS (26.0-38.0) L 08/30/18 17:10 Specimen Source Arterial 09/08/18 07:50 Sample Site LEFT BRACHIAL 09/08/18 07:50 pH 7.47 (7.35-7.45) H 09/08/18 07:50 pCO2 34.0 mmHg (35.0-45.0) L 09/08/18 07:50 pO2 87.0 mmHg (80.0-100.0) 09/08/18 07:50 HCO3 26.0 mEq/L (20.0-26.0) 09/08/18 07:50 Base Excess 1.4 mEq/L (-3.0-3.0) 09/08/18 07:50 O2 Saturation 97.0 % (92.0-100.0) 09/08/18 07:50 Jean Claude Test NA 09/08/18 07:50 Vent Rate NA 09/08/18 07:50 Inspired O2 28% 09/08/18 07:50 Tidal Volume NA 09/08/18 07:50 PEEP NA 09/08/18 07:50 Pressure (ins/psv/peep) NA 09/08/18 07:50 Critical Value JUAN CARLOS RT 09/08/18 07:50 Sodium 142 mEq/L (136-145) 09/09/18 04:55 Potassium 3.3 mEq/L (3.5-5.1) L 09/09/18 04:55 Chloride 103 mEq/L (98-107) 09/09/18 04:55 Carbon Dioxide 27.0 mEq/L (21.0-31.0) 09/09/18 04:55 Anion Gap 15.3 (7.0-16.0) 09/09/18 04:55 BUN 51 mg/dL (7-25) H 09/09/18 04:55 Creatinine 3.0 mg/dL (0.6-1.2) H 09/09/18 04:55 Est GFR ( Amer) TNP 09/09/18 04:55 Est GFR (Non-Af Amer) TNP 09/09/18 04:55 BUN/Creatinine Ratio 17.0 09/09/18 04:55 Glucose 187 mg/dL (70-105) H D 09/09/18 04:55 POC Glucose 309 MG/DL (70 - 105) H 09/09/18 11:36 Calcium 7.8 mg/dL (8.6-10.3) L 09/09/18 04:55 Magnesium 1.7 mg/dL (1.9-2.7) L 09/05/18 04:40 Total Bilirubin 0.4 mg/dL (0.3-1.0) 09/08/18 05:00 AST 21 U/L (13-39) 09/08/18 05:00 ALT 20 U/L (7-52) 09/08/18 05:00 Alkaline Phosphatase 132 U/L (34-104) H 09/08/18 05:00 Ammonia 26 umol/L (16-53) 09/06/18 09:10 Troponin I 0.05 ng/mL (0.01-0.05) 08/31/18 05:20 Total Protein 5.7 gm/dL (6.0-8.3) L 09/08/18 05:00 Albumin 2.5 gm/dL (3.7-5.3) L 09/08/18 05:00 Globulin 3.2 gm/dL 09/08/18 05:00 Albumin/Globulin Ratio 0.8 (1.0-1.8) L 09/08/18 05:00 Lipase 36 U/L (11-82) 08/30/18 17:10 Urine Source CATH 08/30/18 18:30 Urine Color YELLOW 08/30/18 18:30 Urine Clarity CLEAR (CLEAR) 08/30/18 18:30 Urine pH 7.0 (4.6 - 8.0) 08/30/18 18:30 Ur Specific [place] 1.020 (1.005-1.030) 08/30/18 18:30 Urine Protein >=300 mg/dL (NEGATIVE) 08/30/18 18:30 Urine Glucose (UA) 250 mg/dL (NEGATIVE) H 08/30/18 18:30 Urine Ketones NEGATIVE mg/dL (NEGATIVE) 08/30/18 18:30 Urine Blood TRACE (NEGATIVE) 08/30/18 18:30 Urine Nitrate NEGATIVE (NEGATIVE) 08/30/18 18:30 Urine Bilirubin NEGATIVE (NEGATIVE) 08/30/18 18:30 Urine Urobilinogen 0.2 E.U./dL (0.2 - 1.0) 08/30/18 18:30 Ur Leukocyte Esterase NEGATIVE (NEGATIVE) 08/30/18 18:30 Urine RBC NONE SEEN /hpf (0-5) 08/30/18 18:30 Urine WBC 2-5 /hpf (0-5) 08/30/18 18:30 Ur Epithelial Cells FEW /lpf (FEW) 08/30/18 18:30 Urine Bacteria MODERATE /hpf (NONE SEEN) H 08/30/18 18:30 Hepatitis A IgM Ab Negative (Negative) 09/01/18 09:25 Hep Bs Antigen Negative (Negative) 09/01/18 09:25 Hep B Core IgM Ab Negative (Negative) 09/01/18 09:25 Hepatitis C Antibody <0.1 s/co ratio (0.0-0.9) 09/01/18 09:25 Blood Type O POSITIVE 09/04/18 09:40 Antibody Screen NEGATIVE 09/04/18 09:40 Crossmatch See Detail 09/04/18 09:40 - Physical Exam Vitals and I&O: Vital Signs Temp 97.9 F 09/09/18 08:00 Pulse 95 09/09/18 12:04 Resp 18 09/09/18 12:04 BP 181/81 09/09/18 08:02 Pulse Ox 97 09/09/18 12:04 Intake & Output 09/08/18 09/09/18 09/09/18 18:59 06:59 18:59 Intake Total 550 150 150 Output Total 1950 50 Balance -1400 100 150 Weight (lbs) 49.305 kg 46.72 kg 48.988 kg Intake: Intake, IV Amount 50 50 50 Piperacillin Sodium/ 50 50 50 Tazobact 2.25 gm In Sodium Chloride 0.9% 50 ml @ 100 mls/hr IV Q8HR [facility] Rx#:[id number] Oral 500 100 100 Output: Urine 150 50 Hemodialysis 1800 Other: # Bowel Movements 0 0 Weight Source Bedscale Bedscale Bedscale Active Medications: Current Medications Acetaminophen (Tylenol) 650 mg PO Q4H PRN PRN Reason: Mild Pain/Headache/T above 101 Stop: 10/29/18 21:43 Last Admin: 09/03/18 15:56 Dose: 650 mg Acetaminophen/Hydrocodone Bitart ([place] 5mg/325mg) 1 tab PO Q4H PRN PRN Reason: Pain (Mild) Stop: 11/01/18 18:58 Last Admin: 09/05/18 13:55 Dose: 1 tab Albuterol/Ipratropium (Duoneb Neb) 3 ml HHN Q6HRT [facility] Stop: 11/03/18 18:59 Last Admin: 09/09/18 12:04 Dose: 3 ml Albuterol/Ipratropium (Duoneb Neb) 3 ml HHN Q2H PRN PRN Reason: Wheezing Stop: 11/03/18 13:44 Amlodipine Besylate (Norvasc) 10 mg PO DAILY [facility] Stop: 11/03/18 13:59 Last Admin: 09/09/18 08:01 Dose: 10 mg Carvedilol (Coreg) 6.25 mg PO BID [facility] Stop: 11/03/18 16:59 Last Admin: 09/09/18 08:02 Dose: 6.25 mg Diphenhydramine HCl (Benadryl) 25 mg PO HS PRN PRN Reason: Insomnia Stop: 10/29/18 21:52 Docusate Sodium (Colace) 100 mg PO BID PRN PRN Reason: Constipation Stop: 10/29/18 21:52 Last Admin: 09/09/18 08:02 Dose: 100 mg Enalaprilat (Vasotec) 1.25 mg IVP Q8HR PRN PRN Reason: hypertension Stop: 10/29/18 23:29 Last Admin: 09/04/18 23:06 Dose: 1.25 mg Hydralazine HCl (Apresoline 20 Mg/Ml) 20 mg IV Q6HR PRN PRN Reason: SBP ABOVE 160 Stop: 11/01/18 08:24 Last Admin: 09/08/18 00:16 Dose: 20 mg Hydralazine HCl (Apresoline) 25 mg PO QID [facility] Stop: 11/03/18 13:59 Last Admin: 09/09/18 08:01 Dose: 25 mg Nitroglycerin/Dextrose (Nitroglycerin 50mg/Dextrose 5% Premix) 50 mg in 250 mls @ 1.5 mls/hr IV TITR PRN; Protocol PRN Reason: BP MAINTENANCE Stop: 10/30/18 03:01 Last Titration: 09/02/18 10:12 Dose: 0 mcg/min, 0 mls/hr Norepinephrine Bitartrate 4 mg (/ Dextrose) 254 mls @ 15.24 mls/hr IV TITR PRN ; Protocol PRN Reason: BP MAINTENANCE (PER PROTOCOL) Stop: 11/02/18 09:25 Last Titration: 09/03/18 11:50 Dose: 0 mcg/min, 0 mls/hr Piperacillin Sod/Tazobactam (Sod 2.25 gm/ Sodium Chloride) 50 mls @ 100 mls/hr IV Q8HR [facility] Stop: 11/04/18 20:59 Last Admin: 09/09/18 12:16 Dose: 100 mls/hr Insulin Aspart (Novolog Insulin Sliding Scale) 0 units SUBQ ACHS [facility]; Protocol Stop: 11/08/18 07:29 Last Admin: 09/09/18 12:15 Dose: 8 units Miscellaneous (Vte Chemical Prophylaxis Screen/ Admission) 1 [facility] PRN PRN PRN Reason: PROTOCOL Stop: 10/30/18 07:59 Miscellaneous (Clinical Monitoring) 1 [facility] DAILY PRN PRN Reason: RENAL Stop: 11/03/18 08:50 Ondansetron HCl (Zofran) 4 mg IVP Q6H PRN PRN Reason: Nausea / Vomiting Stop: 10/29/18 21:43 Last Admin: 08/31/18 14:47 Dose: 4 mg Pantoprazole Sodium (Protonix) 40 mg IVP DAILY [facility] Stop: 10/30/18 08:59 Last Admin: 09/09/18 08:01 Dose: 40 mg General: No acute distress, Other (sleeping. Frail.) HEENT: Atraumatic Neck: Supple Cardiovascular: Regular rate Lungs: Normal air movement Abdomen: Bowel sounds, Soft, no Tender Extremities: no Edema - Procedures Procedures: Procedures Procedure Code Date INSERTION OF INFUSION DEV INTO L SUBCLAV VEIN, PERC APPROACH [id number] 08/30/18 ULTRASONOGRAPHY OF LEFT SUBCLAVIAN VEIN, GUIDANCE [id number] 08/30/18 Assessment/Plan - Assessment Assessment: ARF ON CKD ESRD? ANEMIA GI BLEED DM HTN CVA Difficult swallowing water (coughing when drinking) - Plan Plan: + Pt tolerated HD. + Supplement potassium today + I asked nursing staff to make sure speech therapist reeval swallow. Water may need to be thickened for pt. Nutritional Asmnt/Malnutr-PDOC - Dietary Evaluation Malnutrition Findings (Please click <Entered> for more info): Nutritional Asmnt/Malnutrition Start: 08/31/18 15: 24 Text: Status: Complete Freq: Protocol: Document 08/31/18 15:24 LAURA (Rec: 08/31/18 15:47 LAURA [email or web address]) Nutritional Asmnt/Malnutrition Patient General Information Nutritional Screening High Risk Diagnosis renal failure, GI bleed Pertinent Medical Hx/Surgical Hx CVA/TIA, left side paralysis d /t CVA, HTN, hernia, prothesis Subjective Information Pt in unit w/ daughter at bedside. Language barrier d/t omani speaking, but daughter indicated that pt had poor intake prior to admission. Per RN, pt finished 0% breakfast and swallow eval ordered d/t pt pocketing food and hx of CVA. Swallow eval done in the afternoon, ST recommended full liquid with nectar thick Current Diet Order/ Nutrition Support soft/bland Pertinent Medications D5-0.9%Ns, colace, novolog, zofran, protonix Pertinent Labs 08/31: Na 135, K 5.3, Cl 92, BUN 96, Cr 6.9, glucose 192, POC 199-201 08/30: Na 134, CL 94, Bun 91, Cr 6.6, glucose 163, POC 143 Nutritional Hx/Data Height 1.52 m Height (Calculated Centimeters) 152.4 Current Weight (lbs) 44.588 kg Weight (Calculated Kilograms) 44.6 Weight (Calculated Grams) 65104.1 [place] Body Weight 100 lb Body Mass Index (BMI) 19.2 Weight Status Approriate GI Symptoms GI Symptoms Nausea Vomitting Last BM 08/31 Food Allergies No Skin Integrity/Comment: raimundo, aneudy 15 Estimated Nutritional Goals BEE in Kcals: Using Current wt Calories/Kcals/Kg 25-30 Kcals Calculated 7243-1808 Protein: Using Current wt Protein g/k-1.2 Protein Calculated 45-54 g Fluid: ml 5929-5973 (1 ml/kcal) Nutritional Problem 1. Problem Problem Altered nutrition related lab values Etiology renal failure, hyperglycimia Signs/Symptoms: BUN 96, Cr 6.9, K 5.3, glucose 192 Malnutrition Alert Is there a minimum of two criteria No selected? Query Text:Check all the applicable criteria. A minimum of two criteria are recommended for diagnosis of either severe or non-severe malnutrition. Malnutrition Related to Morbid Obesity Malnutrition related to morbid obesity No Intervention/Recommendation Comments 1. Start full liquid diet at dinner per ST recommendation. Add Nepro TID for extra kcal and protein. 2. Recommend to start renal diet when diet advanced d/t renal failure and altered BUN and Cr 3. Monitor intake, wt, labs and skin integrity 4. F/U as high risk in 2-3 days, 09/02-09/03 Expected Outcomes/Goals Expected Outcomes/Goals 1. Intake to meet at least 75% of nutritional needs 2. Wt stability, skin to remain intact, and nutrition related labs to approach normal limits Reviewed by Mariana Muller RD
[2018-09-09] MEDS ORDERED: Potassium Chloride 20 mEq ER Tab PO ONE (13:39)
--- NOTE | 2018-09-09 17:27 | Progress Notes ---
DATE: IDENTIFICATION: A 77-year-old female. SUBJECTIVE: The patient was seen and examined. OBJECTIVE: GENERAL: The patient is lying in the bed. The patient is eating lunch with the help of her son. The patient has no new event. VITAL SIGNS: Temperature 98, pulse 95, respiratory rate 18, blood pressure 180/80. HEENT: No facial asymmetry. NECK: Supple, no JVD. HEART: Regular. CHEST: Lung equal in expansion, no expiratory wheezing. ABDOMEN: Soft. EXTREMITIES: No edema. NEUROLOGIC: Alert, awake, follows commands. CLINICAL IMPRESSION: 1. End-stage renal disease, on hemodialysis. 2. Diastolic heart failure. 3. Congestive heart failure. 4. Pneumonitis. 5. Diabetes. 6. Degenerative joint disease. 7. Dysphagia. 8. Debility. PLAN: Continue current medication, which includes IV antibiotic, oxygen, nebulizer treatment. Continue hemodialysis. General nursing care with diabetes management. Discharge planning to home with outpatient dialysis to be continued at [facility] dialysis unit as well. We will arrange home health visiting nurse to provide PT, OT, general nursing care as well. Care plan reviewed and discussed with staff. JOB# [id number]
[2018-09-10] MEDS: Albuterol/Ipratropium Neb 3 ML AERS HHN SCH ×3 (00:28→12:09)
[2018-09-10 05:24] LABS: ALB/GLOB RATIO 0.8 (1.0-1.8); ALBUMIN 2.5 gm/dL (3.7-5.3); ALKALINE PHOSPHATASE 116 U/L (34-104); BILIRUBIN,TOTAL 0.5 mg/dL (0.3-1.0); BUN - UREA NITROGEN 71 mg/dL (7-25); CALCIUM SERUM 7.9 mg/dL (8.6-10.3); CARBON DIOXIDE 21.6 mEq/L (21.0-31.0); CHLORIDE 101 mEq/L (98-107); POTASSIUM SERUM 3.6 mEq/L (3.5-5.1); SGOT 24 U/L (13-39); SGPT/ALT 21 U/L (7-52); SODIUM SERUM 141 mEq/L (136-145); TOTAL PROTEIN,SERUM 5.8 gm/dL (6.0-8.3)
[2018-09-10 05:33] LABS: CREATININE - SERUM 4.2 mg/dL (0.6-1.2)
[2018-09-10 06:03] LABS: GLUCOSE 292 mg/dL (70-105)
[2018-09-10] MEDS: INSULIN ASPART SLIDING SCALE 100 UNITS/ML UNIT SUBQ SCH ×2 (06:46→11:53)
--- NOTE | 2018-09-10 09:50 | GI Progress Note ---
Subjective - Review of Systems Service Date: 09/10/18 Subjective: EVENTS NOTED. EATING BETTER PER SON AT BEDSIDE. Objective - Results Result Diagrams: 09/08/18 05:00 09/10/18 04:10 Recent Labs: Laboratory Last Values WBC 12.9 Th/cmm (4.8-10.8) H 09/08/18 05:00 Corrected WBC (auto) Th/cmm (4.8-10.8) 09/08/18 05:00 RBC 4.20 Mil/cmm (3.80-5.20) 09/08/18 05:00 Hgb 12.5 gm/dL (12-16) 09/08/18 05:00 Hct 37.5 % (41.0-60) L 09/08/18 05:00 MCV 89.4 fl (81-100) 09/08/18 05:00 MCH 29.7 pg (27.0-31.0) 09/08/18 05:00 MCHC Differential 33.2 pg (28.0-36.0) 09/08/18 05:00 RDW 14.3 % (11.5-20.0) 09/08/18 05:00 Plt Count 125 Th/cmm (150-400) L 09/08/18 05:00 MPV 10.4 fl 09/08/18 05:00 Add Manual Diff YES 09/08/18 05:00 Neutrophils % 85.1 % (40.0-80.0) H 09/06/18 04:45 Band Neutrophils % 3 % (0-10) 09/08/18 05:00 Lymphocytes % 8.7 % (20.0-50.0) L 09/06/18 04:45 Monocytes % 5.5 % (2.0-10.0) 09/06/18 04:45 Eosinophils % 0.5 % (0.0-5.0) 09/06/18 04:45 Basophils % 0.2 % (0.0-2.0) 09/06/18 04:45 Neutrophils (Manual) 85 % (40-80) H 09/08/18 05:00 Lymphocytes 8 % (20-50) L 09/08/18 05:00 Monocytes 4 % (2-10) 09/08/18 05:00 Eosinophils 0 % (0-5) 09/08/18 05:00 Basophils 0 % (0-3) 09/08/18 05:00 Nucleated RBCs 2.0 % (0-0) H 09/05/18 04:40 Platelet Estimate DECREASED PLATELETS (NORMAL) 09/07/18 04:18 Ovalocytes 1+ 09/05/18 04:40 Anjum Cells 1+ 09/05/18 04:40 PT 9.9 SECONDS (9.5-11.5) 08/30/18 17:10 INR 0.95 (0.5-1.4) 08/30/18 17:10 PTT (Actin FS) 23.0 SECONDS (26.0-38.0) L 08/30/18 17:10 Specimen Source Arterial 09/08/18 07:50 Sample Site LEFT BRACHIAL 09/08/18 07:50 pH 7.47 (7.35-7.45) H 09/08/18 07:50 pCO2 34.0 mmHg (35.0-45.0) L 09/08/18 07:50 pO2 87.0 mmHg (80.0-100.0) 09/08/18 07:50 HCO3 26.0 mEq/L (20.0-26.0) 09/08/18 07:50 Base Excess 1.4 mEq/L (-3.0-3.0) 09/08/18 07:50 O2 Saturation 97.0 % (92.0-100.0) 09/08/18 07:50 Jean Claude Test NA 09/08/18 07:50 Vent Rate NA 09/08/18 07:50 Inspired O2 28% 09/08/18 07:50 Tidal Volume NA 09/08/18 07:50 PEEP NA 09/08/18 07:50 Pressure (ins/psv/peep) NA 09/08/18 07:50 Critical Value JUAN CARLOS RT 09/08/18 07:50 Sodium 141 mEq/L (136-145) 09/10/18 04:10 Potassium 3.6 mEq/L (3.5-5.1) 09/10/18 04:10 Chloride 101 mEq/L (98-107) 09/10/18 04:10 Carbon Dioxide 21.6 mEq/L (21.0-31.0) 09/10/18 04:10 Anion Gap 22.0 (7.0-16.0) H 09/10/18 04:10 BUN 71 mg/dL (7-25) H 09/10/18 04:10 Creatinine 4.2 mg/dL (0.6-1.2) H* 09/10/18 04:10 Est GFR ( Amer) TNP 09/10/18 04:10 Est GFR (Non-Af Amer) TNP 09/10/18 04:10 BUN/Creatinine Ratio 16.9 09/10/18 04:10 Glucose 292 mg/dL (70-105) H D 09/10/18 04:10 POC Glucose 294 MG/DL (70 - 105) H 09/10/18 06:23 Calcium 7.9 mg/dL (8.6-10.3) L 09/10/18 04:10 Magnesium 1.7 mg/dL (1.9-2.7) L 09/05/18 04:40 Total Bilirubin 0.5 mg/dL (0.3-1.0) 09/10/18 04:10 AST 24 U/L (13-39) 09/10/18 04:10 ALT 21 U/L (7-52) 09/10/18 04:10 Alkaline Phosphatase 116 U/L (34-104) H 09/10/18 04:10 Ammonia 26 umol/L (16-53) 09/06/18 09:10 Troponin I 0.05 ng/mL (0.01-0.05) 08/31/18 05:20 Total Protein 5.8 gm/dL (6.0-8.3) L 09/10/18 04:10 Albumin 2.5 gm/dL (3.7-5.3) L 09/10/18 04:10 Globulin 3.3 gm/dL 09/10/18 04:10 Albumin/Globulin Ratio 0.8 (1.0-1.8) L 09/10/18 04:10 Lipase 36 U/L (11-82) 08/30/18 17:10 Urine Source CATH 08/30/18 18:30 Urine Color YELLOW 08/30/18 18:30 Urine Clarity CLEAR (CLEAR) 08/30/18 18:30 Urine pH 7.0 (4.6 - 8.0) 08/30/18 18:30 Ur Specific Alva 1.020 (1.005-1.030) 08/30/18 18:30 Urine Protein >=300 mg/dL (NEGATIVE) 08/30/18 18:30 Urine Glucose (UA) 250 mg/dL (NEGATIVE) H 08/30/18 18:30 Urine Ketones NEGATIVE mg/dL (NEGATIVE) 08/30/18 18:30 Urine Blood TRACE (NEGATIVE) 08/30/18 18:30 Urine Nitrate NEGATIVE (NEGATIVE) 08/30/18 18:30 Urine Bilirubin NEGATIVE (NEGATIVE) 08/30/18 18: Urine Urobilinogen 0.2 E.U./dL (0.2 - 1.0) 08/30/18 18:30 Ur Leukocyte Esterase NEGATIVE (NEGATIVE) 08/30/18 18:30 Urine RBC NONE SEEN /hpf (0-5) 08/30/18 18:30 Urine WBC 2-5 /hpf (0-5) 08/30/18 18:30 Ur Epithelial Cells FEW /lpf (FEW) 08/30/18 18:30 Urine Bacteria MODERATE /hpf (NONE SEEN) H 08/30/18 18:30 Hepatitis A IgM Ab Negative (Negative) 09/01/18 09:25 Hep Bs Antigen Negative (Negative) 09/01/18 09:25 Hep B Core IgM Ab Negative (Negative) 09/01/18 09:25 Hepatitis C Antibody <0.1 s/co ratio (0.0-0.9) 09/01/18 09:25 Blood Type O POSITIVE 09/04/18 09:40 Antibody Screen NEGATIVE 09/04/18 09:40 Crossmatch See Detail 09/04/18 09:40 - Physical Exam Vitals and I&O: Vital Signs Temp 97.4 F 09/10/18 07:55 Pulse 84 09/10/18 09:05 Resp 20 09/10/18 07:55 BP 105/52 09/10/18 09:05 Pulse Ox 97 09/10/18 07:55 Intake & Output 09/09/18 09/10/18 09/10/18 18:59 06:59 18:59 Intake Total 500 100 Output Total 50 125 Balance 450 -25 Weight (lbs) 48.988 kg 51.256 kg Intake: Intake, IV Amount 100 50 Piperacillin Sodium/ 100 50 Tazobact 2.25 gm In Sodium Chloride 0.9% 50 ml @ 100 mls/hr IV Q8HR GLORIA Rx#:[id number] Oral 400 50 Output: Urine 50 125 Other: # Bowel Movements 0 0 Weight Source Bedscale Bedscale Active Medications: Current Medications Acetaminophen (Tylenol) 650 mg PO Q4H PRN PRN Reason: Mild Pain/Headache/T above 101 Stop: 10/29/18 21:43 Last Admin: 09/03/18 15:56 Dose: 650 mg Acetaminophen/Hydrocodone Bitart ([place] 5mg/325mg) 1 tab PO Q4H PRN PRN Reason: Pain (Mild) Stop: 11/01/18 18:58 Last Admin: 09/05/18 13:55 Dose: 1 tab Albuterol/Ipratropium (Duoneb Neb) 3 ml HHN Q6HRT [facility] Stop: 11/03/18 18:59 Last Admin: 09/10/18 07:00 Dose: 3 ml Albuterol/Ipratropium (Duoneb Neb) 3 ml HHN Q2H PRN PRN Reason: Wheezing Stop: 11/03/18 13:44 Amlodipine Besylate (Norvasc) 10 mg PO DAILY [facility] Stop: 11/03/18 13:59 Last Admin: 09/10/18 09:04 Dose: 10 mg Carvedilol (Coreg) 6.25 mg PO BID [facility] Stop: 11/03/18 16:59 Last Admin: 09/10/18 09:03 Dose: 6.25 mg Diphenhydramine HCl (Benadryl) 25 mg PO HS PRN PRN Reason: Insomnia Stop: 10/29/18 21:52 Docusate Sodium (Colace) 100 mg PO BID PRN PRN Reason: Constipation Stop: 10/29/18 21:52 Last Admin: 09/09/18 08:02 Dose: 100 mg Enalaprilat (Vasotec) 1.25 mg IVP Q8HR PRN PRN Reason: hypertension Stop: 10/29/18 23:29 Last Admin: 09/04/18 23:06 Dose: 1.25 mg Hydralazine HCl (Apresoline 20 Mg/Ml) 20 mg IV Q6HR PRN PRN Reason: SBP ABOVE 160 Stop: 11/01/18 08:24 Last Admin: 09/10/18 03:49 Dose: 20 mg Hydralazine HCl (Apresoline) 25 mg PO QID [facility] Stop: 11/03/18 13:59 Last Admin: 09/10/18 09:05 Dose: Not Given Nitroglycerin/Dextrose (Nitroglycerin 50mg/Dextrose 5% Premix) 50 mg in 250 mls @ 1.5 mls/hr IV TITR PRN; Protocol PRN Reason: BP MAINTENANCE Stop: 10/30/18 03:01 Last Titration: 09/02/18 10:12 Dose: 0 mcg/min, 0 mls/hr Norepinephrine Bitartrate 4 mg (/ Dextrose) 254 mls @ 15.24 mls/hr IV TITR PRN ; Protocol PRN Reason: BP MAINTENANCE (PER PROTOCOL) Stop: 11/02/18 09:25 Last Titration: 09/03/18 11:50 Dose: 0 mcg/min, 0 mls/hr Piperacillin Sod/Tazobactam (Sod 2.25 gm/ Sodium Chloride) 50 mls @ 100 mls/hr IV Q8HR [facility] Stop: 11/04/18 20:59 Last Admin: 09/10/18 04:50 Dose: 100 mls/hr Insulin Aspart (Novolog Insulin Sliding Scale) 0 units SUBQ ACHS [facility]; Protocol Stop: 11/08/18 07:29 Last Admin: 09/10/18 06:46 Dose: 6 units Miscellaneous (Vte Chemical Prophylaxis Screen/ Admission) 1 [facility] PRN PRN PRN Reason: PROTOCOL Stop: 10/30/18 07:59 Miscellaneous (Clinical Monitoring) 1 [facility] DAILY PRN PRN Reason: RENAL Stop: 11/03/18 08:50 Ondansetron HCl (Zofran) 4 mg IVP Q6H PRN PRN Reason: Nausea / Vomiting Stop: 10/29/18 21:43 Last Admin: 08/31/18 14:47 Dose: 4 mg Pantoprazole Sodium (Protonix) 40 mg IVP DAILY [facility] Stop: 10/30/18 08:59 Last Admin: 09/10/18 09:05 Dose: 40 mg General: No acute distress, Other (sleeping. Frail.) HEENT: Atraumatic Neck: Supple Cardiovascular: Regular rate Lungs: Normal air movement Abdomen: Bowel sounds, Soft, no Tender Extremities: no Edema - Procedures Procedures: Procedures Procedure Code Date INSERTION OF INFUSION DEV INTO L SUBCLAV VEIN, PERC APPROACH 31T032Z 08/30/18 ULTRASONOGRAPHY OF LEFT SUBCLAVIAN VEIN, GUIDANCE [id number] 08/30/18 Assessment/Plan - Assessment Assessment: IMPRESSION: 1. ANEMIA, MULTIFACTORIAL. POSSIBLE UGIB, NOW RESOLVED. 2. RENAL FAILURE. 3. DYSPHAGIA AND ANOREXIA. ORAL INTAKE PERHAPS SLOWLY IMPROVING. RECS: - ORAL DIET PER SPEECH. - MONITOR ORAL CALORIC INTAKE. - IF ORAL INTAKE INSUFFICIENT, THEN CAN CONSIDER PEG INSERTION IN THE FUTURE. - HD PER RENAL. - MONITOR HGB. - FAMILY WANTS TO TAKE PATIENT HOME POST DISCHARGE.
--- NOTE | 2018-09-10 09:55 | Progress Notes ---
DATE: 09/10/2018 IDENTIFICATION: A 77-year-old female. SUBJECTIVE: The patient seen and examined. The patient is resting comfortably, easy to awake. The patient has no new complaint. The patient's son is at bedside. The patient was able to eat her breakfast as well. The patient has no active GI bleed or any other symptoms. The patient remained hemodynamically stable. PHYSICAL EXAMINATION: VITAL SIGNS: Temperature 97.4, pulse 84, respiratory rate is 18, blood pressure 105/52. HEENT: No facial asymmetry. Absent upper and lower dentition noted. NECK: Supple, no JVD. HEART: Regular. CHEST AND LUNGS: Equal in expansion, no expiratory wheezing. ABDOMEN: Soft. EXTREMITIES: No edema. NEUROLOGIC: Nonfocal with decreased power throughout the upper and lower extremity. CLINICAL IMPRESSION: 1. End-stage renal disease, on hemodialysis. 2. Diastolic heart failure. 3. Congestive heart failure. 4. Acute respiratory failure, resolved. 5. Pneumonitis, better. 6. Diabetes. 7. Degenerative joint disease. 8. Dysphagia. 9. Debility. 10. Gastritis, most likely. PLAN: Discharge the patient to home since the patient's family does not want at this time to put this patient in care home, so we will discharge the patient was sent home with home health visiting nurse to follow. Physical therapy and occupational therapy and speech therapy to be given at home along with outpatient dialysis to be arranged as well. The patient will be given new prescription for her and blood pressure as well as diabetes mellitus. The patient will be seen by her primary care physician in 1 week. [facility]# [id number]
--- NOTE | 2018-09-10 10:38 | Discharge Summary ---
DATE OF DISCHARGE: 09/10/2018 PRINCIPAL DIAGNOSES: 1. End-stage renal disease, on hemodialysis. 2. Severe anion gap metabolic acidosis secondary to uremia. 3. Hyperkalemia, resolved. 4. Uncontrolled hypertension is better controlled after hemodialysis and adjusting blood pressure medicine. 5. Atypical chest pain. 6. Coffee-ground emesis x 1 probably secondary to gastritis. 7. Diabetes mellitus. 8. Pneumonitis. 9. Diastolic heart failure. 10. Congestive heart failure. 11. Hyperlipidemia. 12. Degenerative joint disease. 13. Osteoporosis. 14. Decline in self-care and mobility. BRIEF STATEMENT FOR THE REASON FOR ADMISSION: A 77-year-old female presented to Emergency Room for evaluation of chest pain, body ache, and poor appetite associated with mild coffee-ground emesis. The patient was seen by Emergency Room MD and subsequently admitted to the hospital for further treatment. Please refer to my medical H and P for further information. HOSPITAL COURSE: The patient was admitted to ICU. The patient was placed on nitro drip. Cardiac enzymes were obtained, which were negative. Nephrology, GI and Cardiology consultation requested. CT scan of the chest was also done. The patient did have acute kidney injury workup as well. The patient's appropriate home medicine was reconciliated. The patient did have a 2D echocardiogram done, which was read by Dr. Jcarlos Day, which read as a normal ejection fraction with hypertrophy of left ventricle with severe pulmonary hypertension along with severe tricuspid regurgitation, and right ventricular systolic pressure of 61 mmHg was reported. The patient was also noted to have worsening renal failure, which did require insertion of Alejandro catheter followed by hemodialysis. The patient's antihypertensive medications were adjusted as well. The patient did have a waxing and waning mental status with respiratory failure. The patient did require BiPAP. Subsequently, the patient started to improve with the treatment plan provided by myself as well as technology consultant. Follow up chest x-ray did reveal improving infiltrate as well. The patient was transferred to telemetry unit until the patient was discharged. The patient and the patient's family were constantly updated over the patient's condition, diagnosis and treatment plan. I did have a discussion with the patient's family about placing her in [facility] for rehabilitation, which the patient's family declined as well. After the patient was evaluated by me on 09/10/2018, a decision is made that the patient can be discharged home with home health visiting nurse for PT, OT and speech therapy. The patient will get her dialysis 3 times a week by [facility] as well. The patient is discharged in stable condition with new prescription. Please see the chart. The patient's family has been informed that the patient should see her pneumatic tester mechanic in 1 to 2-week as well. JOB# [id number]
== END 2018-09-10 16:00 | disposition home health service (06) | DRG 241 ==
LOC: ER 16:28 → ICU 21:45 → TELE 09-07 19:26
PROVIDERS: ADMIT Internal Medicine; ATTEND Internal Medicine
PROC: 5A1D70Z Performance of Urinary Filtration, Intermittent, Less than 6 Hours Per Day (ICD-10-PCS; principal; 2018-09-01)
PROC: 02HV33Z Insertion of Infusion Device into Superior Vena Cava, Percutaneous Approach (ICD-10-PCS; 2018-09-01)
PROC: B548ZZA Ultrasonography of Superior Vena Cava, Guidance (ICD-10-PCS; 2018-09-01)
PROC: 5A1D70Z Performance of Urinary Filtration, Intermittent, Less than 6 Hours Per Day (ICD-10-PCS; 2018-09-03)
PROC: 5A1D70Z Performance of Urinary Filtration, Intermittent, Less than 6 Hours Per Day (ICD-10-PCS; 2018-09-04)
PROC: 30233N1 Transfusion of Nonautologous Red Blood Cells into Peripheral Vein, Percutaneous Approach (ICD-10-PCS; 2018-09-04)
PROC: 5A09357 Assistance with Respiratory Ventilation, Less than 24 Consecutive Hours, Continuous Positive Airway Pressure (ICD-10-PCS; 2018-09-05)
PROC: 5A1D70Z Performance of Urinary Filtration, Intermittent, Less than 6 Hours Per Day (ICD-10-PCS; 2018-09-06)
PROC: 5A09357 Assistance with Respiratory Ventilation, Less than 24 Consecutive Hours, Continuous Positive Airway Pressure (ICD-10-PCS; 2018-09-06)
PROC: 0JH63WZ Insertion of Totally Implantable Vascular Access Device into Chest Subcutaneous Tissue and Fascia, Percutaneous Approach (ICD-10-PCS; 2018-09-07)
PROC: 02HV33Z Insertion of Infusion Device into Superior Vena Cava, Percutaneous Approach (ICD-10-PCS; 2018-09-07)
PROC: B5181ZA Fluoroscopy of Superior Vena Cava using Low Osmolar Contrast, Guidance (ICD-10-PCS; 2018-09-07)
PROC: 5A1D70Z Performance of Urinary Filtration, Intermittent, Less than 6 Hours Per Day (ICD-10-PCS; 2018-09-08)
DX: K29.71 Gastritis, unspecified, with bleeding (principal); N17.0 Acute kidney failure with tubular necrosis; J96.01 Acute respiratory failure with hypoxia; E43 Unspecified severe protein-calorie malnutrition; G93.40 Encephalopathy, unspecified; J18.9 Pneumonia, unspecified organism; E87.5 Hyperkalemia; I12.0 Hypertensive chronic kidney disease with stage 5 chronic kidney disease or end stage renal disease; I27.20 Pulmonary hypertension, unspecified; R34 Anuria and oliguria; R13.10 Dysphagia, unspecified; N18.6 End stage renal disease; M19.90 Unspecified osteoarthritis, unspecified site; M81.0 Age-related osteoporosis without current pathological fracture; I69.354 Hemiplegia and hemiparesis following cerebral infarction affecting left non-dominant side; I16.1 Hypertensive emergency; D50.9 Iron deficiency anemia, unspecified; E78.5 Hyperlipidemia, unspecified; I25.119 Atherosclerotic heart disease of native coronary artery with unspecified angina pectoris; I70.0 Atherosclerosis of aorta; I95.2 Hypotension due to drugs; T46.5X5A Adverse effect of other antihypertensive drugs, initial encounter; Y92.89 Other specified places as the place of occurrence of the external cause; I50.30 Unspecified diastolic (congestive) heart failure; D63.1 Anemia in chronic kidney disease; I07.1 Rheumatic tricuspid insufficiency; Z68.22 Body mass index [BMI] 22.0-22.9, adult; Z83.3 Family history of diabetes mellitus; Z82.49 Family history of ischemic heart disease and other diseases of the circulatory system; Z79.82 Long term (current) use of aspirin; Z79.84 Long term (current) use of oral hypoglycemic drugs
CPT/HCPCS: 36415-UA; 36600-90; 71045-TC; 71046-TC; 71250-TC; 74000-TC; 76000-TC; 76770-TC; 80048-TC; 80053-TC; 80074-90; 81001-TC; 82140-TC; 82803-TC; 82948-90; 83036-90; 83690-TC; 83735-TC; 84484-TC; 85007-TC; 85025-TC; 85610-TC; 85730-TC; 86850-TC; 86900-TC; 86901-TC; 86922-TC; 87086-90; 90937; 93005; 93307-TC; 94660; 94760; 96374; 96376; 97530; C9113; J0360; J1644; J1815; J2405; J2543; J2704; J2997; J3475; J3480; J7030; J7042; P9016; X3401; X3904; X6452; Z7610